=== PATIENT | female | born 1950 | race Caucasian/White ===

== ENCOUNTER 2018-07-02 10:24 | Outpatient (CLI) | payer MEDICARE, MEDICAID, SELFPAY ==
[2018-07-02 11:05] LABS: HGB 12.6 g/dL (12.0-15.5); Mean Corp. HGB Concentration 33.2 g/dL (32.0-36.0); Mean Corpuscular Hemoglobin 28.8 pg (27.0-33.0); Mean Platelet Volume 8.5 fL (8.0-11.0); Platelet Count 378 x1000/uL (130-400); RBC 4.37 m/cumm (4.00-5.20); RBC Distribution Width 14.5 % (11.7-14.6); White Blood Cell Count 6.91 k/cumm (4.4-10.8)
[2018-07-02 13:09] LABS: ALT 20 U/L (12-78); AST 17 U/L (15-37); Albumin 3.3 g/dL (3.4-5.0); Alkaline Phosphatase 98 U/L (46-116); Anion Gap 8.7 mmol/L (3-11); BUN 19 mg/dL (7-18); Bilirubin, Total 0.3 mg/dL (0.2-1.0); CO2 28.3 mmol/L (21.0-32.0); Chloride 103 mmol/L (98-107); Cholesterol 224 mg/dL (50-200); Glucose 92 mg/dL (70-100); HDL Cholesterol 72 mg/dL (40-60); LDL CHOLESTEROL 126 mg/dL (<100); Potassium 4.5 mmol/L (3.5-5.1); Sodium 140 mmol/L (136-145); TSH (W/Ref FT4) 4.58 uIU/mL (0.358-3.74); Total Protein 6.6 g/dL (6.4-8.2); Triglyceride 103 mg/dL (30-150)
[2018-07-02 13:50] LABS: FREE T4 0.95 ng/dL (0.76-1.46)
== END 2018-07-02 10:44 ==
PROVIDERS: PCP Nurse Practitioner; Visit Provider Nurse Practitioner
DX: E03.9 Hypothyroidism, unspecified (principal); I10 Essential (primary) hypertension; J44.9 Chronic obstructive pulmonary disease, unspecified
CPT/HCPCS: 36415; 80053; 80061; 83721; 85027; 84439; 84443

== ENCOUNTER 2018-07-28 09:47 | Emergency (ER) | payer MEDICARE, MEDICAID, SELFPAY ==
[2018-07-28 10:00] VITALS: BP 161/80; PULSE 90; RESP 18; TEMP 36.6; O2SAT 99
[2018-07-28 10:16] LABS: Bilirubin Negative (Negative); Blood Negative (Negative); Clarity Clear; Glucose Negative (Negative); Ketones Negative (Negative); Leukocyte Esterase Small (Negative); Nitrite Negative (Negative); Urobilinogen 0.2 EU/dL (Up TO 0.2)
--- NOTE | 2018-07-28 10:27 | ED.GENADUL_ITS ---
Discharge Plan Disposition Patient Disposition: HOME Condition: Stable Discharge Details Chief Complaint: Abd Prob Clinical Impression: UTI (urinary tract infection), Side pain Primary Care Provider: Kristine Carter ED Provider: Nasra Capps Home Meds and New Rx's Prescriptions: New cephalexin [Keflex] 500 mg capsule 500 mg PO BID 7 Days Qty: 14 RF: 0 Continued bupropion HCl 300 mg tablet extended release 24 hr 300 mg PO QAM Qty: 90 RF: 3 Systane Ultra 0.4-0.3 % drops 1 drp OP DAILY PRNRF: 0 EasiVent Mask Large 1 EACH device 1 ea Miscellaneous DIRECTED Qty: 1 RF: 0 albuterol sulfate [ProAir HFA] 8.5 GM HFA aerosol inhaler 2 puff Inhalation Q4H PRN Qty: 1 RF: 6 omeprazole 40 MG capsule,delayed release(DR/EC) 40 mg PO DAILY Qty: 90 RF: 4 Pulmicort Flexhaler 180 MCG aerosol powdr breath activated 180 mcg Inhalation BID Qty: 3 RF: 3 Bevespi Aerosphere 9-4.8 mcg HFA aerosol inhaler 2 puff IH BID RF: 0 levothyroxine 50 mcg tablet 50 mcg PO DAILY Qty: 90 RF: 3 Discharge Instructions Instructions: Urinary Tract Infection in Women (ED), Flank Pain (ED) Additional Instructions: Drink plenty of fluids and get plenty of rest. Take Tylenol as needed and directed for pain. Continue your omeprazole. Take your antibiotics until finished. Follow-up with your primary care doctor in 1 week for reevaluation and for referral to surgery if your pain persists for consideration for repeat EGD for your peptic ulcer disease. Return immediately to the emergency department any worsening or new concerning symptoms. Discharge Data Discharge Date/Time-TO BE ENTERED AT DEPARTURE: 07/28/18 13:20 Discharge Physician: Nasra Capps Medical Decision Making 68yo F w/ a h/o OA, COPD, depression, GERD, HTN, HLD, IBS, Thiago's esophagus w/ RUQ abdominal with radiation to R flank x 2 weeks and stinky and dark urine x 2 months. Vitals within normal limits. No RUQ abdominal tenderness to palpation but with tenderness of the right upper quadrant, reproduces right flank pain. The remainder of her abdomen is soft and nontender. Differential diagnosis includes cholelithiasis, cholecystitis, appendicitis, UTI, pyelonephritis. Will place an IV, bolus IV fluids, labs, urinalysis and CT abdomen and pelvis. Patient declined any medication for pain. 1300 -- labs and imaging reviewed. Normal white blood cell count, electrolytes, negative troponin. Urinalysis notes greater than 50 WBCs, moderate bacteria, small leukocyte esterase, urine culture sent. CT no acute abdominal findings. On reexamination of abdomen, patient has pain with movement and tenderness to palpation in her right lateral abdomen. Discussed with patient that this appears likely musculoskeletal, but other differential diagnoses include shingles. She is instructed to f/u with her pcp in 1 week for re-evaluation and for referral to surgery for re-evaluation and for another EGD to r/o PUD if pain persists. Will give a dose of Keflex here and sent home with prescription. Patient was able to drink water and eat crackers and had no complaints of nausea or vomiting and feels good to go home. She was instructed to return here immediately with a ny worsening or new concerning symptoms. Medical Records Medical records reviewed: Yes I reviewed the patient's medical records. Lab Data Lab results reviewed: Yes I reviewed the patient's lab results. 07/28/18 10:01 Urine - Reflex from Ua Urine Culture - Pending Laboratory Tests Range/Units 07/28/18 07/28/18 07/28/18 10:01 10:49 10:49 WBC (4.4-10.8) k/cumm RBC (4.00-5.20) m/cumm Hgb (12.0-15.5) g/dL Hct (36.0-46.0) % MCV (80-95) fL MCH (27.0-33.0) pg MCHC (32.0-36.0) g/dL RDW (11.7-14.6) % Plt Count (130-400) x1000/uL MPV (8.0-11.0) fL Immature Gran % Neutrophils % Lymphocytes % Monocytes % Eosinophils % Basophils % Absolute Neutrophils (1.2-6.7) k/cumm Absolute Lymphocytes (1.2-3.4) k/cumm Absolute Monocytes (0.11-0.7) k/cumm Absolute Eosinophils (0.0-0.7) k/cumm Absolute Basophils (0.0-0.2) k/cumm Sodium (136-145) mmol/L 138 Potassium (3.5-5.1) mmol/L 4.0 Chloride (98-107) mmol/L 101 Carbon Dioxide (21.0-32.0) mmol/L 27.9 Anion Gap (3-11) mmol/L 9.1 BUN (7-18) mg/dL 14 Creatinine (0.55-1.02) mg/dL 0.92 Estimated GFR/1.73 m2 (mL/min/1.73m2) >= 60.00 Glucose (70-100) mg/dL 93 Calcium (8.5-10.1) mg/dL 9.1 Magnesium (1.8-2.4) mg/dL 1.8 Total Bilirubin (0.2-1.0) mg/dL 0.4 AST (15-37) U/L 18 ALT (12-78) U/L 21 Alkaline Phosphatase (46-116) U/L 108 Troponin I (0.00-0.06) ng/mL 0.02 Total Protein (6.4-8.2) g/dL 7.2 Albumin (3.4-5.0) g/dL 3.5 Lipase (73-393) U/L 155 Urine Color (Yellow) Yellow Urine Clarity Clear Urine pH (5-8) 7.0 Ur Specific [place] (1.005-1.025) 1.010 Urine Protein (Negative) mg/dL Negative Urine Ketones (Negative) mg/dL Negative Urine Blood (Negative) Negative Urine Nitrite (Negative) Negative Urine Bilirubin (Negative) Negative Urine Urobilinogen (Up TO 0.2) EU/dL 0.2 Ur Leukocyte Esterase (Negative) Small H Urine RBC (0-2) Negative Urine WBC (0-5) HPF >50 Ur Epithelial Cells (Negative) HPF Rare Urine Crystals (Negative) HPF Negative Urine Bacteria (Negative) HPF Moderate Urine Mucus (Negative) Trace Urine Other (Negative) Few renal Ur Culture Indicated? Yes Urine Glucose (Negative) mg/dL Negative Range/Units 07/28/18 10:49 WBC (4.4-10.8) k/cumm 7.31 RBC (4.00-5.20) m/cumm 4.64 Hgb (12.0-15.5) g/dL 13.2 Hct (36.0-46.0) % 39.9 MCV (80-95) fL 86.0 MCH (27.0-33.0) pg 28.4 MCHC (32.0-36.0) g/dL 33.1 RDW (11.7-14.6) % 14.1 Plt Count (130-400) x1000/uL 422 H MPV (8.0-11.0) fL 8.5 Immature Gran % 0.3 Neutrophils % 67.2 Lymphocytes % 21.5 Monocytes % 6.3 Eosinophils % 4.2 Basophils % 0.5 Absolute Neutrophils (1.2-6.7) k/cumm 4.91 Absolute Lymphocytes (1.2-3.4) k/cumm 1.57 Absolute Monocytes (0.11-0.7) k/cumm 0.46 Absolute Eosinophils (0.0-0.7) k/cumm 0.31 Absolute Basophils (0.0-0.2) k/cumm 0.04 Sodium (136-145) mmol/L Potassium (3.5-5.1) mmol/L Chloride (98-107) mmol/L Carbon Dioxide (21.0-32.0) mmol/L Anion Gap (3-11) mmol/L BUN (7-18) mg/dL Creatinine (0.55-1.02) mg/dL Estimated GFR/1.73 m2 (mL/min/1.73m2) Glucose (70-100) mg/dL Calcium (8.5-10.1) mg/dL Magnesium (1.8-2.4) mg/dL Total Bilirubin (0.2-1.0) mg/dL AST (15-37) U/L ALT (12-78) U/L Alkaline Phosphatase (46-116) U/L Troponin I (0.00-0.06) ng/mL Total Protein (6.4-8.2) g/dL Albumin (3.4-5.0) g/dL Lipase (73-393) U/L Urine Color (Yellow) Urine Clarity Urine pH (5-8) Ur Specific [place] (1.005-1.025) Urine Protein (Negative) mg/dL Urine Ketones (Negative) mg/dL Urine Blood (Negative) Urine Nitrite (Negative) Urine Bilirubin (Negative) Urine Urobilinogen (Up TO 0.2) EU/dL Ur Leukocyte Esterase (Negative) Urine RBC (0-2) Urine WBC (0-5) HPF Ur Epithelial Cells (Negative) HPF Urine Crystals (Negative) HPF Urine Bacteria (Negative) HPF Urine Mucus (Negative) Urine Other (Negative) Ur Culture Indicated? Urine Glucose (Negative) mg/dL HPI General Mode of arrival: ambulatory . Date/Time Provider Initiated Documentation: 07/28/18 10:06 . Limitations to Documentation: no limitations . Information obtained by: patient . HPI Narrative: Pt is a 68yo F with a history of COPD, depression, GERD, hypertension, IBS and Edouard's esophagus who presents with right upper quadrant and right flank pain for the past 2 weeks. Patient states the pain radiates to her right upper quadrant and down to her right flank. She states the pain is constant, sharp and worse with any movement or eating. She denies any known injury. She states the pain feels like a burning fire sensation. She does admit to a history of a peptic ulcer found on EGD 4 years ago for which she takes omeprazole. She does also admit to stinky urine for the past 2 months. She denies any dysuria, hematuria, urinary frequency or hesitancy. Related Data Home Medications Medication Instructions Recorded Confirmed EasiVent Mask Large #1 ea 09/01/13 06/29/18 albuterol sulfate [ProAir HFA] 2 puff INHALATION Q4H PRN #1 11/12/17 07/28/18 inhaler Pulmicort Flexhaler 180 mcg INHALATION BID #3 inhaler 11/16/17 07/28/18 omeprazole 40 mg PO DAILY #90 tab-cap 11/16/17 07/28/18 glycopyrrolate 9 mcg-formoterol 2 puff IH BID 02/09/18 07/28/18 4.8 mcg HFA aerosol inhaler peg 400-propylene glycol 0.4 %-0.3 1 drp OP DAILY PRN 03/31/18 07/28/18 % eye drops bupropion HCl XL 300 mg 24 hr 300 mg PO QAM #90 tab 06/29/18 07/28/18 tablet, extended release levothyroxine 50 mcg tablet 50 mcg PO DAILY #90 tab 07/05/18 07/28/18 cephalexin [Keflex] 500 mg PO BID 7 Days #14 cap 07/28/18 Previous Rx's Medication Instructions Recorded albuterol sulfate [ProAir HFA] 2 puff INHALATION Q4H PRN #1 11/12/17 inhaler Pulmicort Flexhaler 180 mcg INHALATION BID #3 inhaler 11/16/17 omeprazole 40 mg PO DAILY #90 tab-cap 11/16/17 bupropion HCl XL 300 mg 24 hr 300 mg PO QAM #90 tab 06/29/18 tablet, extended release levothyroxine 50 mcg tablet 50 mcg PO DAILY #90 tab 07/05/18 cephalexin [Keflex] 500 mg PO BID 7 Days #14 cap 07/28/18 Allergies Allergy/AdvReac Type Severity Reaction Status Date / Time tramadol Allergy Severe ITCHING, Unverified 07/28/18 10:01 GI UPSET hydrocodone bitartrate Allergy Intermediate RASH, Unverified 07/28/18 10:01 [From Vicodin] ITCHING desipramine AdvReac Intermediate PALPITATION Unverified 07/28/18 10:01 S fluticasone propionate AdvReac Intermediate COUGH Unverified 07/28/18 10:01 [From Advair Diskus] pregabalin [From Lyrica] AdvReac Intermediate CONFUSION Unverified 07/28/18 10:01 salmeterol xinafoate AdvReac Intermediate COUGH Unverified 07/28/18 10:01 [From Advair Diskus] methylprednisolone sodium AdvReac Mild Agitation Unverified 07/28/18 10:01 succinate [From Solu-Medrol] paroxetine HCl [From Paxil] AdvReac Mild JITTERY Unverified 07/28/18 10:01 sertraline HCl [From Zoloft] AdvReac Mild JITTERY Unverified 07/28/18 10:01 omeprazole AdvReac Unknown GI UPSET Unverified 07/28/18 10:01 acetaminophen AdvReac nausea, Unverified 07/28/18 10:01 vomiting General Stated Complaint: Abd Prob NATY: 3 Review of Systems Review of Systems All systems reviewed & are unremarkable except as noted in HPI and below Constitutional Reports as per HPI, Denies chills and Denies fever(s) Eyes Denies blurry vision ENT Denies dizziness, Denies sore throat and Denies throat swelling Cardiovascular Denies chest pain and Denies dyspnea Respiratory Denies cough and Denies dyspnea Gastrointestinal Reports abdominal pain, Denies diarrhea and Reports vomiting Genitourinary Denies hematuria, Denies urinary frequency, Denies dysuria, Denies urinary incontinence, Denies urinary hesitancy, Denies urinary urgency and Reports other Musculoskeletal Denies back pain and Denies numbness Integumentary/Breasts Denies lesions and Denies rash Neurologic Denies dizziness, Denies focal weakness and Denies numbness Allergic/Immunologic Denies throat swelling [facility] Medical History Edouard esophagus COPD (chronic obstructive pulmonary disease) Depression Diverticulitis HTN (hypertension) Hypothyroidism Irritable colon Osteoarthritis Sialoadenitis Surgical History Arthroscopy, Shoulder Colectomy Colonoscopy - MAC (09/24/16) EGD - IV Sedation EGD - MAC (09/24/16) Extraction of cataract Elyssa Fundoplication (~1995) Open Carpal Tunnel release (~1985) Replacement of total knee joint (~2004) Family History Mother Diabetes Essential hypertension Personal history of malignant neoplasm Hyperlipidemia Asthma Father Essential hypertension Personal history of malignant neoplasm Heart disease Hyperlipidemia Sister Drug abuse Essential hypertension COPD (chronic obstructive pulmonary disease) Depression Heart disease Hyperlipidemia Asthma Grandfather Essential hypertension Personal history of malignant neoplasm Heart disease Hyperlipidemia Stroke Grandfather Alcohol abuse Heart disease Stroke Grandmother Essential hypertension Personal history of malignant neoplasm Hyperlipidemia Grandmother Alcohol abuse Personal history of malignant neoplasm Heart disease Son Depression Heart disease Asthma Son Alcohol abuse Essential hypertension Depression Daughter Essential hypertension Asthma Daughter Essential hypertension Depression Hyperlipidemia Social History lives independently: Yes number of children: 4 highest education level completed: high school graduate service: No current occupational status: retired and disabled pets and animals: Yes pets and animals: cat(s) and dog(s) current gender identity: female what type of physical activity do you participate in: walking frequency: daily Smoking and Tabacco status: Former Tobacco Use alcohol intake: current alcohol intake frequency: a few times a month substance use type: does not use Seatbelt use: always water heater temp set < 120 deg: Yes working smoke detector in home: Yes fire extinguisher in home: Yes carbon monox detector in home: Yes firearms in home: Yes firearms unloaded and locked: Yes Exam Const General: cooperative, healthy appearing and no acute distress HENMT Head: normal to inspection Face and sinus: normal facial exam Eyes General: appearance normal, both eyes and all related structures EOM: EOM intact bilaterally Neck Neck: normal visual inspection and No submandibular swelling Lymphatic: no lymphadenopathy noted Chest Chest: normal inspection of the chest and no tenderness Resp Effort & Inspection: normal respiratory effort and able to speak in complete sentences Auscultation: clear to auscultation bilaterally Cardio Rate: regular rate Rhythm: regular rhythm GI Inspection: normal to inspection Palpation: soft, not firm, not rigid and tender (palpation of RUQ reproduces pain in R flank. No RUQ tenderness) not at McBurney's point Auscultation: normal bowel sounds Back/Spine/Pelvis Back: no CVA tenderness Thoracic/Lumbar Spine: thoracic and lumbar spine normal to inspection Skin General skin exam: no rashes or lesions noted Neuro General: alert, awake and oriented x3 Cognition: normal cognition Speech: speech normal Motor: muscle tone normal throughout Sensory Exam: no sensory deficits noted Extrem General: normal to inspection, full ROM, normal capillary refill, no calf tenderness bilaterally and no edema Psych Appearance: grossly normal Mental Status: mental status grossly normal Speech and Movement: speech and movement normal Affect: normal affect Course Vital Signs Temperature 98 F 07/28/18 10:00 Pulse 90 07/28/18 10:00 Respiratory Rate 18 07/28/18 10:00 Blood Pressure 161/80 H 07/28/18 10:00 Pulse Oximetry 99 07/28/18 10:00 Temperature 98 F 07/28/18 10:00 Temperature Source Skin 07/28/18 10:00 Pulse 90 07/28/18 10:00 Respiratory Rate 18 07/28/18 10:00 Blood Pressure 161/80 H 07/28/18 10:00 Pulse Oximetry 99 07/28/18 10:00 Oxygen Delivery Method Room Air 07/28/18 10:00 Oxygen Flow Rate 0 07/28/18 10:00 Pain Level 4 07/28/18 10:00 Lab/Test Results Lab/Test Results: Laboratory Tests Range/Units 07/28/18 10:01 Urine Color (Yellow) Yellow Urine Clarity Clear Urine pH (5-8) 7.0 Ur Specific [place] (1.005-1.025) 1.010 Urine Protein (Negative) mg/dL Negative Urine Ketones (Negative) mg/dL Negative Urine Blood (Negative) Negative Urine Nitrite (Negative) Negative Urine Bilirubin (Negative) Negative Urine Urobilinogen (Up TO 0.2) EU/dL 0.2 Ur Leukocyte Esterase (Negative) Small H Urine Glucose (Negative) mg/dL Negative
[2018-07-28 10:28] LABS: RBC Negative (0-2); WBC >50 HPF (0-5)
[2018-07-28 10:29] LABS: Bacteria Moderate HPF (Negative); C & S Indicated? Yes; Crystals Negative HPF (Negative); Epithelial Cells Rare HPF (Negative); Mucus Trace (Negative); Other Cells Few Renal (Negative)
[2018-07-28] MEDS: Normal Saline 250 ML 500 ML IV (10:30)
[2018-07-28 10:57] LABS: Abs Immature Grans 0.02 k/cumm (0.0-0.09); Absolute Basophil Count 0.04 k/cumm (0.0-0.2); Absolute Eosinophil Count 0.31 k/cumm (0.0-0.7); Absolute Lymphocyte Count 1.57 k/cumm (1.2-3.4); Absolute Monocyte Count 0.46 k/cumm (0.11-0.7); Absolute Neutrophil Count 4.91 k/cumm (1.2-6.7); Basophils % 0.5; Eosinophils % 4.2; HCT 39.9 % (36.0-46.0); HGB 13.2 g/dL (12.0-15.5); Immature Grans % 0.3; Lymphocytes % 21.5; Mean Corp. HGB Concentration 33.1 g/dL (32.0-36.0); Mean Corpuscular Hemoglobin 28.4 pg (27.0-33.0); Mean Platelet Volume 8.5 fL (8.0-11.0); Monocytes % 6.3; Neutrophils % 67.2; Platelet Count 422 x1000/uL (130-400); RBC 4.64 m/cumm (4.00-5.20); RBC Distribution Width 14.1 % (11.7-14.6); White Blood Cell Count 7.31 k/cumm (4.4-10.8)
[2018-07-28 11:06] LABS: Lipase 155 U/L (73-393); Magnesium 1.8 mg/dL (1.8-2.4)
[2018-07-28 11:14] LABS: ALT 21 U/L (12-78); AST 18 U/L (15-37); Albumin 3.5 g/dL (3.4-5.0); Alkaline Phosphatase 108 U/L (46-116); Anion Gap 9.1 mmol/L (3-11); BUN 14 mg/dL (7-18); Bilirubin, Total 0.4 mg/dL (0.2-1.0); CO2 27.9 mmol/L (21.0-32.0); CREATININE 0.92 mg/dL (0.55-1.02); Calcium 9.1 mg/dL (8.5-10.1); Chloride 101 mmol/L (98-107); Glucose 93 mg/dL (70-100); Sodium 138 mmol/L (136-145); Total Protein 7.2 g/dL (6.4-8.2); Troponin I 0.02 ng/mL (0.00-0.06)
[2018-07-28] MEDS: Omnipaque 350 MG/ML 100 ML BTL IJ (12:23)
--- NOTE | 2018-07-28 12:25 | DI.CT_ITS ---
SYMPTOMS/DIAGNOSIS: RUQ ABD PAIN, RT FLANK PAIN CT SCAN OF THE ABDOMEN AND PELVIS: CT scan of the abdomen and pelvis was performed following the uneventful administration of intravenous contrast material. Comparison 07/24/16. There do appear to be emphysematous changes in the lung bases. The liver is normal in size. No suspicious hepatic mass is seen. The portal, superior mesenteric and splenic veins are patent. The gallbladder is negative by CT criteria. There is no biliary ductal dilatation. The pancreas and peripancreatic soft tissues are unremarkable as are the spleen and adrenal glands. The kidneys show normal and symmetric enhancement. No solid renal mass or obstruction. The urinary bladder is intact. The reproductive organs are unremarkable as visualized. There is diverticulosis of the colon but no evidence of acute diverticulitis. A normal appendix is present. Post surgical changes are seen in the region of the rectosigmoid colon and near the gastroesophageal junction. There is atherosclerosis of the abdominal aorta but no aneurysmal dilatation is seen. No significant abdominal or pelvic adenopathy, ascites or pneumoperitoneum is present. Degenerative changes are seen in the spine. IMPRESSION: No evidence of an acute abdomen. Please see the above discussion for complete details. The findings were discussed with Dr. Capps of the emergency department on the date of the examination.
[2018-07-28] MEDS: Cephalexin 500 MG CAP PO (13:08)
[2018-07-28 13:13] VITALS: BP 148/84; PULSE 80; RESP 16; O2SAT 98
[2018-07-28 13:20] VITALS: BP 148/84; PULSE 80; RESP 16; TEMP 36.6; O2SAT 98
== END 2018-07-28 13:20 | disposition home or self-care (01) ==
PROVIDERS: Emergency Provider Physician Assistant; PCP Nurse Practitioner
DX: N39.0 Urinary tract infection, site not specified (principal); R10.9 Unspecified abdominal pain; I10 Essential (primary) hypertension; J44.9 Chronic obstructive pulmonary disease, unspecified; Z87.891 Personal history of nicotine dependence
CPT/HCPCS: 36415; 80053; 83690; 87077; 96360; 96361; 99285; 74177; 81003; 81015; 83735; 84484; 85025; 87086; 87186; 99284; J3490

== ENCOUNTER 2018-08-05 00:35 | Outpatient (CLI) | payer MEDICARE, MEDICAID, SELFPAY ==
--- NOTE | 2018-08-05 10:39 | DI.US_ITS ---
SYMPTOMS/DIAGNOSIS: RUQ PAIN, HX PUD, R10.11 ABDOMINAL ULTRASOUND: Routine examination was performed. Comparison is 08/21/16. Comparison CT scan is 07/28/18. The proximal aorta was not visualized. The visualized portions of the aorta have normal caliber. The proximal IVC could be visualized. The remainder was obscured by overlying bowel. The liver, gallbladder, bile duct, spleen and kidneys are unremarkable. The tail of the pancreas could not be seen. The remainder of the pancreas had a normal appearance. IMPRESSION: Normal abdominal ultrasound.
== END 2018-08-05 00:55 ==
PROVIDERS: PCP Nurse Practitioner; Visit Provider Nurse Practitioner
DX: R10.11 Right upper quadrant pain (principal)
CPT/HCPCS: 76700

== ENCOUNTER 2018-09-14 08:40 | Outpatient (CLI) | payer MEDICARE, MEDICAID, SELFPAY ==
[2018-09-14 10:37] LABS: TSH (W/Ref FT4) 3.12 uIU/mL (0.358-3.74)
== END 2018-09-14 09:00 ==
PROVIDERS: PCP Nurse Practitioner; Visit Provider Nurse Practitioner
DX: E03.9 Hypothyroidism, unspecified (principal)
CPT/HCPCS: 36415; 84443

== ENCOUNTER 2018-11-01 02:27 | Outpatient (CLI) | payer MEDICARE, MEDICAID, SELFPAY ==
[2018-11-01 10:59] LABS: ALT 33 U/L (12-78); AST 20 U/L (15-37); Albumin 3.5 g/dL (3.4-5.0); Alkaline Phosphatase 95 U/L (46-116); Anion Gap 12.8 mmol/L (3-11); BUN 16 mg/dL (7-18); Bilirubin, Total 0.3 mg/dL (0.2-1.0); CO2 25.2 mmol/L (21.0-32.0); CREATININE 0.98 mg/dL (0.55-1.02); Calcium 8.7 mg/dL (8.5-10.1); Chloride 99 mmol/L (98-107); Estimated GFR 56.27 (mL/min/1.73m2); Glucose 105 mg/dL (70-100); Potassium 4.2 mmol/L (3.5-5.1); Sodium 137 mmol/L (136-145)
--- NOTE | 2018-11-19 09:32 | ZIOP_ITS ---
DATE OF DICTATION: November 18, 2018 STUDY INDICATION: Palpitations. REQUESTING PROVIDER: Kristine Carter N.P. FINDINGS: The patient was monitored for 9 days and 23 hours. The predominant underlying rhythm was sinus rhythm. Average heart rate in sinus rhythm 85 bpm, range 61 to 139 bpm. There was rare ectopy. There were 17 atrial runs, average heart rate 154 bpm, range 103 to 140 bpm. There were no pauses greater than three seconds. There was no high-degree heart block. There were 15 patient events. Four events correlated with PAC's. One event correlated with PVC's. All other events did not correlate with arrhythmias. FINAL INTERPRETATION: Rare atrial arrhythmias, asymptomatic.
== END 2018-11-01 02:47 ==
PROVIDERS: PCP Nurse Practitioner; Visit Provider Nurse Practitioner
DX: E03.9 Hypothyroidism, unspecified (principal); I10 Essential (primary) hypertension; R00.2 Palpitations; I49.1 Atrial premature depolarization
CPT/HCPCS: 0296T; 36415; 80053

== ENCOUNTER 2018-11-18 14:16 | Outpatient (CLI) | payer MEDICARE, MEDICAID, SELFPAY | END 2018-11-18 14:36 | PROVIDERS: PCP Nurse Practitioner; Referring Provider Nurse Practitioner; Visit Provider Student in an Organized Health Care Education/Training Program | DX: R00.2 Palpitations (principal); I49.1 Atrial premature depolarization | CPT/HCPCS: 0298T ==

== ENCOUNTER 2019-02-14 08:14 | Outpatient (CLI) | payer MEDICARE, MEDICAID, SELFPAY ==
[2019-02-14 09:29] LABS: C-Reactive Protein 0.52 mg/dL (0.0-0.3)
[2019-02-14 09:39] LABS: ESR 16 mm/hr (0-30)
[2019-02-15 11:10] LABS: Rheumatoid Factor 9 IU/mL (<12.5)
[2019-02-15 14:00] LABS: ANA Interpretation Negative (NEGAT)
== END 2019-02-14 08:34 ==
PROVIDERS: PCP Nurse Practitioner; Visit Provider Nurse Practitioner
DX: M25.50 Pain in unspecified joint (principal)
CPT/HCPCS: 36415; 85652; 86038; 86140; 86431

== ENCOUNTER 2019-04-14 01:13 | Outpatient (CLI) | payer MEDICARE, MEDICAID, SELFPAY ==
--- NOTE | 2019-04-14 11:33 | DI.MAMMO_ITS ---
EXAM: MG MAMMO SCREENING CLINICAL HISTORY: screening Z12.39 TECHNIQUE: Mammograms were interpreted according to the usual protocol including computer analysis w [employer] CAD system, tomosynthesis and C-view imaging. COMPARISON: [id number] FINDINGS: The breasts are composed of fatty density tissue, breast density category A. There are no dominant m asses or microcalcifications. There has been no significant interval change in comparison with the p revious exams. IMPRESSION: Category 1, negative mammogram. Routine yearly screening mammograms are recommended. BI-RADS Cat 1 - Negative Breast Density - Category A - Almost entirely fatty
== END 2019-04-14 01:33 ==
PROVIDERS: PCP Nurse Practitioner; Visit Provider Nurse Practitioner
DX: Z12.31 Encounter for screening mammogram for malignant neoplasm of breast (principal)
CPT/HCPCS: 77063; 77067

== ENCOUNTER 2019-08-11 12:04 | Outpatient (CLI) | payer MEDICARE, MEDICAID, SELFPAY ==
--- NOTE | 2019-08-11 11:30 | DI.RAD_ITS ---
EXAM: XR LUMBAR SPINE COMPLETE CLINICAL HISTORY: pain lt hip, low back pain, M25.552, M54.5. TECHNIQUE: 2D digital imaging was performed. COMPARISON: No exams were available for comparison FINDINGS: BONES: No fracture or destructive lesion. Vertebral bodies are unremarkable. DISKS: There is marked narrowing of the L4-5 and L5-S1 disc spaces. There are small endplate osteoph ytes throughout. Facet degenerative changes are also noted which are most prominent at L4-5, causing mild spondylolisthesis. The remaining disc spaces are suboptimally profiled but a appear relatively well maintained. ALIGNMENT: An upper lumbar dextroscoliosis is seen. SOFT TISSUE: Unremarkable bowel gas pattern. Calcified abdominal aorta which is normal in diameter. IMPRESSION: Degenerative disc changes and facet degenerative changes greatest at L4-5 and L5-S1. Scoliosis.. DATA REPOSITORY: RADIATION DOSE DELIVERED:
--- NOTE | 2019-08-11 12:00 | DI.RAD_ITS ---
EXAM: XR HIP LT COMPLETE AP PELVIS INDICATION: pain lt hip, low back pain, M25.552, M54.5. TECHNIQUE: 2D digital imaging was performed. FINDINGS: There are severe degenerative changes of the left hip joint. There is periarticular sclerosis and s ubchondral cyst formation on both sides of the joint. The findings have worsened when compared with the previous exam. Moderate to severe degenerative changes are also seen in the right hip. There is suture material low in the pelvis. The bowel gas pattern is unremarkable remarkable. IMPRESSION: Severe degenerative changes of the left hip. Moderate degenerative changes of the right hip. DATA REPOSITORY: RADIATION DOSE DELIVERED:
[2019-08-11 12:34] LABS: HCT 40.4 % (36.0-46.0); HGB 13.4 g/dL (12.0-15.5); Mean Corp. HGB Concentration 33.2 g/dL (32.0-36.0); Mean Corpuscular Hemoglobin 28.9 pg (27.0-33.0); Mean Corpuscular Volume 87.1 fL (80-95); Mean Platelet Volume 8.2 fL (8.0-11.0); Platelet Count 467 x1000/uL (130-400); RBC 4.64 m/cumm (4.00-5.20); RBC Distribution Width 14.4 % (11.7-14.6)
[2019-08-11 13:30] LABS: ALT 25 U/L (14-59); AST 20 U/L (15-37); Alkaline Phosphatase 107 U/L (46-116); BUN 15 mg/dL (7-18); Bilirubin, Total 0.4 mg/dL (0.2-1.0); CREATININE 0.88 mg/dL (0.55-1.02); Calcium 9.1 mg/dL (8.5-10.1); Chloride 101 mmol/L (98-107); Glucose 92 mg/dL (74-106); Potassium 4.5 mmol/L (3.5-5.1); Sodium 139 mmol/L (136-145); Total Protein 7.3 g/dL (6.4-8.2)
== END 2019-08-11 12:24 ==
PROVIDERS: PCP Nurse Practitioner; Visit Provider Nurse Practitioner
DX: M25.552 Pain in left hip (principal); M54.5 Low back pain; M51.37 Other intervertebral disc degeneration, lumbosacral region; M47.817 Spondylosis without myelopathy or radiculopathy, lumbosacral region; F32.9 Major depressive disorder, single episode, unspecified; F41.9 Anxiety disorder, unspecified; R42 Dizziness and giddiness; M16.0 Bilateral primary osteoarthritis of hip
CPT/HCPCS: 36415; 80053; 85027; 72110; 73502

== ENCOUNTER → 2019-11-03 09:23 | Outpatient (BNVA) | payer MEDICARE, MEDICAID, SELFPAY | PROVIDERS: PCP Nurse Practitioner; Referring Provider Nurse Practitioner; Visit Provider Student in an Organized Health Care Education/Training Program | DX: M16.12 Unilateral primary osteoarthritis, left hip (principal); J44.9 Chronic obstructive pulmonary disease, unspecified; Z87.891 Personal history of nicotine dependence; I10 Essential (primary) hypertension | CPT/HCPCS: 99203; 99214 ==

== ENCOUNTER 2019-12-02 00:35 | Outpatient (CLI) | payer MEDICARE, MEDICAID, SELFPAY ==
--- NOTE | 2019-12-02 12:33 | DI.CT_ITS ---
EXAM: CT CHEST WO CLINICAL HISTORY: CHRONIC OBSTRUCTIVE LUNG DISEASE, J44.9, ? GIORGI HYPERSENSITIVITY PNEUMONIT. TECHNIQUE: Imaging protocol: Axial computed tomography images were obtained and coronal and sagittal reformatted images were created and reviewed. CONTRAST MATERIAL: Noncontrast COMPARISON: CT NECK AND CHEST WITH CONTRAST from 03/15/2012 CR CHEST 2 VIEWS PA,LAT from 11/12/2017 FINDINGS: Pulmonary parenchyma: No consolidation. There is an 8 millimeter area of scarring in the medial rig ht upper lobe., unchanged. An adjacent smaller area scarring or nodularity is seen. Emphysema: Forced severe underlying emphysematous changes, greater in the upper lobes. Multiple cyst ic areas are noted at the posterior right lung base.. Tracheobronchial tree: Patent. Interstitial changes: There are mild peripheral increased interstitial changes.. Pleura: No effusion or pneumothorax. Heart: The heart is not dilated. The coronary arteries show mildcalcifications. Aorta: Thoracic aorta non-dilated. [id number] significantatherosclerotic changes. Lymph nodes: Within normal limits. Bones: Severe degenerative changes are seen. No evidence of compression fracture. Upper abdomen: Surgical clips near the GE junction, otherwise unremarkable. IMPRESSION: Severe emphysematous changes. Posterior cystic changes and mild fibrotic changes. No evidence acute infiltrate or pneumonitis. RADIATION DOSE DELIVERED: Total DLP Total DLP DATA REPOSITORY: All CT scans at this facility are submitted to the National Radiology Data Registry (NRDR) Dose Index Registry (DIR) with the [employer] (A[employer]). RADIATION OPTIMIZATION: All CT scans at this facility use at least one of these dose optimization te chniques: automated exposure control; mA and/or kV adjustment per patient size (includes targeted exa ms where dose is matched to clinical indication); or iterative reconstruction.
== END 2019-12-02 00:55 ==
PROVIDERS: PCP Nurse Practitioner; Visit Provider Internal Medicine
DX: J44.9 Chronic obstructive pulmonary disease, unspecified (principal); J43.8 Other emphysema; J84.10 Pulmonary fibrosis, unspecified
CPT/HCPCS: 71250

== ENCOUNTER 2019-12-02 01:14 | Outpatient (CLI) | payer MEDICARE, MEDICAID, SELFPAY ==
[2019-12-21 12:41] LABS: Cockatiel Negative (Negative); Parakeet Negative (Negative); Parrot Negative (Negative); Pigeon DE Negative (Negative)
[2019-12-21 12:43] LABS: Pigeon Sera Negative (Negative)
== END 2019-12-02 01:34 ==
PROVIDERS: PCP Nurse Practitioner; Visit Provider Internal Medicine
DX: J44.9 Chronic obstructive pulmonary disease, unspecified (principal); J84.10 Pulmonary fibrosis, unspecified
CPT/HCPCS: 36415; 71250; 86331; 86606

== ENCOUNTER → 2019-12-22 11:46 | Outpatient (BNVA) | payer MEDICARE, MEDICAID, SELFPAY | PROVIDERS: PCP Nurse Practitioner; Referring Provider Nurse Practitioner; Visit Provider Student in an Organized Health Care Education/Training Program | DX: M16.12 Unilateral primary osteoarthritis, left hip (principal) | CPT/HCPCS: 99213 ==

== ENCOUNTER 2020-01-10 13:28 | Outpatient (CLI) | payer MEDICARE, MEDICAID, SELFPAY ==
--- NOTE | 2020-01-10 13:00 | DI.RAD_ITS ---
EXAM: XR PELVIS AP CLINICAL HISTORY: OA L hip. TECHNIQUE: 2D digital imaging was performed. COMPARISON: CR XR HIP LT COMPLETE AP PELVIS from 08/11/2019 FINDINGS: There are again seen severe degenerative changes of the left hip characterized by joint space narrowi ng, subchondral sclerosis and cysts. Moderate degenerative changes are seen in the right hip. No ac malina fracture or dislocation. The bones are normally mineralized. The soft tissues are unremarkable. IMPRESSION: Severe degenerative changes of the left hip. DATA REPOSITORY: RADIATION DOSE DELIVERED:
== END 2020-01-10 13:48 ==
PROVIDERS: PCP Nurse Practitioner; Referring Provider Nurse Practitioner; Visit Provider Physician Assistant
DX: M16.12 Unilateral primary osteoarthritis, left hip (principal); Z01.818 Encounter for other preprocedural examination; J44.9 Chronic obstructive pulmonary disease, unspecified
CPT/HCPCS: 72170

== ENCOUNTER 2020-01-13 07:51 | Outpatient (CLI) | payer MEDICARE, MEDICAID, SELFPAY ==
[2020-01-14 17:29] LABS: COVID-19 RT-PCR Result NEGATIVE (Negative)
== END 2020-01-13 08:11 ==
PROVIDERS: PCP Nurse Practitioner; Visit Provider Family Medicine
DX: Z11.59 Encounter for screening for other viral diseases (principal); Z01.818 Encounter for other preprocedural examination
CPT/HCPCS: U0003

== ENCOUNTER 2020-01-16 02:41 | Outpatient (CLI) | payer MEDICARE, MEDICAID, SELFPAY ==
[2020-01-16] MEDS: Inhaler, Assist Device 1 EACH MC (09:08)
[2020-01-16] MEDS: Albuterol HFA 18 GM 200 PUFF INH IH (09:08)
--- NOTE | 2020-01-16 14:30 | W.PFT ---
Date of service: 01/16/20 Time of Service: 08:00 Pulmonary Function Test Result Interpretation Spirometry: Shows mild obstructive airways disease with no significant bronchodilator response Lung Volumes: No evidence of restriction Diffusion Capacity: Moderately reduced even when corrected to alveolar volume Airway Pressure: Elevated Impression Mild obstructive airways disease with no significant bronchodilator response, this is associated with moderate diffusion defect. When the study was compared to previous one from 11/19/2007, the patient has a 470 cc decline in FVC, and a 380 cc decline in FEV1. Diffusion capacity also has declined Clinical Correlation therefore is recommended.
== END 2020-01-16 03:01 ==
PROVIDERS: PCP Nurse Practitioner; Visit Provider Internal Medicine
DX: J44.9 Chronic obstructive pulmonary disease, unspecified (principal); Z01.811 Encounter for preprocedural respiratory examination
CPT/HCPCS: 94060; 94726; 94729

== ENCOUNTER 2020-01-20 01:38 | Outpatient (CLI) | payer MEDICARE, MEDICAID, SELFPAY ==
[2020-01-20 10:13] LABS: HCT 37.9 % (36.0-46.0); HGB 12.5 g/dL (11.2-15.7); MCH 28.5 pg (27.0-33.0); MCV 86.5 fL (80-95); MPV 8.2 fL (8.0-11.0); Platelet Count 398 10^3/uL (130-400); RBC 4.38 10^6/uL (3.93-5.22); RDW 14.6 % (11.7-14.6); RDW-SD 46.3 fL; WBC 6.99 10^3/uL (4.4-10.8)
[2020-01-20 11:11] LABS: Anion Gap 9.4 mmol/L (3-11); BUN 12 mg/dL (7-18); CO2 25.6 mmol/L (21.0-32.0); CREATININE 0.83 mg/dL (0.55-1.02); Chloride 103 mmol/L (98-107); Glucose 100 mg/dL (74-106); Potassium 4.3 mmol/L (3.5-5.1); Sodium 138 mmol/L (136-145)
[2020-01-21 14:40] LABS: COVID-19 RT-PCR Result NEGATIVE (Negative)
== END 2020-01-20 01:58 ==
PROVIDERS: PCP Nurse Practitioner; Visit Provider Student in an Organized Health Care Education/Training Program
DX: M25.552 Pain in left hip (principal); M16.12 Unilateral primary osteoarthritis, left hip; Z11.59 Encounter for screening for other viral diseases; Z01.818 Encounter for other preprocedural examination; Z01.812 Encounter for preprocedural laboratory examination
CPT/HCPCS: 36415; 80048; 85027; 86850; 86900; 86901; U0003

== ENCOUNTER 2020-01-24 06:02 | Observation (INO) | payer MEDICARE, MEDICAID, SELFPAY ==
[2020-01-24] VITALS (9 sets, daily range): BP systolic 110–127; BP diastolic 46–104; PULSE 72–93; RESP 14–24; TEMP 36.1–36.6; O2SAT 94–97
[2020-01-24] MEDS: Celecoxib 200 MG CAP 400 MG PO (06:37)
[2020-01-24] MEDS: Lactated Ringers 1,000 ML 80 ML IV ×2 (06:37→10:36)
[2020-01-24] MEDS: ceFAZolin 2 GM/50 ML BAG IVPB (07:30)
--- NOTE | 2020-01-24 07:40 | DSE_ITS ---
Date of service: 01/24/20 Time of Service: 14:53 DS: Diagnosis Discharge Diagnosis (1) Osteoarthritis of left hip: Status: Acute Discharge Plan Disposition Patient Disposition: HOME Condition: Good Discharge Details Reason For Visit: LEFT HIP DJD Admit Date/Time: 01/24/20 06:02 Admit Provider: Carlos Dejesus Attending Provider: Carlos Dejesus Primary Care Provider: Kristine Carter Hospital Course Hospital Course: Patient was admitted to the medical/surgical floor following the procedure. The surgery was tolerated well without any notable medical, surgical, or anesthetic complications. Mobilization began postoperatively. She was voiding spontaneously. Vitals were stable. Physical therapy worked with the patient and was cleared for discharge home. No acute medical issues. Pain was controlled on oral regimen. Home Meds and New Rx's Prescriptions: New aspirin 81 mg tablet,delayed release (DR/EC) 81 mg PO BID Qty: 60 RF: 0 acetaminophen 500 mg tablet 1,000 mg PO Q8H PRN (Reason: pain) Qty: 90 RF: 3 docusate sodium [Colace] 100 mg capsule 100 mg PO BID PRNQty: 10 RF: 0 oxycodone 5 mg tablet 2.5 - 5 mg PO Q4H Qty: 12 RF: 0 naproxen 500 mg tablet 500 mg PO BID PRNQty: 60 RF: 0 Continued meclizine 25 mg tablet 25 mg PO TID PRN (Reason: dizziness) Qty: 21 RF: 0 fluticasone propionate 50 mcg/actuation spray,suspension 2 spray AISLINN DAILY Qty: 18.2 RF: 5 omeprazole 40 mg capsule,delayed release(DR/EC) 40 mg PO DAILY Qty: 90 RF: 3 Systane Ultra 0.4-0.3 % drops 1 drp OP DAILY PRNRF: 0 loratadine 10 mg tablet 10 mg PO DAILY PRN (Reason: allergy symptoms) RF: 0 Metamucil 3.4 gram/5.4 gram powder 1 tbs PO DAILY RF: 0 Century Ultimate Women's 18-400 mg-mcg tablet 1 tab PO DAILY RF: 0 (DME) EasiVent Mask Large 1 EACH device 1 ea Miscellaneous DIRECTED Qty: 1 RF: 0 bupropion HCl 300 mg tablet extended release 24 hr 300 mg PO QAM Qty: 90 RF: 3 levothyroxine 50 mcg tablet 50 mcg PO DAILY Qty: 90 RF: 3 Stiolto Respimat 2.5-2.5 mcg/actuation mist 2 puff IH DAILY RF: 0 triamcinolone acetonide 55 mcg aerosol,spray 1 spray AISLINN BID RF: 0 Discharge Instructions Additional Instructions: Dr. Dejesus's Total Hip Discharge Instructions Activity: The most important activity is to walk. You should try to take short walks a few times a day. You have no restrictions on movement or positioning, but do not try to force what you do. You will find some stiffness and weakness with hip flexion (lifting your knee). Do not try to strengthen this too early, continue to practice walking and stairs and this will come. - Outpatient physical therapy can be helpful to help return you to a normal gait and improve your flexibility and strength. This can start around 2 weeks. For most patients, it?s not necessary. Usually this is determined at the time of discharge or at the first post-operative visit. - You should wear the NESTOR hose on both legs for 2 weeks. You may remove those at night. These prevent blood pooling and swelling. Dressing: Keep the surgical dressing in place for at least one week, although it may stay in place untill follow-up. It may get wet after 3 days but avoid soaking the dressing. If it gets wet, just lightly pat dry. Most people prefer to cover the dressing with some ClingWrap, Saran Wrap, to keep it dry. After the first week it may be removed if desired and then replaced with light gauze and tape or nothing. It is important to always keep some gauze or the dressing between skin folds, especially when you are sitting, so the incision is not folded over on itself at the belly fold. Medications: - You should take Tylenol and an anti-inflammatory, Naproxen, as your primary pain control medications. - You have been prescribed a stronger pain medication Oxycodone for breakthrough pain, take as needed as prescribed. - You should continue your stomach acid reduction agent, Omeprazole, to help reduce stomach acid and reflux. - You will be taking Aspirin 81mg twice a day for DVT prevention unless instructed otherwise. - If you have constipation you should take Colace or Miralax (both [id number]). It takes most people 3-4 days to have a bowel movement. Follow-up: 2 weeks. If you have any acute concerns or questions, please do not hesitate to contact the office at [phone]. You may contact Dr. Dejesus with any questions after hours through the hospital at [phone] or on his cell phone at [phone]. Stand Alone Forms: Nursing Discharge Form Referrals: Carlos Dejesus MD [ [facility] STAFF PHYSICIAN] - 02/09/20 3:00 pm Activity:: Activity as Tolerated Equipment/Supplies:: Walker Diet:: As Tolerated Discharge Orders Discharge Orders: Discharge Order (Routine); Ordered 01/24/20 Ordered By: Carlos Dejesus DS: Summary Status at Discharge Functional status at discharge: uses cane/walker Overall status at discharge: patient is progressing back to baseline Mental Status: mental status grossly normal Speech and Movement: speech and movement normal Mood: congruent mood Affect: normal affect Exam Psych Mental Status: mental status grossly normal Speech and Movement: speech and movement normal Mood: congruent mood Affect: normal affect DS: Data Vitals/I&O Vitals and I&O: Vital Signs Temperature 36.5 C 01/24/20 06:23 Pulse 84 01/24/20 06:23 Pulse Rhythm Regular 01/24/20 06:23 Respiratory Rate 18 01/24/20 06:23 Respiratory Effort 01/24/20 06:23 Respiratory Depth Normal 01/24/20 06:23 Blood Pressure 125/71 01/24/20 06:23 Pulse Oximetry 97 01/24/20 06:23 Oxygen Delivery Method Room Air 01/24/20 06:23 Oxygen Flow Rate 0 01/24/20 06:23 Intake & Output 01/23/20 01/23/20 01/24/20 11:59 23:59 11:59 Weight 61.3 kg [facility] Medical History 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 COPD (chronic obstructive pulmonary disease) Emphysema Depression Depressive disorder (Chronic) fatigue Diverticulitis HTN (hypertension) Hx of chest pain (Acute) Pt. states her chest pain was related to her stomach issues, and has not had any cardiac issues currently, and does not see a telecommunications cable jointer. Hypothyroidism Irritable colon Osteoarthritis Sialoadenitis Surgical History Arthroscopy, Shoulder right; acromioplasty Colectomy 04/25/14 Colonoscopy - MAC (09/24/16) EGD - IV Sedation 2014 EGD - MAC (09/24/16) Extraction of cataract H/O surgical procedure (Inactive) a. total abdominal hysterectomy-bso b. exploratory laparotomy for reoval of ovaries c. knee replacements d. sigmoid resection 04/25/2014 e. right shoulder acromioplasty f. Elyssa fundoplication 1995 g. bilateral open carpal tunnel release 1985 History of bilateral knee replacement (Acute) History of bilateral salpingo-oophorectomy (Inactive 05/18/14) History of hysterectomy (Inactive 05/18/14) Elyssa Fundoplication (~1995) Open Carpal Tunnel release (~1985) B/L Replacement of total knee joint (~2004) B/L Family History Mother Diabetes Essential hypertension Personal history of malignant neoplasm LUNG Hyperlipidemia Asthma Father Essential hypertension Personal history of malignant neoplasm THROAT Heart disease Hyperlipidemia Sister Drug abuse Essential hypertension COPD (chronic obstructive pulmonary disease) Depression Heart disease Hyperlipidemia Asthma Grandfather Essential hypertension Personal history of malignant neoplasm Heart disease Hyperlipidemia Stroke Grandfather , UNKNOWN Alcohol abuse Heart disease Stroke Grandmother Essential hypertension Personal history of malignant neoplasm Hyperlipidemia Grandmother Alcohol abuse Personal history of malignant neoplasm Heart disease Son Depression Heart disease Asthma Son Alcohol abuse Essential hypertension Depression Daughter Essential hypertension Asthma Daughter Essential hypertension Depression Hyperlipidemia Social History Smoking/Tobacco Use Status: Former Tobacco Use Alcohol Intake: current Alcohol Intake frequency: a few times a month Drug use: Never Substance use type: does not use Number of Children: 4 Pets and animals: Yes Pets and animals: cat(s) and dog(s) Current gender identity: female What type of physical activity do you participate in: walking Frequency: daily Seatbelt use: always Water heater temp set <120 deg: Yes Working smoke detector in home: Yes Fire extinguisher in home: Yes Carbon monox detector in home: Yes Firearms in home: Yes Firearms unloaded and locked: Yes
[2020-01-24] MEDS: Ketorolac 30 MG/ML VIAL (08:10)
[2020-01-24] MEDS: Bupivacaine 0.25% Pres-Free 30 ML VIAL (08:10)
--- NOTE | 2020-01-24 09:06 | DI.RAD_ITS ---
EXAM: XR HIP LT IN OR CLINICAL HISTORY: OSTEOARTHRITIS LEFT HIP TECHNIQUE: 2D and realtime digital imaging was performed. Fluoroscopy was provided in the OR COMPARISON: No exams were available for comparison FINDINGS: C-arm fluoroscopy was utilized by Dr. Dejesus during placement of left hip prosthesis. Hard copies show acetabular and femoral components in good position. Fluoro time 33 seconds IMPRESSION: RADIATION DOSE DELIVERED: Total DLP
--- NOTE | 2020-01-24 10:13 | ROE_ITS ---
Date of service: 01/24/20 Time of Service: 09:42 Operative Note Operative Note DATE OF PROCEDURE: 01/24/20 PRE-OP DIAGNOSIS: Left Hip Osteoarthritis POST-OP DIAGNOSIS: same PROCEDURE: Left Anterior Total Hip Arthroplasty SURGEON: Carlos Dejesus MEETING/EVENT PLANNER: Opal Feng ANESTHESIA: spinal ESTIMATED BLOOD LOSS: 400 PATHOLOGY: none sent TOURNIQUET TIME: 0 COMPLICATIONS: Other (Small, contained medial crack - not displacable.) Patient was transported to: PACU Patient's condition: stable Implants: 1. Depuy [place] Acetabular Component, 48mm 2. Depuy Acetabular Liner, [id number] 3. Depuy Corail Coxa Vara Femoral Stem, Size 9 4. Depuy Altrx Ceramic Femoral Head, Size 32+1mm Indications: I have seen Lydia in clinic for symptoms of hip arthritis, confirmed with radiographic findings. She has exhausted nonoperative methods and was having significant limitations in daily function and desired better function and less pain. I discussed the technical details of a hip replacement. I explained the risks of the procedure to include, but not limited to, bleeding, infection, pain, stiffness, fracture, damage to nerves and vessels, damage to muscles and tendons, loosening, instability, leg length inequality, need for repeat procedure, blood clot and cardiopulmonary demise. Despite these risks, she elected to proceed. Findings: There was significant signs of arthritis throughout the hip. Procedure Description: Lydia was greeted in the preoperative holding area where the correct side was identified and marked. The consent was reviewed with the patient and signed. The history and physical was updated. All questions were answered. She was taken back to the operating room. A spinal anesthestic was then administered. The patient was placed into the supine position on the operating room table. The patient was then positioned onto the ARCH table. Both feet were wrapped with Webrill cotton wrap along with Coban. The feet were placed in specialized boots for the ARCH table, well seated within the boot and secured. SCDs were applied. The patient was then slid down onto a peroneal post and the nonoperative leg was secured in a leg doan attached to the table. The operative side was placed into the ARCH table attachment and bed height and positioning was secured. A preoperative AP pelvis was obtained to serve as a reference for determining leg lengths. Prophylactic antibiotics in the form of Cefazolin were administered. 1g of Tranxemic Acid was given intravenously within 30 minutes of incision. The left leg was then prepped with Chloraprep and draped in a standard fashion. A second prep with Chloraprep was performed prior to placement of a shower-curtain type drape with Iodine impregnated skin protection. A timeout to confirm correct identity, side and site, procedure, allergies, anesthesia, and medical concerns was performed. An obliquely oriented incision was made starting lateral to the ASIS and running distal over the Tensor Fascia Britta (TFL) muscle belly toward the fibular head, approximately 10cm. The skin and soft tissue was dissected sharply, through Arlyn?s fascia, and to the fascia of the TFL. With the fascia and superior border of the IT band identified, the fascia was incised with a new knife just above any perforators from the IT band. The TFL muscle belly was bluntly dissected away from the fascia and moved laterally. The fat between TFL and rectus was identified to ensure the dissection was not within the TFL. Blunt dissection created space between abductors and the capsule and retractor was placed over the lateral femoral neck. The fibers of the rectus femoris tendon were identified and these were freed from the anterior capsule. A second cobra retractor was placed around the medial femoral neck. The TFL was further retracted laterally to show the deep fascia. Careful dissection through this layer identified three main crossing vessels of the lateral femoral circumflex. These were cauterized in multiple locations and then cut without any noticeable bleeding. The TFL was further released bluntly from the deep fascia to expose anterior hip capsule and fat The Hai orthopaedic retractor was then placed beneath the TFL and against sartorius and medial soft tissues to protect and retract the soft tissues. A T-capsulotomy was then performed starting at the superior lateral acetabulum and moving distally to the intertrochanteric ridge. These capsular flaps were tagged with a No. 1 Ethibond and elevated from within. The capsular flaps were released to the shoulder of the lateral neck and to the lesser trochanter to give excellent visualization of the proximal femur. A neck osteotomy was performed using an oscillating saw based on preoperative templates. This cut started in the shoulder and of the lateral neck and exited medially. The saw was at all times directed medially to avoid injury to the greater trochanter. 6cm of traction was applied to the leg and the osteotomy opened. The femoral head was removed with a corkscrew, making sure to protect the TFL on its exit. This was measured on the back table to determing the starting reamer size. Portions of the rectus obscuring visualization were minimally elevated off the superior acetabulum. An anterior retractor was placed over the anterior wall between capsule and labrum and attached to the Gripper retraction system. A posterior retractor was placed similarly. This provided excellent visualization. The contents of the cotyloid fossa were removed with electrocautery and the labrum was removed with a knife. There was a notable floor osteophyte. Acetabular reaming began with a 44mm reamer. This first reaming was directed anterior to posterior and medial to get down to the true floor. This was inspected and reamed until the true floor was reached. The anterior retractor was then released and entry and exit was provided by traction on the capsular flaps. I then reamed sequentially up to a 48mm reamer where good fit was obtained. The larger reamers were oriented based on anatomical reference of the anterior and lateral martini to ensure proper abduction and anteversion. Positioning and size was confirmed with the fluoroscopy. A 48mm Depuy [place] acetabular component was selected. The acetabulum was reamed around the periphery with the selected acetabular size to prevent a rim fit. The deep tissues were irrigated. The acetabular component was then impacted in a position of about 40-45 degrees of abduction and 15-20 degrees of anteversion, using the patient?s anatomy as the ultimate landmark. Fluoroscopy was used to confirm this. There was excellent director corporate of the acetabular component and the inserting handle was removed. A primary acetabular screw was placed into the ilium by drilling through one of the holes in the acetabular component. This was measured and an approrpriately sized screw was placed with excellent purchase. It was checked not to be proud. The acetabular liner, Depuy [id number] polyethylene liner, was inserted and lined up with the tines of the acetabular component. There was no soft tissue interposition. The liner was then impacted into position and confirmed to be well-seated. A portion of the gisela-articular cocktail was then injected around the acetabulum into the capsule and periosteum. This cocktail consisted of 50cc of 0.25% Bupivicaine and 20cc of Exparel, expanded to a total of 120cc. Traction was released from the femur. The leg was rotated to 120 degrees. Any remaining medial capsule was released until the lesser trochanter was easily palpable. A Christine retractor was placed medially. The lateral capsule was further released into the shoulder to allow access to the greater trochanter. A Christine retractor was placed over the greater trochanter which allowed the trochanter to flip in front of the capsule for excellent exposure. The leg was brought down into maximal extension and 20 degrees of adduction while ensuring there was no impingement on the acetabulum. Any remnant capsule within the trochanter was released. Piriformis and obturator externis were identified and protected. There was excellent access to the proximal femur. The lateral neck remnant was removed with a rongeur. A blunt canal probe was used to identify the canal and trajectory for later broaching. A box osteotome initiated the broach course. A small curved rasp and a curved curette were used to work laterally. Broaching then began with a size 8 Corail broach. This was inserted manually around the trochanter and into the canal before mallet blows. The broach was seated to a few millimeters below the cut level based on the neck cut and the preoperative template. Sequential broaching was continued with the Kincise pneumatic broaching device until a tight fit was obtained with good rotational control of the femur. When the Kincise was removed, there was noticed to be a small crack in the medial calcar. There was maybe 1mm of displacement and with the regular broach handle attached, I was unable to displace the fracture with any motion of the stem and the stem was stable. A trial coxa vara neck was inserted along with a +1 trial head. The leg was brought out of extension and adduction and then reduced with traction and internal rotation. The leg was stable anteriorly in a position of 30 degrees of extension and 90 degrees of external rotation. Fluoroscopy was used to ensure there was no fracture and the stem was seated well. Leg lengths were checked with an AP pelvis and pelvic reference points. InStitchu navigation system was used to confirm appropriate positioning and leg length and offset. Once content with the desired offset and leg lengths, the leg was brought back into extension, external rotation and adduction. The periosteum and surrounding tissue was injected with remaining portion of the gisela-articular cocktail. The proximal femur was irrigated as well as the deep tissues. The Depuy Corail Coxa Vara stem, size 9, was then manually inserted into the proximal femur making sure to control rotation. It was then malleted into position with light blows, giving breaks to allow bone expansion and decrease risk of fracture. The selected Depuy Altrx Ceramic Head, size 32+1mm, was then placed onto the clean and dry trunnion and secured with impaction onto the tapered fit. The leg was brought back out of extension and adduction and reduced with traction and internal rotation. Stability was confirmed with no shuck at 90 degrees of external rotation and 30 degrees of extension. No impingement through range of motion arc. Final x-ray images were obtained with fluoroscopy to confirm adequate positioning. The deep tissues were thoroughly irrigated with Irrisept chlorhexadine solution. The second dose of TXA 1g was administered intravenously.The capsule was then reapproximated with the previously placed Ethibond sutures. The TFL fascia was finally closed with a No. 2 Stratafix, barbed suture. Deep tissues were then reapproximated with 0 Vicryl and a running 2-0 Vicryl. The skin was closed with a running 4-0 Monocryl in a subcuticular fashion. This was reinforced with skin glue. A Mepilex silver dressing was applied. At the end of the case, all counts were correct. Lydia was transferred to the hospital bed without difficulty and suffering no apparent complication. Lydia has a good prognosis. Physical therapy will start today and without restrictions, weight-bearing as tolerated. Aspirin 81mg BID will be used for DVT prophylaxis.
[2020-01-24] MEDS: ceFAZolin 1 GM/50 ML BAG IVPB (12:59)
[2020-01-24] MEDS: Acetaminophen 500 MG TAB 1000 MG PO (12:59)
--- NOTE | 2020-01-24 13:19 | IN_ITS ---
Date of service: 01/24/20 Time of Service: 13:19 PT Notes Visit Reasons: LEFT HIP DJD Physical Therapy Inpatient Initial Evaluation Date: 01/24/2020 Referring Doctor: Carlos Dejesus MD PT Orders: PT CONSULT: Status post Ortho surgery Precautions: Fall. Standard. WBAT on left LE. Patient Profile/Admitting Diagnosis: Brit is a 69-year-old female with degenerative joint disease of the left hip and is status post left total hip arthroplasty on postoperative day 0. PMHX: Medical History Edouard esophagus COPD (chronic obstructive pulmonary disease) Emphysema Depression Depressive disorder (Chronic) fatigue Diverticulitis HTN (hypertension) Hypothyroidism Irritable colon Osteoarthritis Sialoadenitis Surgical History Arthroscopy, Shoulder right; acromioplasty Colectomy 04/25/14 Colonoscopy - MAC (09/24/16) EGD - IV Sedation 2014 EGD - MAC (09/24/16) Extraction of cataract H/O surgical procedure (Inactive) a. total abdominal hysterectomy-bso b. exploratory laparotomy for reoval of ovaries c. knee replacements d. sigmoid resection 04/25/2014 e. right shoulder acromioplasty f. Elyssa fundoplication 1995 g. bilateral open carpal tunnel release 1985 History of bilateral knee replacement (Acute) History of bilateral salpingo-oophorectomy (Inactive 05/18/14) History of hysterectomy (Inactive 05/18/14) Elyssa Fundoplication (~1995) Open Carpal Tunnel release (~1985) B/L Replacement of total knee joint (~2004) B/L Social History/Home Situation: Brit lives alone in a private home with 1 small step to enter without rails. She is independent with all aspects of ADLs. She uses a single-point cane to walk to her mailbox about 50 feet and back but is able to walk unassisted indoors. States her daughter will be in and out to help her with everything she needs. There is another family friend which Brit considers 1 of his sons who will also be able to help as needed. She indicates that she has cared well for this surgery having stored food in the fridge that are ready to be warmed up in the microwave as needed. Equipment Owned/DME: Front wheeled walker, single-point cane Subjective: Brit looks forward to going home today knowing that she has people who can support her at home. She did complain of being weak in her left leg. She also felt sick after walking about 50 feet during PT consult and requested to sit down. She complains that she has not slept well last night and is very tired at time of PT consult. Objective: General Observation: Mepilex Ag over surgical incision. IV in the right UE. Bilateral TEDS on. Anti-thromboembolic pumps to both legs. Cold pack over surgical incision. Mental Status: Alert and x 4 Pain: 1-2/10 left ROM: Right Upper Extremity: Shoulder Flexion WFL. Shoulder abduction WFL. Elbow flexion WFL. Wrist flexion WFL. Opening and closing of hand WFL. Left Upper Extremity: Shoulder Flexion WFL. Shoulder abduction WFL. Elbow flexion WFL. Wrist flexion WFL. Opening and closing of hand WFL. Right Lower Extremity: Hip flexion WFL. Hip abduction WFL. Knee flexion WFL. Ankle dorsiflexion WFL. Ankle plantarflexion WFL. Left Lower Extremity: Hip flexion WFL. Hip abduction WFL. Knee flexion WFL. Ankle dorsiflexion WFL. Ankle plantarflexion WFL. Strength: Right Upper Extremity: Shoulder flexors 4/5. Shoulder abductors 4/5. Elbow flexors 5/5. Elbow extensors 5/5. Compacting Machine Operator/Tender strong. Left Upper Extremity: Shoulder flexors 4/5. Shoulder abductors 4/5. Elbow flexors 5/5. Elbow extensors 5/5. Compacting Machine Operator/Tender strong. Right Lower Extremity: Hip flexors 4/5. Hip abductors 4/5. Knee flexors 4/5. Knee extensors 4/5. Ankle dorsiflexors 4/5. Ankle plantarflexors 4/5. Left Lower Extremity: Hip flexors 4-/5. Hip abductors 4-/5. Knee flexors 4/5. Knee extensors 3/5. Ankle dorsiflexors 4/5. Ankle plantarflexors 4/5. Sensation: Intact as to pain and pressure on bilateral lower extremities. Bed Mobility/Transfers: Supine to sit supervision Sit to supine supervision Sit to stand standby assist Stand to sit standby assist Bed to chair standby assist Chair to bed standby assist Gait: Tolerated level surface ambulation of 50 feet using front wheeled walker with step through gait pattern. Verbal cueing needed to increase knee flexion in both legs as she states that she feels like her left knee is going to buckle if she bends it. No report of increased pain in the left hip. Decreased activation in the left quads. Reported being nauseated but no vomiting after ambulation activity which she requested to sit on the wheelchair for. With rest she was able to transfer from wheelchair to the commode about 5 feet to void urine and was able to walk [facility] the reclining [facility] Balance: Static Sitting: Normal Dynamic Sitting: Normal Static Standing: Fair Dynamic Standing: Fair Special Tests: Mobility Limitations Standardized Measure [facility] 6 clicks Basic Mobility Inpatient Short Form: Raw Score: 22 CMS Score: 21% deficit Informed Consent/Education: Patient instructed in purpose of PT consult and plan of care. Assessment: Brit demonstrates the need for a front wheeled walker and supervision of another for safety for all mobility ADL performance, with walking, unsteadiness of gait, and weakness in the left quads due to postoperative status. Brit is a 69-year-old female with degenerative joint disease of the left hip and is status post left total hip arthroplasty on postoperative day 0. Patient presents with clinical signs and symptoms consistent with current/admitting diagnoses that have resulted to mobility limitations, gait instability, generalized weakness, and impairment of motor control as demonstrated by the following impairment level findings: 1. Decreased strength to L quadricep due to postoperative status 2. Impaired standing balance 3. Impaired activity tolerance Impairments are contributing to the following functional limitations: 1. Increased dependence with transfers 2. Inability to safely ambulate without assistive device and physical assistance 3. Increase completion time for mobility ADL performance 4. Increased fall risk 5. Inability to negotiate steps alone safely Patient is assessed as a 13332 moderate complexity based on the following: History: 69-year-old female with impairment level findings, functional limitations, and past medical history as indicated above Examination: Demonstrable impairment in strength, balance, and mobility level with underlying impairments and functional limitations as documented above Presentation:Evolving Decision Makin moderate complexity Goals: After 1 more session 1. Supine-Sit independent 2. Sit-Supine independent 3. Sit-Stand independent 4. Stand-Sit independent 5. Bed-Chair independent 6. Chair-Bed independent 7. Supervision gait on level surface with use of least restrictive device for at least 300 feet without report of pain nor dyspnea 8. Supervision stair negotiation while holding onto bilateral rails for at least 10 steps without report of pain nor dyspnea 9. Supervision with home exercise program 10. Good static and dynamic standing balance/tolerance Plan of Care/Treatment Plan: PT consult and 1 treatment session only. DISCHARGE RECOMMENDATIONS: Home when medically cleared by orthopedic surgeon. Outpatient PT services in order to promote return to premorbid independent level. TREATMENT CODE/TIME: 85544 x 25 minutes, 77105 x 19 minutes beginning at 13:19 p.m.. Thank you for the opportunity to participate in the care of this patient. Elzbieta Charles PT, DPT, CLT [facility] [place], [place]
--- NOTE | 2020-01-24 16:43 | INDS_ITS ---
Date of service: 01/25/20 Time of Service: 16:43 PT Notes Visit Reasons: LEFT HIP DJD Inpatient Physical Therapy Discharge Summary Dates: 01/24/2020 Dates of Service: 01/24/2020 only Referring Doctor: Carlos Dejesus MD PT Orders: PT CONSULT: Status post Ortho surgery Precautions: Fall. Standard. WBAT on left LE. Patient Profile/Admitting Diagnosis: Brit is a 69-year-old female with degenerative joint disease of the left hip and is status post left total hip arthroplasty on postoperative day 0. PMHX: Medical History Edouard esophagus COPD (chronic obstructive pulmonary disease) Emphysema Depression Depressive disorder (Chronic) fatigue Diverticulitis HTN (hypertension) Hypothyroidism Irritable colon Osteoarthritis Sialoadenitis Surgical History Arthroscopy, Shoulder right; acromioplasty Colectomy 04/25/14 Colonoscopy - MAC (09/24/16) EGD - IV Sedation 2014 EGD - MAC (09/24/16) Extraction of cataract H/O surgical procedure (Inactive) a. total abdominal hysterectomy-bso b. exploratory laparotomy for reoval of ovaries c. knee replacements d. sigmoid resection 04/25/2014 e. right shoulder acromioplasty f. Elyssa fundoplication 1995 g. bilateral open carpal tunnel release 1985 History of bilateral knee replacement (Acute) History of bilateral salpingo-oophorectomy (Inactive 05/18/14) History of hysterectomy (Inactive 05/18/14) Elyssa Fundoplication (~1995) Open Carpal Tunnel release (~1985) B/L Replacement of total knee joint (~2004) B/L Social History/Home Situation: Brit lives alone in a private home with 1 small step to enter without rails. She is independent with all aspects of ADLs. She uses a single-point cane to walk to her mailbox about 50 feet and back but is able to walk unassisted indoors. States her daughter will be in and out to help her with everything she needs. There is another family friend which Brit considers 1 of his sons who will also be able to help as needed. She indicates that she has cared well for this surgery having stored food in the fridge that are ready to be warmed up in the microwave as needed. Equipment Owned/DME: Front wheeled walker, single-point cane Subjective: Brit looks forward to going home today knowing that she has people who can support her at home. Objective: General Observation: Mepilex Ag over surgical incision. IV in the right UE. Bi lateral TEDS on. Anti-thromboembolic pumps to both legs. Cold pack over surgical incision. Mental Status: Alert and x 4 Pain: 1-2/10 left ROM: Right Upper Extremity: Shoulder Flexion WFL. Shoulder abduction WFL. Elbow flexion WFL. Wrist flexion WFL. Opening and closing of hand WFL. Left Upper Extremity: Shoulder Flexion WFL. Shoulder abduction WFL. Elbow flexion WFL. Wrist flexion WFL. Opening and closing of hand WFL. Right Lower Extremity: Hip flexion WFL. Hip abduction WFL. Knee flexion WFL. Ankle dorsiflexion WFL. Ankle plantarflexion WFL. Left Lower Extremity: Hip flexion WFL. Hip abduction WFL. Knee flexion WFL. Ankle dorsiflexion WFL. Ankle plantarflexion WFL. Strength: Right Upper Extremity: Shoulder flexors 4/5. Shoulder abductors 4/5. Elbow flexors 5/5. Elbow extensors 5/5. Electronic Device Repairer strong. Left Upper Extremity: Shoulder flexors 4/5. Shoulder abductors 4/5. Elbow flexors 5/5. Elbow extensors 5/5. Electronic Device Repairer strong. Right Lower Extremity: Hip flexors 4/5. Hip abductors 4/5. Knee flexors 4/5. Knee extensors 4/5. Ankle dorsiflexors 4/5. Ankle plantarflexors 4/5. Left Lower Extremity: Hip flexors 4-/5. Hip abductors 4-/5. Knee flexors 4/5. Knee extensors 3/5. Ankle dorsiflexors 4/5. Ankle plantarflexors 4/5. Sensation: Intact as to pain and pressure on bilateral lower extremities. Bed Mobility/Transfers: Supine to sit supervision Sit to supine supervision Sit to stand supervision Stand to sit supervision Bed to chair supervision Chair to bed supervision Gait: Tolerated level surface ambulation of 200 feet using front wheeled walker with step through gait pattern with standby assist. Balance: Static Sitting: Normal Dynamic Sitting: Normal Static Standing: Fair Dynamic Standing: Fair Assessment: Brit demonstrates the need for a front wheeled walker and supervision of another for safety for all mobility ADL performance, with walking, unsteadiness of gait, and weakness in the left quads due to postoperative status. Brit is a 69-year-old female with degenerative joint disease of the left hip and is status post left total hip arthroplasty on postoperative day 0. Goals: After 1 more session 1. Supine-Sit independent MET 2. Sit-Supine independent MET 3. Sit-Stand independent NOT MET 4. Stand-Sit independent NOT MET 5. Bed-Chair independent NOT MET 6. Chair-Bed independent NOT MET 7. Supervision gait on level surface with use of least restrictive device for at least 300 feet without report of pain nor dyspnea NOT MET 8. Supervision stair negotiation while holding onto bilateral rails for at least 10 steps without report of pain nor dyspnea NOT MET 9. Supervision with home exercise program NOT MET 10. Good static and dynamic standing balance/tolerance NOT MET Plan of Care/Treatment Plan: PT consult and 1 treatment session only. DISCHARGE RECOMMENDATIONS: Home when medically cleared by orthopedic surgeon. Outpatient PT services in order to promote return to premorbid independent level. TREATMENT CODE/TIME: 07349 x 17 minutes beginning at 16:43 p.m.. Thank you for the opportunity to participate in the care of this patient. Elzbieta Charles PT, DPT, CLT [facility] [place], [place]
== END 2020-01-24 17:45 | disposition home or self-care (01) ==
LOC: PDS 10:16 → MS 10:17
PROVIDERS: Admitting Provider Student in an Organized Health Care Education/Training Program; PCP Nurse Practitioner; Visit Provider Student in an Organized Health Care Education/Training Program
PROC: 0SRB04A Replacement of Left Hip Joint with Ceramic on Polyethylene Synthetic Substitute, Uncemented, Open Approach (ICD-10-PCS; CPT 27130; principal; 2020-01-24 07:30)
DX: M16.12 Unilateral primary osteoarthritis, left hip (principal); M25.542 Pain in joints of left hand; Z96.642 Presence of left artificial hip joint; T84.011A Broken internal left hip prosthesis, initial encounter; Y65.8 Other specified misadventures during surgical and medical care; J43.9 Emphysema, unspecified; I10 Essential (primary) hypertension
CPT/HCPCS: 27130; 20985; C1776; 97163; 97530; NC; 73501; G0378; J0690; J1885; J2001; J2250; J2405

== ENCOUNTER 2020-01-31 14:28 | Outpatient (CLI) | payer MEDICARE, MEDICAID, SELFPAY ==
--- NOTE | 2020-01-31 14:00 | DI.RAD_ITS ---
EXAM: XR HIP LT COMPLETE AP PELVIS CLINICAL HISTORY: new injury. TECHNIQUE: 2D digital imaging was performed. COMPARISON: CR XR HIP LT COMPLETE AP PELVIS from 08/11/2019 CR XR PELVIS AP from 01/10/2020 CR XR PELVIS AP from 01/10/2020 XR HIP LT IN OR from 01/24/2020 FINDINGS: BONES: Stable left DELANO. No bony destructive lesion is seen. JOINTS: No dislocation present. SOFT TISSUE: Vascular calcifications in the soft tissues. IMPRESSION: Stable left DELANO. DATA REPOSITORY: RADIATION DOSE DELIVERED:
== END 2020-01-31 14:48 ==
PROVIDERS: PCP Nurse Practitioner; Referring Provider Nurse Practitioner; Visit Provider Student in an Organized Health Care Education/Training Program
DX: Z96.641 Presence of right artificial hip joint (principal); S79.912A Unspecified injury of left hip, initial encounter
CPT/HCPCS: 73502

== ENCOUNTER 2020-02-09 11:08 | Outpatient (CLI) | payer MEDICARE, MEDICAID, SELFPAY | END 2020-02-09 11:28 | PROVIDERS: PCP Nurse Practitioner; Referring Provider Nurse Practitioner; Visit Provider Student in an Organized Health Care Education/Training Program | DX: Z47.1 Aftercare following joint replacement surgery (principal); Z96.642 Presence of left artificial hip joint ==

== ENCOUNTER → 2020-03-15 09:52 | Outpatient (BNVA) | payer MEDICARE, MEDICAID, SELFPAY | PROVIDERS: PCP Nurse Practitioner; Referring Provider Nurse Practitioner; Visit Provider Student in an Organized Health Care Education/Training Program | DX: Z47.1 Aftercare following joint replacement surgery (principal); Z96.642 Presence of left artificial hip joint ==

== ENCOUNTER 2020-07-23 03:05 | Outpatient (CLI) | payer OTHER, MEDICAID, SELFPAY ==
[2020-07-23 10:15] LABS: HCT 36.8 % (36.0-46.0); HGB 11.9 g/dL (11.2-15.7); MCH 27.7 pg (27.0-33.0); MCHC 32.3 % (32.0-36.0); MCV 85.6 fL (80-95); MPV 8.3 fL (8.0-11.0); Platelet Count 457 10^3/uL (130-400); RDW 17.3 % (11.7-14.6); RDW-SD 54.3 fL; WBC 7.18 10^3/uL (4.4-10.8)
[2020-07-23 11:43] LABS: ALT 34 U/L (14-59); AST 22 U/L (15-37); Albumin 3.5 g/dL (3.4-5.0); Alkaline Phosphatase 86 U/L (46-116); Anion Gap 11.2 mmol/L (3-11); BUN 17 mg/dL (7-18); Bilirubin, Total 0.3 mg/dL (0.2-1.0); CO2 25.8 mmol/L (21.0-32.0); CREATININE 0.9 mg/dL (0.55-1.02); Calcium 8.8 mg/dL (8.5-10.1); Calculated LDL 115 mg/dL (<100); Chloride 104 mmol/L (98-107); Cholesterol 216 mg/dL (<200); Glucose 97 mg/dL (74-106); HDL Cholesterol 86 mg/dL (40-60); Potassium 4.1 mmol/L (3.5-5.1); Sodium 141 mmol/L (136-145); TSH (W/Ref FT4) 2.58 uIU/mL (0.36-3.74); Total Protein 6.9 g/dL (6.4-8.2); Triglyceride 75 mg/dL (<150); Vitamin B12 474 pg/mL (193-986)
[2020-07-24 11:11] LABS: Lyme Ab w Rflx to Lyme Confirm Negative (Negative)
[2020-07-26 01:59] LABS: Anaplasma phagocytophilum Negative (Negative); B. miyamotoi PCR Negative (Negative); Babesia divergens/MO-1 Negative (Negative); Babesia duncani Negative (Negative); Babesia microti Negative (Negative); Ehrlichia chaffeensis Negative (Negative); Ehrlichia ewingii/canis Negative (Negative); Ehrlichia muris eauclairensis Negative (Negative)
== END 2020-07-23 03:06 | disposition home or self-care (01) ==
LOC: LBO 03:05
PROVIDERS: PCP Nurse Practitioner; Visit Provider Nurse Practitioner
DX: R07.9 Chest pain, unspecified (principal); I10 Essential (primary) hypertension; E03.9 Hypothyroidism, unspecified; R53.83 Other fatigue; R41.3 Other amnesia; J44.9 Chronic obstructive pulmonary disease, unspecified; K57.92 Diverticulitis of intestine, part unspecified, without perforation or abscess without bleeding; K22.70 Barrett's esophagus without dysplasia; Z96.642 Presence of left artificial hip joint
CPT/HCPCS: 36415; 80053; 80061; 85027; 87798; 82607; 84443; 86618

== ENCOUNTER 2020-10-01 15:22 | Inpatient (IN) | payer OTHER, MEDICAID, SELFPAY ==
[2020-10-01] VITALS (7 sets, daily range): BP systolic 142–156; BP diastolic 78–91; PULSE 74–92; RESP 16–18; TEMP 36.6–36.9; O2SAT 94–98
--- NOTE | 2020-10-01 15:40 | ED.GENADUL_ITS ---
Discharge Plan Disposition Condition: Improving Discharge Details Chief Complaint: Abd Prob Admit Date/Time: 10/01/20 19:46 Admit Provider: Rachel Urias Attending Provider: Rachel Urias Primary Care Provider: Kristine Carter ED Provider: Elizabeth Thakkar Discharge Instructions Activity:: Activity as Tolerated Equipment/Supplies:: No Equipment Needed Diet:: Normal Diet Discharge Data Discharge Date/Time-TO BE ENTERED AT DEPARTURE: 10/01/20 21:05 Medical Decision Making Patient is a pleasant 70 year old female presenting today with c/c of RUQ pain that radiates toward the bladder. States taht she has had this on and off for years. Worse over the past 3 days. Pain comes in waves. No exacerbating factor has been identified. Denies N/V, no change in bowel habits. Denies dysuria, frequency or urgency. Denies fevers/chills. Surgical hx pertient for colectomy, hysterectomy. Also states that she has been having episodes as dizziness which is brief and, on the top of my head, like a hat. PMH significant for diverticulitis, COPD, anxiety, Edouard's esophagus, BPPV, HTN, irritable colon, hypothyroidism, polyarthralgia, RUQ pain. Past medical history pertinent for colostomy, hysterectomy with bilateral oophorectomy, Elyssa. On exam, patient appears nontoxic. Lungs are clear, normal cardiac exam. She is quite tender in the right upper quadrant but no peritoneal findings elicited, negative Ferguson sign. She does have hypoactive bowel sounds. No nystagmus elicited on exam. Patient is asymptomatic when at rest. She does report that this feels similar to when she has had vertigo historically. However, she reports that the location feels slightly different. As this does seem different from her normal, plan for CT head. Offerred Antivert, patient is uses historically with good results. Will also obtain CT abdomen. Concern at this time for vertigo, mass, bleed, cholecystitis, obstruction,, UA with pyelonephritis, ACS versus other. Labs reviewed. Leukocytosis. Normal H&H. No abnormalities on CMP. Troponin within normal limits. Likely from pneumonia. No active symptoms of medical noncompliance with a repeat troponin needed. Urinalysis without abnormality. Spoke with patient's daughter, Shelly Felix?[id number] head reviewed by radiologist: FINDINGS: Brain: Age-related involutional changes and chronic microvascular ischemic disease. No evidence for acute transcortical infarct. No mass effect or midline shift. No extra-axial collection. No acute intracranial hemorrhage. Basal cisterns are patent. Cerebral ventricles: No ventriculomegaly. Bones/joints: Unremarkable. No acute fracture. Paranasal sinuses: Visualized sinuses are unremarkable. No fluid levels. Mastoid air cells: Visualized mastoid air cells are well aerated. Orbital cavity: Bilateral cataract surgery. Soft tissues: Unremarkable. IMPRESSION: No evidence for acute transcortical infarct, acute intracranial hemorrhage, or mass effect. Labs reviewed. No leukocytosis. Stable H&H. No abnormalities on CMP. Troponin within normal range. UA without significant abnormality FINDINGS: Lungs: There are changes of centrilobular and paraseptal emphysema within the lung bases with scattered pulmonary cysts. There is a new cluster of nodular opacities within the left lower lobe, the largest measuring 9 x 7 mm, as seen on image 73, series 5. Mediastinal space: There is a tiny sliding hiatal hernia, as on prior study. Again noted are few surgical clips in the region the GE junction. Liver: Normal. No mass. Gallbladder and bile ducts: The gallbladder is contracted and is not well evaluated, but there is no evidence for acute gallbladder inflammation. No gallstones are identified. There is no biliary ductal dilatation. Pancreas: The pancreas is moderately atrophic but appears otherwise unremarkable without focal lesion or evidence of acute inflammation. Spleen: Normal. No splenomegaly. Adrenal glands: Normal. No mass. Kidneys and ureters: No renal or ureteral stones are identified. There is no hydronephrosis or hydroureter. Stomach and bowel: Again noted is an anastomotic staple line in the region of the rectosigmoid junction, without defined focal mass lesion. There are multiple new mildly dilated loops of mid-distal small bowel in the right lower quadrant and upper midline pelvis, measuring up to 3.3 cm diameter. There is a transition point to distal collapsed small bowel in the posterior midline pelvis around image 619, series 5. No focal mass lesion in this region is identified and findings suggest partial small bowel obstruction associated with postoperative adhesions. Findings suggest mild wall thickening of some of the dilated small bowel loops, with a few regions mild pneumatosis, as seen around sagittal images 47-50, series 7. There is also a new small amount of fluid between the leaves of the central small bowel mesentery, as seen around image 473, series 5. These findings could reflect early ischemic enteritis. There is no portal venous gas. Appendix: The appendix is well visualized and appears normal. Intraperitoneal space: No free intraperitoneal air identified. Vasculature: The aorta and iliac arteries demonstrate severe atherosclerotic calcification without aneurysm formation. Lymph nodes: Unremarkable. No enlarged lymph nodes. Urinary bladder: No bladder stones are identified. Reproductive: There has been a hysterectomy. Bones/joints: Again noted is hardware left total hip arthroplasty which appears grossly intact. Again noted is moderate degenerative disc disease at L4-S1. There is mild grade 1 anterolisthesis of L4 on L5, as on prior study, degenerative. There is no evidence for spondylolysis. Soft tissues: Unremarkable. IMPRESSION: 1. New mild dilatation of multiple mid-distal small bowel loops with transition point in the posterior pelvis, suggesting low-grade partial small bowel obstruction associated with postoperative adhesions. 2. Findings suggest new mild inflammatory change of some of the dilated small bowel loops with regions of mild pneumatosis, which could reflect early ischemic enteritis. Recommend clinical correlation. 3. New cluster of nodular opacities within the left lower lobe, the largest measuring 9 x 7 mm. While these may be infectious in etiology, cannot exclude early neoplastic pulmonary nodule. For patients at low risk (minimal or absent history of smoking and of other known risk factors), recommend CT Chest at 3-6 months, then consider CT Chest at 18-24 months. For patients at high risk (history of smoking or of other known risk factors), recommend CT Chest at 3-6 months, then CT Chest at 18-24 months. (Reference: [place]) Discussed the findings with the patient as well as her daughter. Consulted with surgeon who agrees to admission for obstruction. Patient has remained n.p.o. We will place an NG tube at advisement of surgeon. Discussed with patient who agrees. Will give 0.5mg ativan for procedure anxiety. All of her quesitons and concerns were addressed, she isin agreement with this plan. HPI General Mode of arrival: wheelchair . Date/Time Provider Initiated Documentation: 10/01/20 15:40 . Limitations to Documentation: no limitations . Information obtained by: patient, family (spoke with daughter over phone) and RN notes reviewed . History of Present Illness 70 year old F presents to the emergency department with the chief complaint of right sided abdominal pain, described as moderate, with intensity rated at 6. Quality is described as stabbing, and is localized to the abdomen. Patient reports no radiation. Patient started experiencing this week(s) (2) and it has been intermittent (has become persistant over past few days). No relieving factors improve symptom(s), No exacerbating factors reported . Patient notes loss of appetite; denies chest pain, fever/chills, nausea/vomiting, rash, shortness of breath and weakness. Patient did receive the following treatments prior to arrival, none Related Data Home Medications Medication Instructions Recorded Confirmed EasiVent Mask Large #1 ea 09/01/13 10/01/20 loratadine 10 mg tablet 10 mg PO DAILY PRN 11/15/18 10/01/20 meclizine 25 mg tablet 25 mg PO TID PRN #21 tab 03/28/19 10/01/20 psyllium husk 3.4 gram/5.4 gram 1 tbs PO DAILY 08/11/19 10/01/20 oral powder tiotropium 2.5 mcg-olodaterol 2.5 2 puff IH DAILY 11/29/19 10/01/20 mcg/actuation mist for inhalation multivitamin-ferrous 1 tab PO DAILY 01/10/20 10/01/20 fumarate-folic acid 18 mg-400 mcg tablet omeprazole 40 mg capsule,delayed 40 mg PO DAILY #90 tab-cap 01/17/20 10/01/20 release acetaminophen 1,000 mg PO Q8H PRN #90 tab 01/24/20 10/01/20 naproxen 500 mg PO BID PRN #60 tab 01/24/20 10/01/20 bupropion HCl 300 mg 24 hr tablet, 300 mg PO QAM #90 tab 07/18/20 10/01/20 extended release levothyroxine 50 mcg tablet 50 mcg PO DAILY #90 tab 07/18/20 10/01/20 albuterol sulfate 90 mcg/actuation 2 puff INHALATION Q4H PRN g 09/14/20 10/01/20 aerosol inhaler Previous Rx's Medication Instructions Recorded meclizine 25 mg tablet 25 mg PO TID PRN #21 tab 03/28/19 omeprazole 40 mg capsule,delayed 40 mg PO DAILY #90 tab-cap 01/17/20 release acetaminophen 1,000 mg PO Q8H PRN #90 tab 01/24/20 naproxen 500 mg PO BID PRN #60 tab 01/24/20 bupropion HCl 300 mg 24 hr tablet, 300 mg PO QAM #90 tab 07/18/20 extended release levothyroxine 50 mcg tablet 50 mcg PO DAILY #90 tab 07/18/20 Allergies Allergy/AdvReac Type Severity Reaction Status Date / Time tramadol Allergy Severe ITCHING, Verified 07/18/20 10:12 GI UPSET hydrocodone bitartrate Allergy Intermediate RASH, Verified 07/18/20 10:12 [From Vicodin] ITCHING desipramine AdvReac Intermediate PALPITATION Verified 07/18/20 10:12 S pregabalin [From Lyrica] AdvReac Intermediate CONFUSION Verified 07/18/20 10:12 salmeterol xinafoate AdvReac Intermediate COUGH Verified 07/18/20 10:12 [From Advair Diskus] methylprednisolone sodium AdvReac Mild Agitation Verified 07/18/20 10:12 succinate [From Solu-Medrol] paroxetine HCl [From Paxil] AdvReac Mild JITTERY Verified 07/18/20 10:12 sertraline HCl [From Zoloft] AdvReac Mild JITTERY Verified 07/18/20 10:12 acetaminophen AdvReac nausea, Verified 07/18/20 10:12 vomiting General NATY: 3 Review of Systems Constitutional Constitutional: Reports as per HPI, Denies chills, Denies fatigue, Denies fever(s) and Denies headache(s) ENT Ears, Nose, Mouth, and Throat: Denies headache(s) Cardiovascular Cardiovascular: Reports as per HPI, Denies chest pain and Denies dyspnea Respiratory Respiratory: Reports as per HPI, Denies cough and Denies dyspnea Gastrointestinal Gastrointestinal: Reports as per HPI Musculoskeletal Musculoskeletal: Reports as per HPI and Denies back pain Integumentary/Breasts Skin/Breast: Reports as per HPI and Denies rash Neurologic Neurologic: Reports as per HPI and Denies headache(s) Endocrine Endocrine: Denies fatigue PFS Medical History 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 COPD (chronic obstructive pulmonary disease) Emphysema Depression Depressive disorder fatigue Diverticulitis Forgetfulness HTN (hypertension) Hx of chest pain Pt. states her chest pain was related to her stomach issues, and has not had any cardiac issues currently, and does not see a brand marketing manager. Hypothyroidism Irritable colon Osteoarthritis Sialoadenitis Surgical History Arthroscopy, Shoulder right; acromioplasty Colectomy 04/25/14 Colonoscopy - MAC (09/24/16) EGD - IV Sedation 2014 EGD - MAC (09/24/16) Extraction of cataract H/O surgical procedure a. total abdominal hysterectomy-bso b. exploratory laparotomy for reoval of ovaries c. knee replacements d. sigmoid resection 04/25/2014 e. right shoulder acromioplasty f. Elyssa fundoplication 1995 g. 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) Status post total hip replacement, right Family History Mother Diabetes Essential hypertension Personal history of malignant neoplasm LUNG Hyperlipidemia Asthma Father Essential hypertension Personal history of malignant neoplasm THROAT Heart disease Hyperlipidemia Sister Drug abuse Essential hypertension COPD (chronic obstructive pulmonary disease) Depression Heart disease Hyperlipidemia Asthma Grandfather Essential hypertension Personal history of malignant neoplasm Heart disease Hyperlipidemia Stroke Grandfather , UNKNOWN Alcohol abuse Heart disease Stroke Grandmother Essential hypertension Personal history of malignant neoplasm Hyperlipidemia Grandmother Alcohol abuse Personal history of malignant neoplasm Heart disease Son Depression Heart disease Asthma Son Alcohol abuse Essential hypertension Depression Daughter Essential hypertension Asthma Daughter Essential hypertension Depression Hyperlipidemia Social History Smoking/Tobacco Use Status: Former Tobacco Use Smoking risk assessment performed?: Yes Alcohol Intake: current Alcohol Intake frequency: a few times a month Drug use: Never Substance use type: does not use Number of Children: 4 Pets and animals: Yes Pets and animals: cat(s) and dog(s) Current gender identity: female What type of physical activity do you participate in: walking Frequency: daily Seatbelt use: always Water heater temp set <120 deg: Yes Working smoke detector in home: Yes Fire extinguisher in home: Yes Carbon monox detector in home: Yes Firearms in home: Yes Firearms unloaded and locked: Yes Do you feel safe at home: Yes Do you feel safe in your relationship?: Yes Exam Const General: cooperative, healthy appearing, comfortable, no acute distress and well developed Nutritional Appearance: average body habitus and well nourished Orientation: alert and awake [facility] Head: normal to inspection Mouth: moist mucous membranes Eyes Visual Cortes: normal visual cortes by confrontation Alignment and Position: alignment normal and position normal Periorbital: periorbital findings normal Eyelids: eyelids normal Pupils: PERRL EOM: EOM intact bilaterally and No nystagmus Resp Effort & Inspection: normal respiratory effort, able to speak in complete sentences and no respiratory distress Auscultation: clear to auscultation bilaterally, no rales, no rhonchi and no wheezes Cardio Rate: regular rate Rhythm: regular rhythm Heart Sounds: S1 normal and S2 normal GI Inspection: normal to inspection Palpation: soft, no hepatosplenomegaly, not firm, no guarding, not rigid and tender in the RUQ; Ferguson's sign negative and with no rebound tenderness Percussion: normal to percussion Auscultation: hypoactive bowel sounds Back/Spine/Pelvis Back: no CVA tenderness Skin General skin exam: no rashes or lesions noted Trauma: no lacerations or abrasions Neuro General: patient alert and patient awake Cranial Nerves: no nystagmus Cognition: normal cognition Speech: speech normal Gait: normal gait Motor: muscle tone normal throughout, no pronator drift, no movement abnormalities noted and no fasciculations Coordination: [id number] test normal Psych Appearance: grossly normal and well kempt Mental Status: mental status grossly normal Speech and Movement: speech and movement normal
--- NOTE | 2020-10-01 15:45 | RT.EKG_ITS ---
APPROVED REPORT Exam: Resting ECG Reason for Exam: dizzy Patient Location: E HR:87 bpm ECG Measurements Heart Rate 87 AXIS NV 155 P 50 QRSd 93 QRS -52 QT 352 T 20 QTc 424 Conclusion Sinus rhythm...normal P axis, V-rate 60- 99 Left anterior fascicular block...axis(240,-40), init forces inf
--- NOTE | 2020-10-01 15:45 | DI.CT_ITS ---
Exam(s) CT ABDOMEN PELVIS W EXAM: CT ABDOMEN PELVIS W CLINICAL HISTORY: RUQ pain that radiates toward the bladder TECHNIQUE: Imaging Protocol: Axial computed tomography images with coronal and sagittal reformatted images were created and reviewed CONTRAST MATERIAL: Intravenous: Omnipaque 350 Contrast volume:84 mL Oral: No COMPARISON: CT CT ABDOMEN PELVIS W from 07/28/2018 FINDINGS: ABDOMEN: Lung Bases: Centrilobular and paraseptal emphysematous changes are seen in the lungs. Small nodules are seen in the left lower lobe. The largest measures 8-9 mm. Liver: Normal density. No measurable mass. Portal, Superior Mesenteric, and Splenic Veins: Unremarkable. Gallbladder and Biliary Tract: The gallbladder is contracted. There is no biliary ductal dilatation. Pancreas: Normal density, no abnormal calcifications or inflammatory process. Spleen: Normal. Adrenals: No masses seen. Kidneys: Normal size, contour and axis. No radiodense stones or obstructive uropathy. No masses seen. Abdominal Aorta: Abdominal portion non-dilated. Marked atherosclerosis. Bowel: There are dilated loops of small bowel in the right lower quadrant and pelvis with a transitio n seen in the posterior pelvis in the midline. The findings are suspicious for partial small bowel o bstruction. No focal mass is identified. There is no venous gas. There does appear to be mild thic kening of the wall of some loops of small bowel. Appendix is unremarkable. There is a rectosigmoid a nastomosis. There are surgical clips at the gastroesophageal junction. There is a small hiatal nolberto ia. Peritoneal Cavity: No ascites, collection or mesenteric inflammatory response. No free air. Lymph Nodes: Within normal limits. Bones: The patient has a left total hip replacement. Degenerative changes are seen in the spine. Soft Tissues: Unremarkable. PELVIS: Bladder: Symmetric distention, no gross wall thickening. Portions of the urinary bladder obscured due to the artifact from the patient's hip prosthesis. Reproductive Organs: Unremarkable as visualized. Lymph Nodes: Within normal limits. Bones: Within normal limits for the patient's age. IMPRESSION: 1. Findings suspicious for partial small bowel obstruction with a transition in the posterior pelvis in the midline. 2. Mild wall thickening in loops of dilated loops of small bowel in the pelvis. This may represent e nteritis. Questionable findings of mild pneumatosis. No portal venous gas. Ischemic enteritis manny ot be excluded. Please correlate clinically. 3. Cluster of nodules in the left lower lobe. This may be infectious or inflammatory. Neoplasm manny ot be entirely excluded. For patients at low risk, CT scan of the chest in 3-6 months is recommended and consider follow-up in 18-24 months. Patient is at high risk (history of smoking or other known risk factors), CT scan of the chest in 3-6 months is recommended then CT scan of the chest at 18-24 m [facility]. RADIATION DOSE DELIVERED: 702.57mGy.cm Total DLP DATA REPOSITORY: All CT scans at this facility are submitted to the National Radiology Data Registry (NRDR) Dose Index Registry (DIR) with the [employer] ([employer]). RADIATION OPTIMIZATION: All CT scans at this facility use at least one of these dose optimization te chniques: automated exposure control; mA and/or kV adjustment per patient size (includes targeted exa ms where dose is matched to clinical indication); or iterative reconstruction.
[2020-10-01 16:10] LABS: Abs Immature Grans 0.02 10^3/uL (0.0-0.06); Absolute Basophil Count 0.04 10^3/uL (0.0-0.2); Absolute Eosinophil Count 0.22 10^3/uL (0.0-0.7); Absolute Monocyte Count 0.59 10^3/uL (0.1-0.8); Absolute Neutrophil Count 5.03 10^3/uL (1.2-6.7); Basophils % 0.5; Eosinophils % 2.8; HCT 39.9 % (36.0-46.0); HGB 13.1 g/dL (11.2-15.7); Immature Grans % 0.3; Lymphocytes % 26.3; MCH 28.5 pg (27.0-33.0); MCHC 32.8 % (32.0-36.0); MCV 86.9 fL (80-95); MPV 8.3 fL (8.0-11.0); Monocytes % 7.4; Neutrophils % 62.7; Nucleated RBC 0 %; Platelet Count 388 10^3/uL (130-400); RBC 4.59 10^6/uL (3.93-5.22); RDW 13.9 % (11.7-14.6); RDW-SD 44.3 fL
[2020-10-01] MEDS: Lactated Ringers 1,000 ML 500 ML IV (16:14)
[2020-10-01 16:25] LABS: ALT 24 U/L (14-59); AST 18 U/L (15-37); Albumin 3.7 g/dL (3.4-5.0); Alkaline Phosphatase 85 U/L (46-116); Anion Gap 10.6 mmol/L (3-11); BUN 12 mg/dL (7-18); Bilirubin, Total 0.3 mg/dL (0.2-1.0); CO2 26.4 mmol/L (21.0-32.0); CREATININE 0.9 mg/dL (0.55-1.02); Calcium 8.8 mg/dL (8.5-10.1); Chloride 102 mmol/L (98-107); Glucose 97 mg/dL (74-106); Lipase 111 U/L (73-393); Magnesium 1.9 mg/dL (1.8-2.4); Potassium 3.9 mmol/L (3.5-5.1); Sodium 139 mmol/L (136-145); Total Protein 7.4 g/dL (6.4-8.2)
[2020-10-01 16:26] LABS: Troponin I < 0.05 ng/mL (<0.06)
--- NOTE | 2020-10-01 16:30 | DI.CT_ITS ---
Exam(s) CT HEAD WO EXAM: CT HEAD WO CLINICAL HISTORY: dizziness. TECHNIQUE: Imaging Protocol: Axial computed tomography images with coronal and sagittal reformatted images were created and reviewed COMPARISON: No previous for comparison. FINDINGS: Ventricles and Extra axial spaces: Normal in size and morphology for the patient's age. Hemorrhage: None. Cerebral parenchyma: No acute territorial infarct. Subtle areas of decreased attenuation are seen in the white matter most consistent with chronic microvascular ischemic change. Midline shift: None. Brainstem/Cerebellum: Normal. Calvarium: Normal. Visualized Paranasal sinuses/Mastoids: Clear. Soft Tissues: Unremarkable. IMPRESSION: No acute intracranial process. RADIATION DOSE DELIVERED: 676.57mGy.cm Total DLP DATA REPOSITORY: All CT scans at this facility are submitted to the National Radiology Data Registry (NRDR) Dose Index Registry (DIR) with the [employer] (ACR). RADIATION OPTIMIZATION: All CT scans at this facility use at least one of these dose optimization te chniques: automated exposure control; mA and/or kV adjustment per patient size (includes targeted exa ms where dose is matched to clinical indication); or iterative reconstruction.
[2020-10-01] MEDS: Meclizine 25 MG TAB PO (16:43)
[2020-10-01] MEDS: Omnipaque 350 MG/ML 100 ML BTL IJ (17:08)
[2020-10-01] MEDS: Normal Saline - Diluent 50 ML VIAL IV (17:09)
--- NOTE | 2020-10-01 17:18 | DI.VRAD_ITS ---
PROCEDURE INFORMATION: Exam: CT Head Without Contrast Exam date and time: 10/01/2020 4:56 PM Age: 70 years old Clinical indication: Dizziness TECHNIQUE: Imaging protocol: Computed tomography of the head without contrast. COMPARISON: No relevant prior studies available. FINDINGS: Brain: Age-related involutional changes and chronic microvascular ischemic disease. No evidence for acute transcortical infarct. No mass effect or midline shift. No extra-axial collection. No acute intracranial hemorrhage. Basal cisterns are patent. Cerebral ventricles: No ventriculomegaly. Bones/joints: Unremarkable. No acute fracture. Paranasal sinuses: Visualized sinuses are unremarkable. No fluid levels. Mastoid air cells: Visualized mastoid air cells are well aerated. Orbital cavity: Bilateral cataract surgery. Soft tissues: Unremarkable. IMPRESSION: No evidence for acute transcortical infarct, acute intracranial hemorrhage, or mass effect. Dictated and Authenticated by: Tawanda Greene MD. Ordering:MAYA Johnson MD
[2020-10-01 17:26] LABS: Bilirubin Negative (Negative); Blood Negative (Negative); Clarity Clear (Clear); Glucose Negative (Negative); Ketones Negative (Negative); Leukocyte Esterase Negative (Negative); Nitrite Negative (Negative); Urobilinogen 0.2 EU/dL (Up TO 0.2); pH 6.5 (5-8)
--- NOTE | 2020-10-01 17:51 | DI.VRAD_ITS ---
PROCEDURE INFORMATION: Exam: CT Abdomen And Pelvis With Contrast Exam date and time: 10/01/2020 5:01 PM Age: 70 years old Clinical indication: Abdominal pain; Localized; Right upper quadrant (ruq); Patient HX: Ruq pain radiates toward the bladder TECHNIQUE: Imaging protocol: Computed tomography of the abdomen and pelvis with contrast. COMPARISON: CT ABDOMEN PELVIS W 07/28/2018 12:22 PM FINDINGS: Lungs: There are changes of centrilobular and paraseptal emphysema within the lung bases with scattered pulmonary cysts. There is a new cluster of nodular opacities within the left lower lobe, the largest measuring 9 x 7 mm, as seen on image 73, series 5. Mediastinal space: There is a tiny sliding hiatal hernia, as on prior study. Again noted are few surgical clips in the region the GE junction. Liver: Normal. No mass. Gallbladder and bile ducts: The gallbladder is contracted and is not well evaluated, but there is no evidence for acute gallbladder inflammation. No gallstones are identified. There is no biliary ductal dilatation. Pancreas: The pancreas is moderately atrophic but appears otherwise unremarkable without focal lesion or evidence of acute inflammation. Spleen: Normal. No splenomegaly. Adrenal glands: Normal. No mass. Kidneys and ureters: No renal or ureteral stones are identified. There is no hydronephrosis or hydroureter. Stomach and bowel: Again noted is an anastomotic staple line in the region of the rectosigmoid junction, without defined focal mass lesion. There are multiple new mildly dilated loops of mid-distal small bowel in the right lower quadrant and upper midline pelvis, measuring up to 3.3 cm diameter. There is a transition point to distal collapsed small bowel in the posterior midline pelvis around image 619, series 5. No focal mass lesion in this region is identified and findings suggest partial small bowel obstruction associated with postoperative adhesions. Findings suggest mild wall thickening of some of the dilated small bowel loops, with a few regions mild pneumatosis, as seen around sagittal images 47-50, series 7. There is also a new small amount of fluid between the leaves of the central small bowel mesentery, as seen around image 473, series 5. These findings could reflect early ischemic enteritis. There is no portal venous gas. Appendix: The appendix is well visualized and appears normal. Intraperitoneal space: No free intraperitoneal air identified. Vasculature: The aorta and iliac arteries demonstrate severe atherosclerotic calcification without aneurysm formation. Lymph nodes: Unremarkable. No enlarged lymph nodes. Urinary bladder: No bladder stones are identified. Reproductive: There has been a hysterectomy. Bones/joints: Again noted is hardware left total hip arthroplasty which appears grossly intact. Again noted is moderate degenerative disc disease at L4-S1. There is mild grade 1 anterolisthesis of L4 on L5, as on prior study, degenerative. There is no evidence for spondylolysis. Soft tissues: Unremarkable. IMPRESSION: 1. New mild dilatation of multiple mid-distal small bowel loops with transition point in the posterior pelvis, suggesting low-grade partial small bowel obstruction associated with postoperative adhesions. 2. Findings suggest new mild inflammatory change of some of the dilated small bowel loops with regions of mild pneumatosis, which could reflect early ischemic enteritis. Recommend clinical correlation. 3. New cluster of nodular opacities within the left lower lobe, the largest measuring 9 x 7 mm. While these may be infectious in etiology, cannot exclude early neoplastic pulmonary nodule. For patients at low risk (minimal or absent history of smoking and of other known risk factors), recommend CT Chest at 3-6 months, then consider CT Chest at 18-24 months. For patients at high risk (history of smoking or of other known risk factors), recommend CT Chest at 3-6 months, then CT Chest at 18-24 months. (Reference: Kane) Findings were discussed with RICKY ADLER at 10/01/2020 5:50 PM EDT. REFERENCES: Kane Ly, et al. Guidelines for Management of Incidental Pulmonary Nodules Detected on CT Images: From the Fleischner Society 2017. Radiology. 2017;284(1):228-243. Dictated and Authenticated by: Gee Jack MD. Ordering:MAYA Johnson MD
[2020-10-01 18:47] LABS: Source Nasal/Nares
[2020-10-01] MEDS: LORazepam 2 MG/ML VIAL 0.5 MG IVP (20:17)
[2020-10-01] MEDS: Lactated Ringers 1,000 ML 125 ML IV (21:40)
[2020-10-01 21:59] LABS: COVID-19 PCR Negative (Negative)
--- NOTE | 2020-10-01 22:44 | HPE_ITS ---
Date of service: 10/01/20 Time of Service: 22:44 Assessment and Plan Assessment and plan (1) SBO (small bowel obstruction): Status: Acute Assessment and plan: * -s/p SALLY and BSO/colon resection secondaary to scar ttissue. * pt has a hiatal hernia on CT today and noted on EGD in 2017. I think the NGT is in this and that is why we are not getting any return. * PPI * fluids/pain manamgnet. Hopfeully this will resolve on it's own. * adjust thyroid meds- in am * supportive care * At the time of discharge, she does have an enlarged nodule in on her CT and should undergo low-dose CT scan scanning of her lungs. 60 minutes is spent doing her consultation. Reviewing her CT scans, her lab work including CBC, comp, INR, doing physical exam and history, and reviewing her chart and notes. And in documentation developing treatment plan and discussing with patient. (2) Diverticulitis: Status: Chronic (3) Fatigue: Status: Acute (4) Abnormal weight loss: Status: Acute (5) COPD (chronic obstructive pulmonary disease): Status: Chronic (6) Chronic back pain: Status: Chronic (7) Edouard's esophagus: Status: Acute (8) Benign paroxysmal positional vertigo of left ear: Status: Acute (9) Chest pain: Status: Acute (10) Chronic obstructive lung disease: Status: Acute (11) Essential hypertension: Status: Acute (12) Hypothyroidism: Status: Acute (13) RUQ pain: Status: Acute (14) Diverticulitis of sigmoid colon: Status: Acute (15) IFG (impaired fasting glucose): Status: Acute (16) SOB (shortness of breath): Status: Acute (17) Anxiety and depression: Status: Acute (18) Headache: Status: Acute (19) History of Edouard's esophagus: Status: Acute (20) Pharyngeal dysphagia: Status: Acute History of Present Illness Consults Consult date: 10/02/20 Narrative: CT 10/01/20: Lung Bases: Centrilobular and paraseptal emphysematous changes are seen in the lungs. Small nodules are seen in the left lower lobe. The largest measures 8-9 mm. Liver: Normal density. No measurable mass. Portal, Superior Mesenteric, and Splenic Veins: Unremarkable. Gallbladder and Biliary Tract: The gallbladder is contracted. There is no biliary ductal dilatation. Pancreas: Normal density, no abnormal calcifications or inflammatory process. Spleen: Normal. Adrenals: No masses seen. Kidneys: Normal size, contour and axis. No radiodense stones or obstructive uropathy. No masses seen. Abdominal Aorta: Abdominal portion non-dilated. Marked atherosclerosis. Bowel: There are dilated loops of small bowel in the right lower quadrant and pelvis with a transition seen in the posterior pelvis in the midline. The findings are suspicious for partial small bowel obstruction. No focal mass is identified. There is no venous gas. There does appear to be mild thickening of the wall of some loops of small bowel. Appendix is unremarkable. There is a rectosigmoid anastomosis. There are surgical clips at the gastroesophageal junction. There is a small hiatal hernia. Peritoneal Cavity: No ascites, collection or mesenteric inflammatory response. No free air. Lymph Nodes: Within normal limits. Bones: The patient has a left total hip replacement. Degenerative changes are seen in the spine. Soft Tissues: Unremarkable. Bladder: Symmetric distention, no gross wall thickening. Portions of the urinary bladder obscured due to the artifact from the patient's hip prosthesis. Reproductive Organs: Unremarkable as visualized. Lymph Nodes: Within normal limits. Bones: Within normal limits for the patient's age. 1. Findings suspicious for partial small bowel obstruction with a transition in the posterior pelvis in the midline. 2. Mild wall thickening in loops of dilated loops of small bowel in the pelvis. This may represent enteritis. Questionable findings of mild pneumatosis. No portal venous gas. Ischemic enteritis cannot be excluded. Please correlate clinically. 3. Cluster of nodules in the left lower lobe. This may be infectious or inflammatory. Neoplasm cannot be entirely excluded. For patients at low risk, CT scan of the chest in 3-6 months is recommended and consider follow-up in 18- 24 months. Patient is at high risk (history of smoking or other known risk fa ctors), CT scan of the chest in 3-6 months is recommended then CT scan of the chest at 18-24 months. -Pt came to the ED today c/o right sided abdominal pain. No N/v. She has been having anal leakage- for which she has been taking metamucil. Her last CE was as below. Currently patient is complaining of abdominal pain all over. She denies any nausea vomiting. She denies any changes in her bowel habits. She cannot really say if she has been constipated or diarrhea. She has anal leakage which she has been mass monitoring with increasing dietary fiber. She has had no weight loss or rectal bleeding. She has had a hysterectomy and a what I think is a colon or could be a small bowel resection because her ovary was caught up in causing an obstruction. She is pleased says that she had part of her colon removed. Her last colonoscopy was normal and does not mention a colon resection. On physical exam, she has some mild distention. She does not exhibit peritonitis although she is uncomfortable. She has hyperactive bowel sounds. An NG tube was placed in the ED and they got out about 150 cc of fluid. She is not had any fluid out of the NG tube since she has been on the floor. She has no fever or chills. Her blood pressure and heart rate are stable. She is not exhibiting any signs of sepsis. From 08/2016 Dr. Ott After informed consent was obtained, the patient was taken to the Endoscopy Suite, placed in the left decubitus position. Monitors were applied and a time- out was done. A bite block was placed and she was placed under MAC sedation. Once sedated and comfortable, the gastroscope was introduced and advanced throughout the oropharynx which was normal, down into the esophagus. The proximal and mid esophagus were normal. In the distal esophagus, there was a 3 to 4 cm hiatal hernia. The Z-line was slightly irregular, but there was no a lot of inflammation. The scope was advanced into the stomach, where some moderate gastritis was noted as well as an ulcer just above the pylorus. The scope was advanced through the pylorus into the third portion of the duodenum. The duodenum was normal. The scope was retracted back into the stomach, where a biopsy of the antrum was done for a CLOtest. A biopsy of the ulcer was also done. The scope was retroflexed and a small hiatal hernia was again identified. The scope was straightened and pull back into the distal esophagus where biopsies of the GE junction were done to rule out Edouard's. The scope was removed and the bite block was taken out. While still asleep, the colonoscope was introduced and retroflexed. Small grade 1 internal hemorrhoids were noted. The scope was straightened and advanced to the cecum without difficulty. The terminal ileum and appendiceal orifice were identified. The scope was then slowly retracted over 7 minutes back into the rectum. No polyps were identified. There was moderate diverticulosis of the sigmoid colon. The scope was removed and the patient was woken up and taken back to [facility] in stable condition. from ED: 70 year old female presenting today with c/c of RUQ pain that radiates toward the bladder. States taht she has had this on and off for years. Worse over the past 3 days. Pain comes in waves. No exacerbating factor has been identified. Denies N/V, no change in bowel habits. Denies dysuria, frequency or urgency. Denies fevers/chills. Surgical hx pertient for colectomy, hysterectomy. Also states that she has been having episodes as dizziness which is brief and, on the top of my head, like a hat 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 COPD (chronic obstructive pulmonary disease) Emphysema Depression Depressive disorder fatigue Diverticulitis Forgetfulness HTN (hypertension) Hx of chest pain Pt. states her chest pain was related to her stomach issues, and has not had any cardiac issues currently, and does not see a dietary clerk. Hypothyroidism Irritable colon Osteoarthritis Sialoadenitis Surgical History Arthroscopy, Shoulder right; acromioplasty Colectomy 04/25/14 Colonoscopy - MAC (09/24/16) EGD - IV Sedation 2014 EGD - MAC (09/24/16) Extraction of cataract H/O surgical procedure a. total abdominal hysterectomy-bso b. exploratory laparotomy for reoval of ovaries c. knee replacements d. sigmoid resection 04/25/2014 e. right shoulder acromioplasty f. Elyssa fundoplication 1995 g. 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) Status post total hip replacement, right Family History Mother Diabetes Essential hypertension Personal history of malignant neoplasm LUNG Hyperlipidemia Asthma Father Essential hypertension Personal history of malignant neoplasm THROAT Heart disease Hyperlipidemia Sister Drug abuse Essential hypertension COPD (chronic obstructive pulmonary disease) Depression Heart disease Hyperlipidemia Asthma Grandfather Essential hypertension Personal history of malignant neoplasm Heart disease Hyperlipidemia Stroke Grandfather , UNKNOWN Alcohol abuse Heart disease Stroke Grandmother Essential hypertension Personal history of malignant neoplasm Hyperlipidemia Grandmother Alcohol abuse Personal history of malignant neoplasm Heart disease Son Depression Heart disease Asthma Son Alcohol abuse Essential hypertension Depression Daughter Essential hypertension Asthma Daughter Essential hypertension Depression Hyperlipidemia Social History Smoking/Tobacco Use Status: Former Tobacco Use Smoking risk assessment performed?: Yes Alcohol Intake: current Alcohol Intake frequency: a few times a month Drug use: Never Substance use type: does not use Number of Children: 4 Pets and animals: Yes Pets and animals: cat(s) and dog(s) Current gender identity: female What type of physical activity do you participate in: walking Frequency: daily Seatbelt use: always Water heater temp set <120 deg: Yes Working smoke detector in home: Yes Fire extinguisher in home: Yes Carbon monox detector in home: Yes Firearms in home: Yes Firearms unloaded and locked: Yes Do you feel safe at home: Yes Do you feel safe in your relationship?: Yes Meds Allergies and Home Medications Allergies Allergy/AdvReac Type Severity Reaction Status Date / Time tramadol Allergy Severe ITCHING, Verified 07/18/20 10:12 GI UPSET hydrocodone bitartrate Allergy Intermediate RASH, Verified 07/18/20 10:12 [From Vicodin] ITCHING desipramine AdvReac Intermediate PALPITATION Verified 07/18/20 10:12 S pregabalin [From Lyrica] AdvReac Intermediate CONFUSION Verified 07/18/20 10:12 salmeterol xinafoate AdvReac Intermediate COUGH Verified 07/18/20 10:12 [From Advair Diskus] methylprednisolone sodium AdvReac Mild Agitation Verified 07/18/20 10:12 succinate [From Solu-Medrol] paroxetine HCl [From Paxil] AdvReac Mild JITTERY Verified 07/18/20 10:12 sertraline HCl [From Zoloft] AdvReac Mild JITTERY Verified 07/18/20 10:12 acetaminophen AdvReac nausea, Verified 07/18/20 10:12 vomiting Home Medications Medication Instructions Recorded Confirmed Type EasiVent Mask Large #1 ea 09/01/13 10/01/20 History loratadine 10 mg tablet 10 mg PO DAILY PRN 11/15/18 10/01/20 History meclizine 25 mg tablet 25 mg PO TID PRN #21 tab 03/28/19 10/01/20 Rx psyllium husk 3.4 gram/5.4 gram 1 tbs PO DAILY 08/11/19 10/01/20 History oral powder tiotropium 2.5 mcg-olodaterol 2.5 2 puff IH DAILY 11/29/19 10/01/20 History mcg/actuation mist for inhalation multivitamin-ferrous 1 tab PO DAILY 01/10/20 10/01/20 History fumarate-folic acid 18 mg-400 mcg tablet omeprazole 40 mg capsule,delayed 40 mg PO DAILY #90 tab-cap 01/17/20 10/01/20 Rx release acetaminophen 1,000 mg PO Q8H PRN #90 tab 01/24/20 10/01/20 Rx naproxen 500 mg PO BID PRN #60 tab 01/24/20 10/01/20 Rx bupropion HCl 300 mg 24 hr tablet, 300 mg PO QAM #90 tab 07/18/20 10/01/20 Rx extended release levothyroxine 50 mcg tablet 50 mcg PO DAILY #90 tab 07/18/20 10/01/20 Rx albuterol sulfate 90 mcg/actuation 2 puff INHALATION Q4H PRN g 09/14/20 10/01/20 History aerosol inhaler Exam Resp Effort & Inspection: normal respiratory effort and able to speak in complete sentences Auscultation: clear to auscultation bilaterally Cardio Rate: regular rate Rhythm: regular rhythm GI Other: post sx changes noted. no hernias. + BS. she is not passing gas. No peritonitis. Skin General skin exam: no rashes or lesions noted Extrem General: no clubbing, cyanosis or edema Other: -Few varicosities noted. -Mild changes in the hands consistent with vascular-itis. Results Labs Result diagrams: 10/01/20 16:00 10/03/20 06:30 Labs: Laboratory Results - last 24 hr 10/01/20 10/01/20 10/01/20 16:00 16:00 17:13 WBC 8.00 RBC 4.59 Hgb 13.1 Hct 39.9 MCV 86.9 MCH 28.5 MCHC 32.8 RDW 13.9 Plt Count 388 MPV 8.3 Immature Gran % 0.3 Neutrophils % 62.7 Lymphocytes % 26.3 Monocytes % 7.4 Eosinophils % 2.8 Basophils % 0.5 Nucleated RBC % 0 Absolute Neutrophils 5.03 Absolute Lymphocytes 2.10 Absolute Monocytes 0.59 Absolute Eosinophils 0.22 Absolute Basophils 0.04 Sodium 139 Potassium 3.9 Chloride 102 Carbon Dioxide 26.4 Anion Gap 10.6 BUN 12 Creatinine 0.9 Estimated GFR/1.73 m2 >= 60.00 Glucose 97 Calcium 8.8 Magnesium 1.9 Total Bilirubin 0.3 AST 18 ALT 24 Alkaline Phosphatase 85 Troponin I < 0.05 Total Protein 7.4 Albumin 3.7 Lipase 111 Urine Color Yellow Urine Clarity Clear Urine pH 6.5 Ur Specific [place] 1.010 Urine Protein Negative Urine Ketones Negative Urine Blood Negative Urine Nitrite Negative Urine Bilirubin Negative Urine Urobilinogen 0.2 Ur Leukocyte Esterase Negative Urine Glucose Negative COVID-19 Source SARS-CoV-2 (PCR) 10/01/20 18:29 WBC RBC Hgb Hct MCV MCH MCHC RDW Plt Count MPV Immature Gran % Neutrophils % Lymphocytes % Monocytes % Eosinophils % Basophils % Nucleated RBC % Absolute Neutrophils Absolute Lymphocytes Absolute Monocytes Absolute Eosinophils Absolute Basophils Sodium Potassium Chloride Carbon Dioxide Anion Gap BUN Creatinine Estimated GFR/1.73 m2 Glucose Calcium Magnesium Total Bilirubin AST ALT Alkaline Phosphatase Troponin I Total Protein Albumin Lipase Urine Color Urine Clarity Urine pH Ur Specific [place] Urine Protein Urine Ketones Urine Blood Urine Nitrite Urine Bilirubin Urine Urobilinogen Ur Leukocyte Esterase Urine Glucose COVID-19 Source Nasal/nares SARS-CoV-2 (PCR) Negative Last Vital Signs Temp 36.6 C 10/01/20 21:07 Pulse 91 H 10/01/20 21:07 Resp 18 10/01/20 21:07 BP 146/80 H 10/01/20 21:07 Pulse Ox 94 10/01/20 21:07 COVID-19 Screening Have you, or household traveled for leisure in last 14 days?: No Had IN PERSON contact w/suspected or confirmed C-19 person: No
--- NOTE | 2020-10-02 | DI.US_ITS ---
APPROVED REPORT EXAM: Comprehensive 2D, Doppler, and color-flow Echocardiogram Patient Location: In-Patient Room/Bed: [facility] Sterilization Specialist: Cinda Villatoro RDCS (AE) Indications: HTN, Hypothyroid, COPD, SOB Other Information Study Quality: Adequate. Technically limited study due to inability to position patient. Conclusion Normal left ventricular wall thickness and chamber size. Estimated ejection fraction is 55%. Wall m otion is normal Normal right ventricular size and systolic function Both atria are normal in size There is no significant valvular disease Estimated right ventricular systolic pressure is 32 mmHg Wall motion Left Ventricle The left ventricle is normal size. The left ventricular systolic function is normal. The left ventric ular ejection fraction is within the normal range. There is normal left ventricular wall thickness. T here is normal LV segmental wall motion. There is no ventricular septal defect visualized. LVEF is 55 %. Right Ventricle Right ventricle is grossly normal in size. Right ventricular systolic function is grossly normal. The RVSP is 32.8 mmHg. Atria The left atrium size is normal. The right atrium size is normal. The interatrial septum is intact wit h no evidence for an atrial septal defect. Aortic Valve The aortic valve is normal in structure. Aortic valve is trileaflet. There is no aortic valvular sten osis. No aortic regurgitation is present. Mitral Valve The mitral valve is normal in structure. No evidence of mitral valve stenosis. Trace to mild mitral r egurgitation. Tricuspid Valve The tricuspid valve is normal in structure. There is no tricuspid valve stenosis. Trace tricuspid reg urgitation. Pulmonic Valve Pulmonic valve is not well visualized. There is no pulmonic valvular stenosis. There is no pulmonic v alvular regurgitation. Great Vessels The aortic root is normal in size. Ascending aorta is not well visualized. Aortic arch is normal in c aliber. IVC is normal in size and collapses >50% with inspiration. Pericardium There is no pericardial effusion. 2D Dimensions IVSD d PLAX 0.87 cm F: 0.6-1.0 LV Vol A2C d MOD 73.3 mL LVPW d PLAX 0.87 cm F: 0.6 - 1.0 LV Vol A4C d MOD 75.0 mL LVID d PLAX 4.06 cm F: 3.8 - 5.2 LA vol/ BSA A2C s A-L 25.2 mL/m2 LVDs 2.85 cm F: 2.2 - 3.5 LA vol/ BSA A4C s A-L 19.9 mL/m2 Ao Root d 2.53 cm F: 2.7 - 3.3 LA Vol/ BSA Biplane s A-L 23.1 mL/m2 RA Area A4C 10.88 cm2 LA Area A4C s MOD 12.03 cm2 RA Vol/ BSA A4C s A-L 15.4 mL/m2 LA Area A2C s MOD 13.92 cm2 LV EF Teichholz 55.8 % LV EF A4C MOD 56.0 % LVEF (Barlow's) 55.78 % F: 54 - 74 LV EF A2C MOD 55.7 % LV Volume 65.51 mL F: 46 - 106 LV EF Biplane MOD 55.8 % LV Volume Index 43.38 mL/m2 F: 29 - 61 SV 43.98 mL LV Vol Biplane MOD 78.9 mL SV Index 29.10 mL/m2 FS 28.70 % M-Mode TAPSE 1.69 cm (M/F) >1.7 LV Diastology MV E' medial 0.051 (>0.07 m/s) E/A Ratio 0.6 LV E/e MED 10.05 (<14) MV E Vmax 0.52 (0.4-1.3 m/s) MV E' lateral 0.049 (>0.1 m/s) MV A Vmax 0.85 (0.4-1.3 m/s) LV E/e LAT 10.55 (<14) MV E/A Ratio 0.58 MV E/E' medial 10.08 MV E/E' lateral 10.58 Aortic Valve LVOT Area 2.90 cm2 AoV Area Vmax 2.15 cm2 LVOT Vmax 0.74 m/s AoV Area/ BSA (Vmax) 1.43 cm2/m2 LVOT Mean Wei. 0.49 m/s JEREMY Mean Wei. 1.85 cm2 LVOT Peak Grad 2.2 mmHg JEREMY Mean Wei. Index 1.23 cm2/m2 LVOT Mean Grad 1.1 mmHg LVOT VTI 0.172 m LVOT Diam s 1.90 cm AoV Vmax 0.99 m/s Velocity Ratio 0.74 AoV Mean Wei. 0.77 m/s AoV Peak Grad 4.0 mmHg LVOT SV 49.71 mL AoV Mean Grad 2.6 mmHg AoV VTI 0.206 m AoV Area VTI 2.42 cm2 AoV Area/ BSA (VTI) 1.60 cm/m2 Mitral Valve MV DT 182 (160-240 msec) MV PHT 53 msec MV Area PHT 4.16 cm2 Pulmonary Valve PV Vmax 0.80 (0.5-1.5 m/s) RVOT Peak Gr. 1.44 mmHg PV Peak Grad 2.5 mmHg RVOT Mean Gr. 0.55 mmHg PV Mean Grad 1.3 mmHg RVOT VTI 0.118 m PV VTI 0.126 m RVOT Vmax 0.60 m/s Tricuspid Valve TR Peak Grad 29.7 mmHg TR Vmax 2.73 m/s RA Pressure 3.00 mmHg RVSP (TR) 32.8 mmHg
[2020-10-02] MEDS: Meclizine 12.5 MG TAB PO ×2 (00:44→09:38)
[2020-10-02] MEDS: Enoxaparin 30 MG/0.3 ML SYR IVP (00:44)
--- NOTE | 2020-10-02 04:40 | DI.VRAD_ITS ---
PROCEDURE INFORMATION: Exam: XR Chest Exam date and time: 10/02/2020 12:05 AM Age: 70 years old Clinical indication: Device placement; Ng tube; Prior surgery; Surgery date: 6+ months; Patient HX: Ngt placement/s/p nissans TECHNIQUE: Imaging protocol: XR of the chest. Views: 1 view. COMPARISON: CT CHEST WO 12/02/2019 12:28 PM FINDINGS: Tubes, catheters and devices: NG tube extends into stomach. Lungs: Unremarkable. No consolidation. Pleural spaces: Unremarkable. No pleural effusion. No pneumothorax. Heart/Mediastinum: Unremarkable. No cardiomegaly. Bones/joints: Unremarkable. IMPRESSION: NG tube extends into stomach. Dictated and Authenticated by: Hermes Lopez MD. Ordering:ROMEL Ramos MD
[2020-10-02] MEDS: Lactated Ringers 1,000 ML 125 ML IV ×3 (05:20→23:34)
[2020-10-02 06:58] LABS: BUN 8 mg/dL (7-18); CREATININE 0.8 mg/dL (0.55-1.02); Calcium 8.2 mg/dL (8.5-10.1); Chloride 107 mmol/L (98-107); Glucose 94 mg/dL (74-106); Magnesium 1.8 mg/dL (1.8-2.4); Potassium 3.9 mmol/L (3.5-5.1); Sodium 143 mmol/L (136-145)
[2020-10-02 07:35] VITALS: BP 157/83; PULSE 79; RESP 16; TEMP 37.3; O2SAT 96
--- NOTE | 2020-10-02 08:30 | DI.RAD_ITS ---
Exam(s) XR PORTABLE CHEST AP POST LINE EXAM: XR PORTABLE CHEST AP POST LINE CLINICAL HISTORY: ngt placement/s/p Nissans TECHNIQUE: 2D digital imaging was performed. COMPARISON: CR CHEST 2 VIEWS PA,LAT from 11/12/2017 FINDINGS: MEDIASTINUM: Normal. HEART: Normal. PULMONARY VASCULATURE: Normal. LUNGS: Clear. PLEURAL SPACE: No pleural effusion or pneumothorax. BONE:Within normal limits for the patient's age. OTHER FINDINGS:The tip of the nasogastric tube is in good position within the stomach. IMPRESSION: 1. No acute pulmonary findings. 2. The tip of the nasogastric tube is in good position within the stomach. DATA REPOSITORY: RADIATION DOSE DELIVERED:
--- NOTE | 2020-10-02 09:27 | INITIAL_ITS ---
- If Service Date Differs Date of service: 10/02/20 Time of Service: 09:27 Care Management Initial Assess REASON FOR HOSPITALIZATION:: SBO PAST MEDICAL HISTORY/PAST SURGICAL HISTORY:: Medical History . Edouard esophagus. Pt. states this is under control, as well as the dysphagia, states it only happens when very large pills and when she is stressed. COPD (chronic obstructive pulmonary disease). Emphys isai. Depression. Depressive disorder. fatigue. Diverticulitis. Forgetfulness. HTN (hypertension). Hx of chest pain. Pt. states her chest pain was related to her stomach issues, and has not had any cardiac issues currently, and does not see a program/music director. Hypothyroidism. Irritable colon. Osteoarthritis. Sialoadenitis. Surgical History . Arthroscopy, Shoulder. right; acromioplasty. Colectomy. 04/25/14. Colonoscopy - MAC (09/24/16). EGD - IV Sedation. 2014. EGD - MAC (09/24/16). Extraction of cataract. H/O surgical procedure. a. total abdominal hysterectomy-bso. b. exploratory laparotomy for reoval of ovaries. c. knee replacements. d. sigmoid resection 04/25/2014. e. right shoulder acromioplasty. f. Elyssa fundoplication 1995. g. bilateral open carpal tunnel release 1985. History of bilateral knee replacement. History of bilateral salpingo-oophorectomy (05/18/14). History of hysterectomy (05/18/14). Elyssa Fundoplication (~1995). Open Carpal Tunnel release (~1985). B/L. Replacement of total knee joint (~2004). B/L. 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 Status post total hip replacement, right PREVIOUS FUNCTIONAL STATUS/SOCIAL/FAMILY SUPPORTS:: Lydia resides in a single family home in [place], [place]. Her adult son Rey lives with her and is u ndergoing treatmnt for cancer. Brit has 3 other children; 2 daughters, Shelly and Saniya and another son Pratik. All of her children live in [place] and are supportive, especially her daughters. 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 She is independent at baseline and continues to drive. CURRENT FUNCTIONAL STATUS:: Brit was lying in bed when CM met with her. She was polite and agreeable to conversation. Brit began the conversation by talking about her son Rey who lives with her. He has rectal cancer and has gone through 7 months of radiation and chemotherapy. She informed CM that he is scheduled to have surgery with the creation of a permanent colostomy at [facility] on Thursday. Brit went on to talk about Rey's and her refudsal to care for him. Brit reported that she has issues with substance abuse and has been reported to [facility]. Brit also talked about her other children and the fact that the family has not been as close as it was before her 11 years ago. She shared that she tries to get them together for Thursday suppers as often as she can. ADVANCE DIRECTIVES:: On file. [facility]. Brit did tell CM that her HCA would be her 2 daughters. CM gave Brit a copy of the AD on file so that she could ensure that the informaation is accurate. Has patient been provided with info about the portal/API?: Yes Did the patient sign up for the portal?: No CODE STATUS:: Full Code INSURANCE COVERAGE / FINANCIAL ISSUES:: [facility] PPO - MCR Replacement CURRENT HOME/COMMUNITY SERVICES/EQUIPMENT:: owns a cane and a walker but does not need or use at this time PRIMARY CARE PHYSICIAN:: Kristine Carter POTENTIAL DISCHARGE NEEDS:: Follow up with surgeon and plan of care PATIENT/FAMILY EDUCATION NEEDS:: Review of discharge instructions, medications, limitations, follow up plan, Ask Me Three TRANSPORTATION:: via private vehicle with friend/family PLAN:: Brit will likely be discharged home with no new services. She will follow up with her PCP and surgeon and plan of care. Brit will transport via private vehicle with family. CM will continue to support Brit and her discharge planning needs.
--- NOTE | 2020-10-02 09:30 | DI.RAD_ITS ---
Exam(s) XR ABDOMEN FLAT PLATE EXAM: 2D digital imaging was performed. CLINICAL HISTORY: sbo. COMPARISON: No exams were available for comparison TECHNIQUE: Supine views of the abdomen performed. FINDINGS: BOWEL GAS PATTERN: Nondistended. There is a moderate amount of stool throughout the colon. CALCIFICATIONS: No radiopaque calcifications. OSSEOUS STRUCTURES: There are degenerative changes seen in the spine. The patient has a left total h ip arthroplasty. OTHER FINDINGS: The tip of the nasogastric tube is seen in the stomach. IMPRESSION: Nonobstructive bowel gas pattern. DATA REPOSITORY: RADIATION DOSE DELIVERED:
[2020-10-02] MEDS: Pantoprazole 40 MG VIAL IVP (09:39)
[2020-10-02] MEDS: Normal Saline Flush 10 ML SYR IVP (09:39)
--- NOTE | 2020-10-02 11:00 | DI.RAD_ITS ---
Exam(s) XR PORTABLE CHEST AP EXAM: XR PORTABLE CHEST AP CLINICAL HISTORY: effusion and NGT placement TECHNIQUE: 2D digital imaging was performed. COMPARISON: CR,XR XR PORTABLE CHEST AP POST LINE from 10/02/2020 FINDINGS: MEDIASTINUM: Normal. HEART: Normal. PULMONARY VASCULATURE: Normal. LUNGS: Clear. PLEURAL SPACE: No pleural effusion or pneumothorax. BONE:Within normal limits for the patient's age. OTHER FINDINGS:The nasogastric tube has been removed. IMPRESSION: No acute pulmonary findings. DATA REPOSITORY: RADIATION DOSE DELIVERED:
--- NOTE | 2020-10-02 11:03 | W.PM.PROGNOT ---
Documented by User: BALAJI Mock 10/02/20 11:06 Date of Service Date of service: 10/02/20 Time of Service: 07:00 Assessment and Plan Assessment and plan (1) SBO (small bowel obstruction): Status: Acute Assessment and plan: NG tube in place- Clear, liquid noted in canister. Continue NPO Abdominal pain his improved. Awaiting abdominal x-ray. Will have an Echo today. Continue with IV hydration Subjective Subjective Interval history since last seen: Patient reports her abdominal pain has improved over night. She has a small bowel movement this morning. She denies having any nausea or vomiting. Exam Const General: cooperative, healthy appearing and comfortable Orientation: alert and oriented x3 Resp Effort & Inspection: normal respiratory effort, no audible wheezes and no cough GI Inspection: normal to inspection and scar (Lower abdominal midline scar) Palpation: soft, no guarding and tender in the LLQ Objective Last Vital Signs Temp 37.3 C 10/02/20 07:35 Pulse 79 10/02/20 07:35 Resp 16 10/02/20 07:35 BP 157/83 H 10/02/20 07:35 Pulse Ox 96 10/02/20 07:35 Laboratory Results - last 24 hr 10/01/20 10/01/20 10/01/20 16:00 16:00 17:13 WBC 8.00 RBC 4.59 Hgb 13.1 Hct 39.9 MCV 86.9 MCH 28.5 MCHC 32.8 RDW 13.9 Plt Count 388 MPV 8.3 Immature Gran % 0.3 Neutrophils % 62.7 Lymphocytes % 26.3 Monocytes % 7.4 Eosinophils % 2.8 Basophils % 0.5 Nucleated RBC % 0 Absolute Neutrophils 5.03 Absolute Lymphocytes 2.10 Absolute Monocytes 0.59 Absolute Eosinophils 0.22 Absolute Basophils 0.04 Sodium 139 Potassium 3.9 Chloride 102 Carbon Dioxide 26.4 Anion Gap 10.6 BUN 12 Creatinine 0.9 Estimated GFR/1.73 m2 >= 60.00 Glucose 97 Calcium 8.8 Magnesium 1.9 Total Bilirubin 0.3 AST 18 ALT 24 Alkaline Phosphatase 85 Troponin I < 0.05 Total Protein 7.4 Albumin 3.7 Lipase 111 Urine Color Yellow Urine Clarity Clear Urine pH 6.5 Ur Specific [place] 1.010 Urine Protein Negative Urine Ketones Negative Urine Blood Negative Urine Nitrite Negative Urine Bilirubin Negative Urine Urobilinogen 0.2 Ur Leukocyte Esterase Negative Urine Glucose Negative COVID-19 Source SARS-CoV-2 (PCR) 10/01/20 10/02/20 18:29 06:20 WBC RBC Hgb Hct MCV MCH MCHC RDW Plt Count MPV Immature Gran % Neutrophils % Lymphocytes % Monocytes % Eosinophils % Basophils % Nucleated RBC % Absolute Neutrophils Absolute Lymphocytes Absolute Monocytes Absolute Eosinophils Absolute Basophils Sodium 143 Potassium 3.9 Chloride 107 Carbon Dioxide 27.0 Anion Gap 9.0 BUN 8 Creatinine 0.8 Estimated GFR/1.73 m2 >= 60.00 Glucose 94 Calcium 8.2 L Magnesium 1.8 Total Bilirubin AST ALT Alkaline Phosphatase Troponin I Total Protein Albumin Lipase Urine Color Urine Clarity Urine pH Ur Specific [place] Urine Protein Urine Ketones Urine Blood Urine Nitrite Urine Bilirubin Urine Urobilinogen Ur Leukocyte Esterase Urine Glucose COVID-19 Source Nasal/nares SARS-CoV-2 (PCR) Negative Documented by User: Rachel Urias DO 10/02/20 23:29 Assessment and Plan Assessment and plan (1) SBO (small bowel obstruction): Status: Acute Assessment and plan: he still has lots of stool on xray. clampNGT and try some mag citrate 1700 pt had mult stools. no n/v and tolerating tube clamped will dc tube and try clears up adn walking
[2020-10-02] MEDS: Magnesium Citrate 300 ML BTL PO (14:43)
[2020-10-02 15:25] VITALS: BP 106/72; PULSE 96; RESP 15; TEMP 36.8; O2SAT 95
[2020-10-02 17:03] VITALS: BP 137/83; PULSE 78; RESP 16; TEMP 36.9; O2SAT 96
--- NOTE | 2020-10-02 19:49 | DI.VRAD_ITS ---
PROCEDURE INFORMATION: Exam: XR Chest Exam date and time: 10/02/2020 11:10 AM Age: 70 years old Clinical indication: Patient HX: Effusion and ngt placement TECHNIQUE: Imaging protocol: XR of the chest. Views: 1 view. COMPARISON: CR XR PORTABLE CHEST AP POST LINE 10/02/2020 4:04 AM FINDINGS: Tubes, catheters and devices: The prior nasogastric tube has been removed. Lungs: The lungs are clear. There is no pulmonary vascular congestion. Pleural spaces: There are no pleural effusions present. There is no evidence of pneumothorax. Heart/Mediastinum: The cardiomediastinal silhouette is within normal limits. Bones/joints: Unremarkable. IMPRESSION: 1. The prior nasogastric tube has been removed. 2. Clear lungs. 3. No pleural effusions identified. Dictated and Authenticated by: Gee Jack MD. Ordering:ROMEL Ramos MD
[2020-10-02 23:49] VITALS: BP 149/83; PULSE 95; RESP 16; TEMP 37.4; O2SAT 93
[2020-10-03 00:54] VITALS: O2SAT 96
[2020-10-03 07:25] VITALS: BP 150/75; PULSE 87; RESP 17; TEMP 37; O2SAT 95
[2020-10-03] MEDS: Normal Saline Flush 10 ML SYR IVP (07:29)
[2020-10-03] MEDS: Pantoprazole 40 MG VIAL IVP (07:29)
[2020-10-03 07:30] LABS: Anion Gap 7.6 mmol/L (3-11); BUN 7 mg/dL (7-18); CO2 27.4 mmol/L (21.0-32.0); CREATININE 0.9 mg/dL (0.55-1.02); Calcium 8.2 mg/dL (8.5-10.1); Chloride 105 mmol/L (98-107); Glucose 84 mg/dL (74-106); Magnesium 1.9 mg/dL (1.8-2.4); Sodium 140 mmol/L (136-145)
--- NOTE | 2020-10-03 07:30 | W.PM.PROGNOT ---
Date of Service Date of service: 10/03/20 Time of Service: 07:30 Assessment and Plan Assessment and plan (1) SBO (small bowel obstruction): Status: Acute Assessment and plan: SBO has resolved. Tolerating clear liquid diet, will progress to soft, regular diet. Pain is well controlled. (+) flatus and (+) BM Urinating without difficulty. If tolerating regular diet, will d/c home later today. Subjective Subjective Interval history since last seen: Lydia reports that she is feeling much better today. She describes some abdominal soreness. (+) Flatus. Denies any nausea or vomiting. She states that she tolerated broth last night without any discomfort, nausea or vomiting. Exam Const General: cooperative, healthy appearing and comfortable Resp Effort & Inspection: normal respiratory effort, no audible wheezes and no cough GI Inspection: normal to inspection Palpation: soft, not firm and nontender Objective Last Vital Signs Temp 37 C 10/03/20 07:25 Pulse 87 10/03/20 07:25 Resp 17 10/03/20 07:25 BP 150/75 H 10/03/20 07:25 Pulse Ox 95 10/03/20 07:25
[2020-10-03] MEDS: Lactated Ringers 1,000 ML 125 ML IV ×3 (07:33→23:20)
[2020-10-03] MEDS: Tiotropium/Olodaterol 10 PUFF INHALER IH (08:03)
--- NOTE | 2020-10-03 10:01 | PDOC.CMPRO ---
- If Service Date Differs Date of service: 10/03/20 Time of Service: 10:01 Care Management Progress Note S/O: Brit was sitting up in a chair when CM met with her. She had her lunch tray in front of her but very little had been eaten. Brit stated that when she started to eat solid food, the pain in her side returned. She did say that she was happy that the NG tube had been removed. She noted that it was uncomfortable and that this morning her throat was sore even after it was removed. Brit shared that her son will begin his prep tomorrow for surgery on Thursday. Brit had been concerned that there would be no one there to help him with reminders but she has since learned that her other son and one of her daughters plan to be with him. Brit informed CM that she hopes to be able to go home tomorrow. CM printed a copy of Brit's advanced directives and gave them to her since she could not remember the details. After a brief discussion, Brit stated that she would like to redo the directives. CM will assist her with their completion tomorrow if she still wishes to do so. A: Brit is a 70 year old woman admitted on 10/01/20 with a SBO P:Brit will likely be discharged home with no new services. She will follow up with her PCP and surgeon and plan of care. Brit will transport via private vehicle with family. CM will continue to support Brit and her discharge planning needs.
--- NOTE | 2020-10-03 10:03 | DSE_ITS ---
Date of service: 10/03/20 Time of Service: 10:03 DS: Diagnosis Discharge Diagnosis (1) SBO (small bowel obstruction): Status: Acute Discharge Plan Disposition Patient Disposition: HOME Condition: Improving Discharge Details Reason For Visit: SBO Admit Date/Time: 10/01/20 19:46 Admit Provider: Rachel Urias Attending Provider: Rachel Urias Primary Care Provider: Kristine Carter Hospital Course Hospital Course: 70 y/o female whom was admitted to the surgical service on 10/01 for small bowel obstruction noted on CT scan. She was admitted for pain controll and for NG tube decompression. Her symptoms improved and she was able to have a BM on 10/02. NG tube was removed later in the day on 10/02, she was tolerating clear liquid diet which was then progressed to a soft diet. Abdominal pain has resolved. D/C home. She will need to follow up with her PCP in 1-2 weeks. Home Meds and New Rx's Prescriptions: No Action meclizine 25 mg tablet 25 mg PO TID PRN (Reason: dizziness) Qty: 21 RF: 0 omeprazole 40 mg capsule,delayed release(DR/EC) 40 mg PO DAILY Qty: 90 RF: 3 Hold Instructions: Home Medication placed on hold at Doctor's office bupropion HCl 300 mg tablet extended release 24 hr 300 mg PO QAM Qty: 90 RF: 3 levothyroxine 50 mcg tablet 50 mcg PO DAILY Qty: 90 RF: 3 loratadine 10 mg tablet 10 mg PO DAILY PRN (Reason: allergy symptoms) RF: 0 Metamucil 3.4 gram/5.4 gram powder 1 tbs PO DAILY RF: 0 [employer] Ultimate Women's 18-400 mg-mcg tablet 1 tab PO DAILY RF: 0 (DME) EasiVent Mask Large 1 EACH device 1 ea Miscellaneous DIRECTED Qty: 1 RF: 0 Stiolto Respimat 2.5-2.5 mcg/actuation mist 2 puff IH DAILY RF: 0 albuterol sulfate [Ventolin HFA] 90 mcg/actuation HFA aerosol inhaler 2 puff inhalation Q4H PRNRF: 0 acetaminophen 500 mg tablet 1,000 mg PO Q8H PRN (Reason: pain) Qty: 90 RF: 3 naproxen 500 mg tablet 500 mg PO BID PRNQty: 60 RF: 0 Discharge Instructions Instructions: Bowel Obstruction (DC) Activity:: Activity as Tolerated Equipment/Supplies:: No Equipment Needed Diet:: Normal Diet DS: Data Vitals/I&O Vitals and I&O: Vital Signs Temperature 37 C 10/03/20 07:25 Temperature Source Tympanic 10/03/20 07:25 Pulse 87 10/03/20 07:25 Pulse Rhythm Regular 10/03/20 05:41 Respiratory Rate 17 10/03/20 07:25 Respiratory Effort Non-Labored 10/03/20 05:41 Respiratory Depth Normal 10/03/20 05:41 Respiratory Pattern Normal 10/03/20 05:41 Blood Pressure 150/75 H 10/03/20 07:25 Blood Pressure Position Sitting 10/01/20 15:40 Pulse Oximetry 95 10/03/20 07:25 Oxygen Delivery Method Room Air 10/03/20 07:25 Oxygen Flow Rate 0 10/03/20 07:25 Pain Level 0 10/03/20 07:25 Intake & Output 10/02/20 10/03/20 10/03/20 18:59 06:59 18:59 Intake Total 1000.000 / 2000.000 1000 / 2000.000 997.917 / 997.917 Output Total 1600 / 1600 600 / 600 Balance -600 / 364.451 9635 / 400.000 397.917 / 397.917 Intake: IV 1000.000 / 2000.000 1000 / 2000.000 997.917 / 997.917 Output: Gastric Drainage 225 / 225 Right Nare 225 / 225 Urine 1100 / 1100 600 / 600 Stool 275 / 275 Other: Urine Color Pale Yellow Yellow Yellow Urine Appearance Clear Clear Clear Urine Odor Normal Comment urine mixed with stool Urine mixed with output, unable to measure Stool Size Small Moderate Moderate Stool Characteristics Liquid Liquid Liquid Brown Voiding Methods Bedside Commode Bedside Commode Bedside Commode Data Completed and Pending Labs on day of discharge: Labs from last 24 hours 10/03/20 06:30 Sodium 140 Potassium 4.0 Chloride 105 Carbon Dioxide 27.4 Anion Gap 7.6 BUN 7 Creatinine 0.9 Estimated GFR/1.73 m2 >= 60.00 Glucose 84 Calcium 8.2 L Magnesium 1.9 [facility] Medical History 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 COPD (chronic obstructive pulmonary disease) Emphysema Depression Depressive disorder fatigue Diverticulitis Forgetfulness HTN (hypertension) Hx of chest pain Pt. states her chest pain was related to her stomach issues, and has not had any cardiac issues currently, and does not see a caustic cresylate shift superintendent. Hypothyroidism Irritable colon Osteoarthritis Sialoadenitis Surgical History Arthroscopy, Shoulder right; acromioplasty Colectomy 04/25/14 Colonoscopy - MAC (09/24/16) EGD - IV Sedation 2014 EGD - MAC (09/24/16) Extraction of cataract H/O surgical procedure a. total abdominal hysterectomy-bso b. exploratory laparotomy for reoval of ovaries c. knee replacements d. sigmoid resection 04/25/2014 e. right shoulder acromioplasty f. Elyssa fundoplication 1995 g. 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) Status post total hip replacement, right Family History Mother Diabetes Essential hypertension Personal history of malignant neoplasm LUNG Hyperlipidemia Asthma Father Essential hypertension Personal history of malignant neoplasm THROAT Heart disease Hyperlipidemia Sister Drug abuse Essential hypertension COPD (chronic obstructive pulmonary disease) Depression Heart disease Hyperlipidemia Asthma Grandfather Essential hypertension Personal history of malignant neoplasm Heart disease Hyperlipidemia Stroke Grandfather , UNKNOWN Alcohol abuse Heart disease Stroke Grandmother Essential hypertension Personal history of malignant neoplasm Hyperlipidemia Grandmother Alcohol abuse Personal history of malignant neoplasm Heart disease Son Depression Heart disease Asthma Son Alcohol abuse Essential hypertension Depression Daughter Essential hypertension Asthma Daughter Essential hypertension Depression Hyperlipidemia Social History Smoking/Tobacco Use Status: Former Tobacco Use Smoking risk assessment performed?: Yes Alcohol Intake: current Alcohol Intake frequency: a few times a month Drug use: Never Substance use type: does not use Number of Children: 4 Pets and animals: Yes Pets and animals: cat(s) and dog(s) Current gender identity: female What type of physical activity do you participate in: walking Frequency: daily Seatbelt use: always Water heater temp set <120 deg: Yes Working smoke detector in home: Yes Fire extinguisher in home: Yes Carbon monox detector in home: Yes Firearms in home: Yes Firearms unloaded and locked: Yes Do you feel safe at home: Yes Do you feel safe in your relationship?: Yes
[2020-10-03] MEDS: Acetaminophen 500 MG TAB 1000 MG PO (13:09)
[2020-10-03 15:19] VITALS: BP 136/63; PULSE 67; RESP 18; TEMP 37; O2SAT 95
[2020-10-03 23:08] VITALS: BP 144/72; PULSE 81; RESP 17; TEMP 36.9; O2SAT 93
[2020-10-04 06:42] LABS: Anion Gap 8.3 mmol/L (3-11); BUN 6 mg/dL (7-18); CO2 26.7 mmol/L (21.0-32.0); CREATININE 0.9 mg/dL (0.55-1.02); Calcium 8.1 mg/dL (8.5-10.1); Chloride 106 mmol/L (98-107); Glucose 87 mg/dL (74-106); Magnesium 1.8 mg/dL (1.8-2.4); Potassium 3.9 mmol/L (3.5-5.1); Sodium 141 mmol/L (136-145)
[2020-10-04] MEDS: Lactated Ringers 1,000 ML 125 ML IV (07:00)
[2020-10-04 07:22] VITALS: BP 155/70; PULSE 84; RESP 17; TEMP 36.9; O2SAT 95
--- NOTE | 2020-10-04 07:31 | PGE_ITS ---
Documented by User: BALAJI Mock 10/04/20 07:35 Date of Service Date of service: 10/04/20 Time of Service: 07:01 Assessment and Plan Assessment and plan (1) SBO (small bowel obstruction): Status: Acute Assessment and plan: SBO has resolved. RUQ abdominal pain after eating which was associated with nausea yesterday. She denies having any of these symptoms right now. (+) flatus and (+) BM; Liquid Stool Urinating without difficulty. Will hold IV fluids. She is drinking PO. Possible d/c later today. Subjective Subjective Interval history since last seen: Lydia expresses that she is very eager to return home today. She states that she was having RUQ pain that radiates into her epigastric region and nausea after eating yesterday, which she states has been a chronic issue. She denies any pain at this time. Denies any fevers, ch ills or night sweats. Exam Const General: cooperative, healthy appearing and comfortable Orientation: alert and oriented x3 Resp Effort & Inspection: normal respiratory effort, able to speak in complete sentences, no audible wheezes and no cough GI Palpation: soft, no guarding and nontender Objective Last Vital Signs Temp 36.9 C 10/04/20 07:22 Pulse 84 10/04/20 07:22 Resp 17 10/04/20 07:22 BP 155/70 H 10/04/20 07:22 Pulse Ox 95 10/04/20 07:22 Laboratory Results - last 24 hr 10/03/20 10/04/20 06:30 06:00 Sodium 140 141 Potassium 4.0 3.9 Chloride 105 106 Carbon Dioxide 27.4 26.7 Anion Gap 7.6 8.3 BUN 7 6 L Creatinine 0.9 0.9 Estimated GFR/1.73 m2 >= 60.00 >= 60.00 Glucose 84 87 Calcium 8.2 L 8.1 L Magnesium 1.9 1.8 Documented by User: Anuel Tafoya MD 10/04/20 13:32
[2020-10-04] MEDS: Normal Saline Flush 10 ML SYR IVP (07:38)
[2020-10-04] MEDS: Pantoprazole 40 MG VIAL IVP (07:38)
[2020-10-04] MEDS: Tiotropium/Olodaterol 10 PUFF INHALER IH (08:12)
--- NOTE | 2020-10-04 09:31 | CMPROGNOTE_ITS ---
- If Service Date Differs Date of service: 10/04/20 Time of Service: 09:31 Care Management Progress Note S/O: Brit was sitting up in a chair when CM met with her. She was pleasant and engaged readily with CM. At her request, CM assisted with the completion of Advanced Directives. Brit had done them a few years ago but there were many changes that she wished to make. The Advanced Directives were completed and faxed to the [place] [facility] and to [facility] and Brit was given the original as well as 2 copies. Brit anticipates being discharged later today. She verbalized that she really wanted to go home today as her son is undergoing a prep for surgery and could use her help. A: Brit is a 70 year old woman admitted on 10/01/20 with a SBO P:Brit will likely be discharged home with no new services. She will follow up with her PCP and surgeon and plan of care. Brit will transport via private vehicle with family. CM will continue to support Brit and her discharge planning needs.
--- NOTE | 2020-10-04 13:29 | W.PM.DS.N ---
Date of service: 10/04/20 Time of Service: 13:59 DS: Diagnosis Discharge Diagnosis (1) SBO (small bowel obstruction): Status: Acute Discharge Plan Disposition Patient Disposition: HOME Condition: Improving Discharge Details Reason For Visit: SBO Admit Date/Time: 10/01/20 19:46 Admit Provider: Rachel Urias Attending Provider: Rachel Urias Primary Care Provider: Kristine Carter Hospital Course Hospital Course: 70 y/o female whom was admitted to the surgical service on 10/01 for small bowel obstruction noted on CT scan. She was admitted for pain controll and for NG tube decompression. Her symptoms improved and she was able to have a BM on 10/02. NG tube was removed later in the day on 10/02, she was tolerating clear liquid diet which was then progressed to a soft diet. Abdominal pain has resolved. On 10/04, she continued to do well overnight with no new pain. D/C home. She will need to follow up with her PCP in 1-2 weeks. Home Meds and New Rx's Prescriptions: Continued meclizine 25 mg tablet 25 mg PO TID PRN (Reason: dizziness) Qty: 21 RF: 0 omeprazole 40 mg capsule,delayed release(DR/EC) 40 mg PO DAILY Qty: 90 RF: 3 Hold Instructions: Home Medication placed on hold at Doctor's office bupropion HCl 300 mg tablet extended release 24 hr 300 mg PO QAM Qty: 90 RF: 3 levothyroxine 50 mcg tablet 50 mcg PO DAILY Qty: 90 RF: 3 loratadine 10 mg tablet 10 mg PO DAILY PRN (Reason: allergy symptoms) RF: 0 Metamucil 3.4 gram/5.4 gram powder 1 tbs PO DAILY RF: 0 [employer] Ultimate Women's 18-400 mg-mcg tablet 1 tab PO DAILY RF: 0 (DME) EasiVent Mask Large 1 EACH device 1 ea Miscellaneous DIRECTED Qty: 1 RF: 0 Stiolto Respimat 2.5-2.5 mcg/actuation mist 2 puff IH DAILY RF: 0 albuterol sulfate [Ventolin HFA] 90 mcg/actuation HFA aerosol inhaler 2 puff inhalation Q4H PRNRF: 0 acetaminophen 500 mg tablet 1,000 mg PO Q8H PRN (Reason: pain) Qty: 90 RF: 3 naproxen 500 mg tablet 500 mg PO BID PRNQty: 60 RF: 0 Discharge Instructions Instructions: Bowel Obstruction (DC) Stand Alone Forms: Nursing Discharge Form Referrals: Kristine Carter NP [Primary Care Provider] - 10/11/20 10:30 am Activity:: Activity as Tolerated Equipment/Supplies:: No Equipment Needed Diet:: Normal Diet Discharge Orders Discharge Orders: Discharge Order (Routine); Ordered 10/04/20 Ordered By: Anuel Tafoya DS: Summary Summary Time spent discussing smoking cessation with patient: 3 to 10 minutes Time Spent with Patient providing and/or coordinating discharge services: Greater than 30 minutes Status at Discharge Functional status at discharge: independent ambulation Overall status at discharge: patient is back to baseline Mental Status: mental status grossly normal Speech and Movement: speech clear Mood: congruent mood Affect: normal affect Exam Psych Mental Status: mental status grossly normal Speech and Movement: speech clear Mood: congruent mood Affect: normal affect DS: Data Vitals/I&O Vitals and I&O: Vital Signs Temperature 98.4 F 10/04/20 07:22 Temperature Source Tympanic 10/04/20 07:22 Pulse 84 10/04/20 07:22 Pulse Rhythm Regular 10/04/20 07:45 Respiratory Rate 17 10/04/20 07:22 Respiratory Effort Non-Labored 10/04/20 07:45 Respiratory Depth Normal 10/04/20 07:45 Respiratory Pattern Normal 10/04/20 07:45 Blood Pressure 155/70 H 10/04/20 07:22 Blood Pressure Position Sitting 10/01/20 15:40 Pulse Oximetry 95 10/04/20 07:22 Oxygen Delivery Method Room Air 10/04/20 07:22 Oxygen Flow Rate 0 10/04/20 07:22 Pain Level 0 10/04/20 07:22 Comment 10/03/20 23:08 Intake & Output 10/03/20 10/04/20 10/04/20 23:59 11:59 23:59 Intake Total 2440 / 3917.917 1937.500 / 1937.500 Output Total 2049 1600 / 1600 Balance 390 / 167.917 337.500 / 337.500 Intake: IV 1950 / 2947.917 1037.500 / 1037.500 Oral 490 / 970 900 / 900 Output: Urine 2049 1600 / 1600 Other: Urine Color Yellow Yellow Urine Appearance Clear Clear Urine Odor Normal Comment urine mixed with liquid stool. 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 COPD (chronic obstructive pulmonary disease) Emphysema Depression Depressive disorder fatigue Diverticulitis Forgetfulness HTN (hypertension) Hx of chest pain Pt. states her chest pain was related to her stomach issues, and has not had any cardiac issues currently, and does not see a mental retardation aide. Hypothyroidism Irritable colon Osteoarthritis Sialoadenitis Surgical History Arthroscopy, Shoulder right; acromioplasty Colectomy 04/25/14 Colonoscopy - MAC (09/24/16) EGD - IV Sedation 2014 EGD - MAC (09/24/16) Extraction of cataract H/O surgical procedure a. total abdominal hysterectomy-bso b. exploratory laparotomy for reoval of ovaries c. knee replacements d. sigmoid resection 04/25/2014 e. right shoulder acromioplasty f. Elyssa fundoplication 1995 g. 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) Status post total hip replacement, right Family History Mother Diabetes Essential hypertension Personal history of malignant neoplasm LUNG Hyperlipidemia Asthma Father Essential hypertension Personal history of malignant neoplasm THROAT Heart disease Hyperlipidemia Sister Drug abuse Essential hypertension COPD (chronic obstructive pulmonary disease) Depression Heart disease Hyperlipidemia Asthma Grandfather Essential hypertension Personal history of malignant neoplasm Heart disease Hyperlipidemia Stroke Grandfather , UNKNOWN Alcohol abuse Heart disease Stroke Grandmother Essential hypertension Personal history of malignant neoplasm Hyperlipidemia Grandmother Alcohol abuse Personal history of malignant neoplasm Heart disease Son Depression Heart disease Asthma Son Alcohol abuse Essential hypertension Depression Daughter Essential hypertension Asthma Daughter Essential hypertension Depression Hyperlipidemia Social History Smoking/Tobacco Use Status: Former Tobacco Use Smoking risk assessment performed?: Yes Alcohol Intake: current Alcohol Intake frequency: a few times a month Drug use: Never Substance use type: does not use Number of Children: 4 Pets and animals: Yes Pets and animals: cat(s) and dog(s) Current gender identity: female What type of physical activity do you participate in: walking Frequency: daily Seatbelt use: always Water heater temp set <120 deg: Yes Working smoke detector in home: Yes Fire extinguisher in home: Yes Carbon monox detector in home: Yes Firearms in home: Yes Firearms unloaded and locked: Yes Do you feel safe at home: Yes Do you feel safe in your relationship?: Yes
--- NOTE | 2020-10-04 14:27 | CHAPLAIN ---
Brit was up in her chair when I visited this morning. She said she remembers that we met a few years ago when her sister, was in the ICU. Brit expects to be discharged today. We talked about her experience with a blanking press operator when she was getting to her who was Zoroastrian. Brit's son, Rey, is having surgery tomorrow for a colostomy at [facility]. She said his exwife with take him to the hospital. Brit is worried about her son, the surgery and how he will deal with the colostomy. It's possible it might be reversed later, according to Brit. She's had experience with family members going into [facility] for procedures, appearing to be ok afterward and then not surviving, so this adds to her apprehension.
== END 2020-10-04 15:11 | disposition home or self-care (01) | DRG 390 ==
LOC: ER 15:40 → MS 20:56
PROVIDERS: Admitting Provider Surgery; Emergency Provider Physician Assistant; PCP Nurse Practitioner; Visit Provider Surgery
DX: K56.609 Unspecified intestinal obstruction, unspecified as to partial versus complete obstruction (principal); J43.9 Emphysema, unspecified; F41.9 Anxiety disorder, unspecified; K22.70 Barrett's esophagus without dysplasia; Z98.0 Intestinal bypass and anastomosis status; E03.9 Hypothyroidism, unspecified; F32.9 Major depressive disorder, single episode, unspecified; I10 Essential (primary) hypertension; K58.9 Irritable bowel syndrome, unspecified; R41.3 Other amnesia; R53.83 Other fatigue; R63.4 Abnormal weight loss; G89.29 Other chronic pain; M54.9 Dorsalgia, unspecified; H81.12 Benign paroxysmal vertigo, left ear; R73.01 Impaired fasting glucose; F41.8 Other specified anxiety disorders; R51.9 Headache, unspecified; R91.8 Other nonspecific abnormal finding of lung field; Z20.822 Contact with and (suspected) exposure to COVID-19
CPT/HCPCS: 36415; 36416; 71045; 80048; 80053; 82962; 83690; 87635; 93005; 93306; 94640; 96361; 96374; 99222; 99232; 99239; 99285; 70450; 74018; 74177; 81003; 83735; 84484; 85025; 93010; J1650; J2060; J3490

== ENCOUNTER 2020-10-06 19:35 | Emergency (ER) | payer OTHER, MEDICAID, SELFPAY ==
[2020-10-06 19:45] VITALS: BP 182/69; PULSE 85; RESP 18; TEMP 36.5; O2SAT 95
[2020-10-06 19:53] VITALS: RESP 16
[2020-10-06 19:58] VITALS: BP 139/55; PULSE 92
[2020-10-06 19:59] VITALS: BP 142/81; BP 154/83; PULSE 105; PULSE 95
--- NOTE | 2020-10-06 20:00 | DI.CT_ITS ---
Exam(s) CT HEAD WO EXAM: CT HEAD WO CLINICAL HISTORY: dizzy. TECHNIQUE: Imaging Protocol: Axial computed tomography images with coronal and sagittal reformatted images were created and reviewed COMPARISON: CT CT HEAD WO from 10/01/2020 FINDINGS: There are no skull fractures nor fluid in the visualized paranasal sinuses. There is no evidence of intracranial hemorrhage, mass effect, or shift of midline structures. There are no extra-axial fluid collections. The ventricles are not enlarged or shifted and there is no blo od within the ventricular system nor within the basal cisterns. There is some mild bilateral periventricular hypodensity consistent with chronic small vessel disease , unchanged. Also symmetrical involutional change. Symmetrical calcification both basal ganglia again noted. IMPRESSION: No acute intracranial findings on this noninfused CT scan of the brain. No significant change from 0 10/01/2020. RADIATION DOSE DELIVERED: 695.72mGy.cm Total DLP DATA REPOSITORY: All CT scans at this facility are submitted to the National Radiology Data Registry (NRDR) Dose Index Registry (DIR) with the [employer] (A[employer]). RADIATION OPTIMIZATION: All CT scans at this facility use at least one of these dose optimization te chniques: automated exposure control; mA and/or kV adjustment per patient size (includes targeted exa ms where dose is matched to clinical indication); or iterative reconstruction.
--- NOTE | 2020-10-06 20:00 | RT.EKG_ITS ---
APPROVED REPORT Exam: Resting ECG Reason for Exam: dizzy Patient Location: E HR:86 bpm ECG Measurements Heart Rate 86 AXIS CO 155 P 33 QRSd 94 QRS -40 QT 355 T 19 QTc 426 Conclusion Sinus rhythm...normal P axis, V-rate 60- 99 Left axis deviation...QRS axis (-30,-90) Low voltage, precordial leads...precordial leads <1.0mV Consider anterior infarct...Q >30mS in V2-V5 There are no significant changes compared to prior EKG performed on 10/01/2020 at 15:59.
[2020-10-06] MEDS: Normal Saline 1,000 ML 1000 ML IV (20:21)
[2020-10-06] MEDS: Meclizine 25 MG TAB PO (20:22)
[2020-10-06] MEDS: diazePAM 10 MG/2 ML SYR 2 MG IVP ×2 (20:23→21:46)
[2020-10-06 20:33] LABS: Abs Immature Grans 0.03 10^3/uL (0.0-0.06); Absolute Basophil Count 0.05 10^3/uL (0.0-0.2); Absolute Eosinophil Count 0.27 10^3/uL (0.0-0.7); Absolute Lymphocyte Count 2.55 10^3/uL (1.2-3.4); Absolute Monocyte Count 0.57 10^3/uL (0.1-0.8); Absolute Neutrophil Count 4.58 10^3/uL (1.2-6.7); Basophils % 0.6; Eosinophils % 3.4; HGB 11.8 g/dL (11.2-15.7); Immature Grans % 0.4; Lymphocytes % 31.7; MCHC 32.8 % (32.0-36.0); MCV 88.5 fL (80-95); MPV 8.7 fL (8.0-11.0); Monocytes % 7.1; Neutrophils % 56.8; Nucleated RBC 0 %; Platelet Count 418 10^3/uL (130-400); RBC 4.07 10^6/uL (3.93-5.22); RDW 13.6 % (11.7-14.6); RDW-SD 44.4 fL; WBC 8.05 10^3/uL (4.4-10.8)
[2020-10-06 20:47] LABS: Prothrombin Time 10.1 sec (9.3-11.0)
[2020-10-06 21:00] LABS: Bilirubin Negative (Negative); Blood Negative (Negative); Clarity Clear (Clear); Glucose Negative (Negative); Ketones Negative (Negative); Leukocyte Esterase Small (Negative); Nitrite Negative (Negative); Urobilinogen 0.2 EU/dL (Up TO 0.2); pH 6.5 (5-8)
[2020-10-06 21:00] LABS: ALT 21 U/L (14-59); AST 18 U/L (15-37); Albumin 3.2 g/dL (3.4-5.0); Alkaline Phosphatase 83 U/L (46-116); Anion Gap 10.1 mmol/L (3-11); BUN 11 mg/dL (7-18); Bilirubin, Total 0.2 mg/dL (0.2-1.0); CO2 25.9 mmol/L (21.0-32.0); CREATININE 1.1 mg/dL (0.55-1.02); Calcium 8.3 mg/dL (8.5-10.1); Chloride 103 mmol/L (98-107); Estimated GFR 48.96 (mL/min/1.73m2); Glucose 130 mg/dL (74-106); Magnesium 1.7 mg/dL (1.8-2.4); Potassium 3.6 mmol/L (3.5-5.1); Sodium 139 mmol/L (136-145); TSH 4.74 uIU/mL (0.36-3.74); Troponin I < 0.05 ng/mL (<0.06)
[2020-10-06 21:05] LABS: Bacteria Moderate HPF (Negative); C & S Indicated? Yes; Casts Negative LPF (Negative); Crystals Negative HPF (Negative); Epithelial Cells Rare HPF (Negative); Mucus Negative (Negative); RBC Negative HPF (0-2)
--- NOTE | 2020-10-06 21:07 | DI.VRAD_ITS ---
PROCEDURE INFORMATION: Exam: CT Head Without Contrast Exam date and time: 10/06/2020 8:10 PM Age: 70 years old Clinical indication: Dizziness TECHNIQUE: Imaging protocol: Computed tomography of the head without contrast. COMPARISON: CT HEAD WO 10/01/2020 4:59 PM FINDINGS: Brain: There is mild diffuse cerebral atrophy present, consistent with this patient's age. There is moderate diffuse heterogeneity of the white matter attenuation, consistent with chronic white matter ischemic changes. Benign bilateral basal ganglia calcification. No intracranial hemorrhage, midline shift, or mass effect. Cerebral ventricles: No ventriculomegaly. Bones/joints: Unremarkable. No acute fracture. Paranasal sinuses: Visualized sinuses are unremarkable. No fluid levels. Mastoid air cells: Visualized mastoid air cells are well aerated. Soft tissues: Unremarkable. IMPRESSION: No acute abnormality. Dictated and Authenticated by: Pratik Diane MD. Ordering:AMINATA Mcgovern MD
--- NOTE | 2020-10-06 21:10 | ED.GENADUL_ITS ---
Discharge Plan Disposition Patient Disposition: HOME Condition: Improving Discharge Details Clinical Impression: Dizziness Primary Care Provider: Kristine Carter ED Provider: Froilan Churchill Home Meds and New Rx's Prescriptions: New meclizine 25 mg tablet 25 mg PO TID PRN (Reason: dizziness) Qty: 20 RF: 0 Continued meclizine 25 mg tablet 25 mg PO TID PRN (Reason: dizziness) Qty: 21 RF: 0 omeprazole 40 mg capsule,delayed release(DR/EC) 40 mg PO DAILY Qty: 90 RF: 3 Hold Instructions: Home Medication placed on hold at Doctor's office bupropion HCl 300 mg tablet extended release 24 hr 300 mg PO QAM Qty: 90 RF: 3 levothyroxine 50 mcg tablet 50 mcg PO DAILY Qty: 90 RF: 3 loratadine 10 mg tablet 10 mg PO DAILY PRN (Reason: allergy symptoms) RF: 0 Metamucil 3.4 gram/5.4 gram powder 1 tbs PO DAILY RF: 0 [employer] Women's 18-400 mg-mcg tablet 1 tab PO DAILY RF: 0 (DME) EasiVent Mask Large 1 EACH device 1 ea Miscellaneous DIRECTED Qty: 1 RF: 0 Stiolto Respimat 2.5-2.5 mcg/actuation mist 2 puff IH DAILY RF: 0 albuterol sulfate [Ventolin HFA] 90 mcg/actuation HFA aerosol inhaler 2 puff inhalation Q4H PRNRF: 0 acetaminophen 500 mg tablet 1,000 mg PO Q8H PRN (Reason: pain) Qty: 90 RF: 3 naproxen 500 mg tablet 500 mg PO BID PRNQty: 60 RF: 0 Discharge Instructions Instructions: Dizziness (ED) Additional Instructions: At this time your laboratory values do not reveal any obvious emergent process. Your head CT is unremarkable. We discussed her disposition, offered admission, but this was declined. You report feeling improved and would rather be home. I do believe that this is reasonable but please watch for new or worsening symptoms and return to the ER for any concerns. Meclizine as directed. Please contact your primary care provider on Thursday to discuss your ER visit, ongoing symptoms, and need for outpatient reevaluation. If symptoms persist outpatient referral to neurology and/or MRI may be indicated. Medical Decision Making This is a 70-year-old female with a past medical history that includes COPD, depression, anxiety, Edouard esophagus, diverticulitis, hypertension, hypothyroidism, small bowel obstruction, vertigo, presenting for increasing severity and frequency of her dizzy spells. She no longer has any meclizine. Movement of her head and eyes makes her symptoms worse. Clinically she appears anxious but otherwise neurologically intact, well, nontoxic. Given her age and multiple comorbidities I do believe obtaining routine laboratory values, thyroid, single EKG and troponin, head CT is all reasonable. Unfortunately we cannot obtain MRI in the unlikely event that this is a posterior stroke. Even so, she is outside any therapeutic window. She does appear slightly dry. We will give IV fluid, p.o. meclizine and 2 mg IV Valium. Laboratory values do not reveal any obvious emergent process. Creatinine of 1.1, GFR 48.96. She has received 1 L IV fluid. Troponin less than 0.05. TSH 4.7 Upon reevaluation patient states that her symptoms are about 50% better. Will give a second dose of Valium p.o. CT imaging negative. She remains neurologically intact. Upon reevaluation she reports that her symptoms are once again improving, now 50% better than what they were the last time I asked. Patient states that she feels well not and would like to be discharged home. I did speak with both the patient and daughter in length about her safety at home and that we could certainly admit her to our facility for observation. Patient does not want this, would prefer to go home. I will provide her a prescription of meclizine. She will be helped over the weekend by her daughter. She was encouraged to return to the ER for new or worsening symptoms. Otherwise I would like you to contact her primary care provider on Thursday, we discussed the importance of outpatient reevaluation. If symptoms persist outpatient MRI and/or neurology consultation may be warranted. Both patient and daughter are comfortable with this plan, no additional questions or concerns upon discharge. Medical Records Medical records reviewed: Yes I reviewed the patient's medical records. Imaging Data Radiologic Study: Attestation: I personally reviewed and interpreted this imaging study as follows: Imaging: CT Scan Radiologist's impression: CT of head negative per radiology Lab Data Lab results reviewed: Yes I reviewed the patient's lab results. Labs: 10/06/20 20:53 Urine - Reflex from Ua Urine Culture - Pending Laboratory Tests Range/Units 10/06/20 10/06/20 10/06/20 20:00 20:00 20:00 WBC (4.4-10.8) 10^3/uL 8.05 RBC (3.93-5.22) 10^6/uL 4.07 Hgb (11.2-15.7) g/dL 11.8 Hct (36.0-46.0) % 36.0 MCV (80-95) fL 88.5 MCH (27.0-33.0) pg 29.0 MCHC (32.0-36.0) % 32.8 RDW (11.7-14.6) % 13.6 Plt Count (130-400) 10^3/uL 418 H MPV (8.0-11.0) fL 8.7 Immature Gran % 0.4 Neutrophils % 56.8 Lymphocytes % 31.7 Monocytes % 7.1 Eosinophils % 3.4 Basophils % 0.6 Nucleated RBC % % 0 Absolute Neutrophils (1.2-6.7) 10^3/uL 4.58 Absolute Lymphocytes (1.2-3.4) 10^3/uL 2.55 Absolute Monocytes (0.1-0.8) 10^3/uL 0.57 Absolute Eosinophils (0.0-0.7) 10^3/uL 0.27 Absolute Basophils (0.0-0.2) 10^3/uL 0.05 PT (9.3-11.0) sec 10.1 INR (0.9-1.1) 1.0 APTT (21.0-27.5) sec 25.0 Sodium (136-145) mmol/L 139 Potassium (3.5-5.1) mmol/L 3.6 Chloride (98-107) mmol/L 103 Carbon Dioxide (21.0-32.0) mmol/L 25.9 Anion Gap (3-11) mmol/L 10.1 BUN (7-18) mg/dL 11 Creatinine (0.55-1.02) mg/dL 1.1 H Estimated GFR/1.73 m2 (mL/min/1.73m2) 48.96 Glucose (74-106) mg/dL 130 H Calcium (8.5-10.1) mg/dL 8.3 L Magnesium (1.8-2.4) mg/dL 1.7 L Total Bilirubin (0.2-1.0) mg/dL 0.2 AST (15-37) U/L 18 ALT (14-59) U/L 21 Alkaline Phosphatase (46-116) U/L 83 Troponin I (<0.06) ng/mL < 0.05 Total Protein (6.4-8.2) g/dL 7.0 Albumin (3.4-5.0) g/dL 3.2 L TSH (0.36-3.74) uIU/mL 4.74 H Urine Color (Yellow) Urine Clarity (Clear) Urine pH (5-8) Ur Specific [place] (1.005-1.025) Urine Protein (Negative) mg/dL Urine Ketones (Negative) mg/dL Urine Blood (Negative) Urine Nitrite (Negative) Urine Bilirubin (Negative) Urine Urobilinogen (Up TO 0.2) EU/dL Ur Leukocyte Esterase (Negative) Urine RBC (0-2) HPF Urine WBC (0-5) HPF Ur Epithelial Cells (Negative) HPF Urine Crystals (Negative) HPF Urine Bacteria (Negative) HPF Urine Casts (Negative) LPF Urine Mucus (Negative) Ur Culture Indicated? Urine Glucose (Negative) mg/dL Range/Units 10/06/20 20:53 WBC (4.4-10.8) 10^3/uL RBC (3.93-5.22) 10^6/uL Hgb (11.2-15.7) g/dL Hct (36.0-46.0) % MCV (80-95) fL MCH (27.0-33.0) pg MCHC (32.0-36.0) % RDW (11.7-14.6) % Plt Count (130-400) 10^3/uL MPV (8.0-11.0) fL Immature Gran % Neutrophils % Lymphocytes % Monocytes % Eosinophils % Basophils % Nucleated RBC % % Absolute Neutrophils (1.2-6.7) 10^3/uL Absolute Lymphocytes (1.2-3.4) 10^3/uL Absolute Monocytes (0.1-0.8) 10^3/uL Absolute Eosinophils (0.0-0.7) 10^3/uL Absolute Basophils (0.0-0.2) 10^3/uL PT (9.3-11.0) sec INR (0.9-1.1) APTT (21.0-27.5) sec Sodium (136-145) mmol/L Potassium (3.5-5.1) mmol/L Chloride (98-107) mmol/L Carbon Dioxide (21.0-32.0) mmol/L Anion Gap (3-11) mmol/L BUN (7-18) mg/dL Creatinine (0.55-1.02) mg/dL Estimated GFR/1.73 m2 (mL/min/1.73m2) Glucose (74-106) mg/dL Calcium (8.5-10.1) mg/dL Magnesium (1.8-2.4) mg/dL Total Bilirubin (0.2-1.0) mg/dL AST (15-37) U/L ALT (14-59) U/L Alkaline Phosphatase (46-116) U/L Troponin I (<0.06) ng/mL Total Protein (6.4-8.2) g/dL Albumin (3.4-5.0) g/dL TSH (0.36-3.74) uIU/mL Urine Color (Yellow) Yellow Urine Clarity (Clear) Clear Urine pH (5-8) 6.5 Ur Specific [place] (1.005-1.025) 1.020 Urine Protein (Negative) mg/dL Negative Urine Ketones (Negative) mg/dL Negative Urine Blood (Negative) Negative Urine Nitrite (Negative) Negative Urine Bilirubin (Negative) Negative Urine Urobilinogen (Up TO 0.2) EU/dL 0.2 Ur Leukocyte Esterase (Negative) Small H Urine RBC (0-2) HPF Negative Urine WBC (0-5) HPF 5-10 Ur Epithelial Cells (Negative) HPF Rare Urine Crystals (Negative) HPF Negative Urine Bacteria (Negative) HPF Moderate Urine Casts (Negative) LPF Negative Urine Mucus (Negative) Negative Ur Culture Indicated? Yes Urine Glucose (Negative) mg/dL Negative ECG Data Attestation: I personally reviewed and interpreted this ECG (s) as follows: Interpretation: Please see official report by Dr. Alvares. Sinus rhythm, ventricular rate of 86. No STEMI. No dynamic changes when compared to EKG on 10-01-20 HPI General Mode of arrival: ambulatory . Date/Time Provider Initiated Documentation: 10/06/20 19:35 . Limitations to Documentation: no limitations . Information obtained by: patient . HPI Narrative: This is a 70-year-old female with a past medical history that includes COPD, depression, anxiety, Edouard esophagus, diverticulitis, hypertension, hypothyroidism, small bowel obstruction, vertigo, presenting to the ER today for what she describes as dizzy spells. She was admitted to our facility on 10-03 for small bowel obstruction, discharged on 10-04, nonoperative treatment. Patient states that her dizzy spells have been increasing lately, they were actually present upon her most recent admission and she had a head CT at that time. She is out of her meclizine. She states that she is under increased stress at home. She states the dizziness feels like the room is spinning, worse with movement of her head or eyes. She states that this dizziness has been building up and now seems to be worse than her typical vertigo. Patient reports that she has been able to eat multiple small meals, denies any nausea or vomiting. She states that she is having bowel movements and passing gas. She states that she has a small amount of pressure in her abdomen but this is her baseline. The dizziness today did cause her to fall but she denies any injury from the fall. She tells me that her dizziness has been fairly constant since afternoon. Denies any headache, visual changes, neck pain, chest pain, shortness of breath, abdominal pain, nausea, vom iting, dysuria, hematuria, numbness, tingling, weakness Related Data Home Medications Medication Instructions Recorded Confirmed EasiVent Mask Large #1 ea 09/01/13 10/01/20 loratadine 10 mg tablet 10 mg PO DAILY PRN 11/15/18 10/06/20 meclizine 25 mg tablet 25 mg PO TID PRN #21 tab 03/28/19 10/06/20 psyllium husk 3.4 gram/5.4 gram 1 tbs PO DAILY 08/11/19 10/06/20 oral powder tiotropium 2.5 mcg-olodaterol 2.5 2 puff IH DAILY 11/29/19 10/06/20 mcg/actuation mist for inhalation multivitamin-ferrous 1 tab PO DAILY 01/10/20 10/06/20 fumarate-folic acid 18 mg-400 mcg tablet omeprazole 40 mg capsule,delayed 40 mg PO DAILY #90 tab-cap 01/17/20 10/06/20 release acetaminophen 1,000 mg PO Q8H PRN #90 tab 01/24/20 10/06/20 naproxen 500 mg PO BID PRN #60 tab 01/24/20 10/06/20 bupropion HCl 300 mg 24 hr tablet, 300 mg PO QAM #90 tab 07/18/20 10/06/20 extended release levothyroxine 50 mcg tablet 50 mcg PO DAILY #90 tab 07/18/20 10/06/20 albuterol sulfate 90 mcg/actuation 2 puff INHALATION Q4H PRN g 09/14/20 10/06/20 aerosol inhaler meclizine 25 mg PO TID PRN #20 tab 10/06/20 Previous Rx's Medication Instructions Recorded meclizine 25 mg tablet 25 mg PO TID PRN #21 tab 03/28/19 omeprazole 40 mg capsule,delayed 40 mg PO DAILY #90 tab-cap 01/17/20 release acetaminophen 1,000 mg PO Q8H PRN #90 tab 01/24/20 naproxen 500 mg PO BID PRN #60 tab 01/24/20 bupropion HCl 300 mg 24 hr tablet, 300 mg PO QAM #90 tab 07/18/20 extended release levothyroxine 50 mcg tablet 50 mcg PO DAILY #90 tab 07/18/20 meclizine 25 mg PO TID PRN #20 tab 10/06/20 Allergies Allergy/AdvReac Type Severity Reaction Status Date / Time tramadol Allergy Severe ITCHING, Verified 10/06/20 19:51 GI UPSET hydrocodone bitartrate Allergy Intermediate RASH, Verified 10/06/20 19:51 [From Vicodin] ITCHING desipramine AdvReac Intermediate PALPITATION Verified 10/06/20 19:51 S pregabalin [From Lyrica] AdvReac Intermediate CONFUSION Verified 10/06/20 19:51 salmeterol xinafoate AdvReac Intermediate COUGH Verified 10/06/20 19:51 [From Advair Diskus] methylprednisolone sodium AdvReac Mild Agitation Verified 10/06/20 19:51 succinate [From Solu-Medrol] paroxetine HCl [From Paxil] AdvReac Mild JITTERY Verified 10/06/20 19:51 sertraline HCl [From Zoloft] AdvReac Mild JITTERY Verified 10/06/20 19:51 acetaminophen AdvReac nausea, Verified 10/06/20 19:51 vomiting General Stated Complaint: Dizzy/Sync NATY: 3 Review of Systems Constitutional Constitutional: Denies fatigue, Denies fever(s), Denies headache(s) and Denies weakness Eyes Eyes: Denies change in vision ENT Ears, Nose, Mouth, and Throat: Reports vertigo, Reports dizziness, Denies headache(s) and Denies neck pain Cardiovascular Cardiovascular: Denies chest pain and Denies dyspnea Respiratory Respiratory: Denies cough and Denies dyspnea Gastrointestinal Gastrointestinal: Denies abdominal pain, Denies constipation, Denies diarrhea, Denies nausea and Denies vomiting Genitourinary Genitourinary: Denies dysuria Musculoskeletal Musculoskeletal: Denies back pain, Denies neck pain and Denies tingling Integumentary/Breasts Skin/Breast: Denies rash Neurologic Neurologic: Reports vertigo, Reports dizziness, Denies headache(s), Denies tingling and Denies weakness Endocrine Endocrine: Denies fatigue Hematologic/Lymphatic Hematologic/Lymphatic: Denies easy bleeding and Denies easy bruising PFSH Medical History 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 COPD (chronic obstructive pulmonary disease) Emphysema Depression Depressive disorder fatigue Diverticulitis Forgetfulness HTN (hypertension) Hx of chest pain Pt. states her chest pain was related to her stomach issues, and has not had any cardiac issues currently, and does not see a [employer] business intelligence developer. Hypothyroidism Irritable colon Osteoarthritis Sialoadenitis Surgical History Arthroscopy, Shoulder right; acromioplasty Colectomy 04/25/14 Colonoscopy - MAC (09/24/16) EGD - IV Sedation 2014 EGD - MAC (09/24/16) Extraction of cataract H/O surgical procedure a. total abdominal hysterectomy-bso b. exploratory laparotomy for reoval of ovaries c. knee replacements d. sigmoid resection 04/25/2014 e. right shoulder acromioplasty f. Elyssa fundoplication 1995 g. 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) Status post total hip replacement, right Family History Mother Diabetes Essential hypertension Personal history of malignant neoplasm LUNG Hyperlipidemia Asthma Father Essential hypertension Personal history of malignant neoplasm THROAT Heart disease Hyperlipidemia Sister Drug abuse Essential hypertension COPD (chronic obstructive pulmonary disease) Depression Heart disease Hyperlipidemia Asthma Grandfather Essential hypertension Personal history of malignant neoplasm Heart disease Hyperlipidemia Stroke Grandfather , UNKNOWN Alcohol abuse Heart disease Stroke Grandmother Essential hypertension Personal history of malignant neoplasm Hyperlipidemia Grandmother Alcohol abuse Personal history of malignant neoplasm Heart disease Son Depression Heart disease Asthma Son Alcohol abuse Essential hypertension Depression Daughter Essential hypertension Asthma Daughter Essential hypertension Depression Hyperlipidemia Social History Smoking/Tobacco Use Status: Former Tobacco Use Smoking risk assessment performed?: Yes Alcohol Intake: current Alcohol Intake frequency: a few times a month Drug use: Never Substance use type: does not use Number of Children: 4 Pets and animals: Yes Pets and animals: cat(s) and dog(s) Current gender identity: female What type of physical activity do you participate in: walking Frequency: daily Seatbelt use: always Water heater temp set <120 deg: Yes Working smoke detector in home: Yes Fire extinguisher in home: Yes Carbon monox detector in home: Yes Firearms in home: Yes Firearms unloaded and locked: Yes Do you feel safe at home: Yes Do you feel safe in your relationship?: Yes Exam Const General: cooperative, healthy appearing, comfortable and no acute distress Orientation: alert, awake and oriented x3 HENMT Head: normal to inspection, normocephalic and atraumatic Face and sinus: normal facial exam Mouth: moist mucous membranes abnormal (Slightly dry) Eyes General: appearance normal, both eyes and all related structures Alignment and Position: alignment normal Periorbital: periorbital findings normal Eyelids: eyelids normal Conjunctivae: conjunctivae normal Sclera: sclerae normal Cornea: corneas normal Pupils: PERRL EOM: EOM intact bilaterally Direct ophthalmoscopy: normal light reflex Neck Neck: normal visual inspection, full ROM, no meningeal signs, trachea midline and supple Resp Effort & Inspection: normal respiratory effort and able to speak in complete sentences Auscultation: clear to auscultation bilaterally Cardio Rate: regular rate Rhythm: regular rhythm GI Palpation: soft and nontender Back/Spine/Pelvis Back: No back tenderness Skin General skin exam: no rashes or lesions noted Neuro General: patient alert, patient awake, patient oriented x3, moves all extrem ities and no focal motor deficits Cranial Nerves: CN's II-XI intact bilaterally Cognition: normal cognition Speech: speech normal Gait: normal gait Motor: muscle tone normal throughout, strength 5/5 throughout, no pronator drift, no movement abnormalities noted and no fasciculations Sensory Exam: no sensory deficits noted Coordination: [id number] test normal, [id number] test normal and Does not sway with eyes open Extrem General: normal to inspection, full ROM, capillary refill normal, no pedal edema and no calf tenderness Psych Appearance: grossly normal Mental Status: mental status grossly normal Speech and Movement: speech and movement normal Mood: anxious mood Affect: normal affect Attitude: cooperative Thought Process: normal Thought Content: normal Course Vital Signs Vital signs: Vital Signs Temperature 36.5 C 10/06/20 19:45 Pulse 85 10/06/20 19:45 Respiratory Rate 18 10/06/20 19:45 Blood Pressure 182/69 H 10/06/20 19:45 Pulse Oximetry 95 10/06/20 19:45 Temperature 36.5 C 10/06/20 19:45 Temperature Source Skin 10/06/20 19:45 Pulse 95 H 10/06/20 19:59 Respiratory Rate 16 10/06/20 19:53 Respiratory Effort Non-Labored 10/06/20 19:53 Respiratory Depth Normal 10/06/20 19:53 Respiratory Pattern Normal 10/06/20 19:53 Blood Pressure 142/81 H 10/06/20 19:59 Pulse Oximetry 95 10/06/20 19:45 Pain Level 4 10/06/20 19:45 Lab/Test Results Lab/Test Results: 10/06/20 20:53 Urine - Reflex from Ua Urine Culture - Pending Laboratory Tests Range/Units 10/06/20 10/06/20 10/06/20 20:00 20:00 20:00 WBC (4.4-10.8) 10^3/uL 8.05 RBC (3.93-5.22) 10^6/uL 4.07 Hgb (11.2-15.7) g/dL 11.8 Hct (36.0-46.0) % 36.0 MCV (80-95) fL 88.5 MCH (27.0-33.0) pg 29.0 MCHC (32.0-36.0) % 32.8 RDW (11.7-14.6) % 13.6 Plt Count (130-400) 10^3/uL 418 H MPV (8.0-11.0) fL 8.7 Immature Gran % 0.4 Neutrophils % 56.8 Lymphocytes % 31.7 Monocytes % 7.1 Eosinophils % 3.4 Basophils % 0.6 Nucleated RBC % % 0 Absolute Neutrophils (1.2-6.7) 10^3/uL 4.58 Absolute Lymphocytes (1.2-3.4) 10^3/uL 2.55 Absolute Monocytes (0.1-0.8) 10^3/uL 0.57 Absolute Eosinophils (0.0-0.7) 10^3/uL 0.27 Absolute Basophils (0.0-0.2) 10^3/uL 0.05 PT (9.3-11.0) sec 10.1 INR (0.9-1.1) 1.0 APTT (21.0-27.5) sec 25.0 Sodium (136-145) mmol/L 139 Potassium (3.5-5.1) mmol/L 3.6 Chloride (98-107) mmol/L 103 Carbon Dioxide (21.0-32.0) mmol/L 25.9 Anion Gap (3-11) mmol/L 10.1 BUN (7-18) mg/dL 11 Creatinine (0.55-1.02) mg/dL 1.1 H Estimated GFR/1.73 m2 (mL/min/1.73m2) 48.96 Glucose (74-106) mg/dL 130 H Calcium (8.5-10.1) mg/dL 8.3 L Magnesium (1.8-2.4) mg/dL 1.7 L Total Bilirubin (0.2-1.0) mg/dL 0.2 AST (15-37) U/L 18 ALT (14-59) U/L 21 Alkaline Phosphatase (46-116) U/L 83 Troponin I (<0.06) ng/mL < 0.05 Total Protein (6.4-8.2) g/dL 7.0 Albumin (3.4-5.0) g/dL 3.2 L TSH (0.36-3.74) uIU/mL 4.74 H Urine Color (Yellow) Urine Clarity (Clear) Urine pH (5-8) Ur Specific [place] (1.005-1.025) Urine Protein (Negative) mg/dL Urine Ketones (Negative) mg/dL Urine Blood (Negative) Urine Nitrite (Negative) Urine Bilirubin (Negative) Urine Urobilinogen (Up TO 0.2) EU/dL Ur Leukocyte Esterase (Negative) Urine RBC (0-2) HPF Urine WBC (0-5) HPF Ur Epithelial Cells (Negative) HPF Urine Crystals (Negative) HPF Urine Bacteria (Negative) HPF Urine Casts (Negative) LPF Urine Mucus (Negative) Ur Culture Indicated? Urine Glucose (Negative) mg/dL Range/Units 10/06/20 20:53 WBC (4.4-10.8) 10^3/uL RBC (3.93-5.22) 10^6/uL Hgb (11.2-15.7) g/dL Hct (36.0-46.0) % MCV (80-95) fL MCH (27.0-33.0) pg MCHC (32.0-36.0) % RDW (11.7-14.6) % Plt Count (130-400) 10^3/uL MPV (8.0-11.0) fL Immature Gran % Neutrophils % Lymphocytes % Monocytes % Eosinophils % Basophils % Nucleated RBC % % Absolute Neutrophils (1.2-6.7) 10^3/uL Absolute Lymphocytes (1.2-3.4) 10^3/uL Absolute Monocytes (0.1-0.8) 10^3/uL Absolute Eosinophils (0.0-0.7) 10^3/uL Absolute Basophils (0.0-0.2) 10^3/uL PT (9.3-11.0) sec INR (0.9-1.1) APTT (21.0-27.5) sec Sodium (136-145) mmol/L Potassium (3.5-5.1) mmol/L Chloride (98-107) mmol/L Carbon Dioxide (21.0-32.0) mmol/L Anion Gap (3-11) mmol/L BUN (7-18) mg/dL Creatinine (0.55-1.02) mg/dL Estimated GFR/1.73 m2 (mL/min/1.73m2) Glucose (74-106) mg/dL Calcium (8.5-10.1) mg/dL Magnesium (1.8-2.4) mg/dL Total Bilirubin (0.2-1.0) mg/dL AST (15-37) U/L ALT (14-59) U/L Alkaline Phosphatase (46-116) U/L Troponin I (<0.06) ng/mL Total Protein (6.4-8.2) g/dL Albumin (3.4-5.0) g/dL TSH (0.36-3.74) uIU/mL Urine Color (Yellow) Yellow Urine Clarity (Clear) Clear Urine pH (5-8) 6.5 Ur Specific [place] (1.005-1.025) 1.020 Urine Protein (Negative) mg/dL Negative Urine Ketones (Negative) mg/dL Negative Urine Blood (Negative) Negative Urine Nitrite (Negative) Negative Urine Bilirubin (Negative) Negative Urine Urobilinogen (Up TO 0.2) EU/dL 0.2 Ur Leukocyte Esterase (Negative) Small H Urine RBC (0-2) HPF Negative Urine WBC (0-5) HPF 5-10 Ur Epithelial Cells (Negative) HPF Rare Urine Crystals (Negative) HPF Negative Urine Bacteria (Negative) HPF Moderate Urine Casts (Negative) LPF Negative Urine Mucus (Negative) Negative Ur Culture Indicated? Yes Urine Glucose (Negative) mg/dL Negative
[2020-10-06 21:48] VITALS: BP 134/82; PULSE 81; RESP 16; O2SAT 90
[2020-10-06 22:13] VITALS: BP 135/77; PULSE 80; RESP 16; O2SAT 93
== END 2020-10-06 22:20 | disposition home or self-care (01) ==
PROVIDERS: Emergency Provider Physician Assistant; PCP Nurse Practitioner
DX: R42 Dizziness and giddiness (principal); E03.9 Hypothyroidism, unspecified
CPT/HCPCS: 80053; 87077; 93005; 96361; 96374; 96375; 99284; 70450; 81003; 81015; 83735; 84443; 84484; 85025; 85610; 85730; 87086; 87186; 93010; J3360

== ENCOUNTER 2020-10-17 00:56 | Outpatient (CLI) | payer OTHER, MEDICAID, SELFPAY ==
--- NOTE | 2020-10-17 06:45 | DI.MRI_ITS ---
Exam(s) MR BRAIN WO EXAM: MR BRAIN WO CLINICAL HISTORY: persistent dizziness,vision changes, falls, r42,h53.9 TECHNIQUE: Multiplanar multisequence MRI of the brain was performed. COMPARISON: Prior brain CT scan 10/01/2020 was reviewed. FINDINGS: CEREBRAL PARENCHYMA: There is no evidence of intracranial hemorrhage, mass effect, or shift of midline structures. There are no extra-axial fluid collections. Ventricles are not enlarged or shifted. There is no significant focal signal abnormality in the cerebellar hemispheres nor within the letty, m idbrain, and thalami. There are multiple foci of white matter signal abnormality in the [place] in supra ventricular white mat ter, largest of these measuring approximately 12 x 10 millimeters. These also involve the corpus marquise losum both sides. These are not associated with hemorrhage or surrounding edema and there is no abno rmal focal signal on diffusion imaging to suggest acute ischemic events. There is no significant focal signal abnormality evident on diffusion imaging to suggest acute ischem ic event. PITUITARY GLAND: No mass nor parasellar abnormality. No obvious abnormality in the cavernous sinuses. FLOW VOIDS: The expected flow void are noted. No evidence of obvious aneurysm nor obvious vascular ma lformation. PARANASAL SINUSES: The visualized paranasal sinuses appear unremarkable. No obvious finding ORBITS: No obvious findings. IMPRESSION: Multiple foci of white matter signal abnormality in the [place] in supra ventricular white matter includ ing the corpus callosum. Findings most probably related to chronic ischemic white matter disease although cannot exclude demye linating disease. DATA REPOSITORY:
== END 2020-10-17 01:16 ==
PROVIDERS: PCP Nurse Practitioner; Visit Provider Nurse Practitioner
DX: R42 Dizziness and giddiness (principal); H53.8 Other visual disturbances; R90.82 White matter disease, unspecified
CPT/HCPCS: 70551

== ENCOUNTER → 2020-10-19 10:04 | Outpatient (BNVA) | payer OTHER, MEDICAID, SELFPAY | PROVIDERS: PCP Nurse Practitioner; Referring Provider Nurse Practitioner; Visit Provider Surgery | DX: R10.11 Right upper quadrant pain (principal); G89.29 Other chronic pain; K59.00 Constipation, unspecified; R68.89 Other general symptoms and signs; Z87.19 Personal history of other diseases of the digestive system | CPT/HCPCS: 99213; 99214 ==

== ENCOUNTER 2020-10-31 01:38 | Outpatient (CLI) | payer OTHER, MEDICAID, SELFPAY ==
[2020-10-31] MEDS: Barium Sulfate 60% W/V 355 ML BTL PO ×3 (09:25→09:26)
--- NOTE | 2020-10-31 10:06 | DI.RAD_ITS ---
Exam(s) RF SMALL BOWEL SERIES EXAM: RF SMALL BOWEL SERIES CLINICAL HISTORY: look for narrowing within the bowel,ABD PAIN, R10.11,Z87.19,PERSONAL H/O TECHNIQUE: 2D and realtime digital imaging was performed. CONTRAST MATERIAL: Oral barium Oral water soluble contrast was administered. COMPARISON: No exams were available for comparison FINDINGS: The small bowel demonstrates no structural abnormalities including structure, dilation, adhesion, or mass. Note is made of a left total hip replacement. The terminal ileum is identified and appears un remarkable. Normal transit time of 60 minutes. IMPRESSION: Normal small bowel series. RADIATION DOSE DELIVERED: janes Hollis=16.7 mGy
== END 2020-10-31 01:58 ==
PROVIDERS: PCP Nurse Practitioner; Visit Provider Surgery
DX: R10.11 Right upper quadrant pain (principal); Z87.19 Personal history of other diseases of the digestive system; Z96.642 Presence of left artificial hip joint
CPT/HCPCS: 74250

== ENCOUNTER 2020-12-10 02:00 | Inpatient (IN) | payer OTHER, MEDICAID, SELFPAY ==
[2020-12-10] VITALS (32 sets, daily range): BP systolic 119–152; BP diastolic 55–109; PULSE 80–109; RESP 2–24; TEMP 36.2–36.9; O2SAT 90–100
--- NOTE | 2020-12-10 02:01 | ED.GENADUL_ITS ---
Discharge Plan Disposition Patient Disposition: [facility] INPATIENT Condition: Improving Discharge Details Clinical Impression: Acute exacerbation of chronic obstructive pulmonary disease (COPD) Primary Care Provider: Kristine Carter ED Provider: Royce Alvares Home Meds and New Rx's Prescriptions: No Action omeprazole 40 mg capsule,delayed release(DR/EC) 40 mg PO DAILY Qty: 90 RF: 3 Hold Instructions: Home Medication placed on hold at Doctor's office bupropion HCl 300 mg tablet extended release 24 hr 300 mg PO QAM Qty: 90 RF: 3 levothyroxine 50 mcg tablet 50 mcg PO DAILY Qty: 90 RF: 3 polyethylene glycol 3350 [Miralax] 17 gram/dose powder 17 g PO .QOD RF: 0 loratadine 10 mg tablet 10 mg PO DAILY PRN (Reason: allergy symptoms) RF: 0 Metamucil 3.4 gram/5.4 gram powder 1 tbs PO DAILY RF: 0 [employer] Ultimate Women's 18-400 mg-mcg tablet 1 tab PO DAILY RF: 0 (DME) EasiVent Mask Large 1 EACH device 1 ea Miscellaneous DIRECTED Qty: 1 RF: 0 Stiolto Respimat 2.5-2.5 mcg/actuation mist 2 puff IH DAILY RF: 0 albuterol sulfate [Ventolin HFA] 90 mcg/actuation HFA aerosol inhaler 2 puff inhalation Q4H PRNRF: 0 acetaminophen 500 mg tablet 1,000 mg PO Q8H PRN (Reason: pain) Qty: 90 RF: 3 naproxen 500 mg tablet 500 mg PO BID PRNQty: 60 RF: 0 meclizine 25 mg tablet 25 mg PO TID PRN (Reason: dizziness) Qty: 20 RF: 0 Medical Decision Making Patient presenting with increasing shortness of breath and cough. Her room air saturations very with dips as low as 87% and highs to 96-97%. Diffuse wheezing throughout and only fair air exchange with increased work of breathing. IV will be established and Solu-Medrol given. Reportedly has agitation at times with this. We will start with a DuoNeb and continue with albuterol neb to help open things up. Will need laboratory studies, EKG, chest x-ray and likely antibiotics as well as admission. Will need to see how she responds to treatment here to decide whether she will require ICU or floor level of care. Patient responded to DuoNeb followed by 2 albuterol treatments and is feeling much better. Much better air exchange and no wheezing appreciated. Work of breathing has significantly improved. Chest x-ray with no evidence of infiltrate. Laboratory studies unremarkable. Troponin negative. Patient dosed with ceftriaxone. Discussed with hospitalist for observation admission given the significant work of breathing and wheezing prior to receiving multiple nebulized albuterol. Medical Records Medical records reviewed: Yes I reviewed the patient's medical records. Lab Data Lab results reviewed: Yes I reviewed the patient's lab results. ECG Data Attestation: I personally reviewed and interpreted this ECG (s) as follows: HPI General Mode of arrival: wheelchair . Date/Time Provider Initiated Documentation: 12/10/20 02:01 . Limitations to Documentation: no limitations . Information obtained by: patient, RN notes reviewed and old records reviewed . HPI Narrative: Patient presents to ED with complaint of shortness of breath and cough. Patient has had increasing difficulty over the last couple of weeks. She is now to the point where she can barely catch her breath. She has minimal production of sputum with her cough. Describes it as orange-colored when it does come up. Has a burning sensation when she takes a breath in. Denies chest pain. Denies fever. Albuterol had been helping a little bit but is no longer doing anything. She has had her Covid vaccinations and she always wears a mask. She does have a history of COPD from previous smoking. She denies leg pain or leg swelling. She denies any GI symptoms. She is unable to eat much because it causes her to cough and she feels more short of breath. Finally came in tonight because she could no longer catch her breath at home. Related Data Home Medications Medication Instructions Recorded Confirmed EasiVent Mask Large #1 ea 09/01/13 10/19/20 loratadine 10 mg tablet 10 mg PO DAILY PRN 11/15/18 12/10/20 psyllium husk 3.4 gram/5.4 gram 1 tbs PO DAILY 08/11/19 12/10/20 oral powder tiotropium 2.5 mcg-olodaterol 2.5 2 puff IH DAILY 11/29/19 12/10/20 mcg/actuation mist for inhalation multivitamin-ferrous 1 tab PO DAILY 01/10/20 12/10/20 fumarate-folic acid 18 mg-400 mcg tablet omeprazole 40 mg capsule,delayed 40 mg PO DAILY #90 tab-cap 01/17/20 12/10/20 release acetaminophen 1,000 mg PO Q8H PRN #90 tab 01/24/20 12/10/20 naproxen 500 mg PO BID PRN #60 tab 01/24/20 12/10/20 bupropion HCl 300 mg 24 hr tablet, 300 mg PO QAM #90 tab 07/18/20 12/10/20 extended release levothyroxine 50 mcg tablet 50 mcg PO DAILY #90 tab 07/18/20 12/10/20 albuterol sulfate 90 mcg/actuation 2 puff INHALATION Q4H PRN g 09/14/20 12/10/20 aerosol inhaler meclizine 25 mg PO TID PRN #20 tab 10/06/20 12/10/20 polyethylene glycol 3350 17 17 g PO .QOD g 10/19/20 12/10/20 gram/dose oral powder Previous Rx's Medication Instructions Recorded omeprazole 40 mg capsule,delayed 40 mg PO DAILY #90 tab-cap 01/17/20 release acetaminophen 1,000 mg PO Q8H PRN #90 tab 01/24/20 naproxen 500 mg PO BID PRN #60 tab 01/24/20 bupropion HCl 300 mg 24 hr tablet, 300 mg PO QAM #90 tab 07/18/20 extended release levothyroxine 50 mcg tablet 50 mcg PO DAILY #90 tab 07/18/20 meclizine 25 mg PO TID PRN #20 tab 10/06/20 Allergies Allergy/AdvReac Type Severity Reaction Status Date / Time tramadol Allergy Severe ITCHING, Verified 12/10/20 02:11 GI UPSET hydrocodone bitartrate Allergy Intermediate RASH, Verified 12/10/20 02:11 [From Vicodin] ITCHING desipramine AdvReac Intermediate PALPITATION Verified 12/10/20 02:11 S pregabalin [From Lyrica] AdvReac Intermediate CONFUSION Verified 12/10/20 02:11 salmeterol xinafoate AdvReac Intermediate COUGH Verified 12/10/20 02:11 [From Advair Diskus] methylprednisolone sodium AdvReac Mild Agitation Verified 12/10/20 02:11 succinate [From Solu-Medrol] paroxetine HCl [From Paxil] AdvReac Mild JITTERY Verified 12/10/20 02:11 sertraline HCl [From Zoloft] AdvReac Mild JITTERY Verified 12/10/20 02:11 acetaminophen AdvReac nausea, Verified 12/10/20 02:11 vomiting General NATY: 3 Review of Systems Narrative: 03/14 Review of Systems completed and is negative except as stated above in HPI (Systems reviewed: Const, Eyes, ENT, Resp, CV, GI, , MSK, Skin, Neuro) PFSH Medical History 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 COPD (chronic obstructive pulmonary disease) Emphysema Depression Depressive disorder fatigue Diverticulitis Forgetfulness HTN (hypertension) Hx of chest pain Pt. states her chest pain was related to her stomach issues, and has not had any cardiac issues currently, and does not see a install technician. Hypothyroidism Irritable colon Osteoarthritis Sialoadenitis Surgical History Arthroscopy, Shoulder right; acromioplasty Colectomy 04/25/14 Colonoscopy - MAC (09/24/16) EGD - IV Sedation 2014 EGD - MAC (09/24/16) Extraction of cataract H/O surgical procedure a. total abdominal hysterectomy-bso b. exploratory laparotomy for reoval of ovaries c. knee replacements d. sigmoid resection 04/25/2014 e. right shoulder acromioplasty f. Elyssa fundoplication 1995 g. 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) Status post total hip replacement, right Family History Mother Diabetes Essential hypertension Personal history of malignant neoplasm LUNG Hyperlipidemia Asthma Father Essential hypertension Personal history of malignant neoplasm THROAT Heart disease Hyperlipidemia Sister Drug abuse Essential hypertension COPD (chronic obstructive pulmonary disease) Depression Heart disease Hyperlipidemia Asthma Grandfather Essential hypertension Personal history of malignant neoplasm Heart disease Hyperlipidemia Stroke Grandfather , UNKNOWN Alcohol abuse Heart disease Stroke Grandmother Essential hypertension Personal history of malignant neoplasm Hyperlipidemia Grandmother Alcohol abuse Personal history of malignant neoplasm Heart disease Son Depression Heart disease Asthma Son Alcohol abuse Essential hypertension Depression Daughter Essential hypertension Asthma Daughter Essential hypertension Depression Hyperlipidemia Social History Smoking/Tobacco Use Status: Former Tobacco Use Smoking risk assessment performed?: Yes Alcohol Intake: current Alcohol Intake frequency: a few times a month Drug use: Never Substance use type: does not use Number of Children: 4 Pets and animals: Yes Pets and animals: cat(s) and dog(s) Current gender identity: female What type of physical activity do you participate in: walking Frequency: daily Seatbelt use: always Water heater temp set <120 deg: Yes Working smoke detector in home: Yes Fire extinguisher in home: Yes Carbon monox detector in home: Yes Firearms in home: Yes Firearms unloaded and locked: Yes Do you feel safe at home: Yes Do you feel safe in your relationship?: Yes Exam Narrative Exam Narrative: Const: WDWN elderly female with increased work of breathing. HEENT: NC/AT. Normal facial exam. Eyes: Normal conjunctiva and sclera. Neck: Supple. Trachea midline. Lungs: Lungs with diffuse wheeze throughout. Fair air exchange at best. Cor: RRR without murmur/gallop. Good radial pulses. GI: Soft. NT/ND. No guarding or rebound. Neuro: A+O x 3. Normal speech, mentation, gait. Cranial nerves II - XII grossly intact. No gross motor or sensory deficit. Ext: No C/C/E. Skin: Warm and dry without rash. Critical Care Time Critical Care Time Critical Care Time: Yes Total Critical Care Time: 40 Attestation: Upon my evaluation, this patient had a high probability of imminent or life-threatening deterioration, which required my direct attention, intervention, and personal management. I have personally provided 40 minutes of critical care time exclusive of time spent on separately billable procedures. Time includes review of laboratory data, radiology results, discussion with consultants, and monitoring for potential decompensation. Interventions were performed as documented above.
--- NOTE | 2020-12-10 02:15 | DI.RAD_ITS ---
Exam(s) XR CHEST 2V PA LATERAL EXAM: XR CHEST 2V PA LATERAL CLINICAL HISTORY: SOB, cough. TECHNIQUE: 2D digital imaging was performed. COMPARISON: CR,XR XR PORTABLE CHEST AP POST LINE from 10/02/2020 CR,XR XR PORTABLE CHEST AP POST LINE from 10/02/2020 FINDINGS: Heart size is normal. The mediastinum is not widened. There is new infiltrate in the mid right lung zone. This is in the right upper lobe. No pleural eff usions. No pulmonary edema. IMPRESSION: Right upper lobe infiltrate This study 1st read by [facility] Final report called by myself to emergency room physician 12/10/2020 7:53 a.m. DATA REPOSITORY: RADIATION DOSE DELIVERED:
--- NOTE | 2020-12-10 02:15 | RT.EKG_ITS ---
APPROVED REPORT Exam: Resting ECG Reason for Exam: SOB Patient Location: E HR:87 bpm ECG Measurements Heart Rate 87 AXIS OR 146 P 55 QRSd 89 QRS -52 QT 348 T 45 QTc 420 Conclusion Sinus rhythm...normal P axis, V-rate 60- 99 Left anterior fascicular block...axis(240,-40), init forces inf I have reviewed and interpreted ECG and agree with software generated interpretation. There are no significant changes compared to prior EKG performed on 10/01/2020 at 15:59.
[2020-12-10] MEDS: Albuterol/Ipratropium 3 ML UPD VIAL UPD ×4 (02:38→18:36)
[2020-12-10] MEDS: methylPREDNISolone SUCC 125 MG VIAL IVP (02:38)
[2020-12-10] MEDS: Albuterol 2.5 MG/3 ML INH SOLN VIAL UPD ×2 (02:39→03:08)
[2020-12-10] MEDS: Normal Saline Flush 10 ML SYR IVP ×5 (02:39→18:36)
[2020-12-10 02:51] LABS: Abs Immature Grans 0.05 10^3/uL (0.0-0.06); Absolute Basophil Count 0.03 10^3/uL (0.0-0.2); Absolute Eosinophil Count 0.34 10^3/uL (0.0-0.7); Absolute Lymphocyte Count 1.53 10^3/uL (1.2-3.4); Absolute Neutrophil Count 8.12 10^3/uL (1.2-6.7); Basophils % 0.3; Eosinophils % 3.2; HCT 37.5 % (36.0-46.0); HGB 12.5 g/dL (11.2-15.7); Immature Grans % 0.5; Lymphocytes % 14.3; MCH 28.9 pg (27.0-33.0); MCHC 33.3 % (32.0-36.0); MCV 86.8 fL (80-95); MPV 8.4 fL (8.0-11.0); Monocytes % 5.6; Neutrophils % 76.1; Nucleated RBC 0 %; Platelet Count 357 10^3/uL (130-400); RBC 4.32 10^6/uL (3.93-5.22); RDW 15.3 % (11.7-14.6); RDW-SD 48.7 fL; WBC 10.67 10^3/uL (4.4-10.8)
[2020-12-10] MEDS: cefTRIAXone 1 GM/50 ML BAG IVPB ×2 (03:09→14:16)
[2020-12-10 03:16] LABS: Source Nasal/Nares
[2020-12-10 03:33] LABS: ALT 23 U/L (14-59); AST 20 U/L (15-37); Albumin 3.5 g/dL (3.4-5.0); Alkaline Phosphatase 92 U/L (46-116); Anion Gap 11.8 mmol/L (3-11); BUN 10 mg/dL (7-18); Bilirubin, Total 0.3 mg/dL (0.2-1.0); CO2 22.2 mmol/L (21.0-32.0); Calcium 8.6 mg/dL (8.5-10.1); Chloride 104 mmol/L (98-107); Estimated GFR 54.66 (mL/min/1.73m2); Glucose 104 mg/dL (74-106); Potassium 3.8 mmol/L (3.5-5.1); Sodium 138 mmol/L (136-145); Total Protein 6.8 g/dL (6.4-8.2)
[2020-12-10 03:34] LABS: Troponin I < 0.05 ng/mL (<0.06)
--- NOTE | 2020-12-10 03:53 | DI.VRAD_ITS ---
PROCEDURE INFORMATION: Exam: XR Chest Exam date and time: 12/10/2020 2:24 AM Age: 70 years old Clinical indication: Cough and shortness of breath; Patient HX: HX of copd TECHNIQUE: Imaging protocol: XR of the chest. Views: 2 views. COMPARISON: CR XR PORTABLE CHEST AP 10/02/2020 7:13 PM FINDINGS: Lungs: Minimal right mid lung scarring again noted with no acute pulmonary infiltrate. Pleural spaces: Unremarkable. No pleural effusion. No pneumothorax. Heart/Mediastinum: Unremarkable. No cardiomegaly. Bones/joints: Unremarkable. IMPRESSION: No acute finding. Dictated and Authenticated by: Asael Jennings MD. Ordering:BRADEN Crane MD
[2020-12-10 04:06] LABS: COVID-19 PCR Negative (Negative)
--- NOTE | 2020-12-10 04:26 | HPE_ITS ---
Date of service: 12/10/20 Time of Service: 04:27 Assessment and Plan Assessment and plan (1) Acute exacerbation of chronic obstructive pulmonary disease (COPD): Status: Acute Assessment and plan: COPD exacerbation. Improving but not broken. Will continue updrafts and steroids. No pneumonia, can manage with oral Abx. Reviewed ADs, requests DNR/DNI. History of Present Illness History of Present Illness Chief Complaint: SOB Narrative: 70 female with COPD, vaccinated and takes good precautions -- here with 2 weeks of SOB, scant productive cough, and getting especially worse over past 2 days. Here in ER findings of note for absence of fever, O2 sats 90-99, diffuse wheezing, normal white count and negative CXR. Given multiple updrafts, steroids and dose of Rocephin. Feels she is improved but not back to normal. Is admitted for further management. She is former smoker, quit in . No one else at home sick with similar illness. 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 COPD (chronic obstructive pulmonary disease) Emphysema Depression Depressive disorder fatigue Diverticulitis Forgetfulness HTN (hypertension) Hx of chest pain Pt. 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 Hypothyroidism Irritable colon Osteoarthritis Sialoadenitis Surgical History Arthroscopy, Shoulder right; acromioplasty Colectomy 04/25/14 Colonoscopy - MAC (09/24/16) EGD - IV Sedation 2014 EGD - MAC (09/24/16) Extraction of cataract H/O surgical procedure a. total abdominal hysterectomy-bso b. exploratory laparotomy for reoval of ovaries c. knee replacements d. sigmoid resection 04/25/2014 e. right shoulder acromioplasty f. Elyssa fundoplication 1995 g. 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) Status post total hip replacement, right Family History Mother Diabetes Essential hypertension Personal history of malignant neoplasm LUNG Hyperlipidemia Asthma Father Essential hypertension Personal history of malignant neoplasm THROAT Heart disease Hyperlipidemia Sister Drug abuse Essential hypertension COPD (chronic obstructive pulmonary disease) Depression Heart disease Hyperlipidemia Asthma Grandfather Essential hypertension Personal history of malignant neoplasm Heart disease Hyperlipidemia Stroke Grandfather , UNKNOWN Alcohol abuse Heart disease Stroke Grandmother Essential hypertension Personal history of malignant neoplasm Hyperlipidemia Grandmother Alcohol abuse Personal history of malignant neoplasm Heart disease Son Depression Heart disease Asthma Son Alcohol abuse Essential hypertension Depression Daughter Essential hypertension Asthma Daughter Essential hypertension Depression Hyperlipidemia Social History Smoking/Tobacco Use Status: Former Tobacco Use Smoking risk assessment performed?: Yes Alcohol Intake: current Alcohol Intake frequency: a few times a month Drug use: Never Substance use type: does not use Number of Children: 4 Pets and animals: Yes Pets and animals: cat(s) and dog(s) Current gender identity: female What type of physical activity do you participate in: walking Frequency: daily Seatbelt use: always Water heater temp set <120 deg: Yes Working smoke detector in home: Yes Fire extinguisher in home: Yes Carbon monox detector in home: Yes Firearms in home: Yes Firearms unloaded and locked: Yes Do you feel safe at home: Yes Do you feel safe in your relationship?: Yes Meds Allergies and Home Medications Allergies Allergy/AdvReac Type Severity Reaction Status Date / Time tramadol Allergy Severe ITCHING, Verified 12/10/20 02:11 GI UPSET hydrocodone bitartrate Allergy Intermediate RASH, Verified 12/10/20 02:11 [From Vicodin] ITCHING desipramine AdvReac Intermediate PALPITATION Verified 12/10/20 02:11 S pregabalin [From Lyrica] AdvReac Intermediate CONFUSION Verified 12/10/20 02:11 salmeterol xinafoate AdvReac Intermediate COUGH Verified 12/10/20 02:11 [From Advair Diskus] methylprednisolone sodium AdvReac Mild Agitation Verified 12/10/20 02:11 succinate [From Solu-Medrol] paroxetine HCl [From Paxil] AdvReac Mild JITTERY Verified 12/10/20 02:11 sertraline HCl [From Zoloft] AdvReac Mild JITTERY Verified 12/10/20 02:11 acetaminophen AdvReac nausea, Verified 12/10/20 02:11 vomiting Home Medications Medication Instructions Recorded Confirmed Type EasiVent Mask Large #1 ea 09/01/13 10/19/20 History loratadine 10 mg tablet 10 mg PO DAILY PRN 11/15/18 12/10/20 History psyllium husk 3.4 gram/5.4 gram 1 tbs PO DAILY 08/11/19 12/10/20 History oral powder tiotropium 2.5 mcg-olodaterol 2.5 2 puff IH DAILY 11/29/19 12/10/20 History mcg/actuation mist for inhalation multivitamin-ferrous 1 tab PO DAILY 01/10/20 12/10/20 History fumarate-folic acid 18 mg-400 mcg tablet omeprazole 40 mg capsule,delayed 40 mg PO DAILY #90 tab-cap 01/17/20 12/10/20 Rx release acetaminophen 1,000 mg PO Q8H PRN #90 tab 01/24/20 12/10/20 Rx naproxen 500 mg PO BID PRN #60 tab 01/24/20 12/10/20 Rx bupropion HCl 300 mg 24 hr tablet, 300 mg PO QAM #90 tab 07/18/20 12/10/20 Rx extended release levothyroxine 50 mcg tablet 50 mcg PO DAILY #90 tab 07/18/20 12/10/20 Rx albuterol sulfate 90 mcg/actuation 2 puff INHALATION Q4H PRN g 09/14/20 12/10/20 History aerosol inhaler meclizine 25 mg PO TID PRN #20 tab 10/06/20 12/10/20 Rx polyethylene glycol 3350 17 17 g PO .QOD g 10/19/20 12/10/20 History gram/dose oral powder Exam Narrative Exam Narrative: 138/68, 95, 36.6, 17, 94% RA. HEENT atraumatic; neck supple; lungs diffuse wheeze heart RRR; abdomen soft and NT; extremities w/o edema; neuro Ox3, lucid, moves all 4s Results Labs Result diagrams: 12/10/20 02:25 12/10/20 02:55 Labs: Laboratory Results - last 24 hr 12/10/20 12/10/20 12/10/20 02:25 02:55 03:03 WBC 10.67 RBC 4.32 Hgb 12.5 Hct 37.5 MCV 86.8 MCH 28.9 MCHC 33.3 RDW 15.3 H Plt Count 357 MPV 8.4 Immature Gran % 0.5 Neutrophils % 76.1 Lymphocytes % 14.3 Monocytes % 5.6 Eosinophils % 3.2 Basophils % 0.3 Nucleated RBC % 0 Absolute Neutrophils 8.12 H Absolute Lymphocytes 1.53 Absolute Monocytes 0.60 Absolute Eosinophils 0.34 Absolute Basophils 0.03 Sodium 138 Potassium 3.8 Chloride 104 Carbon Dioxide 22.2 Anion Gap 11.8 H BUN 10 Creatinine 1.0 Estimated GFR/1.73 m2 54.66 Glucose 104 Calcium 8.6 Magnesium 2.0 Total Bilirubin 0.3 AST 20 ALT 23 Alkaline Phosphatase 92 Troponin I < 0.05 Total Protein 6.8 Albumin 3.5 COVID-19 Source Nasal/Nares Last Vital Signs Temp 36.6 C 12/10/20 02:07 Pulse 93 H 12/10/20 04:15 Resp 17 12/10/20 04:20 BP 138/68 12/10/20 04:15 Pulse Ox 94 12/10/20 04:20
[2020-12-10] MEDS: Doxycycline Hyclate 100 MG CAP PO ×2 (05:19→19:45)
[2020-12-10] MEDS: Levothyroxine 50 MCG TAB PO (05:19)
[2020-12-10] MEDS: buPROPion-XL 150 MG TABCR 300 MG PO (08:15)
[2020-12-10] MEDS: Omeprazole 20 MG CAPCR 40 MG PO (08:15)
[2020-12-10] MEDS: Psyllium PKT 1 EACH PO (10:06)
[2020-12-10] MEDS: methylPREDNISolone SUCC 40 MG VIAL IVP ×2 (10:06→18:36)
--- NOTE | 2020-12-10 11:08 | W.PM.PROGNOT ---
Date of Service Date of service: 12/10/20 Time of Service: 11:08 Assessment and Plan Assessment and plan (1) Acute exacerbation of chronic obstructive pulmonary disease (COPD): Status: Acute Assessment and plan: cont. solumedrol, DuoNeb aerosols, antibiotics (Rocephin and doxycycline); consider CT chest to clarify whether or not there is an infiltrate. She is afebrile and has no leukocytosis and her cough is nonproductive so pneumonia seems unlikely. (2) Chest pain: Status: Acute Assessment and plan: Patient reportedly has had chest pains in the past has had a negative stress MPI in negative cardiac catheterization according to her records. Patient only recalls having had a stress test about 20 or 25 years ago in preparation for knee surgery. I will try to get records from [facility]. Patient has known Eduoard's esophagitis and severe reflux. She also notes that when she gets anxious and in tight quarters to get claustrophobic similar chest discomfort may be anxiety related. She is already on omeprazole for her Edouard's. I have ordered some Pepcid as well as Magic mouthwash with lidocaine and antiacids. We will give her a trial of nitroglycerin and see if her chest discomfort resolves. We will check serial troponin levels however her EKGs not showing any acute ischemic injury. Qualifiers: Chest pain type: precordial pain Qualified Code(s): R07.2 - Precordial pain (3) Edouard's esophagus: Status: Acute Assessment and plan: Continue omeprazole and add Pepcid. Qualifiers: Edouard's esophagus type: with dysplasia of unspecified degree Qualified Code(s): K22.719 - Edouard's esophagus with dysplasia, unspecified Subjective Subjective Interval history since last seen: Patient was admitted w/ 2 wk hx of progressive dyspnea and non-productive cough not associated w/ any fever or rigors. On presentation to the ER last night she was mildly tachypneic w/ RR 20 and borderline hypoxemic w/ SPO2 90% but after DuoNeb treatments her oxygen levels improved. CXR initially was read as showing minimal right mid lung scarring but no acute infiltrates. Since her admission, radiologist has read her CXR as demonstrating right mid lung infiltrate. She was admitted last night as a COPD exacerbation. She was given Rocephin 1 gm along w/ Solumedrol 125 mg IVP and DuoNeb aerosol treatment. Since admission she has been maintained on DuoNeb treatments, Solumedrol 40 mg IVP Q8hr along w/ doxycycline. She remains afebrile and is not hypoxemic. However after getting up to the bathroom to get washed up she has developed epigastric and left infra breast chest tightness. She says that she has had similar episodes in the past and has been told that it is her GERD. She has had stress test in the remote past (approx. 20-25 yrs ago). She says that she gets this chest tightness from time to time and will occur w/ activity or stress. Currently she has no dyspepsia/water brash; chest tightness is not migrating and occurred while up to the bathroom and is improving but not gone (now rates 3/10). Stat EKG done and shows NSR rate 98 bpm, poor R wave progression across precordial leads but no acute ST-T elevation or depression and appears unchanged compared to one done last night. I have ordered troponin level, and will give trial of antacid and NTG tab. Exam Narrative Exam Narrative: Elderly white female lying in bed with a harsh nonproductive cough. She is alert and oriented person place time circumstance. Lungs with diffuse scattered bilateral wheezes Heart regular rate and rhythm Chest wall nontender to palpation of the sternum and ribs Abdomen nondistended soft nontender to palpation Objective Last Vital Signs Temp 36.5 C 12/10/20 07:30 Pulse 97 H 12/10/20 07:30 Resp 17 12/10/20 07:30 BP 122/71 12/10/20 07:30 Pulse Ox 93 12/10/20 07:30 Laboratory Results - last 24 hr 12/10/20 12/10/20 12/10/20 02:25 02:55 03:03 WBC 10.67 RBC 4.32 Hgb 12.5 Hct 37.5 MCV 86.8 MCH 28.9 MCHC 33.3 RDW 15.3 H Plt Count 357 MPV 8.4 Immature Gran % 0.5 Neutrophils % 76.1 Lymphocytes % 14.3 Monocytes % 5.6 Eosinophils % 3.2 Basophils % 0.3 Nucleated RBC % 0 Absolute Neutrophils 8.12 H Absolute Lymphocytes 1.53 Absolute Monocytes 0.60 Absolute Eosinophils 0.34 Absolute Basophils 0.03 Sodium 138 Potassium 3.8 Chloride 104 Carbon Dioxide 22.2 Anion Gap 11.8 H BUN 10 Creatinine 1.0 Estimated GFR/1.73 m2 54.66 Glucose 104 Calcium 8.6 Magnesium 2.0 Total Bilirubin 0.3 AST 20 ALT 23 Alkaline Phosphatase 92 Troponin I < 0.05 Total Protein 6.8 Albumin 3.5 COVID-19 Source Nasal/Nares SARS-CoV-2 (PCR) Negative
--- NOTE | 2020-12-10 11:15 | RT.EKG_ITS ---
APPROVED REPORT Exam: Resting ECG Reason for Exam: chest pressure. Patient Location: I HR:98 bpm ECG Measurements Heart Rate 98 AXIS DE 180 P 43 QRSd 91 QRS -43 QT 350 T 31 QTc 449 Conclusion Sinus rhythm...normal P axis, V-rate 60- 99 Left axis deviation...QRS axis (-30,-90)
[2020-12-10] MEDS: nitroGLYcerin 0.4 MG TAB SL (11:54)
[2020-12-10] MEDS: Magic Mouthwash 119 ML BTL 10 ML PO (11:56)
[2020-12-10 12:16] LABS: Troponin I < 0.05 ng/mL (<0.06)
--- NOTE | 2020-12-10 13:14 | PHACLINREV_ITS ---
Pharmacy Admission Review - Admission Clinical Review (Last Reviewed 12/10/20 @ 04:31 by Pratik Deshpande MD) Acute exacerbation of chronic obstructive pulmonary disease (COPD) (Acute) Edouard's esophagus (Acute 10/21/12) Chest pain (Acute) tramadol Allergy (Severe, Verified 12/10/20 02:11) ITCHING, GI UPSET hydrocodone bitartrate [From Vicodin] Allergy (Intermediate, Verified 12/10/20 02:11) RASH, ITCHING desipramine Adverse Reaction (Intermediate, Verified 12/10/20 02:11) PALPITATIONS pregabalin [From Lyrica] Adverse Reaction (Intermediate, Verified 12/10/20 02:11) CONFUSION salmeterol xinafoate [From Advair Diskus] Adverse Reaction (Intermediate, Verified 12/10/20 02:11) COUGH methylprednisolone sodium succinate [From Solu-Medrol] Adverse Reaction (Mild, Verified 12/10/20 02:11) Agitation paroxetine HCl [From Paxil] Adverse Reaction (Mild, Verified 12/10/20 02:11) JITTERY sertraline HCl [From Zoloft] Adverse Reaction (Mild, Verified 12/10/20 02:11) JITTERY acetaminophen Adverse Reaction (Verified 12/10/20 02:11) nausea, vomiting Resuscitation Status DNR/DNI Height 4 ft 10 in Weight 61 kg - Renal Dosing Renal Dosing: BUN 10 mg/dL (7-18) 12/10/20 02:55 Creatinine 1.0 mg/dL (0.55-1.02) 12/10/20 02:55 Medications needing adjustments: Reviewed (Crcl ~37 mL/min current meds okay. Recommended to use caution with bupropion in patients with decreased renal function.) - Anticoagulation Anticoagulation: Hgb 12.5 g/dL (11.2-15.7) 12/10/20 02:25 Hct 37.5 % (36.0-46.0) 12/10/20 02:25 Plt Count 357 10^3/uL (130-400) 12/10/20 02:25 Creatinine 1.0 mg/dL (0.55-1.02) 12/10/20 02:55 DVT Prophylaxis: Intervened (Will check with provider about need.) Therapeutic Anticoagulation: N/A - Opiate Usage Evaluate Pain Scale/Pains Meds: N/A - Relevant Labs Sodium 138 mmol/L (136-145) 12/10/20 02:55 Potassium 3.8 mmol/L (3.5-5.1) 12/10/20 02:55 Chloride 104 mmol/L (98-107) 12/10/20 02:55 Magnesium 2.0 mg/dL (1.8-2.4) 12/10/20 02:55 Electrolytes, C-Reactive P, ESR: Reviewed - DM Control DM Control: Glucose 104 mg/dL (74-106) 12/10/20 02:55 Insulin Dosing: Reviewed - Heart Failure/TX Heart Failure/TX: Troponin I < 0.05 ng/mL (<0.06) 12/10/20 11:40 EF%, JUVENTINO's, B-Blockers, Diuretics: Reviewed - BP Control BP Control: Blood Pressure 123/70 Blood Pressure 126/73 Blood Pressure 119/76 Blood Pressure 138/73 Blood Pressure 122/71 Blood Pressure 136/71 Blood Pressure 138/68 If elevated: Reviewed (BP was elevated on admission, then low and has been within normal limits since.) - Qtc Review If Elevated: N/A (QTc was 420 on admission, EKG report from today not available yet.) - IV to PO Switch IV Medications: Reviewed - Home Meds Home Med List reviewed: Reviewed (Multiple anticholinergic meds (recommended to avoid concurrent use if possible; if used in combination monitor for evidence of anticholinergic-related toxicities).) Relevent Home Meds Not ordered & why?: loratadine (PRN), meclizine (PRN), multivitamin, naproxen (PRN), miralax, stiloto (currently has scheduled duonebs) - Current meds Current Medication Order Review: Intervened (Adjusted timing of omeprazole per emergency medical technician time policy. Changed ceftriaxone from admix to a premix.) - Comments Comments/Follow Ups: Watch BP, SCr, labs and for med changes (possible renal dose adjustments) Antibiotic Activity - Pharmacy Antibiotic Review Pharmacy Antibiotic Activity: Reviewed, no change (Ceftriaxone and doxycycline ordered (day 1))
--- NOTE | 2020-12-10 13:44 | INITIAL_ITS ---
- If Service Date Differs Date of service: 12/10/20 Time of Service: 13:44 Care Management Initial Assess REASON FOR HOSPITALIZATION:: Acute exacerbation of COPD PAST MEDICAL HISTORY/PAST SURGICAL HISTORY:: Edouard esophagus. Pt. states this is under control, as well as the dysphagia, states it only happens when very large pills and when she is stressed. COPD (chronic obstructive pulmonary disease). Emphysema. Depression. Depressive disorder. fatigue. Diverticulitis. Forgetfulness. HTN (hypertension). Hx of chest pain. Pt. states her chest pain was related to her stomach issues, and has not had any cardiac issues currently, and does not see a staff sonographer. Hypothyroidism. Irritable colon. Osteoarthritis. Sialoadenitis. Arthroscopy, Shoulder. right; acromioplasty. Colectomy. 04/25/14. Colonoscopy - MAC (09/24/16). EGD - IV Sedation. 2014. EGD - MAC (09/24/16). Extraction of cataract. H/O surgical procedure. a. total abdominal hysterectomy-bso. b. exploratory laparotomy for reoval of ovaries. c. knee replacements. d. sigmoid resection 04/25/2014. e. right shoulder acromioplasty. f. Elyssa fundoplication 1995. g. bilateral open carpal tunnel release 1985. History of bilateral knee replacement. History of bilateral salpingo-oophorectomy (05/18/14). History of hysterectomy (05/18/14). Elyssa Fundoplication (~1995). Open Carpal Tunnel release (~1985). B/L. Replacement of total knee joint (~2004). B/L. 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 Status post total hip replacement, right PREVIOUS FUNCTIONAL STATUS/SOCIAL/FAMILY SUPPORTS:: Lydia lives independently at home with her son Rey. She helps take care of him, as he is sick with colon cancer. She has two daughters, Shelly and Saniya whom she is close with and a son Pratik, who she talks with less frequently stating their is a riff between them. CURRENT FUNCTIONAL STATUS:: Lydia was laying in bed, pleasant and easily engages in conversation with CM. Her daughter Shelly called to check on her while CM was in the room. ADVANCE DIRECTIVES:: On file Has patient been provided with info about the portal/API?: Yes Did the patient sign up for the portal?: No (Declines the portal) CODE STATUS:: DNR/DNI CODE STATUS COMMENT:: Lydia was very clear to me that she does not want to be intubated. INSURANCE COVERAGE / FINANCIAL ISSUES:: [facility]. Medicaid. Medicare CURRENT HOME/COMMUNITY SERVICES/EQUIPMENT:: Has a walker and bench/tub seat at home. Declines HH sevices, feels that HH nursing tends to be too pushy based on previous HH experiences with her son. PRIMARY CARE PHYSICIAN:: Kristine Carter POTENTIAL DISCHARGE NEEDS:: None, declines HH services PATIENT/FAMILY EDUCATION NEEDS:: Review discharge plan with patient ANTICIPATED BARRIERS TO DISCHARGE:: Son sleeps on an old, ej camping style matress at her home on top of the futon and she feels that may be triggering her respiratoy symptoms. She is going to have it removed. TRANSPORTATION:: Lydia drives and has a personal vehicle. She is going to have her daughter Shelly transport when she is discharged. PLAN:: Lydia will return home will ready per MD. Lydia will follow up with her PCP and plan of care as prescribed and transport via private vehicle with denisse Bravo.
[2020-12-10] MEDS: Normal Saline 500 ML 100 ML IV (14:15)
[2020-12-10] MEDS: Enoxaparin 40 MG/0.4 ML SYR SC (14:43)
[2020-12-10] MEDS: Sucralfate 1 GM TAB PO ×2 (15:51→22:07)
[2020-12-10 16:49] LABS: Troponin I < 0.05 ng/mL (<0.06)
[2020-12-10] MEDS: Melatonin 3 MG TAB PO (22:07)
[2020-12-11] MEDS: methylPREDNISolone SUCC 40 MG VIAL IVP ×3 (01:02→18:20)
[2020-12-11] MEDS: Normal Saline Flush 10 ML SYR IVP ×3 (01:02→18:20)
[2020-12-11] MEDS: Albuterol/Ipratropium 3 ML UPD VIAL UPD ×5 (01:03→23:23)
[2020-12-11] MEDS: Levothyroxine 50 MCG TAB PO (05:52)
[2020-12-11 07:10] VITALS: BP 136/77; PULSE 97; RESP 18; TEMP 36.4; O2SAT 90
[2020-12-11] MEDS: Psyllium PKT 1 EACH PO (07:45)
[2020-12-11] MEDS: buPROPion-XL 150 MG TABCR 300 MG PO (07:45)
[2020-12-11] MEDS: Sucralfate 1 GM TAB PO ×4 (07:46→23:23)
[2020-12-11] MEDS: Omeprazole 20 MG CAPCR 40 MG PO (07:46)
[2020-12-11] MEDS: Doxycycline Hyclate 100 MG CAP PO ×2 (07:46→20:04)
--- NOTE | 2020-12-11 09:36 | PDOC.CMPRO ---
- If Service Date Differs Date of service: 12/11/20 Time of Service: 09:36 Care Management Progress Note S/O: Lydia was sitting up in bed, talking with her friend on the telephone when CM met with patient. When she got off the phone, she expressed that she needed a new doctor (PCP) because they were not returning her call and another time it sounded like receptionist secretary was eating when she called the office. Lydia agrees to see Kristine Carter post discharge for continuity of care and/or until she can get established with a new provider. In the meantime she would like to initiate the process of becoming a new patient at [facility]. CM to support this process. She is hoping to be discharged tomorrow. Contact infp on [facility] was provided to patient in addition to a brochure on [facility] on Aging since she would like to sort out her insurance coverage options. A: 70 year old female, admitted to [facility] on 12/10/20 for an acute COPD exacerbation P: Lydia will return home according to discharge plan. Lydia will follow up with her PCP and plan of care as prescribed and transport via private vehicle with daughter Shelly. Community resources reviewed, CM to complete referrals to [place] on aging and new PCP.
[2020-12-11 11:19] VITALS: RESP 4
[2020-12-11] MEDS: cefTRIAXone 1 GM/50 ML BAG IVPB (14:22)
[2020-12-11] MEDS: Enoxaparin 40 MG/0.4 ML SYR SC (14:22)
--- NOTE | 2020-12-11 14:36 | CHAPLAIN ---
Lydia and I remembered each other from previous admissions for her COPD. She is currently taking care of her son, who has colon cancer. Lydia also cared for her mom, sister and before they . She believes this is her God-give role, to care for people and that is why she is here, to care for her son now. She talked about her 's end of life care and said her daughter had insisted on aggressive care, including intubation, and that is why she does not want to be intubated. She had this conversation with her daughter, she said. I will continue to visit.
--- NOTE | 2020-12-11 15:04 | W.PM.PROGNOT ---
Date of Service Date of service: 12/11/20 Time of Service: 15:04 Assessment and Plan Assessment and plan (1) Acute exacerbation of chronic obstructive pulmonary disease (COPD): Status: Acute Assessment and plan: cont. solumedrol, DuoNeb aerosols, antibiotics (Rocephin and doxycycline); consider CT chest to clarify whether or not there is an infiltrate. She is afebrile and has no leukocytosis and her cough is nonproductive so pneumonia seems unlikely. (2) Edouard's esophagus: Status: Acute Assessment and plan: Continue omeprazole and add Pepcid and Carafate Qualifiers: Edouard's esophagus type: with dysplasia of unspecified degree Qualified Code(s): K22.719 - Edouard's esophagus with dysplasia, unspecified (3) Constipation: Status: Acute Assessment and plan: Patient is already on Metamucil. I will add Colace twice a day and give her a dose of MiraLAX and senna today. Qualifiers: Constipation type: unspecified constipation type Qualified Code(s): K59.00 - Constipation, unspecified Subjective Subjective Interval history since last seen: Patient is doing markedly better today. Coughing is improved although she did have a paroxysmal coughing after ambulating today. She is complaining of constipation usually takes Metamucil which she is currently on. She is passing flatus and had couple of very tiny stools. I will give her some senna and MiraLAX and see if she can have a good bowel movement this afternoon or evening. I told her as long as her respiratory status continues to improve she will be discharged home tomorrow on a 5-day course of prednisone. Exam Narrative Exam Narrative: AnyElderly white female lying in bed. I had her sit up supplemental oxygen. She is not dyspneic and she is not tachypneic. No audible wheezes without the stethoscope. However when I auscultate her chest she had some end expiratory wheezing no rhonchi or rales. Heart is regular rate and rhythm. Abdomen soft nondistended normal bowel sounds nontender. She does have a bruise over the left medial calf just below the knee which she sustained when she had a fall at home against her son's bed. Objective Last Vital Signs Temp 36.4 C L 12/11/20 07:10 Pulse 97 H 12/11/20 07:10 Resp 18 12/11/20 07:10 BP 136/77 12/11/20 07:10 Pulse Ox 90 L 12/11/20 07:10 Laboratory Results - last 24 hr 12/10/20 16:15 Troponin I < 0.05
[2020-12-11] MEDS: Polyethylene Glycol 3350 17 GM PACKET PO (15:33)
[2020-12-11] MEDS: Senna TAB 1 TAB PO (15:34)
[2020-12-11 15:59] VITALS: BP 152/81; PULSE 98; RESP 17; TEMP 36.4; O2SAT 95
[2020-12-11 18:33] VITALS: RESP 4
[2020-12-11 18:34] VITALS: RESP 4
[2020-12-11] MEDS: Melatonin 3 MG TAB PO (23:24)
[2020-12-11 23:47] VITALS: BP 144/79; PULSE 91; RESP 16; TEMP 36.1; O2SAT 92
[2020-12-12] MEDS: Levothyroxine 50 MCG TAB PO (06:10)
[2020-12-12] MEDS: Albuterol/Ipratropium 3 ML UPD VIAL UPD ×3 (06:10→18:51)
[2020-12-12 07:23] VITALS: BP 139/76; PULSE 87; RESP 20; TEMP 36.3; O2SAT 91
[2020-12-12] MEDS: Senna TAB 1 TAB PO (07:56)
[2020-12-12] MEDS: Sucralfate 1 GM TAB PO ×4 (07:56→21:05)
[2020-12-12] MEDS: buPROPion-XL 150 MG TABCR 300 MG PO (07:56)
[2020-12-12] MEDS: Psyllium PKT 1 EACH PO (07:56)
[2020-12-12] MEDS: Doxycycline Hyclate 100 MG CAP PO (07:56)
[2020-12-12] MEDS: Omeprazole 20 MG CAPCR 40 MG PO (07:56)
[2020-12-12] MEDS: Polyethylene Glycol 3350 17 GM PACKET PO (07:56)
[2020-12-12] MEDS: predniSONE 20 MG TAB 40 MG PO (07:57)
[2020-12-12] MEDS: Magnesium Citrate 300 ML BTL 150 ML PO (10:12)
[2020-12-12 10:15] VITALS: PULSE 100; PULSE 101; RESP 16; O2SAT 97; O2SAT 98
--- NOTE | 2020-12-12 10:29 | CMPROGNOTE_ITS ---
- If Service Date Differs Date of service: 12/12/20 Time of Service: 10:29 Care Management Progress Note S/O Lydia was sitting up in her chair when CM met with her today. She expressed that she is more tired and weak today. She was planning on being discharged home today however she agrees with the plan to stay another night to regain her strength and hopes to have a complete bowel movement. She received a phone call last night at 1 am from her son and she wasn't able to get back to sleep. She is going to try to get some rest tonight and requests no phone calls tonight and is going to unplug her phone. CM continues to follow. A: 70 year old female, admitted to [facility] on 12/10/20 for an acute COPD exacerbation P: Lydia will return home according to discharge plan. Lydia will follow up with her PCP and plan of care as prescribed and transport via private vehicle with daughter Shelly. Lydia received a phone call from [employer] to sort out her insurance questions, in addition Lydia elects to remain a patient of Kristine Carter and would like CM to touch base with them to make sure that Kristine Stanley receives the messages she leaves on their answering machine as she questions if her provider is getting her messages. - Guardianship if Applicable Guardianship: Other
--- NOTE | 2020-12-12 11:54 | W.PM.PROGNOT ---
Date of Service Date of service: 12/12/20 Time of Service: 11:54 Assessment and Plan Assessment and plan (1) Acute exacerbation of chronic obstructive pulmonary disease (COPD): Status: Acute Assessment and plan: cont. scheduled DuoNeb treatment, prednisone, dc her doxycycline. add Robitussin DM; cont. Acapella. Hopefully will be able to dc her home in the a.m. (2) Constipation: Status: Acute Assessment and plan: resolving. cont. stool softeners, use prn laxatives Qualifiers: Constipation type: unspecified constipation type Qualified Code(s): K59.00 - Constipation, unspecified (3) Edouard esophagus: Status: None Assessment and plan: cont. bid PPI treatment along w/ carafate; dc her doxycycline Qualifiers: Edouard's esophagus type: without dysplasia Qualified Code(s): K22.70 - Edouard's esophagus without dysplasia Subjective Subjective Interval history since last seen: Patient still w/ cough, non-productive. She feels punky today. She has been constipated but finally had BM this morning after laxatives. Her ambulatory pulse oxiemtry study reportedly did not show any hypoxemia. Lydia and I discused about sending her home. She says that she would leave the decision up to me. She is still rather wheezy. I had stopped her SoluMedrol last night and put her on prednisone 40 mg today. She remains on doxycycline although she has no fever or leukocytosis and no purulent sputum. Given her GERD, I think that doxycycline is probably not the best. I am not convinced that she has an infectious component to her COPD exacerbation, although she feels as if she could bring up sputum if she had an expectorant. I will prescribe Robitussin DM. I am stopping her doxycycline. I will watch her for another day while she does her bronchodilator treatments and cont. current prednisone dose. Exam Narrative Exam Narrative: Elderly white female, sitting up in bed. Initially she was not coughing and we conversed and she spoke in complete sentences w/out dyspnea. However, after having her take some deep breaths for her exam, she went into a coughing jag Lungs still w/ diffuse wheezing; no rhonchi or rales Heart: regular, rate and rhythm Abdomen: soft, nontender Objective Last Vital Signs Temp 36.3 C L 12/12/20 07:23 Pulse 87 12/12/20 07:23 Resp 20 12/12/20 07:23 BP 139/76 12/12/20 07:23 Pulse Ox 91 L 12/12/20 07:23
[2020-12-12 12:44] VITALS: PULSE 92; RESP 19; RESP 4; RESP 8; O2SAT 95
[2020-12-12 12:45] VITALS: PULSE 96; RESP 19; RESP 4; RESP 8; O2SAT 99
[2020-12-12] MEDS: Fosfomycin Tromethamine 3 GM PACKET PO (13:35)
[2020-12-12 15:44] VITALS: BP 154/71; PULSE 87; RESP 17; TEMP 36.9; O2SAT 94
[2020-12-12] MEDS: Enoxaparin 40 MG/0.4 ML SYR SC (16:16)
[2020-12-12 18:51] VITALS: PULSE 82; PULSE 90; RESP 19; RESP 4; RESP 8; O2SAT 94; O2SAT 98
[2020-12-12] MEDS: Melatonin 3 MG TAB PO (21:05)
[2020-12-13 00:02] VITALS: BP 148/70; PULSE 88; RESP 16; TEMP 37.1; O2SAT 94
[2020-12-13] MEDS: Albuterol/Ipratropium 3 ML UPD VIAL UPD ×2 (05:51→11:24)
[2020-12-13] MEDS: Levothyroxine 50 MCG TAB PO (05:51)
[2020-12-13 07:12] LABS: HCT 39.9 % (36.0-46.0); HGB 12.8 g/dL (11.2-15.7); MCH 28.4 pg (27.0-33.0); MCHC 32.1 % (32.0-36.0); MCV 88.7 fL (80-95); MPV 8.3 fL (8.0-11.0); Platelet Count 401 10^3/uL (130-400); RDW 15.9 % (11.7-14.6); RDW-SD 52.4 fL; WBC 10.67 10^3/uL (4.4-10.8)
[2020-12-13 07:16] VITALS: BP 128/78; PULSE 90; RESP 16; TEMP 36.2; O2SAT 91
[2020-12-13] MEDS: Omeprazole 20 MG CAPCR 40 MG PO (07:43)
[2020-12-13] MEDS: guaiFENesin/D-METHORPHAN HB 5 ML CUP PO (07:43)
[2020-12-13] MEDS: Sucralfate 1 GM TAB PO ×2 (07:43→12:07)
[2020-12-13] MEDS: predniSONE 20 MG TAB 40 MG PO (07:44)
[2020-12-13] MEDS: Psyllium PKT 1 EACH PO (07:44)
[2020-12-13] MEDS: buPROPion-XL 150 MG TABCR 300 MG PO (07:44)
[2020-12-13 11:24] VITALS: PULSE 86; RESP 16; RESP 8; O2SAT 97
--- NOTE | 2020-12-13 11:37 | PDOC.CMDIS ---
- If Service Date Differs Date of service: 12/13/20 Time of Service: 11:37 LACE Index Scoring Tool - Questions: Length of Stay (in days): 3 Acuity (Admit via E.D.?): Yes Comorbidities: Chronic Pulmonary Disease E.D. Visits: 3 - Answers: Total Score: 11 Risk of Readmission: High Risk Care Management Discharge Reason for Hospitalization: Acute exacerbation of COPD Discharge Plan: Lydia will return home according to discharge plan. Lydia will follow up with her PCP and plan of care as prescribed and transport via private vehicle with daughter Shelly. Patient/Family Education Needs: Review discharge plan with patient and daughter, ask me three
--- NOTE | 2020-12-13 14:30 | W.PM.DS.N ---
Date of service: 12/13/20 Time of Service: 14:30 DS: Diagnosis Discharge Diagnosis (1) Acute exacerbation of chronic obstructive pulmonary disease (COPD): Status: Acute Asessment and Plan: improving. Patient sent home w/ 5 days of prednisone 40 mg daily and 5 days of Azithromycin (500 mg on first day then 4 more days of 250 mg/d). Patient did not require oxygen for this hospitalization and passed an ambulatory pulse oximetry study. (2) Constipation: Status: Acute Asessment and Plan: resolved w/ stool softeners and laxatives. (3) Edouard esophagus: Status: None Asessment and Plan: patient developed chest pain during her hospitalization and cardiac workup was negative for ischemia. Patient was treated by doubling up her PPI and starting carafate. Discharge Plan Disposition Patient Disposition: HOME Condition: Improving Discharge Details Reason For Visit: COPD Admit Date/Time: 12/10/20 09:55 Admit Provider: Pratik Deshpande Attending Provider: Pratik Deshpande Primary Care Provider: Kristine Carter Hospital Course Hospital Course: 70 yr old female former smoker w/ COPD not oxygen dependent who presented to the ER w/ progressive dyspnea and non-productive cough. Workup in the ER revealed her to be afebrile, and not hypoxemic. CXR initally was reported by virtual radiology as not showing any infiltrates but demonstrated mid right lung scarring. Later, the CXR was re-read by in-house radiologist as demonstrating new infiltrate in right mid lung zone, upper lobe. In the ER patient was treated w/ DuoNeb aerosols, iv solumedrol and given Rocephin. Patient was slightly improved by this but not sufficient to immediately return home. She was admitted for further iv corticosteroids, doxycycline, Rocephin and anti-tussives. Patient improved however she developed chest pain which was evaluated EKG's and troponin I level (which were negative for ischemia) and determined to be her GERD. Doxycycline was stopped. GERD was treated w/ doubline up her PPI and adding carafate. She had constipation which resolved w/ stool softeners and laxatives (Miralax). Her coughing improved w/ treatment of her GERD and w/ anti-tussives. She was switched from iv solumedrol to prednisone. Upon discharge she was given an Rx for azithromycin x 5 days and prednisone 40 mg daily x 5 days. She was instructed to get follow up CXR in 2 wks. An ambulatory pulse oximetry was done prior to discharge and she had no hypoxemia w/ ambulation. Home Meds and New Rx's Prescriptions: New sucralfate 1 gram Tablet 1 g PO AC & HS 30 Days Qty: 120 RF: 0 prednisone 20 mg Tablet 40 mg PO DAILY 5 Days Qty: 10 RF: 0 azithromycin 250 mg tablet See Rx Instructions .ROUTE .COMPLEX Qty: 6 RF: 0 Continued omeprazole 40 mg capsule,delayed release(DR/EC) 40 mg PO DAILY Qty: 90 RF: 3 Hold Instructions: Home Medication placed on hold at Doctor's office bupropion HCl 300 mg tablet extended release 24 hr 300 mg PO QAM Qty: 90 RF: 3 levothyroxine 50 mcg tablet 50 mcg PO DAILY Qty: 90 RF: 3 polyethylene glycol 3350 [Miralax] 17 gram/dose powder 17 g PO .QOD RF: 0 loratadine 10 mg tablet 10 mg PO DAILY PRN (Reason: allergy symptoms) RF: 0 Metamucil 3.4 gram/5.4 gram powder 1 tbs PO DAILY RF: 0 [employer] Women's 18-400 mg-mcg tablet 1 tab PO DAILY RF: 0 (DME) EasiVent Mask Large 1 EACH device 1 ea Miscellaneous DIRECTED Qty: 1 RF: 0 Stiolto Respimat 2.5-2.5 mcg/actuation mist 2 puff IH DAILY RF: 0 albuterol sulfate [Ventolin HFA] 90 mcg/actuation HFA aerosol inhaler 2 puff inhalation Q4H PRNRF: 0 acetaminophen 500 mg tablet 1,000 mg PO Q8H PRN (Reason: pain) Qty: 90 RF: 3 naproxen 500 mg tablet 500 mg PO BID PRNQty: 60 RF: 0 meclizine 25 mg tablet 25 mg PO TID PRN (Reason: dizziness) Qty: 20 RF: 0 Discharge Instructions Instructions: COPD (Chronic Obstructive Pulmonary Disease) (DC) Additional Instructions: finish out your prednisone; take 5 day course of azithromycin. Get follow up chest xray in 2 weeks Stand Alone Forms: Nursing Discharge Form Referrals: Kristine Carter NP [Primary Care Provider] - 12/24/20 10:45 am Activity:: Activity as Tolerated Equipment/Supplies:: No Equipment Needed Diet:: Normal Diet Discharge Orders Discharge Orders: Discharge Order (Routine); Ordered 12/13/20 Ordered By: Froilan Mahan Other Ambulatory Orders: XR chest 2V PA & lateral (Routine) Timeframe: 2 Weeks Facility: [facility] - Location: DIAGNOSTIC IMAGING DEPT Ordered By: Froilan Mahan Discharge Data Discharge Date/Time-TO BE ENTERED AT DEPARTURE: 12/13/20 15:55 DS: Summary Time Spent with Patient providing and/or coordinating discharge services: Less than 30 minutes Status at Discharge Functional status at discharge: independent ambulation Overall status at discharge: patient is back to baseline Mental Status: mental status grossly normal Speech and Movement: speech and movement normal Mood: congruent mood Affect: normal affect Exam Narrative Exam Narrative: Elderly white female, sitting up in bed. Initially she was not coughing and we conversed and she spoke in complete sentences w/out dyspnea. Lungs still w/ fine end expiratory diffuse wheezing; no rhonchi or rales Heart: regular, rate and rhythm Abdomen: soft, nontender Psych Mental Status: mental status grossly normal Speech and Movement: speech and movement normal Mood: congruent mood Affect: normal affect DS: Data Vitals/I&O Vitals and I&O: Vital Signs Temperature 36.2 C L 12/13/20 07:16 Temperature Source Tympanic 12/13/20 07:16 Pulse 86 12/13/20 11:24 Pulse Rhythm Regular 12/13/20 07:49 Pulse 95 H 12/10/20 04:20 Respiratory Rate 16 12/13/20 11:24 Respiratory Effort 12/13/20 07:49 Respiratory Depth Normal 12/13/20 07:49 Respiratory Pattern Normal 12/13/20 07:49 Blood Pressure 128/78 12/13/20 07:16 Blood Pressure Mean 86 12/10/20 04:15 Pulse Oximetry 97 12/13/20 11:24 Oxygen Delivery Method Room Air 12/13/20 11:24 Oxygen Flow Rate 0 12/13/20 11:24 Pain Level 0 12/13/20 07:16 Comment 12/10/20 14:43 Intake & Output 12/12/20 12/13/20 12/13/20 23:59 11:59 23:59 Intake Total 820 / 1340 550 / 1240 690 / 1240 Output Total 1000 / 3000 1500 / 1500 Balance -180 / -1660 -950 / -260 690 / -260 Intake: Oral 820 / 1340 550 / 1240 690 / 1240 Output: Urine 1000 / 3000 1500 / 1500 Other: Urine Color Yellow Yellow Urine Appearance Clear Clear Urine Odor Normal Normal Voiding Methods Toilet Toilet Data Completed and Pending Labs on day of discharge: Labs from last 24 hours 12/13/20 06:45 WBC 10.67 RBC 4.50 Hgb 12.8 Hct 39.9 MCV 88.7 MCH 28.4 MCHC 32.1 RDW 15.9 H Plt Count 401 H MPV 8.3 Preliminary micro results at discharge 12/10/20 22:14 Sputum Culture - Preliminary Sputum Normal Elise COUNTS INCLUDE 234 BEDS AT THE [facility] Medical History 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 COPD (chronic obstructive pulmonary disease) Emphysema Depression Depressive disorder fatigue Diverticulitis Forgetfulness HTN (hypertension) Hx of chest pain Pt. 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 Hypothyroidism Irritable colon Osteoarthritis Sialoadenitis Surgical History Arthroscopy, Shoulder right; acromioplasty Colectomy 04/25/14 Colonoscopy - MAC (09/24/16) EGD - IV Sedation 2014 EGD - MAC (09/24/16) Extraction of cataract H/O surgical procedure a. total abdominal hysterectomy-bso b. exploratory laparotomy for reoval of ovaries c. knee replacements d. sigmoid resection 04/25/2014 e. right shoulder acromioplasty f. Elyssa fundoplication 1995 g. 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) Status post total hip replacement, right Family History Mother Diabetes Essential hypertension Personal history of malignant neoplasm LUNG Hyperlipidemia Asthma Father Essential hypertension Personal history of malignant neoplasm THROAT Heart disease Hyperlipidemia Sister Drug abuse Essential hypertension COPD (chronic obstructive pulmonary disease) Depression Heart disease Hyperlipidemia Asthma Grandfather Essential hypertension Personal history of malignant neoplasm Heart disease Hyperlipidemia Stroke Grandfather , UNKNOWN Alcohol abuse Heart disease Stroke Grandmother Essential hypertension Personal history of malignant neoplasm Hyperlipidemia Grandmother Alcohol abuse Personal history of malignant neoplasm Heart disease Son Depression Heart disease Asthma Son Alcohol abuse Essential hypertension Depression Daughter Essential hypertension Asthma Daughter Essential hypertension Depression Hyperlipidemia Social History Smoking/Tobacco Use Status: Former Tobacco Use Smoking risk assessment performed?: Yes Alcohol Intake: current Alcohol Intake frequency: a few times a month Drug use: Never Substance use type: does not use Number of Children: 4 Pets and animals: Yes Pets and animals: cat(s) and dog(s) Current gender identity: female What type of physical activity do you participate in: walking Frequency: daily Seatbelt use: always Water heater temp set <120 deg: Yes Working smoke detector in home: Yes Fire extinguisher in home: Yes Carbon monox detector in home: Yes Firearms in home: Yes Firearms unloaded and locked: Yes Do you feel safe at home: Yes Do you feel safe in your relationship?: Yes
== END 2020-12-13 15:55 | disposition home or self-care (01) | DRG 192 ==
LOC: ER 05:07 → MS 05:09
PROVIDERS: Internal Medicine; Admitting Provider General Practice; Emergency Provider Emergency Medicine; PCP Nurse Practitioner; Visit Provider General Practice
DX: J44.1 Chronic obstructive pulmonary disease with (acute) exacerbation (principal); K22.719 Barrett's esophagus with dysplasia, unspecified; F32.9 Major depressive disorder, single episode, unspecified; R53.83 Other fatigue; I10 Essential (primary) hypertension; E03.9 Hypothyroidism, unspecified; Z87.891 Personal history of nicotine dependence; Z66 Do not resuscitate; Z20.822 Contact with and (suspected) exposure to COVID-19; K59.00 Constipation, unspecified
CPT/HCPCS: 36415; 80053; 85027; 87635; 93005; 94640; 96365; 96366; 96375; 99285; J1650; 71046; 83735; 84484; 85025; 87070; 87205; 93010; 93225; 94667; 99222; 99232; 99238; G0378; J0696; J2930; J3490; J7512; J7613; J7620

== ENCOUNTER 2020-12-24 16:20 | Outpatient (CLI) | payer OTHER, MEDICAID, SELFPAY ==
--- NOTE | 2020-12-24 11:30 | DI.RAD_ITS ---
Exam(s) XR CHEST 2V PA LATERAL EXAM: XR CHEST 2V PA LATERAL CLINICAL HISTORY: cough, dyspnea, acute exacerbation of COPD; questionable infiiltrate. TECHNIQUE: 2D digital imaging was performed. COMPARISON: Chest x-ray 12/10/2020 FINDINGS: Heart size is normal. The mediastinum is not widened. Left lung remains clear. The been some improvement in the right lung infiltrate almost completely resolved. No pleural effusi ons. No pneumothorax. IMPRESSION: Improving right lung infiltrate. Not yet completely resolved. DATA REPOSITORY: RADIATION DOSE DELIVERED:
== END 2020-12-24 16:40 ==
PROVIDERS: PCP Nurse Practitioner; Visit Provider Internal Medicine
DX: R91.8 Other nonspecific abnormal finding of lung field; J44.1 Chronic obstructive pulmonary disease with (acute) exacerbation
CPT/HCPCS: 71046

== ENCOUNTER 2021-01-28 00:21 | Outpatient (CLI) | payer OTHER, MEDICAID, SELFPAY ==
--- NOTE | 2021-01-28 07:00 | DI.NM_ITS ---
APPROVED REPORT Exam: Pharmacologic Patient Location: Out-Patient Room/Bed: Stress Nurse: Korina Jones RN Ordering Provider:PIERRE ESTRADA, Contact Number: [phone] BMI: 27.37 Baseline Rhythm: Sinus Rhythm Comment: Fliiped T waves lead V2 Indications: Left chest fluttering and pressure with activity, other chest pain, palpitations Medical History Medical History: Chest palpitations, COPD, left chest pressure, insomnia, pneumonia, SOB, s/p left TH A, IBS, Edouard's esophagus, hypothyroid, hypertension Cardiac Medications: Omeprazole, tiotropium-olodaterol, levothyroxine, albuterol sulfate, meclizine, trazodone Allergies: Tramadol, hydrocodone, fluticasone, methylpheiclate, desipramine, pregabalin, salmeterol, methylprednisone, paroxetine, sertraline, tylenol Cardiac Risk Factors: Hypertension, smoker (former), COPD, family hx Previous Cardiac Procedures: Cardiac cath 2010 Pretest Chest Pain Characteristics: None Exercise History: Physically active Physical Disabilities: chronic hip pain Lung Sounds: Clear to auscultation Heart Sounds: Regular Stress Test Details Test: Exercise stress converted to pharmacologic stress due to failure to obtain a diagnostic stress test. Reason for pharmacologic stress test: changed from exercise stress test due to inability to reach t arget heart rate. Nuclear Acquisition: Rest Tc-99m/Stress Tc-99m 1 day Rest Isotope: Tc-99m Sestamibi. Dose: 10.0 Date: 01/28/2021 Injection Time: 0940 Stress Isotope: Tc-99m Sestamibi. Dose: 32.8 Date: 01/28/2021 Injection Time: 1110 HR Resting HR Supine: 71 bpm Max Heart Rate (APMHR): 149.276749 bpm Resting HR Standin bpm Target HR (85% APMHR): 126.498806 bpm Max HR Achieved: 115 bpm % of APMHR: 77.18 Recovery HR: 94 bpm HR response to stress: Normal HR response to stress BP Resting BP Supine: 138/64 mmHg Resting BP Standin/70 mmHg Max BP: 138/64 mmHg Recovery BP: 128/64 mmHg BP response to stress: Normal blood pressure response to stress. ECG Resting ECG: Sinus Rhythm Ectopy: None Comment: Flipped T waves lead V2 Stress ECG: Sinus Tachycardia ST Change: No significant ST segment changes noted Arrhythmia: None Recovery ECG: Sinus Rhythm Recovery ST Change: No significant ST segment changes noted Recovery Arrhythmia: None Clinical Reason for Termination: Fatigue Stress Symptoms: Dyspnea, General Fatigue, Chest Tightness Exercise capacity: 4.64 METs Rate Pressure Product: 14575 Stress ECG Conclusion 1. This is an exercise stress test that was converted to a pharmacological stress test after patient failed to reach target heart rate. 2. The ECG portion of the exam is nondiagnostic. Stress Test Summary STAGE Time (mins) Speed (mph) Grade (%) HR BP SYMPTOMS METS Supine 71 138/64 Standing 79 130/70 SpO2 93% 1 3 1.7 10 114 SpO2 93%, mild SOB 4.6 1 min post Lexiscan injection 114 SpO2 93%, moderate SOB, chest tightness 2/10 3 min post Lexiscan injection 104 130/70 SpO2 97%, symptoms improving 6 min post Lexiscan injection 94 128/64 SpO2 97%, symptoms resolved Pt began stress test with Aren protocol. After 2 min 40 sec exercise, pt did not want to continue an d try next stage. Transition to walking Lexiscan at 1.0mph and 0% grade. Pt tolerated testing well. MPI Conclusion The patient's ejection fraction was 60% with stress. There were no wall motion abnormalities. There is no evidence of ischemia on the imaging portion exam. This represents a normal SPECT stress test. Radiologist Interpretation Radiologist Interpretation by: Royce Price MD Interpretation Date/Time: 01/29/2021 08:28:32
[2021-01-28] MEDS: Regadenoson 0.4 MG/5 ML SYR IVP (11:48)
== END 2021-01-28 00:41 ==
PROVIDERS: PCP Nurse Practitioner; Visit Provider Nurse Practitioner
DX: R00.2 Palpitations (principal); R07.89 Other chest pain; I10 Essential (primary) hypertension; Z87.891 Personal history of nicotine dependence; J44.9 Chronic obstructive pulmonary disease, unspecified; Z82.49 Family history of ischemic heart disease and other diseases of the circulatory system
CPT/HCPCS: 78452; 93016; 93018; 93017; J2785

== ENCOUNTER 2021-02-19 16:42 | Outpatient (REF) | payer OTHER, MEDICAID, SELFPAY ==
[2021-02-21 11:53] LABS: COVID-19 RT-PCR UVMMC Result Negative (Negative)
== END 2021-02-19 16:43 | disposition home or self-care (01) ==
LOC: LBN 16:42
PROVIDERS: Student in an Organized Health Care Education/Training Program; PCP Nurse Practitioner; Visit Provider Nurse Practitioner
DX: Z20.822 Contact with and (suspected) exposure to COVID-19 (principal); R05 Cough; R09.89 Other specified symptoms and signs involving the circulatory and respiratory systems
CPT/HCPCS: U0003

== ENCOUNTER 2021-02-28 02:12 | Outpatient (CLI) | payer OTHER, MEDICAID, SELFPAY ==
--- NOTE | 2021-02-28 09:10 | DI.CT_ITS ---
Exam(s) CT CHEST WO EXAM: CT CHEST WO CLINICAL HISTORY: f/u May lung CT, LUNG NODULE, COPD, R91.1, K56.609, J44.9. TECHNIQUE: Imaging protocol: Axial computed tomography images were obtained and coronal and sagittal reformatted images were created and reviewed. COMPARISON: CT CT CHEST WO from 12/02/[address] CHEST WO from 12/02/[address] ABDOMEN PELVIS W from 10/01/2020 FINDINGS: Tracheobronchial tree: Patent where visualized. Pulmonary parenchyma: No consolidation or dominant measurable mass. Marked centrilobular and parasept al emphysematous changes are present. There is a stable 0.7 cm nodule in the right upper lobe. The 9 mm nodule in the left lower lobe is unchanged. Mediastinum and Precious: No dominant adenopathy or fluid collection. Small hiatal hernia. Pleura: No effusion or pneumothorax. Heart: The heart is not dilated. Mild coronary artery calcification. No pericardial effusion. Aorta: Thoracic aorta non-dilated. Atherosclerosis. Upper abdomen: There is diverticulosis of the colon but no evidence of acute diverticulitis. Lymph nodes: No axillary adenopathy. Soft tissues: Unremarkable. Bones:Moderately severe degenerative changes seen in the thoracic spine. Marked degenerative changes seen in the right shoulder. IMPRESSION: 1. Stable pulmonary nodules. 2. Marked centrilobular and paraseptal emphysema. 3. CT scan of the chest in 12 months is recommended for re-evaluation. RADIATION DOSE DELIVERED: 418.25mGy.cm Total DLP 418.25mGy.cm Total DLP DATA REPOSITORY: All CT scans at this facility are submitted to the National Radiology Data Registry (NRDR) Dose Index Registry (DIR) with the [employer] ([employer]). RADIATION OPTIMIZATION: All CT scans at this facility use at least one of these dose optimization te chniques: automated exposure control; mA and/or kV adjustment per patient size (includes targeted exa ms where dose is matched to clinical indication); or iterative reconstruction.
== END 2021-02-28 02:32 ==
PROVIDERS: PCP Nurse Practitioner; Visit Provider Nurse Practitioner
DX: J44.9 Chronic obstructive pulmonary disease, unspecified (principal); R91.1 Solitary pulmonary nodule; K56.609 Unspecified intestinal obstruction, unspecified as to partial versus complete obstruction; J43.2 Centrilobular emphysema
CPT/HCPCS: 71250

== ENCOUNTER 2021-03-06 10:51 | Outpatient (REF) | payer OTHER, MEDICAID, SELFPAY | END 2021-03-06 10:52 | disposition home or self-care (01) | LOC: LBN 10:51 | PROVIDERS: PCP Nurse Practitioner; Visit Provider Nurse Practitioner | DX: R30.0 Dysuria (principal) | CPT/HCPCS: 87077; 87086; 87186 ==

== ENCOUNTER 2021-07-27 07:47 | Emergency (ER) | payer MEDICARE, MEDICAID, SELFPAY ==
[2021-07-27] VITALS (19 sets, daily range): BP systolic 136–150; BP diastolic 54–70; PULSE 72–114; RESP 4–18; TEMP 36.3–36.4; O2SAT 90–100
--- NOTE | 2021-07-27 07:45 | RT.EKG_ITS ---
APPROVED REPORT Exam: Resting ECG Reason for Exam: chest pain Patient Location: E HR:76 bpm ECG Measurements Heart Rate 76 AXIS NC 158 P 32 QRSd 93 QRS -45 QT 377 T 10 QTc 425 Conclusion Sinus rhythm...normal P axis, V-rate 60- 99 Left anterior fascicular block...axis(240,-40), init forces inf sinus rhythm, left axis, non ischemic
--- NOTE | 2021-07-27 08:15 | DI.RAD_ITS ---
Exam(s) XR PORTABLE CHEST AP EXAM: XR PORTABLE CHEST AP CLINICAL HISTORY: COPD, productive cough, left lung field wheezing TECHNIQUE: 2D digital imaging was performed of the chest. One image was obtained. An AP view was ob tained. COMPARISON: CR,XR XR PORTABLE CHEST AP from 10/02/2020 CR XR CHEST 2V PA LATERAL from 12/24/2020 FINDINGS: MEDIASTINUM: Normal. HEART: Normal. PULMONARY VASCULATURE: Normal. LUNGS: Clear. PLEURAL SPACE: No pleural effusion or pneumothorax. BONE:Within normal limits for the patient's age. OTHER FINDINGS:Normal. IMPRESSION: No acute pulmonary findings. DATA REPOSITORY: RADIATION DOSE DELIVERED:
--- NOTE | 2021-07-27 08:24 | ED.GENADUL_ITS ---
Discharge Plan Disposition Patient Disposition: HOME Condition: Improving Discharge Details Clinical Impression: COPD (chronic obstructive pulmonary disease) Primary Care Provider: Kristine Carter ED Provider: Manuel Loyd Home Meds and New Rx's Prescriptions: Continued levothyroxine 50 mcg tablet 50 mcg PO DAILY Qty: 90 3RF Stiolto Respimat 2.5-2.5 mcg/actuation mist 2 puff IH DAILY Qty: 4 12RF omeprazole 40 mg capsule,delayed release(DR/EC) 40 mg PO DAILY Qty: 90 3RF Hold Instructions: Home Medication placed on hold at Doctor's office ibuprofen 200 mg tablet 400 mg PO Q6H PRN0RF azithromycin 250 mg tablet 250 mg PO DAILY Qty: 30 12RF Metamucil 3.4 gram/5.4 gram powder 1 tbs PO DAILY 0RF Rx Instructions: mix into at least 8 oz of water or juice before administering [employer] [facility] 18-400 mg-mcg tablet 1 tab PO DAILY 0RF (DME) compressor, for nebulizer Device See Rx Instructions .ROUTE .MEDSUPPLY Qty: 1 0RF Rx Instructions: As directed ipratropium-albuterol 0.5 mg-3 mg(2.5 mg base)/3 mL solution for nebulization 3 ml inhalation Q6H PRN (Reason: wheezing) Qty: 15 0RF Rx Instructions: Trial for Cough, COPD Exacerbation (DME) EasiVent Mask Large 1 EACH device 1 ea Miscellaneous DIRECTED Qty: 1 0RF Rx Instructions: DIRECTED WITH INHALER albuterol sulfate [Ventolin HFA] 90 mcg/actuation HFA aerosol inhaler 2 puff inhalation Q4H PRN0RF Rx Instructions: rescue only per note dated 09/14/20 [facility] acetaminophen 500 mg tablet 1,000 mg PO Q8H PRN (Reason: pain) Qty: 90 3RF meclizine 25 mg tablet 25 mg PO TID PRN (Reason: dizziness) Qty: 20 0RF Discharge Instructions Instructions: COPD (Chronic Obstructive Pulmonary Disease) (ED) Additional Instructions: Please follow-up with your primary care physician next week. Continue with nebs at home as needed. If you have worsening chest pain or shortness of breath please return to the emergency department. Continue with any prescriptions they have been taking. Medical Decision Making 71-year-old female history of COPD, hypertension, presents with worsening shortness of breath wet cough productive of yellow-green sputum and left-sided chest discomfort, wheezing to left lung field, clear lung meyer on the right, no hypoxia no tachypnea, nontoxic afebrile, consider pneumonia versus pleural effusion versus COPD exacerbation versus less likely PE or ACS, patient is low risk heart score, without PE risk factors, nontoxic generally well-appearing however will benefit from steroids neb, evaluation with lab occluding troponin, chest x-ray EKG. Disposition pending reassessment of symptomatology and results. Likely home with close follow-up 10: 25 patient resting comfortably no acute distress chest pain-free. Breathing much more comfortably after nebs and steroids. Wheezing has cleared. No hypoxia. EKG largely unchanged from 12/10/2020. Likely COPD exacerbation. Ward escamilla has nebs at home. Feels comfortable following her primary. Given strict return precautions. HPI General Date/Time Provider Initiated Documentation: 07/27/21 07:55 . HPI Narrative: 71-year-old female history of COPD, endorses recent pulmonary infection and believes she is on erythromycin although she may be on azithromycin, presents with worsening cough productive of yellow-green sputum, denies fevers chills nausea or vomiting. Endorses left-sided chest pain under her left breast. Denies home oxygen use. Follows with Dr. Khan of pulmonology Related Data Home Medications Medication Instructions Recorded Confirmed inhaler,assist devices,access #1 ea 09/01/13 07/22/21 (EasiVent Mask Large) psyllium husk 3.4 gram/5.4 gram 1 tbs PO DAILY 08/11/19 07/27/21 oral powder (Metamucil) multivitamin-ferrous 1 tab PO DAILY 01/10/20 07/27/21 fumarate-folic acid 18 mg-400 mcg tablet ([email or web address]) acetaminophen 500 mg tablet 1,000 mg PO Q8H PRN #90 tab 01/24/20 07/27/21 levothyroxine 50 mcg tablet 50 mcg PO DAILY #90 tab 07/18/20 07/27/21 albuterol sulfate 90 mcg/actuation 2 puff INHALATION Q4H PRN g 09/14/20 07/27/21 aerosol inhaler (Ventolin HFA) meclizine 25 mg tablet 25 mg PO TID PRN #20 tab 10/06/20 07/27/21 omeprazole 40 mg capsule,delayed 40 mg PO DAILY #90 tab-cap 01/16/21 07/27/21 release tiotropium 2.5 mcg-olodaterol 2.5 2 puff IH DAILY #4 g 01/16/21 07/27/21 mcg/actuation mist for inhalation (Stiolto Respimat) compressor, for nebulizer #1 ea 02/19/21 07/22/21 ipratropium 0.5 mg-albuterol 3 mg 3 ml INHALATION Q6H PRN #15 ml 02/19/21 07/27/21 (2.5 mg base)/3 mL nebulization soln azithromycin 250 mg tablet 250 mg PO DAILY #30 tab 07/22/21 07/27/21 ibuprofen 200 mg tablet 400 mg PO Q6H PRN tab 07/22/21 07/27/21 Previous Rx's Medication Instructions Recorded acetaminophen 500 mg tablet 1,000 mg PO Q8H PRN #90 tab 01/24/20 levothyroxine 50 mcg tablet 50 mcg PO DAILY #90 tab 07/18/20 meclizine 25 mg tablet 25 mg PO TID PRN #20 tab 10/06/20 omeprazole 40 mg capsule,delayed 40 mg PO DAILY #90 tab-cap 01/16/21 release tiotropium 2.5 mcg-olodaterol 2.5 2 puff IH DAILY #4 g 01/16/21 mcg/actuation mist for inhalation (Stiolto Respimat) compressor, for nebulizer #1 ea 02/19/21 ipratropium 0.5 mg-albuterol 3 mg 3 ml INHALATION Q6H PRN #15 ml 02/19/21 (2.5 mg base)/3 mL nebulization soln azithromycin 250 mg tablet 250 mg PO DAILY #30 tab 07/22/21 Allergies Allergy/AdvReac Type Severity Reaction Status Date / Time tramadol Allergy Severe ITCHING, Verified 07/27/21 08:17 GI UPSET hydrocodone bitartrate Allergy Intermediate RASH, Verified 07/27/21 08:17 [From Vicodin] ITCHING fluticasone Allergy Verified 07/27/21 08:17 methylphenidate Allergy Verified 07/27/21 08:17 desipramine AdvReac Intermediate PALPITATION Verified 07/27/21 08:17 S pregabalin [From Lyrica] AdvReac Intermediate CONFUSION Verified 07/27/21 08:17 salmeterol xinafoate AdvReac Intermediate COUGH Verified 07/27/21 08:17 [From Advair Diskus] methylprednisolone sodium AdvReac Mild Agitation Verified 07/27/21 08:17 succinate [From Solu-Medrol] paroxetine HCl [From Paxil] AdvReac Mild JITTERY Verified 07/27/21 08:17 sertraline HCl [From Zoloft] AdvReac Mild JITTERY Verified 07/27/21 08:17 acetaminophen AdvReac nausea, Verified 07/27/21 08:17 vomiting General Stated Complaint: Chest Pain NATY: 3 Review of Systems Narrative: Review of Systems Constitutional: negative Eyes: negative ENT: negative Cardiovascular: Chest pain Respiratory: Shortness of breath Gastrointestinal: negative : negative Musculoskeletal: negative Skin: negative Neurologic: negative Psych: negative PFSH All Active Problems Pulmonary nodule (Acute) Voiding difficulty (Acute) Depression (Chronic) Cough (Acute) PND (post-nasal drip) (Acute) acute on chronic? Hx nasal steroid per Dr. Garza. Weight loss, non-intentional (Acute) ~ 8 lbs, 3-4 mos Insomnia (Acute) Fluttering sensation of heart (Acute) Left chest pressure (Acute) History of pneumonia (Acute) Acute exacerbation of chronic obstructive pulmonary disease (COPD) (Acute) Constipation (Acute) Vision changes (Acute) Lung nodule (Acute) Abdominal pain (Acute) Dizziness (Acute) SBO (small bowel obstruction) (Acute) Forgetfulness (Acute) Fatigue (Acute) Status post total hip replacement, left (Acute 01/24/20) Status post total hip replacement, right (Acute) Diverticulitis (Chronic 04/25/14) a. 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 that pain is secondary to scar tissue within muscle and lidocaine injection given with effect. Lymphadenitis (Acute 05/23/13) Diverticulitis of sigmoid colon (Acute 04/25/14) Bilateral knee pain (Acute) 02/23/19 F/u [facility] Orthopaedics Left foot pain (Acute) IFG (impaired fasting glucose) (Acute) Itching (Acute) Cough (Acute) SOB (shortness of breath) (Acute) Vertigo (Acute) Left hip pain (Acute) Anxiety and depression (Acute) Headache (Acute) Osteoarthritis of left hip (Acute) History of Edouard's esophagus (Acute) Pharyngeal dysphagia (Acute) Polyarthralgia (Acute) Positive SANDY (antinuclear antibody) (Acute) assisted (current) use of non-steroidal anti-inflammatories (nsaid) (Acute) Regurgitation of food (Acute) Depressive disorder (Chronic) fatigue History of bilateral knee replacement (Acute) Medical History (Updated 07/27/21 @ 10:26 by Manuel Loyd MD) Chronic obstructive lung disease quit smoking 2000, [facility] PFT 01/06/18 Mild airflow obstruction, no significant improvement after inhaled bronchodilators RH COPD (chronic obstructive pulmonary disease) Emphysema Depression Diverticulitis HTN (hypertension) Hx of chest pain Pt. states her chest pain was related to her stomach issues, and has not had any cardiac issues currently, and does not see a emergency management coordinator. Irritable colon Osteoarthritis Sialoadenitis Surgical History Arthroscopy, Shoulder right; acromioplasty Colectomy 04/25/14 Colonoscopy - MAC (09/24/16) EGD - IV Sedation 2014 EGD - MAC (09/24/16) Extraction of cataract H/O surgical procedure a. total abdominal hysterectomy-bso b. exploratory laparotomy for reoval of ovaries c. knee replacements d. sigmoid resection 04/25/2014 e. right shoulder acromioplasty f. Elyssa fundoplication 1995 g. bilateral open carpal tunnel release 1985 History of bilateral salpingo-oophorectomy (05/18/14) History of hysterectomy (05/18/14) Elyssa Fundoplication (~1995) Open Carpal Tunnel release (~1985) B/L Replacement of total knee joint (~2004) B/L Family History Mother Diabetes Essential hypertension Personal history of malignant neoplasm LUNG Hyperlipidemia Asthma Father Essential hypertension Personal history of malignant neoplasm THROAT Heart disease Hyperlipidemia Sister Drug abuse Essential hypertension COPD (chronic obstructive pulmonary disease) Depression Heart disease Hyperlipidemia Asthma Grandfather Essential hypertension Personal history of malignant neoplasm Heart disease Hyperlipidemia Stroke Grandfather , UNKNOWN Alcohol abuse Heart disease Stroke Grandmother Essential hypertension Personal history of malignant neoplasm Hyperlipidemia Grandmother Alcohol abuse Personal history of malignant neoplasm Heart disease Son Depression Heart disease Asthma Son Alcohol abuse Essential hypertension Depression Daughter Essential hypertension Asthma Daughter Essential hypertension Depression Hyperlipidemia Social History Smoking/Tobacco Use Status: Former Tobacco Use Smoking risk assessment performed?: Yes Alcohol Intake: current Alcohol Intake frequency: a few times a month Drug use: Never Substance use type: does not use Number of Children: 4 Pets and animals: Yes Pets and animals: cat(s) and dog(s) Current gender identity: female What type of physical activity do you participate in: walking Frequency: daily Seatbelt use: always Water heater temp set <120 deg: Yes Working smoke detector in home: Yes Fire extinguisher in home: Yes Carbon monox detector in home: Yes Firearms in home: Yes Firearms unloaded and locked: Yes Do you feel safe at home: Yes Do you feel safe in your relationship?: Yes Exam Narrative Exam Narrative: Physical Examination General: alert, awake, cooperative, resting comfortably, no acute distress HEENT: normocephalic, atraumatic; PERRL, EOM intact, conjunctiva normal; no nasal discharge; moist mucous membranes, oral and pharyngeal mucosa normal, tolerating secretions Neck: supple, trachea midline; full ROM Chest: normal to inspection Respiratory: Expiratory wheeze left lung meyer, right lung field clear, wet cough, speaking in full sentences, clear to auscultation, rales or rhonchi Cardiac: regular rate, regular rhythm, S1S2 intact, no murmurs rubs or gallops GI: abdomen soft, non-tender, non-distended; no palpable mass or hepatosplenomegaly Skin: no lesions, rashes or trauma appreciated Neuro: AAOx3, normal speech, moving all extremities Extremities: No peripheral edema Psych: Appropriate mood and affect Course Vital Signs Vital signs: Vital Signs Temperature 36.3 C L 07/27/21 07:57 Pulse 81 07/27/21 07:57 Respiratory Rate 18 07/27/21 07:57 Blood Pressure 140/70 07/27/21 07:57 Pulse Oximetry 95 07/27/21 07:57 Temperature 36.3 C L 07/27/21 07:57 Temperature Source Temporal Artery Scan 07/27/21 07:57 Pulse 81 07/27/21 07:57 Respiratory Rate 18 07/27/21 08:13 Respiratory Effort 07/27/21 08:13 Respiratory Depth Normal 07/27/21 08:13 Blood Pressure 140/70 07/27/21 07:57 Blood Pressure Position Sitting 07/27/21 07:57 Pulse Oximetry 95 07/27/21 07:57 Oxygen Delivery Method Room Air 07/27/21 07:57 Oxygen Flow Rate 0 07/27/21 07:57
[2021-07-27 08:36] LABS: Abs Immature Grans 0.02 10^3/uL (0.0-0.06); Absolute Basophil Count 0.05 10^3/uL (0.0-0.2); Absolute Lymphocyte Count 1.44 10^3/uL (1.2-3.4); Absolute Monocyte Count 0.46 10^3/uL (0.1-0.8); Absolute Neutrophil Count 3.82 10^3/uL (1.2-6.7); Basophils % 0.8; Eosinophils % 7.9; HCT 38.6 % (36.0-46.0); HGB 12.5 g/dL (11.2-15.7); Immature Grans % 0.3; Lymphocytes % 22.9; MCH 28.4 pg (27.0-33.0); MCHC 32.4 % (32.0-36.0); MCV 87.7 fL (80-95); MPV 8.3 fL (8.0-11.0); Monocytes % 7.3; Neutrophils % 60.8; Nucleated RBC 0 %; Platelet Count 373 10^3/uL (130-400); RDW-SD 45.1 fL; WBC 6.29 10^3/uL (4.4-10.8)
[2021-07-27 08:58] LABS: ALT 21 U/L (14-59); AST 20 U/L (15-37); Albumin 3.4 g/dL (3.4-5.0); Alkaline Phosphatase 85 U/L (46-116); Anion Gap 8.8 mmol/L (3-11); BUN 8 mg/dL (7-18); Bilirubin, Total 0.3 mg/dL (0.2-1.0); CO2 26.2 mmol/L (21.0-32.0); CREATININE 0.8 mg/dL (0.55-1.02); Calcium 8.6 mg/dL (8.5-10.1); Chloride 105 mmol/L (98-107); Glucose 96 mg/dL (74-106); Potassium 4.1 mmol/L (3.5-5.1); Sodium 140 mmol/L (136-145); Total Protein 6.9 g/dL (6.4-8.2); Troponin I < 50 ng/L (<or=60)
--- NOTE | 2021-07-27 08:59 | DI.VRAD_ITS ---
PROCEDURE INFORMATION: Exam: XR Chest Exam date and time: 07/27/2021 8:24 AM Age: 71 years old Clinical indication: Other: Cough, SOB; Patient HX: Cough, SOB TECHNIQUE: Imaging protocol: XR of the chest. Views: 1 view. COMPARISON: CT CHEST WO 02/28/2021 9:07 AM FINDINGS: Lungs: Unremarkable. No consolidation. Pleural spaces: Unremarkable. No pleural effusion. No pneumothorax. Heart/Mediastinum: Unremarkable. No cardiomegaly. Bones/joints: Degenerative changes about the shoulders. IMPRESSION: No acute findings. Dictated and Authenticated by: Eddie George MD. Ordering:DALLIN Jackson MD
[2021-07-27] MEDS: Dexamethasone 10 MG/ML VIAL IVP (09:14)
[2021-07-27] MEDS: Albuterol/Ipratropium 3 ML UPD VIAL 9 ML UPD ×2 (09:14→09:29)
[2021-07-28 11:02] LABS: COVID-19 RT-PCR UVMMC Result Negative (Negative)
== END 2021-07-27 11:26 | disposition home or self-care (01) ==
PROVIDERS: Emergency Provider Emergency Medicine; PCP Nurse Practitioner
DX: J44.9 Chronic obstructive pulmonary disease, unspecified (principal); R07.9 Chest pain, unspecified; R06.2 Wheezing
CPT/HCPCS: 36415; 80053; 93005; 94640; 96374; 99284; U0003; U0005; 71045; 84484; 85025; 93010; 99283; J1100; J7620

== ENCOUNTER 2021-09-06 08:46 | Outpatient (CLI) | payer MEDICARE, MEDICAID, SELFPAY ==
--- NOTE | 2021-09-06 08:42 | DI.RAD_ITS ---
Exam(s) XR HIP PELVIS ADULT BL EXAM: XR HIP PELVIS ADULT BL CLINICAL HISTORY: bilateral hip pain, s/p L DELANO. TECHNIQUE: 2D digital imaging was performed. COMPARISON: CR XR HIP LT COMPLETE AP PELVIS from 01/31/2020 FINDINGS: 3 views There is stable position alignment components left hip prosthesis no evidence of fracture or. Right hip appears unchanged and relatively unremarkable. Incidentally noted is evidence prior partial sigmoid resection in the pelvis. IMPRESSION: As above but minimal if any significant change compared to 01/31/2020 DATA REPOSITORY: RADIATION DOSE DELIVERED:
--- NOTE | 2021-09-06 08:50 | DI.RAD_ITS ---
Exam(s) XR LUMBAR SPINE AP, LAT EXAM: XR LUMBAR SPINE AP, LAT CLINICAL HISTORY: eval LBP and ischial pain. TECHNIQUE: 2D digital imaging was performed. COMPARISON: CR XR LUMBAR SPINE COMPLETE from 08/11/2019 FINDINGS: 3 views Again noted is disc space narrowing and degenerative anterolisthesis L4 upon L5, unchanged. Also adv anced disc space narrowing at L5-S1 without listhesis at this level. Disc spaces at L3-4 above exhib it normal height. Minimal scoliosis, less than previous and probably positional. Sacroiliac joints appear unremarkable. There is a left hip prosthesis now evident which was not evident on 08/11/2019. IMPRESSION: Stable appearance of lumbosacral spinal column. Left hip prosthesis partially visualized, not previously present. DATA REPOSITORY: RADIATION DOSE DELIVERED:
== END 2021-09-06 08:47 | disposition home or self-care (01) ==
LOC: DIORS 08:48
PROVIDERS: PCP Nurse Practitioner; Referring Provider Nurse Practitioner; Visit Provider Student in an Organized Health Care Education/Training Program
DX: M47.816 Spondylosis without myelopathy or radiculopathy, lumbar region (principal); M25.551 Pain in right hip; M25.552 Pain in left hip; M43.16 Spondylolisthesis, lumbar region; Z96.642 Presence of left artificial hip joint; R29.898 Other symptoms and signs involving the musculoskeletal system
CPT/HCPCS: 73521; 99213; 72100

== ENCOUNTER 2021-11-03 09:50 | Emergency (ER) | payer MEDICARE, MEDICAID, SELFPAY ==
--- NOTE | 2021-11-03 09:52 | W.ED.GENAD ---
Discharge Plan Disposition Patient Disposition: HOME Condition: Stable Discharge Details Clinical Impression: Chronic leg pain Primary Care Provider: Kristine Carter ED Provider: Nasra Capps Home Meds and New Rx's Prescriptions: Continued Stiolto Respimat 2.5-2.5 mcg/actuation mist 2 puff IH DAILY Qty: 4 12RF omeprazole 40 mg capsule,delayed release(DR/EC) 40 mg PO DAILY Qty: 90 3RF Hold Instructions: Home Medication placed on hold at Doctor's office ibuprofen 200 mg tablet 400 mg PO Q6H PRN azithromycin 250 mg tablet 250 mg PO DAILY Qty: 30 12RF Metamucil 3.4 gram/5.4 gram powder 1 tbs PO DAILY Rx Instructions: mix into at least 8 oz of water or juice before administering [employer] [facility] 18-400 mg-mcg tablet 1 tab PO DAILY (DME) compressor, for nebulizer Device See Rx Instructions .ROUTE .MEDSUPPLY Qty: 1 0RF Rx Instructions: As directed ipratropium-albuterol 0.5 mg-3 mg(2.5 mg base)/3 mL solution for nebulization 3 ml inhalation Q6H PRN (Reason: wheezing) Qty: 15 0RF Rx Instructions: Trial for Cough, COPD Exacerbation (DME) EasiVent Mask Large 1 EACH device 1 ea Miscellaneous DIRECTED Qty: 1 Rx Instructions: DIRECTED WITH INHALER albuterol sulfate [Ventolin HFA] 90 mcg/actuation HFA aerosol inhaler 2 puff inhalation Q4H PRN Rx Instructions: rescue only per note dated 09/14/20 [facility] levothyroxine 50 mcg tablet See Rx Instructions .ROUTE .COMPLEX Qty: 90 3RF Dose Instruction: TAKE ONE TABLET BY MOUTH EVERY DAY Rx Instructions: TAKE ONE TABLET BY MOUTH EVERY DAY acetaminophen 500 mg tablet 1,000 mg PO Q8H PRN (Reason: pain) Qty: 90 3RF meclizine 25 mg tablet 25 mg PO TID PRN (Reason: dizziness) Qty: 20 0RF Discharge Instructions Instructions: Leg Pain (ED) Additional Instructions: Take 500 mg of Tylenol every 4 hours and 600 mg of ibuprofen every 6 hours for the next 2 days. An order for an outpatient leg ultrasound has been placed. You will receive a call from the radiology department regarding scheduling of this test. You can also call the hospital radiology department at [phone]. Alternate ice and heat to the affected area(s) several times daily for 20 minutes at a time. Call your primary care doctor's office tomorrow to schedule a follow-up appointment for reevaluation this week and for referral to physical therapy, orthopedics and/or for an outpatient lumbar spine MRI for further evaluation of your back to rule out a possible cause of your bilateral leg pain. Return immediately to the emergency department if you develop any worsening or new concerning symptoms. Referrals: Marcelino Bergman MD [ [facility] STAFF PHYSICIAN] - Discharge Data Discharge Date/Time-TO BE ENTERED AT DEPARTURE: 11/03/21 11:47 Discharge Physician: Nasra Capps Medical Decision Making 71-year-old female with a history of COPD, hypothyroidism, polyarthralgia, osteoarthritis with history of left hip and bilateral knee replacements presents with left leg pain for the past 7 weeks and right thigh pain today. Patient states she has been more active with the spring weather and has been walking around frequently. She denies any known injury, fever, or leg edema. Her vitals are within normal limits. She appears comfortable and nontoxic. Her legs are normal to inspection without cyanosis, erythema, edema, rash, lesions with intact pulses bilaterally. Bedside leg ultrasound negative for obvious DVT within the femoral and popliteal distribution. Differential diagnosis includes muscle strain, joint sprain, overuse injury, spinal stenosis or degenerative disc disease causing radicular pain. Other possibilities include restless leg syndrome although she describes more of a pain sensation. History and presentation does not appear consistent with DVT, arterial embolism, cellulitis, fracture. She was given a dose of ibuprofen here. An outpatient bilateral leg ultrasound ordered. She was advised to take Tylenol every 4 hours and ibuprofen every 6 hours for the next 2 days. Advised to call the PCP office tomorrow for follow-up this week for further evaluation of her leg pain and consideration for outpatient lumbar spine MRI as she describes a hot poker sensation in her left thigh for further assessment of her lumbar spine. Discussed additional follow-up could include possible orthopedics, physical therapy or neurology. Also discussed patient's generalized weakness this morning and recommended screening lab work and urinalysis but she declined. Patient states she was only here for left leg pain and feels that her generalized weakness was due to lack of sleep due to her leg pain last night. Advised to return here immediately if she develop bowel or bladder incontinence, saddle anesthesia, leg weakness or numbness. Medical Records Medical records reviewed: Yes I reviewed the patient's medical records. HPI General Mode of arrival: ambulatory. Date/Time Provider Initiated Documentation: 11/03/21 09:51. Information obtained by: patient. HPI Narrative: Patient is a 71-year-old female with history of COPD, anxiety, hypertension, hypothyroidism, osteoarthritis, depression with history of left hip and bilateral knee replacements who presents for left leg pain for the past 7 weeks and right thigh pain today. Patient states her pain is in her left medial knee and extends to her left medial thigh and occasionally radiates down her left medial leg. 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 She states the pain is usually worse at nighttime while she is sleeping. She does admit to a previous history of restless leg syndrome. She has taken ibuprofen and Tylenol for her pain with some relief. She does admit to a history of chronic back pain but denies any bowel or bladder incontinence, saddle anesthesia or leg weakness or numbness. She states she saw her primary care doctor recently and told her about her left leg pain and states she was advised to take Tums. She states she also saw her retail asset protection specialist and discussed her leg pain with her and was advised to drink seltzer water. Patient denies any fever or known leg injury. She also states today she was up and walking around and felt generally weak. She states she did not sleep well and feels that her weakness is due to lack of sleep due to the leg pain. Related Data Home Medications Medication Instructions Recorded Confirmed inhaler,assist devices,access #1 ea 09/01/13 11/03/21 (EasiVent Mask Large) psyllium husk 3.4 gram/5.4 gram 1 tbs PO DAILY 08/11/19 11/03/21 oral powder (Metamucil) multivitamin-ferrous 1 tab PO DAILY 01/10/20 11/03/21 fumarate-folic acid 18 mg-400 mcg tablet ([facility]) acetaminophen 500 mg tablet 1,000 mg PO Q8H PRN pain #90 tabs 01/24/20 11/03/21 albuterol sulfate 90 mcg/actuation 2 puff inhalation Q4H PRN 04/16/21 06/05/22 aerosol inhaler (Ventolin HFA) meclizine 25 mg tablet 25 mg PO TID PRN dizziness #20 tabs 10/06/20 11/03/21 omeprazole 40 mg capsule,delayed 40 mg PO DAILY #90 tab-caps 01/16/21 11/03/21 release tiotropium 2.5 mcg-olodaterol 2.5 2 puff inhalation DAILY #4 grams 01/16/21 11/03/21 mcg/actuation mist for inhalation (Stiolto Respimat) compressor, for nebulizer #1 ea 02/19/21 11/03/21 ipratropium 0.5 mg-albuterol 3 mg 3 ml inhalation Q6H PRN wheezing 02/19/21 11/03/21 (2.5 mg base)/3 mL nebulization #15 mL soln azithromycin 250 mg tablet 250 mg PO DAILY COPD #30 tabs 07/22/21 11/03/21 ibuprofen 200 mg tablet 400 mg PO Q6H PRN 07/22/21 11/03/21 levothyroxine 50 mcg tablet See Rx Instructions .Route 09/16/21 11/03/21 .COMPLEX #90 tabs Previous Rx's Medication Instructions Recorded acetaminophen 500 mg tablet 1,000 mg PO Q8H PRN pain #90 tabs 01/24/20 meclizine 25 mg tablet 25 mg PO TID PRN dizziness #20 tabs 10/06/20 omeprazole 40 mg capsule,delayed 40 mg PO DAILY #90 tab-caps 01/16/21 release tiotropium 2.5 mcg-olodaterol 2.5 2 puff inhalation DAILY #4 grams 01/16/21 mcg/actuation mist for inhalation (Stiolto Respimat) compressor, for nebulizer #1 ea 02/19/21 ipratropium 0.5 mg-albuterol 3 mg 3 ml inhalation Q6H PRN wheezing 02/19/21 (2.5 mg base)/3 mL nebulization #15 mL soln azithromycin 250 mg tablet 250 mg PO DAILY COPD #30 tabs 07/22/21 levothyroxine 50 mcg tablet See Rx Instructions .Route 09/16/21 .COMPLEX #90 tabs Allergies Allergy/AdvReac Type Severity Reaction Status Date / Time tramadol Allergy Severe ITCHING, Verified 11/03/21 09:58 GI UPSET hydrocodone bitartrate Allergy Intermediate RASH, Verified 11/03/21 09:58 [From Vicodin] ITCHING fluticasone Allergy Verified 11/03/21 09:58 methylphenidate Allergy Verified 11/03/21 09:58 desipramine AdvReac Intermediate PALPITATION Verified 11/03/21 09:58 S pregabalin [From Lyrica] AdvReac Intermediate CONFUSION Verified 11/03/21 09:58 salmeterol xinafoate AdvReac Intermediate COUGH Verified 11/03/21 09:58 [From Advair Diskus] methylprednisolone sodium AdvReac Mild Agitation Verified 11/03/21 09:58 succinate [From Solu-Medrol] paroxetine HCl [From Paxil] AdvReac Mild JITTERY Verified 11/03/21 09:58 sertraline HCl [From Zoloft] AdvReac Mild JITTERY Verified 11/03/21 09:58 acetaminophen AdvReac nausea, Verified 11/03/21 09:58 vomiting General Stated Complaint: Orthopedic NATY: 3 Review of Systems All systems reviewed & are unremarkable except as noted in HPI and below Constitutional Constitutional: Denies chills, Denies excessive sweating, Denies fatigue, Denies fever(s), Denies weakness and Denies weight loss Eyes Eyes: Reports system reviewed and no additional complaints, except as documented and Denies blurry vision ENT Ears, Nose, Mouth, and Throat: Denies vertigo, Denies dizziness, Denies otalgia, Denies nasal congestion, Denies sore throat and Denies throat swelling Cardiovascular Cardiovascular: Denies chest pain, Denies syncope, Denies rapid heart rate and Denies dyspnea Respiratory Respiratory: Denies chest congestion, Denies cough, Denies pain on inspiration and Denies dyspnea Gastrointestinal Gastrointestinal: Denies abdominal pain, Denies diarrhea and Denies vomiting Genitourinary Genitourinary: Denies hematuria, Denies dysuria and Denies flank pain Musculoskeletal Musculoskeletal: Denies back pain and Denies joint swelling Comments: b/l leg pain Integumentary/Breasts Skin/Breast: Denies lesions and Denies rash Neurologic Neurologic: Denies behavioral changes, Denies confusion, Denies vertigo, Denies dizziness, Denies syncope, Denies localized weakness and Denies weakness Psychiatric Psychiatric: Denies behavioral changes, Denies confusion and Denies depression Endocrine Endocrine: Denies excessive sweating and Denies fatigue Hematologic/Lymphatic Hematologic/Lymphatic: Denies easy bruising and Denies lymphadenopathy Allergic/Immunologic Allergic/Immunologic: Denies throat swelling PFSH All Active Problems Chronic leg pain (Acute) Muscular deconditioning (Acute) Ischial bursitis (Acute) Lumbar spondylosis (Acute) Right hip pain (Acute) Pulmonary nodule (Acute) Voiding difficulty (Acute) Depression (Chronic) Cough (Acute) PND (post-nasal drip) (Acute) acute on chronic? Hx nasal steroid per Dr. Garza. Weight loss, non-intentional (Acute) ~ 8 lbs, 3-4 mos Insomnia (Acute) Fluttering sensation of heart (Acute) Left chest pressure (Acute) History of pneumonia (Acute) Acute exacerbation of chronic obstructive pulmonary disease (COPD) (Acute) Constipation (Acute) Vision changes (Acute) Lung nodule (Acute) Abdominal pain (Acute) Dizziness (Acute) SBO (small bowel obstruction) (Acute) Forgetfulness (Acute) Fatigue (Acute) Status post total hip replacement, left (Acute 01/24/20) Diverticulitis (Chronic 04/25/14) a. 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 RUQ pain (Acute) 08/12/[address] Froilan Hogue - ? that pain is secondary to scar tissue within muscle and lidocaine injection given with effect. Lymphadenitis (Acute 05/23/13) Diverticulitis of sigmoid colon (Acute 04/25/14) Bilateral knee pain (Acute) 02/23/19 F/u [facility] Orthopaedics Left foot pain (Acute) IFG (impaired fasting glucose) (Acute) Itching (Acute) Cough (Acute) SOB (shortness of breath) (Acute) Vertigo (Acute) Left hip pain (Acute) Anxiety and depression (Acute) Headache (Acute) Osteoarthritis of left hip (Acute) History of Edouard's esophagus (Acute) Pharyngeal dysphagia (Acute) Polyarthralgia (Acute) Positive SANDY (antinuclear antibody) (Acute) care home (current) use of non-steroidal anti-inflammatories (nsaid) (Acute) Regurgitation of food (Acute) Depressive disorder (Chronic) fatigue History of bilateral knee replacement (Acute) Medical History Chronic obstructive lung disease quit smoking 2000, [facility] PFT 01/06/18 Mild airflow obstruction, no significant improvement after inhaled bronchodilators RH COPD (chronic obstructive pulmonary disease) Emphysema Depression Diverticulitis HTN (hypertension) Hx of chest pain Pt. states her chest pain was related to her stomach issues, and has not had any cardiac issues currently, and does not see a carbon lamp cleaner. Irritable colon Osteoarthritis Sialoadenitis Surgical History Arthroscopy, Shoulder right; acromioplasty Colectomy 04/25/14 Colonoscopy - MAC (09/24/16) EGD - IV Sedation 2014 EGD - MAC (09/24/16) Extraction of cataract H/O surgical procedure a. total abdominal hysterectomy-bso b. exploratory laparotomy for reoval of ovaries c. knee replacements d. sigmoid resection 04/25/2014 e. right shoulder acromioplasty f. Elyssa fundoplication 1995 g. bilateral open carpal tunnel release 1985 History of bilateral salpingo-oophorectomy (05/18/14) History of hysterectomy (05/18/14) Elyssa Fundoplication (~1995) Open Carpal Tunnel release (~1985) B/L Replacement of total knee joint (~2004) B/L Family History Mother Diabetes Essential hypertension Personal history of malignant neoplasm LUNG Hyperlipidemia Asthma Father Essential hypertension Personal history of malignant neoplasm THROAT Heart disease Hyperlipidemia Sister Drug abuse Essential hypertension COPD (chronic obstructive pulmonary disease) Depression Heart disease Hyperlipidemia Asthma Grandfather Essential hypertension Personal history of malignant neoplasm Heart disease Hyperlipidemia Stroke Grandfather , UNKNOWN Alcohol abuse Heart disease Stroke Grandmother Essential hypertension Personal history of malignant neoplasm Hyperlipidemia Grandmother Alcohol abuse Personal history of malignant neoplasm Heart disease Son Depression Heart disease Asthma Son Alcohol abuse Essential hypertension Depression Daughter Essential hypertension Asthma Daughter Essential hypertension Depression Hyperlipidemia Social History Smoking/Tobacco Use Status: Former Tobacco Use Smoking risk assessment performed?: Yes Alcohol Intake: current Alcohol Intake frequency: a few times a month Drug use: Never Substance use type: does not use Number of Children: 4 Pets and animals: Yes Pets and animals: cat(s) and dog(s) Current gender identity: female What type of physical activity do you participate in: walking Frequency: daily Seatbelt use: always Water heater temp set <120 deg: Yes Working smoke detector in home: Yes Fire extinguisher in home: Yes Carbon monox detector in home: Yes Firearms in home: Yes Firearms unloaded and locked: Yes Do you feel safe at home: Yes Do you feel safe in your relationship?: Yes Exam Const General: cooperative and healthy appearing Orientation: alert, awake and oriented x3 HENMT Head: normal to inspection Ears: hearing grossly normal bilaterally, external ears normal and TM's normal bilaterally General nose exam: external nose normal Face and sinus: normal facial exam Mouth: oral mucosae normal Teeth and gingiva: dentition normal Throat: posterior oropharynx normal Eyes General: appearance normal, both eyes and all related structures Eyelids: eyelids normal Pupils: PERRL EOM: EOM intact bilaterally Neck Neck: normal visual inspection Lymphatic: no lymphadenopathy noted Chest Chest: normal inspection of the chest Resp Effort & Inspection: normal respiratory effort and able to speak in complete sentences Auscultation: clear to auscultation bilaterally Cardio Rate: regular rate Rhythm: regular rhythm GI Inspection: normal to inspection Palpation: soft, not firm, no guarding, no hepatosplenomegaly, no masses and nontender Auscultation: normal bowel sounds Back/Spine/Pelvis Back: no CVA tenderness Skin General skin exam: no rashes or lesions noted Neuro General: patient alert and patient awake Cognition: normal cognition Speech: speech normal Gait: normal gait Motor: muscle tone normal throughout Sensory Exam: no sensory deficits noted Extrem General: normal to inspection, full ROM and capillary refill normal Other: Bilateral lower extremity pulses intact. Bilateral lower extremities appear normal to inspection without cyanosis, erythema, edema, rash or lesions. Normal range of motion at hips, knees and ankles bilaterally. Psych Appearance: grossly normal Mental Status: mental status grossly normal Speech and Movement: speech and movement normal Affect: normal affect Thought Process: normal
[2021-11-03 09:54] VITALS: BP 155/79; PULSE 82; RESP 18; TEMP 36.4; O2SAT 97
[2021-11-03] MEDS: Ibuprofen 600 MG TAB PO (10:52)
== END 2021-11-03 11:47 | disposition home or self-care (01) ==
PROVIDERS: Emergency Provider Physician Assistant; PCP Nurse Practitioner
DX: M79.605 Pain in left leg (principal); G89.29 Other chronic pain; M79.651 Pain in right thigh; J44.9 Chronic obstructive pulmonary disease, unspecified; I10 Essential (primary) hypertension; Z96.642 Presence of left artificial hip joint; Z96.653 Presence of artificial knee joint, bilateral
CPT/HCPCS: 99283

== ENCOUNTER → 2021-11-04 12:06 | Outpatient (CLI) | payer MEDICARE, MEDICAID, SELFPAY ==
--- NOTE | 2021-11-04 | DI.US_ITS ---
Exam(s) US EXTREMITY VENOUS BI EXAM: US EXTREMITY VENOUS BI CLINICAL HISTORY: PAIN IN BILAT LEGS M79.605 M79.604. TECHNIQUE: Bilateral lower extremity venous ultrasound performed using grayscale, color-flow, and sp ectral Doppler analysis. COMPARISON: No exams were available for comparison FINDINGS: The bilateral common femoral, femoral and popliteal veins demonstrate normal compressibility, augment ation, and color Doppler. The posterior tibial veins are patent. IMPRESSION: Right: Negative for DVT Left: Negative for DVT DATA REPOSITORY:
== END ==
PROVIDERS: PCP Nurse Practitioner; Visit Provider Physician Assistant
DX: M79.605 Pain in left leg (principal); M79.604 Pain in right leg
CPT/HCPCS: 93970

== ENCOUNTER → 2021-11-07 01:22 | Outpatient (CLI) | payer MEDICARE, MEDICAID, SELFPAY ==
--- NOTE | 2021-11-07 07:45 | DI.US_ITS ---
Exam(s) US RENAL EXAM: US RENAL CLINICAL HISTORY: has to lean forward to void, new sx,VOIDING DIFFICULTY,R39.198 TECHNIQUE: Ultrasound of both kidneys performed using standard protocol. COMPARISON: CT,NM,TMT NM MPI REST STRESS GRP from 01/28/2021 US US EXTREMITY VENOUS BI from 11/04/2021 FINDINGS: RIGHT KIDNEY: Measures 9.6 cm in length. No cysts evident. Normal cortical thickness and corticomedullary different iation .No solid masses No intrarenal calculi nor hydronephrosis. LEFT KIDNEY: Measures 9.6 cm in length. No cysts evident. Normal cortical thickness and corticomedullary differen tiaion. In the superior half of the left kidney there is a subtle suggestion of a possible 2 x 2.5 c m solid nodule. URINARY BLADDER: Prevoid volume is 377 cc Postvoid volume is 39 cc No evidence of bladder mass nor diverticuli. Ureterovesical jets: Not identified. There is abundant adjacent bowel gas. IMPRESSION: 1. There is subtle suggestion of a possible mass in the left kidney measuring approximately 2 x 2.5 cm. Follow-up CT scan recommended. DATA REPOSITORY:
== END ==
PROVIDERS: PCP Nurse Practitioner; Visit Provider Nurse Practitioner
DX: R39.198 Other difficulties with micturition (principal)
CPT/HCPCS: 76770

== ENCOUNTER → 2021-11-28 01:34 | Outpatient (CLI) | payer MEDICARE, MEDICAID, SELFPAY ==
--- NOTE | 2021-11-28 06:15 | DI.MRI_ITS ---
Exam(s) MR LUMBAR SPINE WO EXAM: MR LUMBAR SPINE WO CLINICAL HISTORY: worsening LBP, now bilateral medial radiculopathy,CHRONIC LEG AND BACK PAIN. TECHNIQUE: Multiplanar multisequence MRI of the Lumbar spine was performed. COMPARISON: No exams were available for comparison FINDINGS: Bones: The last intervertebral disc space is designated the L5/S1 level for the numbering purpose of this examination. The vertebral body heights are well maintained. Grade 1 pseudo spondylolisthesis of L4 on L5 is noted. This is unchanged. Endplate degenerative signal changes are seen at several l evels of the lumbar spine. Cord: The conus tip ends at the L1 level. It is of normal size and signal intensity. T12-L1: No disc herniations or bulges are present. No central spinal canal or neural foraminal stenos is. L1-2: No disc herniations or bulges are present. No central spinal canal or neural foraminal stenosis . L2-3: No disc herniations or bulges are present. No central spinal canal or neural foraminal stenosis .There are degenerative changes of the facets present. L3-4: No disc herniations or bulges are present. No significant central spinal canal stenosis is seen . There is mild narrowing of the right neural foramen. No significant left neural foraminal stenosi s is present.There are moderate degenerative changes of the facets and mild hypertrophy of the ligame ntum flavum. L4-5: There are degenerative changes of the facets and hypertrophy of the ligamentum flavum. No foca l disc herniation is present. These findings in addition to the spondylolisthesis contribute to caus e moderate narrowing of the central spinal canal. No significant neural foraminal stenosis is seen. L5-S1: No disc herniations or bulges are present. No central spinal canal or neural foraminal stenosi s.There are mild degenerative changes of the facets. Soft tissues: The visualized SI joints and sacrum are well maintained. The paraspinal soft tissues ar e unremarkable. IMPRESSION: 1. Multilevel degenerative changes in the lumbar spine. 2. Degenerative changes at L4-L5 and grade 1 pseudo spondylolisthesis which all contribute to cause m oderate narrowing of the central spinal canal. 3. Degenerative changes at L3-L4 which results in mild right neural foraminal narrowing. DATA REPOSITORY:
--- NOTE | 2021-11-28 06:30 | DI.CT_ITS ---
Exam(s) CT ABDOMEN PELVIS WO EXAM: CT ABDOMEN PELVIS WO CLINICAL HISTORY: ? L kidney mass on US,abnl us,r93.429. TECHNIQUE: Imaging Protocol: Axial computed tomography images with coronal and sagittal reformatted images were created and reviewed. COMPARISON: CT CT ABDOMEN PELVIS W from 10/01/2020 CT,NM,TMT NM MPI REST STRESS GRP from 01/28/[address] CHEST WO from 02/28/2021 US US RENAL from 11/07/2021 MR MR LUMBAR SPINE WO from 11/28/2021 FINDINGS: ABDOMEN: Lung Bases: Stable emphysematous changes are seen in the lung bases. Postsurgical changes are seen a t the gastroesophageal junction. Liver: Normal density. No measurable mass. Gallbladder and biliary tract: No radiodense calculus or biliary ductal dilation. Pancreas: Normal density, no abnormal calcifications or inflammatory process. Spleen: Normal. Kidneys: The kidneys both have a lobulated contour. No definite discrete mass is identified. However the examination is limited by lack of IV contrast.No radiodense stones or obstructive uropathy. No ma sses seen. Adrenal glands: No mass is seen. Lymph nodes: Within normal limits. Abdominal Aorta: Abdominal portion non-dilated. Atherosclerosis is present. PELVIS: Bladder:Symmetric distention, no gross wall thickening. Bowel: No obstruction or bowel wall thickening. No evidence of appendicitis. There are scattered div erticula in the colon, but no evidence of acute diverticulitis. Peritoneal cavity: No ascites, collection or mesenteric inflammatory response. No free air. Reproductive organs: Status post hysterectomy. Bones: Within normal limits. The patient has a left total hip replacement. There is grade 1 pseudo s pondylolisthesis of L4 on L5. Soft Tissues: Within normal limits. IMPRESSION: 1. Examination limited by lack of IV contrast. 2. Lobulated contour of the kidneys. Mass cannot be entirely excluded. Postcontrast CT scan of the ab domen or pre and postcontrast MRI of the abdomen is recommended. RADIATION DOSE DELIVERED: 598.36mGy.cm Total DLP DATA REPOSITORY: All CT scans at this facility are submitted to the National Radiology Data Registry (NRDR) Dose Index Registry (DIR) with the [employer] (ACR). RADIATION OPTIMIZATION: All CT scans at this facility use at least one of these dose optimization te chniques: automated exposure control; mA and/or kV adjustment per patient size (includes targeted exa ms where dose is matched to clinical indication); or iterative reconstruction.
== END ==
PROVIDERS: PCP Nurse Practitioner; Visit Provider Nurse Practitioner
DX: M47.816 Spondylosis without myelopathy or radiculopathy, lumbar region (principal); M48.061 Spinal stenosis, lumbar region without neurogenic claudication; M43.16 Spondylolisthesis, lumbar region; G89.29 Other chronic pain; R93.429 Abnormal radiologic findings on diagnostic imaging of unspecified kidney
CPT/HCPCS: 72148; 74176

== ENCOUNTER → 2021-12-13 00:57 | Outpatient (CLI) | payer MEDICARE, MEDICAID, SELFPAY ==
--- NOTE | 2021-12-13 07:01 | DI.MRI_ITS ---
Exam(s) MR ABDOMEN WO/W EXAM: MR ABDOMEN WO/W CLINICAL HISTORY: abnormal appearance kidneys on CT,R93.5 TECHNIQUE: Multiplanar multisequence MRA of the Abdomen was performed. CONTRAST MATERIAL: IV Contrast: 12 mL of Dotarem contrast administered. COMPARISON: CT CT ABDOMEN PELVIS WO from 11/28/2021 FINDINGS: Liver: Unremarkable. Pancreas: Unremarkable. Gallbladder and Bile Ducts: Unremarkable. There is no biliary ductal dilatation. Adrenals: Unremarkable. Kidneys: Unremarkable. Spleen: Unremarkable. Bowel: There is diverticulosis in the colon, but no evidence of acute diverticulitis. Aorta: Unremarkable. Soft Tissues: Unremarkable. Bone: Within normal limits. There is a mild right convex curvature of the lumbar spine. Lymph Nodes: Unremarkable. IMPRESSION: No evidence of a renal mass. Unremarkable MRI of the abdomen. DATA REPOSITORY:
== END ==
PROVIDERS: PCP Nurse Practitioner; Visit Provider Nurse Practitioner
DX: R93.5 Abnormal findings on diagnostic imaging of other abdominal regions, including retroperitoneum (principal)
CPT/HCPCS: 74183

== ENCOUNTER → 2021-12-17 12:51 | Outpatient (BNVA) | payer MEDICARE, SELFPAY | PROVIDERS: PCP Nurse Practitioner; Referring Provider Nurse Practitioner; Visit Provider Urology | DX: K56.51 Intestinal adhesions [bands], with partial obstruction (principal); K59.09 Other constipation; Z98.890 Other specified postprocedural states; R39.198 Other difficulties with micturition; R39.11 Hesitancy of micturition | CPT/HCPCS: 51798; 81003; 99215 ==

== ENCOUNTER → 2022-02-11 10:50 | Outpatient (BNVA) | payer MEDICARE, SELFPAY | PROVIDERS: PCP Nurse Practitioner; Referring Provider Nurse Practitioner; Visit Provider Surgery | DX: R19.7 Diarrhea, unspecified (principal); Z63.79 Other stressful life events affecting family and household; R10.11 Right upper quadrant pain | CPT/HCPCS: 99213 ==

== ENCOUNTER 2022-02-19 01:18 | Outpatient (CLI) | payer MEDICARE, SELFPAY ==
--- NOTE | 2022-02-19 07:30 | DI.CT_ITS ---
Exam(s) CT CHEST WO EXAM: CT CHEST WO CLINICAL HISTORY: f/u lung nodules,R91.1. TECHNIQUE: Multi planar reconstructions were performed. CONTRAST MATERIAL: None COMPARISON: CT CT CHEST WO from 02/28/2021 FINDINGS: CHEST: LUNGS: COPD findings again noted. In the left lower lobe the previously described 9 millimeter nodul ar infiltrate is again noted and appears unchanged. There are no new left lung nodules. In the oppo site-right lung the previously described 7 millimeter nodule adjacent to the major fissure is also un changed. Also unchanged is a small a area of infiltrate adjacent to confluent bullae in the right lo wer lobe. There are no new lung nodules. No pleural effusions. No new focal findings in the trachea and daryl tem bronchi. MEDIASTINUM: There is no obvious hilar nor mediastinal adenopathy. Visualized thyroid unremarkable.No obvious axillary adenopathy CARDIAC: Heart size is normal. There is no pericardial effusion.Caliber of the thoracic aorta is wit hin normal limits. VISUALIZED UPPER ABDOMEN:No significant adrenal masses. No splenomegaly. OSSEOUS: No significant osseous lesions.. IMPRESSION: 1. Continued stable appearance of the bilateral lung nodules, unchanged from 02/28/2021. No new nodu les nor pleural effusions nor intrathoracic adenopathy. RADIATION DOSE DELIVERED: 414.03mGy.cm Total DLP DATA REPOSITORY: All CT scans at this facility are submitted to the National Radiology Data Registry (NRDR) Dose Index Registry (DIR) with the [employer] (ACR). RADIATION OPTIMIZATION: All CT scans at this facility use at least one of these dose optimization te chniques: automated exposure control; mA and/or kV adjustment per patient size (includes targeted exa ms where dose is matched to clinical indication); or iterative reconstruction.
== END 2022-02-19 01:38 ==
PROVIDERS: PCP Nurse Practitioner; Visit Provider Student in an Organized Health Care Education/Training Program
DX: R91.1 Solitary pulmonary nodule (principal)
CPT/HCPCS: 71250

== ENCOUNTER → 2022-02-19 01:18 | Outpatient (CLI) | payer MEDICARE, SELFPAY ==
--- NOTE | 2022-02-19 12:59 | DI.MAMMO_ITS ---
Exam(s) MAMMO SCREENING EXAM: MAMMO SCREENING CLINICAL HISTORY: screening.Z12.39. TECHNIQUE: Bilateral full field digital CC and MLO mammographic images were obtained with 3D tomosyn thesis and utilizing computer aided detection (CAD). COMPARISON: Prior mammograms were reviewed, the most recent being April 2019. FINDINGS: There has been no significant change in appearance and distribution of the fibroglandular tissue. There are no new spiculated masses nor malignant appearing microcalcification groups. There is no significant architectural distortion nor skin thickening-retraction. IMPRESSION: No radiographic evidence of malignancy. BI-RADS Category 1 - Negative Breast Density - Category B - Scattered areas of fibroglandular density Breast density Category C or D implies that the patient has dense breast tissue. Dense breast tissue can make it harder to find cancer on a mammogram. Dense breast tissue is also associated with an incr eased risk of breast cancer. This information about the result of the mammogram report was provided to the patient to raise their awareness. Use this report when you speak with the patient about their risks for breast cancer, which includes their family history. At that time, you may recommend additional screening tests (Ultrasoun d or MRI) as these tests may add significant information. A negative radiographic report should not delay biopsy if a dominant or clinically suspicious mass is present. Up to ten percent of cancers are not identified on mammography. A negative report may reinforce clinical impression. Adenosis and dense breasts may obscure an underlying neoplasm. False positive reports average 6 to 10%. Patient will receive a letter notifying them of these results.
== END ==
PROVIDERS: PCP Nurse Practitioner; Visit Provider Nurse Practitioner
DX: Z12.31 Encounter for screening mammogram for malignant neoplasm of breast (principal)
CPT/HCPCS: 77063; 77067

== ENCOUNTER 2022-03-17 12:16 | Emergency (ER) | payer MEDICARE, SELFPAY ==
[2022-03-17 12:23] VITALS: BP 175/92; PULSE 72; RESP 18; TEMP 36.1; O2SAT 96
--- NOTE | 2022-03-17 12:45 | DI.RAD_ITS ---
Exam(s) XR HAND RT COMPLETE EXAM: XR HAND RT COMPLETE CLINICAL HISTORY: fish hook removed 3rd digit. TECHNIQUE: 2D digital imaging was performed of the right hand. Three images were obtained. AP, late ral and oblique views were obtained. COMPARISON: No exams were available for comparison FINDINGS: BONES: No acute fracture is present. No bony destructive lesion is seen. JOINTS: No dislocation present. Mild degenerative changes are seen in the hand. SOFT TISSUE: No radiopaque foreign bodies are identified. IMPRESSION: No acute fracture, dislocation or radiopaque foreign body. DATA REPOSITORY: RADIATION DOSE DELIVERED:
--- NOTE | 2022-03-17 12:57 | W.ED.GENAD ---
Discharge Plan Disposition Patient Disposition: HOME Condition: Improving Discharge Details Clinical Impression: [place] injury to finger Primary Care Provider: Kristine Carter ED Provider: Froilan Churchill Home Meds and New Rx's Prescriptions: Continued ibuprofen 200 mg tablet 400 mg PO Q6H PRN azithromycin 250 mg tablet 250 mg PO DAILY Qty: 30 12RF Metamucil 3.4 gram/5.4 gram powder 1 tbs PO DAILY Rx Instructions: mix into at least 8 oz of water or juice before administering [employer] [facility] 18-400 mg-mcg tablet 1 tab PO DAILY (DME) compressor, for nebulizer Device See Rx Instructions .ROUTE .MEDSUPPLY Qty: 1 0RF Rx Instructions: As directed ipratropium-albuterol 0.5 mg-3 mg(2.5 mg base)/3 mL solution for nebulization 3 ml inhalation Q6H PRN (Reason: wheezing) Qty: 15 0RF Rx Instructions: Trial for Cough, COPD Exacerbation (DME) EasiVent Mask Large 1 EACH device 1 ea Miscellaneous DIRECTED Qty: 1 Rx Instructions: DIRECTED WITH INHALER albuterol sulfate [Ventolin HFA] 90 mcg/actuation HFA aerosol inhaler 2 puff inhalation Q4H PRN Rx Instructions: rescue only per note dated 09/14/20 [facility] levothyroxine 50 mcg tablet See Rx Instructions .ROUTE .COMPLEX Qty: 90 3RF Dose Instruction: TAKE ONE TABLET BY MOUTH EVERY DAY Rx Instructions: TAKE ONE TABLET BY MOUTH EVERY DAY omeprazole 40 mg capsule,delayed release(DR/EC) 40 mg PO DAILY Qty: 90 3RF Hold Instructions: Home Medication placed on hold at Doctor's office Stiolto Respimat 2.5-2.5 mcg/actuation mist See Rx Instructions .ROUTE .COMPLEX Qty: 4 12RF Dose Instruction: INHALE TWO PUFFS BY MOUTH EVERY DAY Rx Instructions: INHALE TWO PUFFS BY MOUTH EVERY DAY acetaminophen 500 mg tablet 1,000 mg PO Q8H PRN (Reason: pain) Qty: 90 3RF meclizine 25 mg tablet 25 mg PO TID PRN (Reason: dizziness) Qty: 20 0RF Discharge Instructions Additional Instructions: [place] removed without difficulty. Tetanus status updated. Keep the area clean and dry, change antibiotic dressing daily. [id number] medications such as Tylenol as directed for discomfort. Please watch for new or worsening symptoms and return to the ER for any concerns. I do recommend a wound recheck through your PCP in the next 3-5 days if not healing appropriately Medical Decision Making 72-year-old female, [id number], presents for fishhook in her right middle finger. Will update tetanus, remove fishhook and obtain x-ray to be sure there is no residual foreign body or bony abnormality [place] removed without difficulty, thoroughly cleaned and then appropriately dressed. Standard discharge and return precautions were provided. Patient understands, is agreeable to this plan, and has no additional questions or concerns upon discharge. This documentation was generated using Theoremation system, please disregard any oddities of phrase or misspellings. Medical Records Medical records reviewed: Yes I reviewed the patient's medical records. Imaging Data Radiologic Study: Attestation: I personally reviewed and interpreted this imaging study as follows: Imaging: X-Ray Radiologist's impression: Exam(s) XR HAND RT COMPLETE EXAM: XR HAND RT COMPLETE CLINICAL HISTORY: fish hook removed 3rd digit. TECHNIQUE: 2D digital imaging was performed of the right hand. Three images were obtained. AP, lateral and oblique views were obtained. COMPARISON: No exams were available for comparison FINDINGS: BONES: No acute fracture is present. No bony destructive lesion is seen. JOINTS: No dislocation present. Mild degenerative changes are seen in the hand. SOFT TISSUE: No radiopaque foreign bodies are identified. IMPRESSION: No acute fracture, dislocation or radiopaque foreign body. HPI General Mode of arrival: ambulatory. Date/Time Provider Initiated Documentation: 03/17/22 12:52. Limitations to Documentation: no limitations. Information obtained by: patient. History of Present Illness 72 year old F presents to the emergency department with the chief complaint of R middle finger fish hook, described as moderate, with intensity rated at 4. Quality is described as aching, and is localized to the right and upper extremity. Patient reports no radiation. Patient started experiencing this hour(s) (1) and it has been constant. No relieving factors improve symptom(s), Movement worsens symptoms . Patient notes no other symptoms.. Patient did receive the following treatments prior to arrival, none Related Data Home Medications Medication Instructions Recorded Confirmed inhaler,assist devices,access #1 ea 09/01/13 02/11/22 (EasiVent Mask Large) psyllium husk 3.4 gram/5.4 gram 1 tbs PO DAILY 08/11/19 02/11/22 oral powder (Metamucil) multivitamin-ferrous 1 tab PO DAILY 01/10/20 02/11/22 fumarate-folic acid 18 mg-400 mcg tablet ([facility]) acetaminophen 500 mg tablet 1,000 mg PO Q8H PRN pain #90 tabs 01/24/20 02/11/22 albuterol sulfate 90 mcg/actuation 2 puff inhalation Q4H PRN 09/14/20 02/11/22 aerosol inhaler (Ventolin HFA) meclizine 25 mg tablet 25 mg PO TID PRN dizziness #20 tabs 10/06/20 02/11/22 compressor, for nebulizer #1 ea 02/19/21 02/11/22 ipratropium 0.5 mg-albuterol 3 mg 3 ml inhalation Q6H PRN wheezing 02/19/21 02/11/22 (2.5 mg base)/3 mL nebulization #15 mL soln azithromycin 250 mg tablet 250 mg PO DAILY COPD #30 tabs 07/22/21 02/11/22 ibuprofen 200 mg tablet 400 mg PO Q6H PRN 07/22/21 02/11/22 levothyroxine 50 mcg tablet See Rx Instructions .Route 09/16/21 02/11/22 .COMPLEX #90 tabs omeprazole 40 mg capsule,delayed 40 mg PO DAILY #90 tab-caps 01/15/22 02/11/22 release tiotropium 2.5 mcg-olodaterol 2.5 See Rx Instructions .Route 02/17/22 mcg/actuation mist for inhalation .COMPLEX #4 grams (Stiolto Respimat) Previous Rx's Medication Instructions Recorded acetaminophen 500 mg tablet 1,000 mg PO Q8H PRN pain #90 tabs 01/24/20 meclizine 25 mg tablet 25 mg PO TID PRN dizziness #20 tabs 10/06/20 compressor, for nebulizer #1 ea 02/19/21 ipratropium 0.5 mg-albuterol 3 mg 3 ml inhalation Q6H PRN wheezing 02/19/21 (2.5 mg base)/3 mL nebulization #15 mL soln azithromycin 250 mg tablet 250 mg PO DAILY COPD #30 tabs 07/22/21 levothyroxine 50 mcg tablet See Rx Instructions .Route 09/16/21 .COMPLEX #90 tabs omeprazole 40 mg capsule,delayed 40 mg PO DAILY #90 tab-caps 01/15/22 release tiotropium 2.5 mcg-olodaterol 2.5 See Rx Instructions .Route 02/17/22 mcg/actuation mist for inhalation .COMPLEX #4 grams (Stiolto Respimat) Allergies Allergy/AdvReac Type Severity Reaction Status Date / Time tramadol Allergy Severe ITCHING, Verified 02/11/22 10:53 GI UPSET hydrocodone bitartrate Allergy Intermediate RASH, Verified 02/11/22 10:53 [From Vicodin] ITCHING fluticasone Allergy Verified 02/11/22 10:53 methylphenidate Allergy Verified 02/11/22 10:53 desipramine AdvReac Intermediate PALPITATION Verified 02/11/22 10:53 S pregabalin [From Lyrica] AdvReac Intermediate CONFUSION Verified 02/11/22 10:53 salmeterol xinafoate AdvReac Intermediate COUGH Verified 02/11/22 10:53 [From Advair Diskus] methylprednisolone sodium AdvReac Mild Agitation Verified 02/11/22 10:53 succinate [From Solu-Medrol] paroxetine HCl [From Paxil] AdvReac Mild JITTERY Verified 02/11/22 10:53 sertraline HCl [From Zoloft] AdvReac Mild JITTERY Verified 02/11/22 10:53 acetaminophen AdvReac nausea, Verified 02/11/22 10:53 vomiting General Stated Complaint: Orthopedic NATY: 3 Review of Systems Constitutional Constitutional: Denies fever(s) and Denies weakness Musculoskeletal Musculoskeletal: Denies numbness, Reports stiffness and Denies tingling Integumentary/Breasts Skin/Breast: Denies erythema Neurologic Neurologic: Denies numbness, Denies tingling and Denies weakness PFSH All Active Problems [place] injury to finger (Acute) Muscular deconditioning (Acute) Ischial bursitis (Acute) Lumbar spondylosis (Acute) Right hip pain (Acute) Pulmonary nodule (Acute) Voiding difficulty (Acute) Depression (Chronic) Cough (Acute) PND (post-nasal drip) (Acute) acute on chronic? Hx nasal steroid per Dr. Garza. Weight loss, non-intentional (Acute) ~ 8 lbs, 3-4 mos Insomnia (Acute) Fluttering sensation of heart (Acute) Left chest pressure (Acute) History of pneumonia (Acute) Acute exacerbation of chronic obstructive pulmonary disease (COPD) (Acute) Constipation (Acute) Vision changes (Acute) Lung nodule (Acute) Abdominal pain (Acute) Dizziness (Acute) SBO (small bowel obstruction) (Acute) Forgetfulness (Acute) Fatigue (Acute) Status post total hip replacement, left (Acute 01/24/20) Diverticulitis (Chronic 04/25/14) a. 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 that pain is secondary to scar tissue within muscle and lidocaine injection given with effect. Lymphadenitis (Acute 05/23/13) Diverticulitis of sigmoid colon (Acute 04/25/14) Bilateral knee pain (Acute) 02/23/19 F/u [facility] Left foot pain (Acute) IFG (impaired fasting glucose) (Acute) Itching (Acute) Cough (Acute) SOB (shortness of breath) (Acute) Vertigo (Acute) Left hip pain (Acute) Anxiety and depression (Acute) Headache (Acute) Osteoarthritis of left hip (Acute) History of Edouard's esophagus (Acute) Pharyngeal dysphagia (Acute) Polyarthralgia (Acute) Positive SANDY (antinuclear antibody) (Acute) roasterman (current) use of non-steroidal anti-inflammatories (nsaid) (Acute) Regurgitation of food (Acute) Depressive disorder (Chronic) fatigue History of bilateral knee replacement (Acute) Medical History Chronic obstructive lung disease quit smoking 2000, [facility] PFT 01/06/18 Mild airflow obstruction, no significant improvement after inhaled bronchodilators RH COPD (chronic obstructive pulmonary disease) Emphysema Depression Diverticulitis HTN (hypertension) Hx of chest pain Pt. states her chest pain was related to her stomach issues, and has not had any cardiac issues currently, and does not see a money position officer. Irritable colon Osteoarthritis Sialoadenitis Surgical History Arthroscopy, Shoulder right; acromioplasty Colectomy 04/25/14 Colonoscopy - MAC (09/24/16) EGD - IV Sedation 2014 EGD - MAC (09/24/16) Extraction of cataract H/O surgical procedure a. total abdominal hysterectomy-bso b. exploratory laparotomy for reoval of ovaries c. knee replacements d. sigmoid resection 04/25/2014 e. right shoulder acromioplasty f. Elyssa fundoplication 1995 g. bilateral open carpal tunnel release 1985 History of bilateral salpingo-oophorectomy (05/18/14) History of hysterectomy (05/18/14) Elyssa Fundoplication (~1995) Open Carpal Tunnel release (~1985) B/L Replacement of total knee joint (~2004) B/L Family History Mother Diabetes Essential hypertension Personal history of malignant neoplasm LUNG Hyperlipidemia Asthma Father Essential hypertension Personal history of malignant neoplasm THROAT Heart disease Hyperlipidemia Sister Drug abuse Essential hypertension COPD (chronic obstructive pulmonary disease) Depression Heart disease Hyperlipidemia Asthma Grandfather Essential hypertension Personal history of malignant neoplasm Heart disease Hyperlipidemia Stroke Grandfather , UNKNOWN Alcohol abuse Heart disease Stroke Grandmother Essential hypertension Personal history of malignant neoplasm Hyperlipidemia Grandmother Alcohol abuse Personal history of malignant neoplasm Heart disease Son Depression Heart disease Asthma Son Alcohol abuse Essential hypertension Depression Daughter Essential hypertension Asthma Daughter Essential hypertension Depression Hyperlipidemia Social History Smoking/Tobacco Use Status: Former Tobacco Use Smoking risk assessment performed?: Yes Alcohol Intake: current Alcohol Intake frequency: a few times a month Drug use: Never Substance use type: does not use Number of Children: 4 Pets and animals: Yes Pets and animals: cat(s) and dog(s) Current gender identity: female What type of physical activity do you participate in: walking Frequency: daily Seatbelt use: always Water heater temp set <120 deg: Yes Working smoke detector in home: Yes Fire extinguisher in home: Yes Carbon monox detector in home: Yes Firearms in home: Yes Firearms unloaded and locked: Yes Do you feel safe at home: Yes Do you feel safe in your relationship?: Yes Exam Const General: cooperative, healthy appearing, comfortable and no acute distress Orientation: alert and awake HENLA Head: normal to inspection, normocephalic and atraumatic Eyes Conjunctivae: conjunctivae normal Neck Neck: normal visual inspection, trachea midline and supple Resp Effort & Inspection: normal respiratory effort and able to speak in complete sentences Cardio Rate: regular rate Rhythm: regular rhythm Skin General skin exam: no rashes or lesions noted Neuro General: patient alert, patient awake, patient oriented x3, moves all extremities and no focal motor deficits Cognition: normal cognition Speech: speech normal Gait: normal gait Motor: muscle tone normal throughout Sensory Exam: no sensory deficits noted Extrem General: full ROM and capillary refill normal Hand/finger images: 1. [place] foreign body. Diffuse mild discomfort. Neuro, vascular, tendon intact. Normal capillary refill and 5-5 strength. Psych Appearance: grossly normal Mental Status: mental status grossly normal Course Vital Signs Vital signs: Vital Signs Temperature 36.1 C L 03/17/22 12:23 Pulse 72 03/17/22 12:23 Respiratory Rate 18 03/17/22 12:23 Blood Pressure 175/92 H 03/17/22 12:23 Pulse Oximetry 96 03/17/22 12:23 Temperature 36.1 C L 03/17/22 12:23 Temperature Source Tympanic 03/17/22 12:23 Pulse 72 03/17/22 12:23 Respiratory Rate 18 03/17/22 12:23 Respiratory Effort Non-Labored 03/17/22 12:32 Blood Pressure 175/92 H 03/17/22 12:23 Blood Pressure Position Sitting 03/17/22 12:23 Pulse Oximetry 96 10/17/22 12:23 Oxygen Delivery Method Room Air 03/17/22 12:23 Oxygen Flow Rate 0 03/17/22 12:23 Procedures Foreign Body Removal Time Out Performed: yes Site: right and hand Description of foreign body: fish hook Sedation/Analgesia: other (Digital block, 4 cc 0.5% bupivacaine) Technique: manual removal (Cut with pliers and pushed through) Confirmed by:: direct visualization and radiograph Complications: none Neurovascular: normal distal pulse, normal capillary fill and distal motor function normal
== END 2022-03-17 14:38 | disposition home or self-care (01) ==
PROVIDERS: Emergency Provider Physician Assistant; PCP Nurse Practitioner
DX: S60.452A Superficial foreign body of right middle finger, initial encounter (principal); J43.9 Emphysema, unspecified; I10 Essential (primary) hypertension; Z87.891 Personal history of nicotine dependence; X58.XXXA Exposure to other specified factors, initial encounter; Z23 Encounter for immunization
CPT/HCPCS: 10120; 90471; 99283; 73130; 99282

== ENCOUNTER 2022-04-24 11:46 | Emergency (ER) | payer MEDICARE, SELFPAY ==
--- NOTE | 2022-04-24 12:00 | RT.EKG_ITS ---
APPROVED REPORT Exam: Resting ECG Reason for Exam: SOB Patient Location: E HR:93 bpm ECG Measurements Heart Rate [address] 145 P 41 QRSd 91 QRS -45 QT 369 T 13 QTc 458 Conclusion Sinus rhythm...normal P axis, V-rate 60- 99 Left anterior fascicular block...axis(240,-40), init forces inf sinus rhtyhm, left axis, normal intervals, non ischemic
[2022-04-24 12:03] VITALS: BP 141/83; PULSE 96; RESP 18; TEMP 36.8; O2SAT 98
--- NOTE | 2022-04-24 12:15 | DI.RAD_ITS ---
Exam(s) XR PORTABLE CHEST AP EXAM: XR PORTABLE CHEST AP CLINICAL HISTORY: cough, productive; copd TECHNIQUE: COMPARISON: CR,XR XR PORTABLE CHEST AP from 07/27/2021 FINDINGS: Portable AP chest was obtained. Examination is compared with prior examination of July 27 ere are changes of apparent pulmonary scarring bilaterally. Question of increased opacification in r ight mid lung region, acute pneumonitis not excluded. No gross pleural effusion on this frontal film . IMPRESSION: Question right mid lung patchy infiltrate, appropriate follow-up films requested. RADIATION DOSE DELIVERED: Total DLP
[2022-04-24 12:45] LABS: Abs Immature Grans 0.02 10^3/uL (0.0-0.06); Absolute Basophil Count 0.01 10^3/uL (0.0-0.2); Absolute Eosinophil Count 0.03 10^3/uL (0.0-0.7); Absolute Lymphocyte Count 0.77 10^3/uL (1.2-3.4); Absolute Monocyte Count 0.33 10^3/uL (0.1-0.8); Absolute Neutrophil Count 1.46 10^3/uL (1.2-6.7); Basophils % 0.4; Eosinophils % 1.1; HCT 36.6 % (36.0-46.0); HGB 12.2 g/dL (11.2-15.7); Immature Grans % 0.8; Lymphocytes % 29.4; MCH 28.6 pg (27.0-33.0); MCHC 33.3 % (32.0-36.0); MCV 86 fL (80-95); MPV 8.8 fL (8.0-11.0); Monocytes % 12.6; Neutrophils % 55.7; Platelet Count 257 10^3/uL (130-400); RBC 4.26 10^6/uL (3.93-5.22); RDW 13.6 % (11.7-14.6); WBC 2.62 10^3/uL (4.4-10.8)
--- NOTE | 2022-04-24 12:45 | W.ED.GENAD ---
Discharge Plan Disposition Patient Disposition: Home Condition: Improving Discharge Details Clinical Impression: Cough Primary Care Provider: Kristine Carter ED Provider: Manuel Loyd Home Meds and New Rx's Prescriptions: New amoxicillin 500 mg capsule 500 mg PO BID 7 Days Qty: 14 0RF No Action ibuprofen 200 mg tablet 400 mg PO Q6H PRN azithromycin 250 mg tablet 250 mg PO DAILY Qty: 30 12RF Metamucil 3.4 gram/5.4 gram powder 1 tbs PO DAILY Rx Instructions: mix into at least 8 oz of water or juice before administering [employer] [facility] 18-400 mg-mcg tablet 1 tab PO DAILY (DME) compressor, for nebulizer Device See Rx Instructions .ROUTE .MEDSUPPLY Qty: 1 0RF Rx Instructions: As directed ipratropium-albuterol 0.5 mg-3 mg(2.5 mg base)/3 mL solution for nebulization 3 ml inhalation Q6H PRN (Reason: wheezing) Qty: 15 0RF Rx Instructions: Trial for Cough, COPD Exacerbation (DME) EasiVent Mask Large 1 EACH device 1 ea Miscellaneous DIRECTED Qty: 1 Rx Instructions: DIRECTED WITH INHALER albuterol sulfate [Ventolin HFA] 90 mcg/actuation HFA aerosol inhaler 2 puff inhalation Q4H PRN Rx Instructions: rescue only per note dated 09/14/20 [facility] levothyroxine 50 mcg tablet See Rx Instructions .ROUTE .COMPLEX Qty: 90 3RF Dose Instruction: TAKE ONE TABLET BY MOUTH EVERY DAY Rx Instructions: TAKE ONE TABLET BY MOUTH EVERY DAY omeprazole 40 mg capsule,delayed release(DR/EC) 40 mg PO DAILY Qty: 90 3RF Hold Instructions: Home Medication placed on hold at Doctor's office Stiolto Respimat 2.5-2.5 mcg/actuation mist See Rx Instructions .ROUTE .COMPLEX Qty: 4 12RF Dose Instruction: INHALE TWO PUFFS BY MOUTH EVERY DAY Rx Instructions: INHALE TWO PUFFS BY MOUTH EVERY DAY acetaminophen 500 mg tablet 1,000 mg PO Q8H PRN (Reason: pain) Qty: 90 3RF meclizine 25 mg tablet 25 mg PO TID PRN (Reason: dizziness) Qty: 20 0RF Discharge Instructions Instructions: Acute Cough (ED) Additional Instructions: Please follow-up with your primary care physician. Please return to the emergency department for any worsening symptoms. Medical Decision Making 72-year-old female history of COPD on azithromycin, presents with cough for the past several weeks worsening over the past week now productive of yellow sputum, afebrile nontoxic no respiratory distress, lungs clear bilaterally, likely COPD exacerbation in the setting of viral respiratory illness versus superimposed pneumonia less likely primary cardiac etiology or PE. Screening labs chest x-ray trial of nebs and dexamethasone. Close reassessment likely home with antibiotics 14: 55 patient resting comfortably feeling better after medications. No respiratory distress no evidence of pneumonia. However given longstanding productive cough and history of COPD will add amoxicillin to azithromycin regimen. Patient to follow-up with her primary care doctor. Daughter coming to pick her up. Sign Out No HPI General Date/Time Provider Initiated Documentation: 04/24/22 12:08. HPI Narrative: 72-year-old female, history of COPD, presents with shortness of breath and cough over the last week productive of yellow sputum, patient is chronically on azithromycin, believes she may have contracted a viral illness from her grandkids. Does not use oxygen at home however has been using her albuterol nebulizer intermittently Related Data Home Medications Medication Instructions Recorded Confirmed inhaler,assist devices,access #1 ea 09/01/02/11/22 (EasiVent Mask Large) psyllium husk 3.4 gram/5.4 gram 1 tbs PO DAILY 08/11/19 04/24/22 oral powder (Metamucil) multivitamin-ferrous 1 tab PO DAILY 01/10/20 04/24/22 fumarate-folic acid 18 mg-400 mcg tablet ([facility]) acetaminophen 500 mg tablet 1,000 mg PO Q8H PRN pain #90 tabs 01/24/20 04/24/22 albuterol sulfate 90 mcg/actuation 2 puff inhalation Q4H PRN 09/14/20 04/24/22 aerosol inhaler (Ventolin HFA) meclizine 25 mg tablet 25 mg PO TID PRN dizziness #20 tabs 10/06/20 04/24/22 compressor, for nebulizer #1 ea 02/19/21 02/11/22 ipratropium 0.5 mg-albuterol 3 mg 3 ml inhalation Q6H PRN wheezing 02/19/21 04/24/22 (2.5 mg base)/3 mL nebulization #15 mL soln azithromycin 250 mg tablet 250 mg PO DAILY COPD #30 tabs 07/22/21 04/24/22 ibuprofen 200 mg tablet 400 mg PO Q6H PRN 07/22/21 04/24/22 levothyroxine 50 mcg tablet See Rx Instructions .Route 09/16/21 04/24/22 .COMPLEX #90 tabs omeprazole 40 mg capsule,delayed 40 mg PO DAILY #90 tab-caps 01/15/22 04/24/22 release tiotropium 2.5 mcg-olodaterol 2.5 See Rx Instructions .Route 02/17/22 04/24/22 mcg/actuation mist for inhalation .COMPLEX #4 grams (Stiolto Respimat) amoxicillin 500 mg capsule 500 mg PO BID 7 days #14 caps 04/24/22 Previous Rx's Medication Instructions Recorded acetaminophen 500 mg tablet 1,000 mg PO Q8H PRN pain #90 tabs 01/24/20 meclizine 25 mg tablet 25 mg PO TID PRN dizziness #20 tabs 10/06/20 compressor, for nebulizer #1 ea 02/19/21 ipratropium 0.5 mg-albuterol 3 mg 3 ml inhalation Q6H PRN wheezing 02/19/21 (2.5 mg base)/3 mL nebulization #15 mL soln azithromycin 250 mg tablet 250 mg PO DAILY COPD #30 tabs 07/22/21 levothyroxine 50 mcg tablet See Rx Instructions .Route 09/16/21 .COMPLEX #90 tabs omeprazole 40 mg capsule,delayed 40 mg PO DAILY #90 tab-caps 01/15/22 release tiotropium 2.5 mcg-olodaterol 2.5 See Rx Instructions .Route 02/17/22 mcg/actuation mist for inhalation .COMPLEX #4 grams (Stiolto Respimat) amoxicillin 500 mg capsule 500 mg PO BID 7 days #14 caps 04/24/22 Allergies Allergy/AdvReac Type Severity Reaction Status Date / Time tramadol Allergy Severe ITCHING, Verified 02/11/22 10:53 GI UPSET hydrocodone bitartrate Allergy Intermediate RASH, Verified 02/11/22 10:53 [From Vicodin] ITCHING fluticasone Allergy Verified 02/11/22 10:53 methylphenidate Allergy Verified 02/11/22 10:53 desipramine AdvReac Intermediate PALPITATION Verified 02/11/22 10:53 S pregabalin [From Lyrica] AdvReac Intermediate CONFUSION Verified 02/11/22 10:53 salmeterol xinafoate AdvReac Intermediate COUGH Verified 02/11/22 10:53 [From Advair Diskus] methylprednisolone sodium AdvReac Mild Agitation Verified 02/11/22 10:53 succinate [From Solu-Medrol] paroxetine HCl [From Paxil] AdvReac Mild JITTERY Verified 02/11/22 10:53 sertraline HCl [From Zoloft] AdvReac Mild JITTERY Verified 02/11/22 10:53 acetaminophen AdvReac nausea, Verified 02/11/22 10:53 vomiting General Stated Complaint: RespSymp NATY: 3 Review of Systems Narrative: Review of Systems Constitutional: negative Eyes: negative ENT: negative Cardiovascular: negative Respiratory: Cough Gastrointestinal: negative : negative Musculoskeletal: negative Skin: negative Neurologic: negative Psych: negative PFSH All Active Problems Cough (Acute) Muscular deconditioning (Acute) Ischial bursitis (Acute) Lumbar spondylosis (Acute) Right hip pain (Acute) Pulmonary nodule (Acute) Voiding difficulty (Acute) Depression (Chronic) Cough (Acute) PND (post-nasal drip) (Acute) acute on chronic? Hx nasal steroid per Dr. Garza. Weight loss, non-intentional (Acute) ~ 8 lbs, 3-4 mos Insomnia (Acute) Fluttering sensation of heart (Acute) Left chest pressure (Acute) History of pneumonia (Acute) Acute exacerbation of chronic obstructive pulmonary disease (COPD) (Acute) Constipation (Acute) Vision changes (Acute) Lung nodule (Acute) Abdominal pain (Acute) Dizziness (Acute) SBO (small bowel obstruction) (Acute) Forgetfulness (Acute) Fatigue (Acute) Status post total hip replacement, left (Acute 01/24/20) Diverticulitis (Chronic 04/25/14) a. 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 that pain is secondary to scar tissue within muscle and lidocaine injection given with effect. 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 states her chest pain was related to her stomach issues, and has not had any cardiac issues currently, and does not see a continuity person. Irritable colon Osteoarthritis Sialoadenitis Surgical History Arthroscopy, Shoulder right; acromioplasty Colectomy 04/25/14 Colonoscopy - MAC (09/24/16) EGD - IV Sedation 2014 EGD - MAC (09/24/16) Extraction of cataract H/O surgical procedure a. total abdominal hysterectomy-bso b. exploratory laparotomy for reoval of ovaries c. knee replacements d. sigmoid resection 04/25/2014 e. right shoulder acromioplasty f. Elyssa fundoplication 1995 g. bilateral open carpal tunnel release 1985 History of bilateral salpingo-oophorectomy (05/18/14) History of hysterectomy (05/18/14) Elyssa Fundoplication (~1995) Open Carpal Tunnel release (~1985) B/L Replacement of total knee joint (~2004) B/L Family History Mother Diabetes Essential hypertension Personal history of malignant neoplasm LUNG Hyperlipidemia Asthma Father Essential hypertension Personal history of malignant neoplasm THROAT Heart disease Hyperlipidemia Sister Drug abuse Essential hypertension COPD (chronic obstructive pulmonary disease) Depression Heart disease Hyperlipidemia Asthma Grandfather Essential hypertension Personal history of malignant neoplasm Heart disease Hyperlipidemia Stroke Grandfather , UNKNOWN Alcohol abuse Heart disease Stroke Grandmother Essential hypertension Personal history of malignant neoplasm Hyperlipidemia Grandmother Alcohol abuse Personal history of malignant neoplasm Heart disease Son Depression Heart disease Asthma Son Alcohol abuse Essential hypertension Depression Daughter Essential hypertension Asthma Daughter Essential hypertension Depression Hyperlipidemia Social History Smoking/Tobacco Use Status: Former Tobacco Use Smoking risk assessment performed?: Yes Alcohol Intake: current Alcohol Intake frequency: a few times a month Drug use: Never Substance use type: does not use Number of Children: 4 Pets and animals: Yes Pets and animals: cat(s) and dog(s) Current gender identity: female What type of physical activity do you participate in: walking Frequency: daily Seatbelt use: always Water heater temp set <120 deg: Yes Working smoke detector in home: Yes Fire extinguisher in home: Yes Carbon monox detector in home: Yes Firearms in home: Yes Firearms unloaded and locked: Yes Do you feel safe at home: Yes Do you feel safe in your relationship?: Yes Exam Narrative Exam Narrative: Physical Examination General: alert, awake, cooperative, resting comfortably, no acute distress HEENT: normocephalic, atraumatic; PERRL, EOM intact, conjunctiva normal; no nasal discharge; moist mucous membranes, oral and pharyngeal mucosa normal, tolerating secretions Neck: supple, trachea midline; full ROM Chest: normal to inspection Respiratory: normal respiratory effort, speaking in full sentences, clear to auscultation, no wheezing, rales or rhonchi Cardiac: regular rate, regular rhythm, S1S2 intact, no murmurs rubs or gallops GI: abdomen soft, non-tender, non-distended; no palpable mass or hepatosplenomegaly Skin: no lesions, rashes or trauma appreciated Neuro: AAOx3, normal speech, moving all extremities Psych: Appropriate mood and affect Course Vital Signs Vital signs: Vital Signs Temperature 36.8 C 04/24/22 12:03 Pulse 96 H 04/24/22 12:03 Respiratory Rate 18 04/24/22 12:03 Blood Pressure 141/83 H 04/24/22 12:03 Pulse Oximetry 98 04/24/22 12:03 Temperature 36.8 C 04/24/22 12:03 Temperature Source Tympanic 04/24/22 12:03 Pulse 96 H 04/24/22 12:03 Respiratory Rate 18 04/24/22 12:03 Respiratory Effort Short of Breath 04/24/22 12:42 Respiratory Depth Normal 04/24/22 12:42 Blood Pressure 141/83 H 04/24/22 12:03 Blood Pressure Position Sitting 04/24/22 12:03 Pulse Oximetry 98 04/24/22 12:03 Oxygen Delivery Method Room Air 04/24/22 12:03 Oxygen Flow Rate 0 04/24/22 12:03
--- NOTE | 2022-04-24 13:11 | DI.VRAD_ITS ---
Addendum created by Kelsey Meza MD on 04/24/2022 1:12:22 PM EST: Addendum: Upon further review of the images, there is suggestion of a mild hazy asymmetric opacity in the periphery of the right mid lung. Pneumonia would be difficult to exclude. Initial report created on 04/24/2022 1:11:33 PM EST: PROCEDURE INFORMATION: Exam: XR Chest Exam date and time: 04/24/2022 12:22 PM Age: 72 years old Clinical indication: Other: Cough, productive; Copd TECHNIQUE: Imaging protocol: Radiologic exam of the chest. Views: 1 view. COMPARISON: CT CHEST WO 02/19/2022 11:18 AM FINDINGS: Limitations: Low lung volumes. Lungs: Unremarkable. No consolidation. Pleural spaces: Unremarkable. No pleural effusion. No pneumothorax. Heart/Mediastinum: Unremarkable. No cardiomegaly. Bones/joints: Unremarkable. IMPRESSION: No evidence of active cardiopulmonary disease. Dictated and Authenticated by: Kelsey Meza MD. Ordering:P.BALDEMAR Jackson MD
[2022-04-24 13:34] LABS: ALT 22 U/L (14-59); AST 26 U/L (15-37); Albumin 3.5 g/dL (3.4-5.0); Alkaline Phosphatase 57 U/L (46-116); Anion Gap 9.1 mmol/L (3-11); BUN 12 mg/dL (7-18); Bilirubin, Total 0.3 mg/dL (0.2-1.0); CO2 25.9 mmol/L (21.0-32.0); CREATININE 1.1 mg/dL (0.55-1.02); Calcium 8.2 mg/dL (8.5-10.1); Chloride 98 mmol/L (98-107); Estimated GFR 53.06 (mL/min/1.73m2); Glucose 103 mg/dL (74-106); Potassium 3.1 mmol/L (3.5-5.1); Sodium 133 mmol/L (136-145); Total Protein 6.8 g/dL (6.4-8.2)
== END 2022-04-24 15:16 | disposition home or self-care (01) ==
PROVIDERS: Emergency Provider Emergency Medicine; PCP Nurse Practitioner
DX: R05.9 Cough, unspecified (principal); J43.9 Emphysema, unspecified; I10 Essential (primary) hypertension; M19.90 Unspecified osteoarthritis, unspecified site; Z90.49 Acquired absence of other specified parts of digestive tract; Z87.891 Personal history of nicotine dependence
CPT/HCPCS: 80053; 93005; 94640; 96374; 99284; 71045; 85025; 93010; 99285

== ENCOUNTER 2022-04-26 08:40 | Emergency (ER) | payer MEDICARE, SELFPAY ==
[2022-04-26] VITALS (25 sets, daily range): BP systolic 114–159; BP diastolic 52–97; PULSE 74–97; RESP 10–28; TEMP 36.7–36.9; O2SAT 92–94
--- NOTE | 2022-04-26 09:12 | ED.GENADUL_ITS ---
Discharge Plan Disposition Patient Disposition: Home Condition: Improving Discharge Details Clinical Impression: Cough, COPD exacerbation Primary Care Provider: Kristine Carter ED Provider: Froilan Churchill Home Meds and New Rx's Prescriptions: New prednisone 20 mg tablet 60 mg PO DAILY 5 Days Qty: 15 0RF Continued ibuprofen 200 mg tablet 400 mg PO Q6H PRN azithromycin 250 mg tablet 250 mg PO DAILY Qty: 30 12RF Metamucil 3.4 gram/5.4 gram powder 1 tbs PO DAILY Rx Instructions: mix into at least 8 oz of water or juice before administering [email or web address] Women's 18-400 mg-mcg tablet 1 tab PO DAILY (DME) compressor, for nebulizer Device See Rx Instructions .ROUTE .MEDSUPPLY Qty: 1 0RF Rx Instructions: As directed ipratropium-albuterol 0.5 mg-3 mg(2.5 mg base)/3 mL solution for nebulization 3 ml inhalation Q6H PRN (Reason: wheezing) Qty: 15 0RF Rx Instructions: Trial for Cough, COPD Exacerbation (DME) EasiVent Mask Large 1 EACH device 1 ea Miscellaneous DIRECTED Qty: 1 Rx Instructions: DIRECTED WITH INHALER albuterol sulfate [Ventolin HFA] 90 mcg/actuation HFA aerosol inhaler 2 puff inhalation Q4H PRN Rx Instructions: rescue only per note dated 09/14/20 [facility] levothyroxine 50 mcg tablet See Rx Instructions .ROUTE .COMPLEX Qty: 90 3RF Dose Instruction: TAKE ONE TABLET BY MOUTH EVERY DAY Rx Instructions: TAKE ONE TABLET BY MOUTH EVERY DAY omeprazole 40 mg capsule,delayed release(DR/EC) 40 mg PO DAILY Qty: 90 3RF Hold Instructions: Home Medication placed on hold at Doctor's office Stiolto Respimat 2.5-2.5 mcg/actuation mist See Rx Instructions .ROUTE .COMPLEX Qty: 4 12RF Dose Instruction: INHALE TWO PUFFS BY MOUTH EVERY DAY Rx Instructions: INHALE TWO PUFFS BY MOUTH EVERY DAY acetaminophen 500 mg tablet 1,000 mg PO Q8H PRN (Reason: pain) Qty: 90 3RF meclizine 25 mg tablet 25 mg PO TID PRN (Reason: dizziness) Qty: 20 0RF amoxicillin 500 mg capsule 500 mg PO BID 7 Days Qty: 14 0RF Discharge Instructions Instructions: Acute Cough (ED) Additional Instructions: Work-up in the ER overall is very reassuring and there is no obvious emergent process. You have responded nicely to the breathing treatment and IV steroids. Please take prednisone as directed. Continue all of your at home medications as directed including your inhalers and your antibiotics you are chronically on as well as the new antibiotic prescribed 2 days ago. Please watch for new or worsening symptoms and return to the ER for any concerns. Lastly, please contact your primary care provider on Thursday to discuss your ER visit and need for outpatient reevaluation. Medical Decision Making This is a 72-year-old female with a past medical history of COPD, depression, hypertension, presenting to the ER reporting that she caught a viral syndrome from her grandchildren almost 2 weeks ago, continues to have a dry cough and feels short of breath with exertion or coughing, seen in the ER 2 days ago, work-up completed, initiated on amoxicillin, has had 2 doses of this medication and continues with no improvement. Clinically she appears well, nontoxic, afebrile, O2 sat 94% on room air, speaking in full sentences. She denies any chest pain whatsoever. Given her presentation will obtain IV access, obtain routine screening laboratory values, a single troponin and EKG, will obtain CTA of the chest as she had a chest x-ray just 2 days ago. Clinically this appears to be more of a viral syndrome which has exacerbated her COPD and therefore I will give a single neb treatment as well as 125 IV Solu-Medrol. Patient speaking full sentences. Laboratory values do not reveal any obvious emergent process. In fact they are quite reassuring. Her D-dimer was elevated at 1012 but I was not waiting on the D-dimer to obtain a CTA. Troponin is less than 50. BNP 200. COVID, flu, RSV negative. Patient responded well to the neb treatment, reports overall moderate improvement of her symptoms. CTA negative. Given her benign work-up, unremarkable CTA, O2 sat remaining in the mid 90s on room air, there is no clear indication for hospitalization at this point. Although overall she does not feel well, she understands at this time there is no obvious emergent process and there is no clear indication for admission. She is comfortable discharge home. I will provide a prescription of a burst dose of steroids. Standard discharge and return precautions were provided. Patient understands, is agreeable to this plan, and has no additional questions or concerns upon discharge. This documentation was generated using [employer] system, please disregard any oddities of phrase or misspellings. Medical Records Medical records reviewed: Yes I reviewed the patient's medical records. Imaging Data Radiologic Study: Attestation: I personally reviewed and interpreted this imaging study as follows: Imaging: CT Scan Radiologist's impression: PROCEDURE INFORMATION: Exam: CTA Chest With Contrast Exam date and time: 04/26/2022 10:07 AM Age: 72 years old Clinical indication: Cough and shortness of breath TECHNIQUE: Imaging protocol: Computed tomographic angiography of the chest with contrast. 3D rendering (Not supervised by radiologist): MIP and/or 3D reconstructed images were created by the technologist. Radiation optimization: All CT scans at this facility use at least one of these dose optimization techniques: automated exposure control; mA and/or kV adjustment per patient size (includes targeted exams where dose is matched to clinical indication); or iterative reconstruction. Contrast material: OMNIPAQUE 350; Contrast volume: 100 ml; Contrast route: INTRAVENOUS (IV); COMPARISON: CT CHEST WO 02/19/2022 11:18 AM FINDINGS: Pulmonary arteries: Negative for acute pulmonary embolism. Aorta: Unremarkable. No aortic aneurysm. No aortic dissection. Lungs: Emphysematous changes. Pleural spaces: Unremarkable. No pneumothorax. No pleural effusion. He art: Unremarkable. No cardiomegaly. No pericardial effusion. Lymph nodes: Unremarkable. No enlarged lymph nodes. Bones/joints: Unremarkable. No acute fracture. Soft tissues: Unremarkable. IMPRESSION:Negative for acute pulmonary embolism. Lab Data Lab results reviewed: Yes I reviewed the patient's lab results. Labs: Laboratory Tests Range/Units 04/26/22 04/26/22 04/26/22 09:35 09:35 09:35 WBC (4.4-10.8) 10^3/uL RBC (3.93-5.22) 10^6/uL Hgb (11.2-15.7) g/dL Hct (36.0-46.0) % MCV (80-95) fL MCH (27.0-33.0) pg MCHC (32.0-36.0) % RDW (11.7-14.6) % Plt Count (130-400) 10^3/uL MPV (8.0-11.0) fL Immature Gran % Neutrophils % Lymphocytes % Monocytes % Eosinophils % Basophils % Nucleated RBC % (0.0-0.3) % Absolute Neutrophils (1.2-6.7) 10^3/uL Absolute Lymphocytes (1.2-3.4) 10^3/uL Absolute Monocytes (0.1-0.8) 10^3/uL Absolute Eosinophils (0.0-0.7) 10^3/uL Absolute Basophils (0.0-0.2) 10^3/uL PT (9.3-11.0) sec 9.8 INR (0.9-1.1) 1.0 APTT (21.0-27.5) sec 22.1 D-Dimer (<500) ng/mlFEU 1012 H Sodium (136-145) mmol/L 137 Potassium (3.5-5.1) mmol/L 3.7 Chloride (98-107) mmol/L 102 Carbon Dioxide (21.0-32.0) mmol/L 26.6 Anion Gap (3-11) mmol/L 8.4 BUN (7-18) mg/dL 9 Creatinine (0.55-1.02) mg/dL 0.9 Est GFR (CKD-EPI 2020) (mL/min/1.73m2) 67.50 Glucose (74-106) mg/dL 85 Calcium (8.5-10.1) mg/dL 8.4 L Magnesium (1.8-2.4) mg/dL 1.8 Total Bilirubin (0.2-1.0) mg/dL 0.3 AST (15-37) U/L 25 ALT (14-59) U/L 22 Alkaline Phosphatase (46-116) U/L 58 Troponin I (<or=60) ng/L < 50 NT-Pro-B Natriuret Pep Cancelled 200 Total Protein (6.4-8.2) g/dL 6.8 Albumin (3.4-5.0) g/dL 3.5 COVID-19 Source SARS-CoV-2 (PCR) (Negative) Influenza Type A (PCR) (Negative) Influenza Type B (PCR) (Negative) RSV (PCR) (Negative) Range/Units 04/26/22 04/26/22 09:35 09:49 WBC (4.4-10.8) 10^3/uL 4.24 L RBC (3.93-5.22) 10^6/uL 4.38 Hgb (11.2-15.7) g/dL 12.5 Hct (36.0-46.0) % 37.9 MCV (80-95) fL 87 MCH (27.0-33.0) pg 28.5 MCHC (32.0-36.0) % 33.0 RDW (11.7-14.6) % 14.0 Plt Count (130-400) 10^3/uL 263 MPV (8.0-11.0) fL 8.8 Immature Gran % 0.2 Neutrophils % 54.2 Lymphocytes % 36.6 Monocytes % 6.6 Eosinophils % 1.9 Basophils % 0.5 Nucleated RBC % (0.0-0.3) % 0.0 Absolute Neutrophils (1.2-6.7) 10^3/uL 2.30 Absolute Lymphocytes (1.2-3.4) 10^3/uL 1.55 Absolute Monocytes (0.1-0.8) 10^3/uL 0.28 Absolute Eosinophils (0.0-0.7) 10^3/uL 0.08 Absolute Basophils (0.0-0.2) 10^3/uL 0.02 PT (9.3-11.0) sec INR (0.9-1.1) APTT (21.0-27.5) sec D-Dimer (<500) ng/mlFEU Sodium (136-145) mmol/L Potassium (3.5-5.1) mmol/L Chloride (98-107) mmol/L Carbon Dioxide (21.0-32.0) mmol/L Anion Gap (3-11) mmol/L BUN (7-18) mg/dL Creatinine (0.55-1.02) mg/dL Est GFR (CKD-EPI 2020) (mL/min/1.73m2) Glucose (74-106) mg/dL Calcium (8.5-10.1) mg/dL Magnesium (1.8-2.4) mg/dL Total Bilirubin (0.2-1.0) mg/dL AST (15-37) U/L ALT (14-59) U/L Alkaline Phosphatase (46-116) U/L Troponin I (<or=60) ng/L NT-Pro-B Natriuret Pep Total Protein (6.4-8.2) g/dL Albumin (3.4-5.0) g/dL COVID-19 Source Nasopharynx SARS-CoV-2 (PCR) (Negative) Negative Influenza Type A (PCR) (Negative) Negative Influenza Type B (PCR) (Negative) Negative RSV (PCR) (Negative) Negative ECG Data Attestation: I personally reviewed and interpreted this ECG (s) as follows: Interpretation: Sinus rhythm, ventricular rate of 76. Left anterior fascicular block. No STEMI. Sign Out No HPI General Mode of arrival: ambulatory . Date/Time Provider Initiated Documentation: 04/26/22 08:42 . Limitations to Documentation: no limitations . Information obtained by: patient . History of Present Illness 72 year old F presents to the emergency department with the chief complaint of Cough/sob, described as moderate, with intensity rated at 6. Quality is described as aching, and is localized to the chest (with coughing). Patient reports no radiation. Patient started experiencing this week(s) (2) and it has been constant. No relieving factors improve symptom(s), No exacerbating factors reported . Patient notes chest pain, cough and weakness (generalized); denies fever/chills. Patient did receive the following treatments prior to arrival, other (amoxicilin x 2) Related Data Home Medications Medication Instructions Recorded Confirmed inhaler,assist devices,access #1 ea 09/01/13 04/26/22 (EasiVent Mask Large) psyllium husk 3.4 gram/5.4 gram 1 tbs PO DAILY 08/11/19 04/26/22 oral powder (Metamucil) multivitamin-ferrous 1 tab PO DAILY 01/10/20 04/26/22 fumarate-folic acid 18 mg-400 mcg tablet ([facility]) acetaminophen 500 mg tablet 1,000 mg PO Q8H PRN pain #90 tabs 01/24/20 04/26/22 albuterol sulfate 90 mcg/actuation 2 puff inhalation Q4H PRN 09/14/20 04/26/22 aerosol inhaler (Ventolin HFA) meclizine 25 mg tablet 25 mg PO TID PRN dizziness #20 tabs 10/06/20 04/26/22 compressor, for nebulizer #1 ea 02/19/21 04/26/22 ipratropium 0.5 mg-albuterol 3 mg 3 ml inhalation Q6H PRN wheezing 02/19/21 04/26/22 (2.5 mg base)/3 mL nebulization #15 mL soln azithromycin 250 mg tablet 250 mg PO DAILY COPD #30 tabs 07/22/21 04/26/22 ibuprofen 200 mg tablet 400 mg PO Q6H PRN 07/22/21 04/26/22 levothyroxine 50 mcg tablet See Rx Instructions .Route 09/16/21 04/26/22 .COMPLEX #90 tabs omeprazole 40 mg capsule,delayed 40 mg PO DAILY #90 tab-caps 01/15/22 04/26/22 release tiotropium 2.5 mcg-olodaterol 2.5 See Rx Instructions .Route 02/17/22 04/26/22 mcg/actuation mist for inhalation .COMPLEX #4 grams (Stiolto Respimat) amoxicillin 500 mg capsule 500 mg PO BID 7 days #14 caps 04/24/22 04/26/22 prednisone 20 mg tablet 60 mg PO DAILY 5 days #15 tabs 04/26/22 Previous Rx's Medication Instructions Recorded acetaminophen 500 mg tablet 1,000 mg PO Q8H PRN pain #90 tabs 01/24/20 meclizine 25 mg tablet 25 mg PO TID PRN dizziness #20 tabs 10/06/20 compressor, for nebulizer #1 ea 02/19/21 ipratropium 0.5 mg-albuterol 3 mg 3 ml inhalation Q6H PRN wheezing 02/19/21 (2.5 mg base)/3 mL nebulization #15 mL soln azithromycin 250 mg tablet 250 mg PO DAILY COPD #30 tabs 07/22/21 levothyroxine 50 mcg tablet See Rx Instructions .Route 09/16/21 .COMPLEX #90 tabs omeprazole 40 mg capsule,delayed 40 mg PO DAILY #90 tab-caps 01/15/22 release tiotropium 2.5 mcg-olodaterol 2.5 See Rx Instructions .Route 02/17/22 mcg/actuation mist for inhalation .COMPLEX #4 grams (Stiolto Respimat) amoxicillin 500 mg capsule 500 mg PO BID 7 days #14 caps 11/24/22 prednisone 20 mg tablet 60 mg PO DAILY 5 days #15 tabs 04/26/22 Allergies Allergy/AdvReac Type Severity Reaction Status Date / Time tramadol Allergy Severe ITCHING, Verified 04/26/22 08:49 GI UPSET hydrocodone bitartrate Allergy Intermediate RASH, Verified 04/26/22 08:49 [From Vicodin] ITCHING fluticasone Allergy Verified 04/26/22 08:49 methylphenidate Allergy Verified 04/26/22 08:49 desipramine AdvReac Intermediate PALPITATION Verified 04/26/22 08:49 S pregabalin [From Lyrica] AdvReac Intermediate CONFUSION Verified 04/26/22 08:49 salmeterol xinafoate AdvReac Intermediate COUGH Verified 04/26/22 08:49 [From Advair Diskus] methylprednisolone sodium AdvReac Mild Agitation Verified 04/26/22 08:49 succinate [From Solu-Medrol] paroxetine HCl [From Paxil] AdvReac Mild JITTERY Verified 04/26/22 08:49 sertraline HCl [From Zoloft] AdvReac Mild JITTERY Verified 04/26/22 08:49 acetaminophen AdvReac nausea, Verified 04/26/22 08:49 vomiting General Stated Complaint: RespSymp NATY: 3 Review of Systems Constitutional Constitutional: Reports fatigue, Denies fever(s) and Reports weakness (generalized) ENT Ears, Nose, Mouth, and Throat: Denies neck pain Cardiovascular Cardiovascular: Reports chest pain and Reports dyspnea Respiratory Respiratory: Reports cough and Reports dyspnea Gastrointestinal Gastrointestinal: Denies abdominal pain, Denies nausea and Denies vomiting Genitourinary Genitourinary: Denies dysuria Musculoskeletal Musculoskeletal: Denies back pain and Denies neck pain Integumentary/Breasts Skin/Breast: Denies rash Neurologic Neurologic: Reports weakness (generalized) Endocrine Endocrine: Reports fatigue Hematologic/Lymphatic Hematologic/Lymphatic: Denies easy bleeding and Denies easy bruising PFSH All Active Problems Cough (Acute) Cough (Acute) COPD exacerbation (Acute) Muscular deconditioning (Acute) Ischial bursitis (Acute) Lumbar spondylosis (Acute) Right hip pain (Acute) Pulmonary nodule (Acute) Voiding difficulty (Acute) Depression (Chronic) Cough (Acute) PND (post-nasal drip) (Acute) acute on chronic? Hx nasal steroid per Dr. Garza. Weight loss, non-intentional (Acute) ~ 8 lbs, 3-4 mos Insomnia (Acute) Fluttering sensation of heart (Acute) Left chest pressure (Acute) History of pneumonia (Acute) Acute exacerbation of chronic obstructive pulmonary disease (COPD) (Acute) Constipation (Acute) Vision changes (Acute) Lung nodule (Acute) Abdominal pain (Acute) Dizziness (Acute) SBO (small bowel obstruction) (Acute) Forgetfulness (Acute) Fatigue (Acute) Status post total hip replacement, left (Acute 01/24/20) Diverticulitis (Chronic 04/25/14) a. 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 that pain is secondary to scar tissue within muscle and lidocaine injection given with effect. Lymphadenitis (Acute 05/23/13) Diverticulitis of sigmoid colon (Acute 04/25/14) Bilateral knee pain (Acute) 02/23/19 F/u [facility] Left foot pain (Acute) IFG (impaired fasting glucose) (Acute) Itching (Acute) Cough (Acute) SOB (shortness of breath) (Acute) Vertigo (Acute) Left hip pain (Acute) Anxiety and depression (Acute) Headache (Acute) Osteoarthritis of left hip (Acute) History of Edouard's esophagus (Acute) Pharyngeal dysphagia (Acute) Polyarthralgia (Acute) Positive SANDY (antinuclear antibody) (Acute) long-term (current) use of non-steroidal anti-inflammatories (nsaid) (Acute) Regurgitation of food (Acute) Depressive disorder (Chronic) fatigue History of bilateral knee replacement (Acute) Medical History Chronic obstructive lung disease quit smoking 2000, [facility] PFT 01/06/18 Mild airflow obstruction, no significant improvement after inhaled bronchodilators RH COPD (chronic obstructive pulmonary disease) Emphysema Depression Diverticulitis HTN (hypertension) Hx of chest pain Pt. states her chest pain was related to her stomach issues, and has not had any cardiac issues currently, and does not see a senior erp consultant. Irritable colon Osteoarthritis Sialoadenitis Surgical History Arthroscopy, Shoulder right; acromioplasty Colectomy 04/25/14 Colonoscopy - MAC (09/24/16) EGD - IV Sedation 2014 EGD - MAC (09/24/16) Extraction of cataract H/O surgical procedure a. total abdominal hysterectomy-bso b. exploratory laparotomy for reoval of ovaries c. knee replacements d. sigmoid resection 04/25/2014 e. right shoulder acromioplasty f. Elyssa fundoplication 1995 g. bilateral open carpal tunnel release 1985 History of bilateral salpingo-oophorectomy (05/18/14) History of hysterectomy (05/18/14) Elyssa Fundoplication (~1995) Open Carpal Tunnel release (~1985) B/L Replacement of total knee joint (~2004) B/L Family History Mother Diabetes Essential hypertension Personal history of malignant neoplasm LUNG Hyperlipidemia Asthma Father Essential hypertension Personal history of malignant neoplasm THROAT Heart disease Hyperlipidemia Sister Drug abuse Essential hypertension COPD (chronic obstructive pulmonary disease) Depression Heart disease Hyperlipidemia Asthma Grandfather Essential hypertension Personal history of malignant neoplasm Heart disease Hyperlipidemia Stroke Grandfather , UNKNOWN Alcohol abuse Heart disease Stroke Grandmother Essential hypertension Personal history of malignant neoplasm Hyperlipidemia Grandmother Alcohol abuse Personal history of malignant neoplasm Heart disease Son Depression Heart disease Asthma Son Alcohol abuse Essential hypertension Depression Daughter Essential hypertension Asthma Daughter Essential hypertension Depression Hyperlipidemia Social History Smoking/Tobacco Use Status: Former Tobacco Use Smoking risk assessment performed?: Yes Alcohol Intake: current Alcohol Intake frequency: a few times a month Drug use: Never Substance use type: does not use Number of Children: 4 Pets and animals: Yes Pets and animals: cat(s) and dog(s) Current gender identity: female What type of physical activity do you participate in: walking Frequency: daily Seatbelt use: always Water heater temp set <120 deg: Yes Working smoke detector in home: Yes Fire extinguisher in home: Yes Carbon monox detector in home: Yes Firearms in home: Yes Firearms unloaded and locked: Yes Do you feel safe at home: Yes Do you feel safe in your relationship?: Yes Exam Const General: cooperative, healthy appearing, comfortable and no acute distress Orientation: alert, awake and oriented x3 HENMT Head: normal to inspection, normocephalic and atraumatic Face and sinus: normal facial exam Mouth: moist mucous membranes Throat: posterior oropharynx normal Eyes Conjunctivae: conjunctivae normal Neck Neck: normal visual inspection, full ROM, no meningeal signs, trachea midline and supple Resp Effort & Inspection: normal respiratory effort, able to speak in complete sentences and cough Quality of cough: dry (mild) Auscultation: diminished lung sounds bilaterally in the lower lung meyer and wheezes (Rare, scattered expiratory, partially clear with cough) Cardio Rate: regular rate Rhythm: regular rhythm GI Palpation: soft and nontender Back/Spine/Pelvis Back: No back tenderness Skin General skin exam: no rashes or lesions noted Neuro General: patient alert, patient awake, moves all extremities and no focal motor deficits Cognition: normal cognition Speech: speech normal Gait: normal gait Motor: muscle tone normal throughout Sensory Exam: no sensory deficits noted Extrem General: normal to inspection, full ROM, capillary refill normal, no pedal edema and no calf tenderness Psych Appearance: grossly normal Mental Status: mental status grossly normal Course Vital Signs Vital signs: Vital Signs Temperature 36.9 C 04/26/22 08:45 Pulse 88 04/26/22 08:45 Respiratory Rate 18 04/26/22 08:45 Blood Pressure 141/74 H 04/26/22 08:45 Pulse Oximetry 94 04/26/22 08:45 Temperature 36.9 C 04/26/22 08:45 Temperature Source Temporal Artery Scan 04/26/22 08:45 Pulse 88 04/26/22 08:45 Respiratory Rate 18 04/26/22 08:45 Respiratory Effort 04/26/22 08:49 Blood Pressure 141/74 H 04/26/22 08:45 Blood Pressure Position Sitting 04/26/22 08:45 Pulse Oximetry 94 04/26/22 08:45 Oxygen Delivery Method Room Air 04/26/22 08:45 Oxygen Flow Rate 0 04/26/22 08:45 PAWSS Have you Been Recently Intoxicated or Drunk Within the Last 30 days?: No Have you Ever Experienced Previous Episodes of Alcohol Withdrawal?: No Have you ever Experienced Withdrawal Seizures?: No Have you ever Experienced Delirium Tremens(DT)s?: No Have you ever undergone Alcohol Rehabilitation Treatment (i.e, inpt ot outpatient treatment programs)?: No Have you ever Experienced Blackouts?: No Have you ever Combined Alcohol with other Downers within the last 90 days?: No Have you ever Combined Alcohol with any other Substance of Abuse during the last 90 days?: No Positive Blood Alcohol level on Presentation? [PCS.BAL]: No Evidence of Increased Autonomic Activity (i.e. HR>120, tremor, sweating, agitation, nausea)?: No Result: 0
--- NOTE | 2022-04-26 09:15 | DI.CT_ITS ---
Exam(s) CT CHEST PE CTA EXAM: CT CHEST PE CTA CLINICAL HISTORY: cough/sob. TECHNIQUE: Imaging Protocol: Axial CT angiography was performed with multi-slice acquisition and mu lti-planar reconstructions as well as axial, coronal and sagittal MIP reconstructions. CONTRAST MATERIAL: Intravenous: Omnipaque 350 Contrast volume:100 ml COMPARISON: CT CT CHEST WO from 02/19/2022 FINDINGS: Pulmonary Arteries: No evidence of filling defect to suggest pulmonary emboli. Tracheobronchial tree: Patent where visualized. Mediastinum and Precious: No dominant adenopathy or fluid collection. Pulmonary parenchyma: Moderate emphysematous changes. No consolidation or dominant measurable mass. Pleura: No effusion or pneumothorax. Heart: The heart is not dilated. Mild coronary artery calcifications are seen. Aorta: Thoracic aorta non-dilated. No aneurysm. No dissection. Atherosclerotic changes. Upper abdomen: Unremarkable. Bones: Severe degenerative changes. IMPRESSION: No evidence of pulmonary embolism or other acute abnormality.. RADIATION DOSE DELIVERED: 296.7mGy.cm Total DLP DATA REPOSITORY: All CT scans at this facility are submitted to the National Radiology Data Registry (NRDR) Dose Index Registry (DIR) with the [employer] (ACR). RADIATION OPTIMIZATION: All CT scans at this facility use at least one of these dose optimization te chniques: automated exposure control; mA and/or kV adjustment per patient size (includes targeted exa ms where dose is matched to clinical indication); or iterative reconstruction.
--- NOTE | 2022-04-26 09:15 | RT.EKG_ITS ---
APPROVED REPORT Exam: Resting ECG Reason for Exam: sob Patient Location: E HR:76 bpm ECG Measurements Heart Rate 76 AXIS OR 147 P 40 QRSd 91 QRS -47 QT 388 T 31 QTc 436 Conclusion Sinus rhythm...normal P axis, V-rate 60- 99 Left anterior fascicular block...axis(240,-40), init forces inf
[2022-04-26 09:44] LABS: Abs Immature Grans 0.01 10^3/uL (0.0-0.06); Absolute Basophil Count 0.02 10^3/uL (0.0-0.2); Absolute Eosinophil Count 0.08 10^3/uL (0.0-0.7); Absolute Lymphocyte Count 1.55 10^3/uL (1.2-3.4); Absolute Monocyte Count 0.28 10^3/uL (0.1-0.8); Basophils % 0.5; Eosinophils % 1.9; HCT 37.9 % (36.0-46.0); HGB 12.5 g/dL (11.2-15.7); Immature Grans % 0.2; Lymphocytes % 36.6; MCH 28.5 pg (27.0-33.0); MCV 87 fL (80-95); MPV 8.8 fL (8.0-11.0); Monocytes % 6.6; Neutrophils % 54.2; Platelet Count 263 10^3/uL (130-400); RBC 4.38 10^6/uL (3.93-5.22); RDW-SD 45.1 fL; WBC 4.24 10^3/uL (4.4-10.8)
[2022-04-26 09:58] LABS: PTT Activated 22.1 sec (21.0-27.5); Prothrombin Time 9.8 sec (9.3-11.0)
[2022-04-26 10:03] LABS: ALT 22 U/L (14-59); AST 25 U/L (15-37); Albumin 3.5 g/dL (3.4-5.0); Alkaline Phosphatase 58 U/L (46-116); Anion Gap 8.4 mmol/L (3-11); BUN 9 mg/dL (7-18); Bilirubin, Total 0.3 mg/dL (0.2-1.0); CO2 26.6 mmol/L (21.0-32.0); CREATININE 0.9 mg/dL (0.55-1.02); Calcium 8.4 mg/dL (8.5-10.1); Chloride 102 mmol/L (98-107); Glucose 85 mg/dL (74-106); Magnesium 1.8 mg/dL (1.8-2.4); Potassium 3.7 mmol/L (3.5-5.1); Sodium 137 mmol/L (136-145); Total Protein 6.8 g/dL (6.4-8.2); Troponin I < 50 ng/L (<or=60)
[2022-04-26] MEDS: Omnipaque 350 MG/ML 500 ML BTL-Imaging package IJ (10:07)
[2022-04-26] MEDS: Normal Saline - Diluent 50 ML VIAL IJ (10:09)
[2022-04-26] MEDS: Normal Saline Flush 10 ML SYR IVP (10:09)
[2022-04-26 10:14] LABS: D-Dimer 1012 ng/mlFEU (<500)
[2022-04-26 10:28] LABS: NT-proBNP 200 pg/mL (<300)
--- NOTE | 2022-04-26 10:41 | DI.VRAD_ITS ---
PROCEDURE INFORMATION: Exam: CTA Chest With Contrast Exam date and time: 04/26/2022 10:07 AM Age: 72 years old Clinical indication: Cough and shortness of breath TECHNIQUE: Imaging protocol: Computed tomographic angiography of the chest with contrast. 3D rendering (Not supervised by radiologist): MIP and/or 3D reconstructed images were created by the technologist. Radiation optimization: All CT scans at this facility use at least one of these dose optimization techniques: automated exposure control; mA and/or kV adjustment per patient size (includes targeted exams where dose is matched to clinical indication); or iterative reconstruction. Contrast material: OMNIPAQUE 350; Contrast volume: 100 ml; Contrast route: INTRAVENOUS (IV); COMPARISON: CT CHEST WO 02/19/2022 11:18 AM FINDINGS: Pulmonary arteries: Negative for acute pulmonary embolism. Aorta: Unremarkable. No aortic aneurysm. No aortic dissection. Lungs: Emphysematous changes. Pleural spaces: Unremarkable. No pneumothorax. No pleural effusion. Heart: Unremarkable. No cardiomegaly. No pericardial effusion. Lymph nodes: Unremarkable. No enlarged lymph nodes. Bones/joints: Unremarkable. No acute fracture. Soft tissues: Unremarkable. IMPRESSION: Negative for acute pulmonary embolism. Dictated and Authenticated by: Vidya Barrera MD. Ordering:AMINATA Mcgovern MD
[2022-04-26 10:44] LABS: COVID-19 PCR Negative (Negative); Influenza A PCR Negative (Negative); Influenza B PCR Negative (Negative); RSV PCR Negative (Negative)
[2022-04-26 10:45] LABS: Source Nasopharynx
[2022-04-26] MEDS: Albuterol/Ipratropium 3 ML UPD VIAL UPD (11:26)
[2022-04-26] MEDS: methylPREDNISolone SUCC 125 MG VIAL IVP (11:26)
== END 2022-04-26 13:05 | disposition home or self-care (01) ==
PROVIDERS: Emergency Provider Physician Assistant; PCP Nurse Practitioner
DX: J44.1 Chronic obstructive pulmonary disease with (acute) exacerbation (principal); I10 Essential (primary) hypertension; R79.89 Other specified abnormal findings of blood chemistry; Z20.822 Contact with and (suspected) exposure to COVID-19; R06.02 Shortness of breath
CPT/HCPCS: 36415; 71275; 80053; 87637; 93005; 96374; 99285; 83735; 83880; 84484; 85025; 85379; 85610; 85730; 93010; J2930; J7620

== ENCOUNTER 2022-05-15 02:49 | Outpatient (CLI) | payer MEDICARE, SELFPAY ==
[2022-05-15 10:25] LABS: Calculated LDL 121 mg/dL (<100); Cholesterol 226 mg/dL (<200); HDL Cholesterol 79 mg/dL (40-60); TSH (W/Ref FT4) 1.78 uIU/mL (0.36-3.74); Triglyceride 131 mg/dL (<150)
[2022-05-16 10:07] LABS: Hepatitis C Ab w Rflx HCV PCR Negative (Negative)
== END 2022-05-15 02:50 | disposition home or self-care (01) ==
LOC: LBO 02:50
PROVIDERS: PCP Nurse Practitioner; Referring Provider Nurse Practitioner; Visit Provider Nurse Practitioner
DX: Z11.59 Encounter for screening for other viral diseases (principal); I10 Essential (primary) hypertension; E03.9 Hypothyroidism, unspecified
CPT/HCPCS: 36415; 80061; 86803; 84443

== ENCOUNTER 2022-05-20 13:07 | Observation (INO) | payer MEDICARE, SELFPAY ==
[2022-05-20] VITALS (87 sets, daily range): BP systolic 103–166; BP diastolic 40–123; PULSE 72–111; RESP 11–33; TEMP 36.2–36.9; O2SAT 93–97
--- NOTE | 2022-05-20 13:00 | RT.EKG_ITS ---
APPROVED REPORT Exam: Resting ECG Reason for Exam: chest pain Patient Location: E HR:93 bpm ECG Measurements Heart Rate 93 AXIS RI 152 P 18 QRSd 88 QRS 106 QT 364 T 59 QTc 452 Conclusion Sinus rhythm...normal P axis, V-rate 60- 99 Right axis deviation...QRS axis ( 61,534)
[2022-05-20 13:48] LABS: Abs Immature Grans 0.02 10^3/uL (0.0-0.06); Absolute Basophil Count 0.04 10^3/uL (0.0-0.2); Absolute Eosinophil Count 0.22 10^3/uL (0.0-0.7); Absolute Lymphocyte Count 1.62 10^3/uL (1.2-3.4); Absolute Monocyte Count 0.57 10^3/uL (0.1-0.8); Absolute Neutrophil Count 5.06 10^3/uL (1.2-6.7); Basophils % 0.5; Eosinophils % 2.9; HCT 37.2 % (36.0-46.0); HGB 12.2 g/dL (11.2-15.7); Immature Grans % 0.3; Lymphocytes % 21.5; MCH 28.6 pg (27.0-33.0); MCHC 32.8 % (32.0-36.0); MCV 87 fL (80-95); MPV 8.4 fL (8.0-11.0); Monocytes % 7.6; Neutrophils % 67.2; Platelet Count 420 10^3/uL (130-400); RBC 4.26 10^6/uL (3.93-5.22); RDW 14.1 % (11.7-14.6); WBC 7.53 10^3/uL (4.4-10.8)
[2022-05-20 14:05] LABS: ALT 18 U/L (14-59); AST 21 U/L (15-37); Albumin 3.8 g/dL (3.4-5.0); Alkaline Phosphatase 69 U/L (46-116); Anion Gap 8.9 mmol/L (3-11); BUN 13 mg/dL (7-18); Bilirubin, Total 0.2 mg/dL (0.2-1.0); CO2 26.1 mmol/L (21.0-32.0); CREATININE 0.8 mg/dL (0.55-1.02); Calcium 8.7 mg/dL (8.5-10.1); Chloride 101 mmol/L (98-107); Estimated GFR 77.75 (mL/min/1.73m2); Glucose 97 mg/dL (74-106); Magnesium 1.9 mg/dL (1.8-2.4); Potassium 3.8 mmol/L (3.5-5.1); Sodium 136 mmol/L (136-145); Total Protein 7.3 g/dL (6.4-8.2); Troponin I < 50 ng/L (<or=60)
--- NOTE | 2022-05-20 14:15 | DI.RAD_ITS ---
Exam(s) XR PORTABLE CHEST AP EXAM: XR PORTABLE CHEST AP CLINICAL HISTORY: chest pain. TECHNIQUE: 2D digital imaging was performed. COMPARISON: CR,XR XR PORTABLE CHEST AP from 04/24/2022 FINDINGS: Single AP portable view. Heart size is upper normal. The mediastinum is not widened. Lungs are clear. No infiltrates nor obvious pleural effusions. IMPRESSION: No acute pulmonary findings on this single AP portable view of the chest. DATA REPOSITORY: RADIATION DOSE DELIVERED:
--- NOTE | 2022-05-20 15:51 | W.ED.GENAD ---
Discharge Plan Disposition Patient Disposition: Admit to [facility] Condition: Serious Discharge Details Chief Complaint: Chest Pain Clinical Impression: Chest pain Primary Care Provider: Kristine Carter ED Provider: Kareem Cuevas Home Meds and New Rx's Prescriptions: No Action ibuprofen 200 mg tablet 400 mg PO Q6H PRN azithromycin 250 mg tablet 250 mg PO DAILY Qty: 30 12RF sertraline 50 mg tablet 50 mg PO DAILY Qty: 90 3RF Metamucil 3.4 gram/5.4 gram powder 1 tbs PO DAILY Rx Instructions: mix into at least 8 oz of water or juice before administering [employer] Women's 18-400 mg-mcg tablet 1 tab PO DAILY (DME) compressor, for nebulizer Device See Rx Instructions .ROUTE .MEDSUPPLY Qty: 1 0RF Rx Instructions: As directed ipratropium-albuterol 0.5 mg-3 mg(2.5 mg base)/3 mL solution for nebulization 3 ml inhalation Q6H PRN (Reason: wheezing) Qty: 15 0RF Rx Instructions: Trial for Cough, COPD Exacerbation (DME) EasiVent Mask Large 1 EACH device 1 ea Miscellaneous DIRECTED Qty: 1 Rx Instructions: DIRECTED WITH INHALER albuterol sulfate [Ventolin HFA] 90 mcg/actuation HFA aerosol inhaler 2 puff inhalation Q4H PRN Rx Instructions: rescue only per note dated 09/14/20 [facility] levothyroxine 50 mcg tablet See Rx Instructions .ROUTE .COMPLEX Qty: 90 3RF Dose Instruction: TAKE ONE TABLET BY MOUTH EVERY DAY Rx Instructions: TAKE ONE TABLET BY MOUTH EVERY DAY omeprazole 40 mg capsule,delayed release(DR/EC) 40 mg PO DAILY Qty: 90 3RF Hold Instructions: Home Medication placed on hold at Doctor's office Stiolto Respimat 2.5-2.5 mcg/actuation mist See Rx Instructions .ROUTE .COMPLEX Qty: 4 12RF Dose Instruction: INHALE TWO PUFFS BY MOUTH EVERY DAY Rx Instructions: INHALE TWO PUFFS BY MOUTH EVERY DAY acetaminophen 500 mg tablet 1,000 mg PO Q8H PRN (Reason: pain) Qty: 90 3RF meclizine 25 mg tablet 25 mg PO TID PRN (Reason: dizziness) Qty: 20 0RF Medical Decision Making 2185 --72-year-old female with history of COPD, HTN, and angina in the past presents with chest discomfort that started this morning with some radiation to her left shoulder. Patient saturating well in no respiratory distress. She has no shortness of breath. Pain was severe earlier and now hardly noticeable. She did take 2 baby aspirin prior to arrival. Consider ACS. EKG was reviewed and interpreted by me: Please see report, sinus rhythm 93 bpm, right axis deviation, no STEMI. Plan to obtain troponin and will trend. I reviewed past medical record, patient was seen here in the emergency department on 04/26/2022 for shortness of breath and had CT of the chest that was negative for pulmonary embolism. X-ray was reviewed and interpreted by radiology: No acute pulmonary findings on this single AP portable view of the chest. While patient was here in the [facility] [place] she had 2 episodes of suddenly worsening severe chest discomfort that was brief. Patient remains hemodynamically stable. Of note, EKG was performed immediately following an episode of chest discomfort here. 1654 --chest x-ray was interpreted by radiology: No acute pulmonary findings on this single AP portable view of the chest. Repeat troponin negative. Patient was given nitro SL and pressure resolved. -- Will hospitalize for chest pain concern for ACS, plan for cardiac monitoring and trending troponins. I spoke with Dr. Conner, discussed ED presentation and course including diagnostics, he will admit the patient for further diagnostics and treatment. Care was transitioned at time of admission. Medical Records Medical records reviewed: Yes I reviewed the patient's medical records. Medical records narrative: Myocardial perfusion scan 01/28/2021: MPI Conclusion The patient's ejection fraction was 60% with stress.? There were no wall motion abnormalities. There is no evidence of ischemia on the imaging portion exam. This represents a normal SPECT stress test. Lab Data Lab results reviewed: Yes I reviewed the patient's lab results. Labs: Laboratory Tests Range/Units 05/20/22 05/20/22 05/20/22 13:28 13:28 16:36 WBC (4.4-10.8) 10^3/uL 7.53 RBC (3.93-5.22) 10^6/uL 4.26 Hgb (11.2-15.7) g/dL 12.2 Hct (36.0-46.0) % 37.2 MCV (80-95) fL 87 MCH (27.0-33.0) pg 28.6 MCHC (32.0-36.0) % 32.8 RDW (11.7-14.6) % 14.1 Plt Count (130-400) 10^3/uL 420 H MPV (8.0-11.0) fL 8.4 Immature Gran % 0.3 Neutrophils % 67.2 Lymphocytes % 21.5 Monocytes % 7.6 Eosinophils % 2.9 Basophils % 0.5 Nucleated RBC % (0.0-0.3) % 0.0 Absolute Neutrophils (1.2-6.7) 10^3/uL 5.06 Absolute Lymphocytes (1.2-3.4) 10^3/uL 1.62 Absolute Monocytes (0.1-0.8) 10^3/uL 0.57 Absolute Eosinophils (0.0-0.7) 10^3/uL 0.22 Absolute Basophils (0.0-0.2) 10^3/uL 0.04 Sodium (136-145) mmol/L 136 Potassium (3.5-5.1) mmol/L 3.8 Chloride (98-107) mmol/L 101 Carbon Dioxide (21.0-32.0) mmol/L 26.1 Anion Gap (3-11) mmol/L 8.9 BUN (7-18) mg/dL 13 Creatinine (0.55-1.02) mg/dL 0.8 Est GFR (CKD-EPI 2020) (mL/min/1.73m2) 77.75 Glucose (74-106) mg/dL 97 Calcium (8.5-10.1) mg/dL 8.7 Magnesium (1.8-2.4) mg/dL 1.9 Total Bilirubin (0.2-1.0) mg/dL 0.2 AST (15-37) U/L 21 ALT (14-59) U/L 18 Alkaline Phosphatase (46-116) U/L 69 Troponin I (<or=60) ng/L < 50 < 50 Total Protein (6.4-8.2) g/dL 7.3 Albumin (3.4-5.0) g/dL 3.8 COVID-19 Source SARS-CoV-2 (PCR) (Negative) Range/Units 05/20/22 18:07 WBC (4.4-10.8) 10^3/uL RBC (3.93-5.22) 10^6/uL Hgb (11.2-15.7) g/dL Hct (36.0-46.0) % MCV (80-95) fL MCH (27.0-33.0) pg MCHC (32.0-36.0) % RDW (11.7-14.6) % Plt Count (130-400) 10^3/uL MPV (8.0-11.0) fL Immature Gran % Neutrophils % Lymphocytes % Monocytes % Eosinophils % Basophils % Nucleated RBC % (0.0-0.3) % Absolute Neutrophils (1.2-6.7) 10^3/uL Absolute Lymphocytes (1.2-3.4) 10^3/uL Absolute Monocytes (0.1-0.8) 10^3/uL Absolute Eosinophils (0.0-0.7) 10^3/uL Absolute Basophils (0.0-0.2) 10^3/uL Sodium (136-145) mmol/L Potassium (3.5-5.1) mmol/L Chloride (98-107) mmol/L Carbon Dioxide (21.0-32.0) mmol/L Anion Gap (3-11) mmol/L BUN (7-18) mg/dL Creatinine (0.55-1.02) mg/dL Est GFR (CKD-EPI 2020) (mL/min/1.73m2) Glucose (74-106) mg/dL Calcium (8.5-10.1) mg/dL Magnesium (1.8-2.4) mg/dL Total Bilirubin (0.2-1.0) mg/dL AST (15-37) U/L ALT (14-59) U/L Alkaline Phosphatase (46-116) U/L Troponin I (<or=60) ng/L Total Protein (6.4-8.2) g/dL Albumin (3.4-5.0) g/dL COVID-19 Source Nasal/Nares SARS-CoV-2 (PCR) (Negative) Negative HPI General Mode of arrival: ambulatory. Date/Time Provider Initiated Documentation: 05/20/22 13:28. Limitations to Documentation: no limitations. Information obtained by: patient. HPI Narrative: 72-year-old female with multiple medical problems including history of COPD, here with chief complaint of chest discomfort. Patient notes chest tightness that started this morning. She has had some radiation of the discomfort into her left arm. Patient notes she took 2 baby aspirin prior to arrival in the [facility]. Pain has improved and is hardly noticeable now. She has no associated shortness of breath. No cough. No leg swelling or calf tenderness. Related Data Home Medications Medication Instructions Recorded Confirmed inhaler,assist devices,access #1 ea 09/01/13 04/26/22 (EasiVent Mask Large) psyllium husk 3.4 gram/5.4 gram 1 tbs PO DAILY 08/11/19 05/20/22 oral powder (Metamucil) multivitamin-ferrous 1 tab PO DAILY 01/10/20 05/20/22 fumarate-folic acid 18 mg-400 mcg tablet ([facility]) acetaminophen 500 mg tablet 1,000 mg PO Q8H PRN pain #90 tabs 01/24/20 05/20/22 albuterol sulfate 90 mcg/actuation 2 puff inhalation Q4H PRN 09/14/20 05/20/22 aerosol inhaler (Ventolin HFA) meclizine 25 mg tablet 25 mg PO TID PRN dizziness #20 tabs 10/06/20 05/20/22 compressor, for nebulizer #1 ea 02/19/21 04/26/22 ipratropium 0.5 mg-albuterol 3 mg 3 ml inhalation Q6H PRN wheezing 02/19/21 05/20/22 (2.5 mg base)/3 mL nebulization #15 mL soln azithromycin 250 mg tablet 250 mg PO DAILY COPD #30 tabs 07/22/21 05/20/22 ibuprofen 200 mg tablet 400 mg PO Q6H PRN 07/22/21 05/20/22 levothyroxine 50 mcg tablet See Rx Instructions .Route 09/16/21 05/20/22 .COMPLEX #90 tabs omeprazole 40 mg capsule,delayed 40 mg PO DAILY #90 tab-caps 01/15/22 05/20/22 release tiotropium 2.5 mcg-olodaterol 2.5 See Rx Instructions .Route 02/17/22 05/20/22 mcg/actuation mist for inhalation .COMPLEX #4 grams (Stiolto Respimat) sertraline 50 mg tablet 50 mg PO DAILY #90 tabs 05/01/22 05/20/22 Previous Rx's Medication Instructions Recorded acetaminophen 500 mg tablet 1,000 mg PO Q8H PRN pain #90 tabs 01/24/20 meclizine 25 mg tablet 25 mg PO TID PRN dizziness #20 tabs 10/06/20 compressor, for nebulizer #1 ea 02/19/21 ipratropium 0.5 mg-albuterol 3 mg 3 ml inhalation Q6H PRN wheezing 02/19/21 (2.5 mg base)/3 mL nebulization #15 mL soln azithromycin 250 mg tablet 250 mg PO DAILY COPD #30 tabs 07/22/21 levothyroxine 50 mcg tablet See Rx Instructions .Route 09/16/21 .COMPLEX #90 tabs omeprazole 40 mg capsule,delayed 40 mg PO DAILY #90 tab-caps 01/15/22 release tiotropium 2.5 mcg-olodaterol 2.5 See Rx Instructions .Route 02/17/22 mcg/actuation mist for inhalation .COMPLEX #4 grams (Stiolto Respimat) sertraline 50 mg tablet 50 mg PO DAILY #90 tabs 05/01/22 Allergies Allergy/AdvReac Type Severity Reaction Status Date / Time tramadol Allergy Severe ITCHING, Verified 05/20/22 13:52 GI UPSET hydrocodone bitartrate Allergy Intermediate RASH, Verified 05/20/22 13:52 [From Vicodin] ITCHING fluticasone Allergy Verified 05/20/22 13:52 methylphenidate Allergy Verified 05/20/22 13:52 desipramine AdvReac Intermediate PALPITATION Verified 05/20/22 13:52 S pregabalin [From Lyrica] AdvReac Intermediate CONFUSION Verified 05/20/22 13:52 salmeterol xinafoate AdvReac Intermediate COUGH Verified 05/20/22 13:52 [From Advair Diskus] methylprednisolone sodium AdvReac Mild Agitation Verified 05/20/22 13:52 succinate [From Solu-Medrol] paroxetine HCl [From Paxil] AdvReac Mild JITTERY Verified 05/20/22 13:52 sertraline HCl [From Zoloft] AdvReac Mild JITTERY Verified 05/20/22 13:52 acetaminophen AdvReac nausea, Verified 05/20/22 13:52 vomiting General Stated Complaint: Chest Pain NATY: 3 PFSH All Active Problems Chest pain (Acute) Cough (Acute) Cough (Acute) COPD exacerbation (Acute) Muscular deconditioning (Acute) Ischial bursitis (Acute) Lumbar spondylosis (Acute) Right hip pain (Acute) Pulmonary nodule (Acute) Voiding difficulty (Acute) Depression (Chronic) Cough (Acute) PND (post-nasal drip) (Acute) acute on chronic? Hx nasal steroid per Dr. Garza. Weight loss, non-intentional (Acute) ~ 8 lbs, 3-4 mos Insomnia (Acute) Fluttering sensation of heart (Acute) Left chest pressure (Acute) History of pneumonia (Acute) Acute exacerbation of chronic obstructive pulmonary disease (COPD) (Acute) Constipation (Acute) Vision changes (Acute) Lung nodule (Acute) Abdominal pain (Acute) Dizziness (Acute) SBO (small bowel obstruction) (Acute) Forgetfulness (Acute) Fatigue (Acute) Status post total hip replacement, left (Acute 01/24/20) Diverticulitis (Chronic 04/25/14) a. 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 that pain is secondary to scar tissue within muscle and lidocaine injection given with effect. Lymphadenitis (Acute 05/23/13) Diverticulitis of sigmoid colon (Acute 04/25/14) Bilateral knee pain (Acute) 02/23/19 F/u [facility] [place] [facility] Left foot pain (Acute) IFG (impaired fasting glucose) (Acute) Itching (Acute) Cough (Acute) SOB (shortness of breath) (Acute) Vertigo (Acute) Left hip pain (Acute) Anxiety and depression (Acute) Headache (Acute) Osteoarthritis of left hip (Acute) History of Edouard's esophagus (Acute) Pharyngeal dysphagia (Acute) Polyarthralgia (Acute) Positive SANDY (antinuclear antibody) (Acute) intermediate (current) use of non-steroidal anti-inflammatories (nsaid) (Acute) Regurgitation of food (Acute) Depressive disorder (Chronic) fatigue History of bilateral knee replacement (Acute) Medical History Chronic obstructive lung disease quit smoking 2000, [facility] PFT 01/06/18 Mild airflow obstruction, no significant improvement after inhaled bronchodilators RH COPD (chronic obstructive pulmonary disease) Emphysema Depression Diverticulitis HTN (hypertension) Hx of chest pain Pt. states her chest pain was related to her stomach issues, and has not had any cardiac issues currently, and does not see a home health care provider. Irritable colon Osteoarthritis Sialoadenitis Surgical History Arthroscopy, Shoulder right; acromioplasty Colectomy 04/25/14 Colonoscopy - MAC (09/24/16) EGD - IV Sedation 2014 EGD - MAC (09/24/16) Extraction of cataract H/O surgical procedure a. total abdominal hysterectomy-bso b. exploratory laparotomy for reoval of ovaries c. knee replacements d. sigmoid resection 04/25/2014 e. right shoulder acromioplasty f. Elyssa fundoplication 1995 g. bilateral open carpal tunnel release 1985 History of bilateral salpingo-oophorectomy (05/18/14) History of hysterectomy (05/18/14) Elyssa Fundoplication (~1995) Open Carpal Tunnel release (~1985) B/L Replacement of total knee joint (~2004) B/L Family History Mother Diabetes Essential hypertension Personal history of malignant neoplasm LUNG Hyperlipidemia Asthma Father Essential hypertension Personal history of malignant neoplasm THROAT Heart disease Hyperlipidemia Sister Drug abuse Essential hypertension COPD (chronic obstructive pulmonary disease) Depression Heart disease Hyperlipidemia Asthma Grandfather Essential hypertension Personal history of malignant neoplasm Heart disease Hyperlipidemia Stroke Grandfather , UNKNOWN Alcohol abuse Heart disease Stroke Grandmother Essential hypertension Personal history of malignant neoplasm Hyperlipidemia Grandmother Alcohol abuse Personal history of malignant neoplasm Heart disease Son Depression Heart disease Asthma Son Alcohol abuse Essential hypertension Depression Daughter Essential hypertension Asthma Daughter Essential hypertension Depression Hyperlipidemia Social History Smoking/Tobacco Use Status: Former Tobacco Use Smoking risk assessment performed?: Yes Alcohol Intake: current Alcohol Intake frequency: a few times a month Drug use: Never Substance use type: does not use Number of Children: 4 Pets and animals: Yes Pets and animals: cat(s) and dog(s) Current gender identity: female What type of physical activity do you participate in: walking Frequency: daily Seatbelt use: always Water heater temp set <120 deg: Yes Working smoke detector in home: Yes Fire extinguisher in home: Yes Carbon monox detector in home: Yes Firearms in home: Yes Firearms unloaded and locked: Yes Do you feel safe at home: Yes Do you feel safe in your relationship?: Yes Exam Const General: cooperative and no acute distress HENMT Mouth: moist mucous membranes Eyes Conjunctivae: normal conjunctivae Sclera: normal sclerae Neck Neck: trachea midline and supple Resp Auscultation: clear to auscultation bilaterally, no rales, no rhonchi and no wheezes Cardio Rate: regular rate and not tachycardic Rhythm: regular rhythm GI Palpation: soft, not firm, no guarding, no masses, not rigid and nontender Skin General skin exam: no rashes or lesions noted Neuro General: patient alert, patient awake and tone normal Extrem General: no calf tenderness and no edema Psych Appearance: grossly normal Mental Status: mental status grossly normal Course Vital Signs Vital signs: Vital Signs Temperature 36.6 C 05/20/22 13:13 Pulse 99 H 05/20/22 13:13 Respiratory Rate 18 05/20/22 13:13 Blood Pressure 166/123 H 05/20/22 13:13 Pulse Oximetry 97 05/20/22 13:13 Temperature 36.6 C 05/20/22 13:13 Temperature Source Temporal Artery Scan 05/20/22 13:13 Pulse 82 05/20/22 15:31 Pulse 75 05/20/22 15:40 Respiratory Rate 24 05/20/22 15:40 Respiratory Effort 05/20/22 13:47 Respiratory Depth Normal 05/20/22 13:47 Respiratory Pattern Normal 05/20/22 13:47 Blood Pressure 118/57 L 05/20/22 15:31 Blood Pressure Mean 72 05/20/22 15:31 Pulse Oximetry 95 05/20/22 15:40 Lab/Test Results Lab/Test Results: Laboratory Tests Range/Units 05/20/22 05/20/22 13:28 13:28 WBC (4.4-10.8) 10^3/uL 7.53 RBC (3.93-5.22) 10^6/uL 4.26 Hgb (11.2-15.7) g/dL 12.2 Hct (36.0-46.0) % 37.2 MCV (80-95) fL 87 MCH (27.0-33.0) pg 28.6 MCHC (32.0-36.0) % 32.8 RDW (11.7-14.6) % 14.1 Plt Count (130-400) 10^3/uL 420 H MPV (8.0-11.0) fL 8.4 Immature Gran % 0.3 Neutrophils % 67.2 Lymphocytes % 21.5 Monocytes % 7.6 Eosinophils % 2.9 Basophils % 0.5 Nucleated RBC % (0.0-0.3) % 0.0 Absolute Neutrophils (1.2-6.7) 10^3/uL 5.06 Absolute Lymphocytes (1.2-3.4) 10^3/uL 1.62 Absolute Monocytes (0.1-0.8) 10^3/uL 0.57 Absolute Eosinophils (0.0-0.7) 10^3/uL 0.22 Absolute Basophils (0.0-0.2) 10^3/uL 0.04 Sodium (136-145) mmol/L 136 Potassium (3.5-5.1) mmol/L 3.8 Chloride (98-107) mmol/L 101 Carbon Dioxide (21.0-32.0) mmol/L 26.1 Anion Gap (3-11) mmol/L 8.9 BUN (7-18) mg/dL 13 Creatinine (0.55-1.02) mg/dL 0.8 Est GFR (CKD-EPI 2020) (mL/min/1.73m2) 77.75 Glucose (74-106) mg/dL 97 Calcium (8.5-10.1) mg/dL 8.7 Magnesium (1.8-2.4) mg/dL 1.9 Total Bilirubin (0.2-1.0) mg/dL 0.2 AST (15-37) U/L 21 ALT (14-59) U/L 18 Alkaline Phosphatase (46-116) U/L 69 Troponin I (<or=60) ng/L < 50 Total Protein (6.4-8.2) g/dL 7.3 Albumin (3.4-5.0) g/dL 3.8
[2022-05-20] MEDS: nitroGLYcerin 0.4 MG TAB SL (17:05)
[2022-05-20 17:17] LABS: Troponin I < 50 ng/L (<or=60)
[2022-05-20 18:10] LABS: Source Nasal/Nares
[2022-05-20 18:40] LABS: COVID-19 PCR Negative (Negative)
--- NOTE | 2022-05-20 19:41 | W.PM.HP.N ---
Date of service: 05/20/22 Time of Service: 19:42 Assessment and Plan Assessment and plan (1) Chest pain: Status: Acute Assessment and plan: Her chest pain has suggestions of unstable angina. She was started on aspirin daily. Lipid panel be checked tomorrow. Her heart rates a bit high and will start low-dose metoprolol. She will be placed on as needed nitroglycerin and get electrocardiogram with any chest pain. Cardiology consult is requested for tomorrow. I think she probably should have a MPI tomorrow if this can be arranged. This has not been ordered yet. Also ordered a urinalysis because of symptoms of not knowing when her urination is finished. I will also request TSH as I do not see it 1 recently. She confirmed that she is DNR DNI. History of Present Illness History of Present Illness Chief Complaint: chest pressure Narrative: This 72-year-old female is here because of chest pressure. She says that she was admitted to the hospital about 12 years ago for angina after her . I do not see a record of that here. She said she has had no heart trouble since that time however in the last 2 to 3 weeks she has had increasing amounts of chest pressure and seem to be associated with activity. She says over the last few weeks and especially in the last 3 to 4 days she has had increase in frequency and intensity of the pressure. Said it hurts under her left breast and radiates to her left arm. When this occurs she gets a cold wave over her. This morning she had a combined when she took her cat out for a walk. She said she only walked about 15 feet before . She was not diaphoretic or short of breath but did notice some nausea. She took a baby aspirin. The pain recurred a little while ago 6 PM and did seem to get better with sublingual nitroglycerin 1 tablet. She states she has been quite tired recently. She acknowledges that she has been under some stress as her 50-year-old son has been diagnosed with rectal, liver and lung cancer is now living with her. She also states that he drinks quite a bit of alcohol. He has a young child which is within at times. She states she has chronic obstructive lung disease and uses her nebulizer 0 to a couple times a day. She also has been treated for a partial intestinal blockage and she had an option of having surgery or staying on stool softeners and now she would suggest an softeners. She says that her urine is slow at times and she cannot tell When she is done urinating. She states that she does not want any kind of resuscitation and intubation if she should have a cardiac or respiratory arrest. She has not smoked for about 23 years. She states she has had her COVID-vaccine and flu vaccine. Review of Systems Constitutional Constitutional: Denies chills, Denies fever(s), Denies frequent falls, Denies night sweats and Reports poor appetite Cardiovascular Cardiovascular: Reports chest pain, Reports chest pain with activity, Denies diaphoresis, Denies lightheadedness, Denies radiating jaw, neck or arm pain, Denies palpitations, Reports dyspnea and Reports dyspnea on exertion Respiratory Respiratory: Reports dyspnea and Reports dyspnea on exertion Comments: Dyspnea is chronic Gastrointestinal Gastrointestinal: Denies bloating, Denies change in stool character, Denies constipation, Denies diarrhea, Reports nausea and Denies vomiting Genitourinary Genitourinary: Denies hematuria, Denies urinary frequency and Reports difficulty voiding Neurologic Neurologic: Denies frequent falls Endocrine Endocrine: Denies palpitations PFSH All Active Problems Chest pain (Acute) Cough (Acute) Cough (Acute) COPD exacerbation (Acute) Muscular deconditioning (Acute) Ischial bursitis (Acute) Lumbar spondylosis (Acute) Right hip pain (Acute) Pulmonary nodule (Acute) Voiding difficulty (Acute) Depression (Chronic) Cough (Acute) PND (post-nasal drip) (Acute) acute on chronic? Hx nasal steroid per Dr. Garza. Weight loss, non-intentional (Acute) ~ 8 lbs, 3-4 mos Insomnia (Acute) Fluttering sensation of heart (Acute) Left chest pressure (Acute) History of pneumonia (Acute) Acute exacerbation of chronic obstructive pulmonary disease (COPD) (Acute) Constipation (Acute) Vision changes (Acute) Lung nodule (Acute) Abdominal pain (Acute) Dizziness (Acute) SBO (small bowel obstruction) (Acute) Forgetfulness (Acute) Fatigue (Acute) Status post total hip replacement, left (Acute 01/24/20) Diverticulitis (Chronic 04/25/14) a. 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 that pain is secondary to scar tissue within muscle and lidocaine injection given with effect. 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 PFT 01/06/18 Mild airflow obstruction, no significant improvement after inhaled bronchodilators RH COPD (chronic obstructive pulmonary disease) Emphysema Depression Diverticulitis HTN (hypertension) Hx of chest pain Pt. states her chest pain was related to her stomach issues, and has not had any cardiac issues currently, and does not see a flight operation coordinator. Irritable colon Osteoarthritis Sialoadenitis Surgical History Arthroscopy, Shoulder right; acromioplasty Colectomy 04/25/14 Colonoscopy - MAC (09/24/16) EGD - IV Sedation 2014 EGD - MAC (09/24/16) Extraction of cataract H/O surgical procedure a. total abdominal hysterectomy-bso b. exploratory laparotomy for reoval of ovaries c. knee replacements d. sigmoid resection 04/25/2014 e. right shoulder acromioplasty f. Elyssa fundoplication 1995 g. bilateral open carpal tunnel release 1985 History of bilateral salpingo-oophorectomy (05/18/14) History of hysterectomy (05/18/14) Elyssa Fundoplication (~1995) Open Carpal Tunnel release (~1985) B/L Replacement of total knee joint (~2004) B/L Family History Mother Diabetes Essential hypertension Personal history of malignant neoplasm LUNG Hyperlipidemia Asthma Father Essential hypertension Personal history of malignant neoplasm THROAT Heart disease Hyperlipidemia Sister Drug abuse Essential hypertension COPD (chronic obstructive pulmonary disease) Depression Heart disease Hyperlipidemia Asthma Grandfather Essential hypertension Personal history of malignant neoplasm Heart disease Hyperlipidemia Stroke Grandfather , UNKNOWN Alcohol abuse Heart disease Stroke Grandmother Essential hypertension Personal history of malignant neoplasm Hyperlipidemia Grandmother Alcohol abuse Personal history of malignant neoplasm Heart disease Son Depression Heart disease Asthma Son Alcohol abuse Essential hypertension Depression Daughter Essential hypertension Asthma Daughter Essential hypertension Depression Hyperlipidemia Social History Smoking/Tobacco Use Status: Former Tobacco Use Smoking risk assessment performed?: Yes Alcohol Intake: current Alcohol Intake frequency: a few times a month Drug use: Never Substance use type: does not use Number of Children: 4 Pets and animals: Yes Pets and animals: cat(s) and dog(s) Current gender identity: female What type of physical activity do you participate in: walking Frequency: daily Seatbelt use: always Water heater temp set <120 deg: Yes Working smoke detector in home: Yes Fire extinguisher in home: Yes Carbon monox detector in home: Yes Firearms in home: Yes Firearms unloaded and locked: Yes Do you feel safe at home: Yes Do you feel safe in your relationship?: Yes Meds Allergies and Home Medications Allergies Allergy/AdvReac Type Severity Reaction Status Date / Time tramadol Allergy Severe ITCHING, Verified 05/20/22 19:24 GI UPSET hydrocodone bitartrate Allergy Intermediate RASH, Verified 05/20/22 19:24 [From Vicodin] ITCHING fluticasone Allergy Verified 05/20/22 19:24 methylphenidate Allergy Verified 05/20/22 19:24 desipramine AdvReac Intermediate PALPITATION Verified 05/20/22 19:24 S pregabalin [From Lyrica] AdvReac Intermediate CONFUSION Verified 05/20/22 19:24 salmeterol xinafoate AdvReac Intermediate COUGH Verified 05/20/22 19:24 [From Advair Diskus] methylprednisolone sodium AdvReac Mild Agitation Verified 05/20/22 19:24 succinate [From Solu-Medrol] paroxetine HCl [From Paxil] AdvReac Mild JITTERY Verified 05/20/22 19:24 sertraline HCl [From Zoloft] AdvReac Mild JITTERY Verified 05/20/22 19:24 acetaminophen AdvReac nausea, Verified 05/20/22 19:24 vomiting Home Medications Medication Instructions Recorded Confirmed Type inhaler,assist devices,access #1 ea 09/01/13 04/26/22 History (EasiVent Mask Large) psyllium husk 3.4 gram/5.4 gram 1 tbs PO DAILY 08/11/19 05/20/22 History oral powder (Metamucil) multivitamin-ferrous 1 tab PO DAILY 01/10/20 05/20/22 History fumarate-folic acid 18 mg-400 mcg tablet ([facility]) acetaminophen 500 mg tablet 1,000 mg PO Q8H PRN pain #90 tabs 01/24/20 05/20/22 Rx albuterol sulfate 90 mcg/actuation 2 puff inhalation Q4H PRN 09/14/20 05/20/22 History aerosol inhaler (Ventolin HFA) meclizine 25 mg tablet 25 mg PO TID PRN dizziness #20 tabs 10/06/20 05/20/22 Rx compressor, for nebulizer #1 ea 02/19/21 04/26/22 Rx ipratropium 0.5 mg-albuterol 3 mg 3 ml inhalation Q6H PRN wheezing 02/19/21 05/20/22 Rx (2.5 mg base)/3 mL nebulization #15 mL soln azithromycin 250 mg tablet 250 mg PO DAILY COPD #30 tabs 07/22/21 05/20/22 Rx ibuprofen 200 mg tablet 400 mg PO Q6H PRN 07/22/21 05/20/22 History levothyroxine 50 mcg tablet See Rx Instructions .Route 09/16/21 05/20/22 Rx .COMPLEX #90 tabs omeprazole 40 mg capsule,delayed 40 mg PO DAILY #90 tab-caps 01/15/22 05/20/22 Rx release tiotropium 2.5 mcg-olodaterol 2.5 See Rx Instructions .Route 02/17/22 05/20/22 Rx mcg/actuation mist for inhalation .COMPLEX #4 grams (Stiolto Respimat) sertraline 50 mg tablet 50 mg PO DAILY #90 tabs 05/01/22 05/20/22 Rx Exam Const General: cooperative, no acute distress and other (She appears older than her stated age) Nutritional Appearance: average body habitus Neck Neck: normal visual inspection, no lymphadenopathy and no JVD Resp Auscultation: clear to auscultation bilaterally, no rales, no rhonchi and no wheezes Cardio Rate: regular rate Rhythm: regular rhythm Heart Sounds: S1 normal, S2 normal, no gallops, no murmurs and no rubs GI Palpation: soft, no hepatosplenomegaly, not firm, no guarding and nontender Neuro General: patient alert, patient awake, patient oriented x3 and no focal motor deficits Extrem General: normal to inspection, no clubbing, no cyanosis and no edema Results Labs Result diagrams: 05/20/22 13:28 05/20/22 13:28 Labs: Laboratory Results - last 24 hr 05/20/22 05/20/22 05/20/22 13:28 13:28 16:36 WBC 7.53 RBC 4.26 Hgb 12.2 Hct 37.2 MCV 87 MCH 28.6 MCHC 32.8 RDW 14.1 Plt Count 420 H MPV 8.4 Immature Gran % 0.3 Neutrophils % 67.2 Lymphocytes % 21.5 Monocytes % 7.6 Eosinophils % 2.9 Basophils % 0.5 Nucleated RBC % 0.0 Absolute Neutrophils 5.06 Absolute Lymphocytes 1.62 Absolute Monocytes 0.57 Absolute Eosinophils 0.22 Absolute Basophils 0.04 Sodium 136 Potassium 3.8 Chloride 101 Carbon Dioxide 26.1 Anion Gap 8.9 BUN 13 Creatinine 0.8 Est GFR (CKD-EPI 2020) 77.75 Glucose 97 Calcium 8.7 Magnesium 1.9 Total Bilirubin 0.2 AST 21 ALT 18 Alkaline Phosphatase 69 Troponin I < 50 < 50 Total Protein 7.3 Albumin 3.8 COVID-19 Source SARS-CoV-2 (PCR) 05/20/22 18:07 WBC RBC Hgb Hct MCV MCH MCHC RDW Plt Count MPV Immature Gran % Neutrophils % Lymphocytes % Monocytes % Eosinophils % Basophils % Nucleated RBC % Absolute Neutrophils Absolute Lymphocytes Absolute Monocytes Absolute Eosinophils Absolute Basophils Sodium Potassium Chloride Carbon Dioxide Anion Gap BUN Creatinine Est GFR (CKD-EPI 2020) Glucose Calcium Magnesium Total Bilirubin AST ALT Alkaline Phosphatase Troponin I Total Protein Albumin COVID-19 Source Nasal/Nares SARS-CoV-2 (PCR) Negative Last Vital Signs Temp 36.6 C 05/20/22 13:13 Pulse 77 05/20/22 17:46 Resp 26 H 05/20/22 17:46 BP 128/59 L 05/20/22 17:46 Pulse Ox 95 05/20/22 17:46
[2022-05-20 20:07] LABS: Abs Immature Grans 0.02 10^3/uL (0.0-0.06); Absolute Basophil Count 0.03 10^3/uL (0.0-0.2); Absolute Lymphocyte Count 1.92 10^3/uL (1.2-3.4); Absolute Neutrophil Count 4.24 10^3/uL (1.2-6.7); Basophils % 0.4; Eosinophils % 4.2; HCT 33.1 % (36.0-46.0); HGB 11.1 g/dL (11.2-15.7); Immature Grans % 0.3; MCH 29.4 pg (27.0-33.0); MCHC 33.5 % (32.0-36.0); MCV 88 fL (80-95); MPV 8.4 fL (8.0-11.0); Monocytes % 8.4; Neutrophils % 59.7; Platelet Count 381 10^3/uL (130-400); RBC 3.78 10^6/uL (3.93-5.22); RDW 14.3 % (11.7-14.6); RDW-SD 45.8 fL; WBC 7.11 10^3/uL (4.4-10.8)
[2022-05-20 20:34] LABS: ALT 17 U/L (14-59); AST 17 U/L (15-37); Albumin 3.3 g/dL (3.4-5.0); Alkaline Phosphatase 64 U/L (46-116); BUN 10 mg/dL (7-18); Bilirubin, Total 0.2 mg/dL (0.2-1.0); CREATININE 0.9 mg/dL (0.55-1.02); Calcium 8.4 mg/dL (8.5-10.1); Chloride 104 mmol/L (98-107); Glucose 124 mg/dL (74-106); Magnesium 1.8 mg/dL (1.8-2.4); Potassium 3.6 mmol/L (3.5-5.1); Sodium 138 mmol/L (136-145); Total Protein 5.8 g/dL (6.4-8.2)
[2022-05-20 21:37] LABS: Bilirubin Negative (Negative); Blood Negative (Negative); Clarity Clear (Clear); Glucose Negative (Negative); Ketones Negative (Negative); Leukocyte Esterase Small (Negative); Nitrite Negative (Negative); Urobilinogen 0.2 EU/dL (Up TO 0.2); pH 5.5 (5-8)
[2022-05-20 21:51] LABS: Bacteria Few HPF (Negative); C & S Indicated? Yes; Crystals Negative HPF (Negative); Epithelial Cells Few HPF (Negative); Mucus Negative (Negative); RBC 0-2 HPF (0-2)
[2022-05-20] MEDS: Metoprolol 12.5 MG TAB PO (23:00)
[2022-05-20] MEDS: Enoxaparin 40 MG/0.4 ML SYR SC (23:00)
[2022-05-21] VITALS (11 sets, daily range): BP systolic 102–135; BP diastolic 47–78; PULSE 59–72; RESP 16–19; TEMP 36.2–37.1; O2SAT 95–97
[2022-05-21 00:09] LABS: Troponin I < 50 ng/L (<or=60)
[2022-05-21] MEDS: Metoprolol 12.5 MG TAB PO ×2 (05:44→14:02)
[2022-05-21] MEDS: Levothyroxine 50 MCG TAB PO (05:44)
[2022-05-21 07:20] LABS: Calculated LDL 102 mg/dL (<100); Cholesterol 195 mg/dL (<200); HDL Cholesterol 70 mg/dL (40-60); TSH (W/Ref FT4) 1.51 uIU/mL (0.36-3.74); Triglyceride 115 mg/dL (<150); Troponin I < 50 ng/L (<or=60)
[2022-05-21] MEDS: Psyllium PKT 1 EACH PO (08:10)
[2022-05-21] MEDS: Sertraline 50 MG TAB PO (08:10)
[2022-05-21] MEDS: Azithromycin 250 MG TAB PO (08:10)
[2022-05-21] MEDS: Omeprazole 20 MG CAPCR 40 MG PO (08:10)
[2022-05-21] MEDS: Aspirin 81 MG CHEW PO (08:10)
[2022-05-21] MEDS: Tiotropium/Olodaterol 10 PUFF INHALER 2 PUFF IH (08:45)
--- NOTE | 2022-05-21 09:03 | INITIAL_ITS ---
- If Service Date Differs Date of service: 05/21/22 Time of Service: 09:03 Care Management Initial Assess REASON FOR HOSPITALIZATION:: chest pain PAST MEDICAL HISTORY/PAST SURGICAL HISTORY:: All Active Problems . Chest pain (Acute). Cough (Acute). Cough (Acute). COPD exacerbation (Acute). Muscular deconditioning (Acute). Ischial bursitis (Acute). Lumbar spondylosis (Acute). Right hip pain (Acute). Pulmonary nodule (Acute). Voiding difficulty (Acute). Depression (Chronic). Cough (Acute). PND (post-nasal drip) (Acute). acute on chronic? Hx nasal steroid per Dr. Garza. Weight loss, non-intentional (Acute). ~ 8 lbs, 3-4 mos. Insomnia (Acute). Fluttering sensation of heart (Acute). Left chest pressure (Acute). History of pneumonia (Acute). Acute exacerbation of chronic obstructive pulmonary disease (COPD) (Acute). Constipation (Acute). Vision changes (Acute). Lung nodule (Acute). Abdominal pain (Acute). Dizziness (Acute). SBO (small bowel obstruction) (Acute). Forgetfulness (Acute). Fatigue (Acute). Status post total hip replacement, left (Acute 01/24/20). Diverticulitis (Chronic 04/25/14). a. sigmoid resection 04/25/2014. COPD (chronic obstructive pulmonary disease) (Chronic). Chronic back pain (Chronic). Abnormal weight loss (Acute). Anxiety (Acute 03/19/17). Edouard's esophagus (Acute 10/21/12). q 3 yr EGD due 08/2019 (h/o Elyssa fundoplication). Benign paroxysmal positional vertigo of left ear (Acute 02/27/16). Essential hypertension (Acute 04/18/13). Hypothyroidism (Acute 10/26/12). Irritable colon (Acute 11/11/11). Low back pain (Acute). Memory loss (Acute 11/14/14). Osteoarthritis (Acute 05/18/14). s/p bilat TKR. Sialoadenitis (Acute 05/23/13). [place] [facility] [place] ([place]). 08/12/[address] Froilan Hogue - ? that pain is secondary to scar tissue within muscle and lidocaine injection given with effect. Lymphadenitis (Acute 05/23/13). Diverticulitis of sigmoid colon (Acute 04/25/14). Bilateral knee pain (Acute). 02/23/19 [place] [facility] [place] [facility]. Left foot pain (Acute). IFG (impaired fasting glucose) (Acute). Itching (Acute). Cough (Acute). SOB (shortness of breath) (Acute). Vertigo (Acute). Left hip pain (Acute). Anxiety and depression (Acute). Headache (Acute). Osteoarthritis of left hip (Acute). History of Edouard's esophagus (Acute). Pharyngeal dysphagia (Acute). Polyarthralgia (Acute). Positive SANDY (antinuclear antibody) (Acute). 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 Regurgitation of food (Acute). Depressive disorder (Chronic). fatigue. History of bilateral knee replacement (Acute). Medical History . Chronic obstructive lung disease. quit smoking 2000, [facility] PFT 01/06/18 Mild airflow obstruction, no significant improvement after inhaled bronchodilators RH. COPD (chronic obstructive pulmonary disease). Emphysema. Depression. Diverticulitis. HTN (hypertension). Hx of chest pain. Pt. 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 Irritable colon. Osteoarthritis. Sialoadenitis. Surgical History . Arthroscopy, Shoulder. right; acromioplasty. Colectomy. 04/25/14. Colonoscopy - MAC (09/24/16). EGD - IV Sedation. 2014. EGD - MAC (09/24/16). Extraction of cataract. H/O surgical procedure. a. total abdominal hysterectomy-bso. b. exploratory laparotomy for reoval of ovaries. c. knee replacements. d. sigmoid resection 04/25/2014. e. right shoulder acromioplasty. f. Elyssa fundoplication 1995. g. bilateral open carpal tunnel release 1985. History of bilateral salpingo-oophorectomy (05/18/14). History of hysterectomy (05/18/14). Elyssa Fundoplication (~1995). Open Carpal Tunnel release (~1985). B/L. Replacement of total knee joint (~2004). B/L PREVIOUS FUNCTIONAL STATUS/SOCIAL/FAMILY SUPPORTS:: Lydia lives in a mobile home in [place], [place] Her adult son, who has metastatic cancer, lives with her. She has another son and 2 daughters that live in the area and are supportive. Lydia has 10 grandchildren and 16 grandchildren. She is independent at baseline and does not receive any community services. CURRENT FUNCTIONAL STATUS:: Lydia was sitting up in a chiar when CM met with her. She was pleasant and agreeable to conversation but stated that she feels really washed out, like a dishrag. Brit talked about the challenges of caring for her son. While he is fairly independent with ADLs etc, he is also an alcoholic - a really bad one, she stated. She did state that he never drinks when he has hois children though as they are only 3 and 4 years old. ADVANCE DIRECTIVES:: on file. Shelly PERKINS Has patient been provided with info about the portal/API?: Yes Did the patient sign up for the portal?: No CODE STATUS:: DNR/DNI INSURANCE COVERAGE / FINANCIAL ISSUES:: A[employer]/[facility] Medicare Replacement CURRENT HOME/COMMUNITY SERVICES/EQUIPMENT:: none PRIMARY CARE PHYSICIAN:: Kristine Carter POTENTIAL DISCHARGE NEEDS:: follow up with PCP and plan of care PATIENT/FAMILY EDUCATION NEEDS:: Review of discharge instructions, limitations, activity, follow up plan, Ask Me Three TRANSPORTATION:: via private vehicle with family PLAN:: Lydia will likely be discharged home with no new services when medically cleared by provider.She will follow up with cardiology, her PCP and her discharge plan of care. Lydia will transport with family. CM will follow and assess for ongoing discharge concerns.
--- NOTE | 2022-05-21 11:36 | CHAPLAIN ---
Brit was up in the chair when I visited. We know each other from previous admissions. She said she is very stressed. She's taking care of her 50 year old son who has terminal cancer, according to Brit. He was receiving radiation treatments at [facility], but was banned from there, Brit said, so now has to be driven to [facility] three times a week. She said the radiation treatments really wipe him out. He is often angry and drinking, according to Brit, and so he is difficult to help. Brit's PCP is Dr. Soria and she is aware of the situation. Brit said she has some time for herself when her son is at his [facility] appointments and she relaxes by doing [employer] artwork which she really enjoys.
--- NOTE | 2022-05-21 16:35 | PGE_ITS ---
Date of Service Date of service: 05/21/22 Time of Service: 16:36 Assessment and Plan Assessment and plan (1) Chest pain: Status: Acute Assessment and plan: Unstable angina. Daily aspirin Betablocker - hold for MPI Troponin x3 negative Total cholesterol 102, HDL 70, LDL 102 MPI tomorrow he confirmed that she is DNR DNI. (2) Chronic obstructive lung disease: Assessment and plan: Continue chronic azithromycin (per pulmonology) Continue inhalers Stiolto Respimat, ipratropium/albuterol nebs, albuterol PRN (3) HTN (hypertension): Assessment and plan: Chronic - stable, continue home medications, monitor S-120s (4) Depression: Assessment and plan: Stable - continue home medications - Sertraline 50mg (5) Hypothyroidism: Status: Chronic Assessment and plan: TSH Continue home meds (6) DVT prophylaxis: Status: Acute Assessment and plan: Enoxaparin (7) Discharge planning issues: Status: Acute Assessment and plan: Home without services when stable Subjective Subjective Patient reports: no new complaints, feels better, tolerating a regular diet, voiding w/o difficulty, bowel movement and afebrile; denies flatus, diarrhea, nausea or vomiting Interval history since last seen: Lydia is feeling weak, although she states she does not have any other concerns Exam Const General: cooperative, no acute distress and other (She appears older than her stated age) Nutritional Appearance: average body habitus Neck Neck: normal visual inspection, no lymphadenopathy and no JVD Resp Auscultation: clear to auscultation bilaterally, no rales, no rhonchi and no wheezes Cardio Rate: regular rate Rhythm: regular rhythm Heart Sounds: S1 normal, S2 normal, no gallops, no murmurs and no rubs GI Palpation: soft, no hepatosplenomegaly, not firm, no guarding and nontender Neuro General: patient alert, patient awake, patient oriented x3 and no focal motor deficits Extrem General: normal to inspection, no clubbing, no cyanosis and no edema Objective Last Vital Signs Temp 37.1 C 05/21/22 15:10 Pulse 59 L 05/21/22 15:33 Resp 19 05/21/22 15:10 BP 124/63 05/21/22 15:10 Pulse Ox 96 05/21/22 15:10 Laboratory Results - last 24 hr 05/20/22 05/20/22 05/20/22 16:36 18:07 20:03 WBC RBC Hgb Hct MCV MCH MCHC RDW Plt Count MPV Immature Gran % Neutrophils % Lymphocytes % Monocytes % Eosinophils % Basophils % Nucleated RBC % Absolute Neutrophils Absolute Lymphocytes Absolute Monocytes Absolute Eosinophils Absolute Basophils Sodium 138 Potassium 3.6 Chloride 104 Carbon Dioxide 28.0 Anion Gap 6.0 BUN 10 Creatinine 0.9 Est GFR (CKD-EPI 2020) 67.50 Glucose 124 H Calcium 8.4 L Magnesium 1.8 Total Bilirubin 0.2 AST 17 ALT 17 Alkaline Phosphatase 64 Troponin I < 50 Total Protein 5.8 L Albumin 3.3 L Triglycerides Total Cholesterol LDL Cholesterol, Calc HDL Cholesterol TSH Urine Color Urine Clarity Urine pH Ur Specific [place] Urine Protein Urine Ketones Urine Blood Urine Nitrite Urine Bilirubin Urine Urobilinogen Ur Leukocyte Esterase Urine RBC Urine WBC Ur Epithelial Cells Urine Crystals Urine Bacteria Urine Mucus Ur Culture Indicated? Urine Glucose COVID-19 Source Nasal/Nares SARS-CoV-2 (PCR) Negative 05/20/22 05/20/22 05/20/22 20:03 21:00 23:48 WBC 7.11 RBC 3.78 L Hgb 11.1 L Hct 33.1 L MCV 88 MCH 29.4 MCHC 33.5 RDW 14.3 Plt Count 381 MPV 8.4 Immature Gran % 0.3 Neutrophils % 59.7 Lymphocytes % 27.0 Monocytes % 8.4 Eosinophils % 4.2 Basophils % 0.4 Nucleated RBC % 0.0 Absolute Neutrophils 4.24 Absolute Lymphocytes 1.92 Absolute Monocytes 0.60 Absolute Eosinophils 0.30 Absolute Basophils 0.03 Sodium Potassium Chloride Carbon Dioxide Anion Gap BUN Creatinine Est GFR (CKD-EPI 2020) Glucose Calcium Magnesium Total Bilirubin AST ALT Alkaline Phosphatase Troponin I < 50 Total Protein Albumin Triglycerides Total Cholesterol LDL Cholesterol, Calc HDL Cholesterol TSH Urine Color Yellow Urine Clarity Clear Urine pH 5.5 Ur Specific [place] 1.010 Urine Protein Negative Urine Ketones Negative Urine Blood Negative Urine Nitrite Negative Urine Bilirubin Negative Urine Urobilinogen 0.2 Ur Leukocyte Esterase Small H Urine RBC 0-2 Urine WBC 5-10 Ur Epithelial Cells Few Urine Crystals Negative Urine Bacteria Few Urine Mucus Negative Ur Culture Indicated? Yes Urine Glucose Negative COVID-19 Source SARS-CoV-2 (PCR) 05/21/22 06:14 WBC RBC Hgb Hct MCV MCH MCHC RDW Plt Count MPV Immature Gran % Neutrophils % Lymphocytes % Monocytes % Eosinophils % Basophils % Nucleated RBC % Absolute Neutrophils Absolute Lymphocytes Absolute Monocytes Absolute Eosinophils Absolute Basophils Sodium Potassium Chloride Carbon Dioxide Anion Gap BUN Creatinine Est GFR (CKD-EPI 2020) Glucose Calcium Magnesium Total Bilirubin AST ALT Alkaline Phosphatase Troponin I < 50 Total Protein Albumin Triglycerides 115 Total Cholesterol 195 LDL Cholesterol, Calc 102 H HDL Cholesterol 70 TSH 1.51 Urine Color Urine Clarity Urine pH Ur Specific [place] Urine Protein Urine Ketones Urine Blood Urine Nitrite Urine Bilirubin Urine Urobilinogen Ur Leukocyte Esterase Urine RBC Urine WBC Ur Epithelial Cells Urine Crystals Urine Bacteria Urine Mucus Ur Culture Indicated? Urine Glucose COVID-19 Source SARS-CoV-2 (PCR)
[2022-05-21] MEDS: Enoxaparin 40 MG/0.4 ML SYR SC (20:36)
[2022-05-21] MEDS: Acetaminophen 325 MG TAB 500 MG PO (22:01)
--- NOTE | 2022-05-22 | DI.NM_ITS ---
APPROVED REPORT Exam: Pharmacologic Patient Location: In-Patient Room/Bed: 208 Stress Nurse: Latasha Pereira RN Ordering Provider:ROSARIO SHEARER, Contact Number: [phone] BMI: 25.07 Baseline Rhythm: Sinus Rhythm Indications: Chest pain Medical History Medical History: COPD, Depression, total hip, chronic pain, anxiety, htn, hypothyroid, vertigo, OA, b ilateral TKR Cardiac Medications: prilosec, aspirin, lopressor, lovenox (inpt med), nitro prn Allergies: Lyrica, desipramine, methylphenidate, advair, solu-mederol, fluticasone, tramadol, vicodin , zoloft, acetaminophen, paxil Cardiac Risk Factors: +family history, HTN, COPD Previous Cardiac Procedures: None Pretest Chest Pain Characteristics: None Exercise History: Sedentary Physical Disabilities: OA, total hip, chronic pain, bilateral TKR Lung Sounds: LCTA Heart Sounds: regular, s1/s2 Stress Test Details Test: Pharmacologic stress testing performed using 0.4 mg of regadenoson per 5 mL given IV over 10 s econds. Reason for pharmacologic stress test: changed from exercise stress test due to inability to reach t arget heart rate. Reversal agent Aminophyline 50 mg, given intravenously for left arm pain, jaw pain. Nuclear Acquisition: Rest Tc-99m/Stress Tc-99m 1 day Rest Isotope: Tc-99m Sestamibi. Dose: 10.4 Date: 05/22/2022 Injection Time: 1155 Stress Isotope: Tc-99m Sestamibi. Dose: 31.5 Date: 05/22/2022 Injection Time: 1355 HR Resting HR Supine: 74 bpm Max Heart Rate (APMHR): 147.521767 bpm Resting HR Standin bpm Target HR (85% APMHR): 124.167469 bpm Max HR Achieved: 117 bpm % of APMHR: 79.59 Recovery HR: 82 bpm BP Resting BP Supine: 144/74 mmHg Resting BP Standin/78 mmHg Max BP: 154/80 mmHg Recovery BP: 144/76 mmHg ECG Resting ECG: Sinus Rhythm Ectopy: None Stress ECG: Sinus Rhythm ST Change: No significant ST segment changes noted Arrhythmia: None Recovery ECG: Sinus Rhythm Recovery ST Change: No significant ST segment changes noted Recovery Arrhythmia: None Clinical Stress Symptoms: shortness of breath, left arm pain, jaw pain, fatigue Rate Pressure Product: 22517 Stress ECG Conclusion 1. Resting electrocardiogram showed left axis, late transition 2. Patient underwent testing using pharmacologic stress with regadenoson 3. Peak heart rate achieved was 80% of predicted for age 4. The electrocardiographic portion of the test was nondiagnostic due to inadequate heart rate 5. See MPI report Stress Test Summary STAGE HR BP SpO2 Symptoms NOTES Supine 74 144/74 Standing 94 128/78 1 min post Lexiscan injection 102 122/62 shortness of breath 3 min post Lexiscan injection 104 120/58 6 min post Lexiscan injection 98 154/80 left arm pain, jaw pain, head discomfort, everything, pt reporting not feeling right Aminophylline given, 50mg IVP and symptoms all resolved within 1-2 min utes. 9 min post Lexiscan injection 97 12 min post Lexiscan injection 95 15 min post Lexiscan injection 82 144/76 All symptoms resolved Patient presented for stress portion of her MPI test. Pt attempted a modified ami protocol but afte r 2 minutes of walking at 1.7 mph, 0% grade she reported her legs were tired and her heart rate was n ot increasing to target rate as quickly as we had hoped. Test was switched to a laying lexiscan. Mayela yi was accompanied to the stretcher and she received Lexiscan injection. Shortly after injection pt reported shortness of breath and was tolerating it okay. As a few minutes passed patient stated that she saw a few spots as she was looking into the ceiling light. We truned off the light and she stat ed that's better. Then patient reported left arm pain, pain was a 5-6/10, almost cramp like she naomi cribed. Then patient reported jaw pain and general feelings of not right. , supervising card iologist, was called to the stress lab and promptly came to visit the patient. Aminophyline 50mg was given via IVP. Within a minute of administering Aminophyline patient reported her arm pain and jaw pa in had gone away and she felt much better. was present at this time and was comfortable wit h the patient continuing her test and getting her post stress images. Patient was accompanied to [facility] to complete the remainder of her test. Report was given to nuclear fuels reclamation engineer prior t o patient going for post test images and medical surgical oncologist, nilsa. MPI Conclusion Myocardial perfusion is normal. There is no ischemia or evidence of prior infarction EF 65%, normal wall motion Radiologist Interpretation Radiologist agrees with Logging Shovel Operator's Interpretation. Radiologist Interpretation by: Shannon Lynch MD Interpretation Date/Time: 05/22/2022 16:19:05
[2022-05-22 02:29] VITALS: BP 134/73; PULSE 64; RESP 14; TEMP 36.2; O2SAT 96
[2022-05-22] MEDS: Levothyroxine 50 MCG TAB PO (05:28)
[2022-05-22 07:16] LABS: Abs Immature Grans 0.02 10^3/uL (0.0-0.06); Absolute Basophil Count 0.06 10^3/uL (0.0-0.2); Absolute Eosinophil Count 0.29 10^3/uL (0.0-0.7); Absolute Lymphocyte Count 1.59 10^3/uL (1.2-3.4); Absolute Monocyte Count 0.54 10^3/uL (0.1-0.8); Absolute Neutrophil Count 3.41 10^3/uL (1.2-6.7); Eosinophils % 4.9; HCT 37.3 % (36.0-46.0); HGB 12.4 g/dL (11.2-15.7); Immature Grans % 0.3; Lymphocytes % 26.9; MCH 29.1 pg (27.0-33.0); MCHC 33.2 % (32.0-36.0); MCV 88 fL (80-95); MPV 8.4 fL (8.0-11.0); Monocytes % 9.1; Neutrophils % 57.8; Platelet Count 394 10^3/uL (130-400); RBC 4.26 10^6/uL (3.93-5.22); RDW 14.1 % (11.7-14.6); RDW-SD 45.6 fL; WBC 5.91 10^3/uL (4.4-10.8)
[2022-05-22 07:30] VITALS: PULSE 80
[2022-05-22 07:34] VITALS: BP 109/70; PULSE 70; RESP 17; TEMP 35.9; O2SAT 97
[2022-05-22 07:42] LABS: Anion Gap 5.5 mmol/L (3-11); BUN 13 mg/dL (7-18); CO2 28.5 mmol/L (21.0-32.0); CREATININE 0.9 mg/dL (0.55-1.02); Calcium 8.7 mg/dL (8.5-10.1); Chloride 105 mmol/L (98-107); Glucose 95 mg/dL (74-106); Potassium 4.2 mmol/L (3.5-5.1); Sodium 139 mmol/L (136-145)
[2022-05-22] MEDS: Tiotropium/Olodaterol 10 PUFF INHALER 2 PUFF IH (07:51)
[2022-05-22] MEDS: Aspirin 81 MG CHEW PO (09:16)
[2022-05-22] MEDS: Azithromycin 250 MG TAB PO (09:17)
[2022-05-22] MEDS: Sertraline 50 MG TAB PO (09:17)
[2022-05-22] MEDS: Omeprazole 20 MG CAPCR 40 MG PO (09:17)
[2022-05-22 11:54] VITALS: BP 119/54; PULSE 84; RESP 17; TEMP 35.6; O2SAT 96
[2022-05-22] MEDS: Regadenoson 0.4 MG/5 ML SYR IVP (14:40)
[2022-05-22] MEDS: Aminophylline 500 MG/20 ML VIAL IVP (14:41)
[2022-05-22 15:13] VITALS: PULSE 75
[2022-05-22 15:23] VITALS: BP 146/72; PULSE 75; RESP 18; TEMP 36.1; O2SAT 96
[2022-05-22] MEDS: Psyllium PKT 1 EACH PO (17:39)
--- NOTE | 2022-05-22 17:45 | PDOC.CMPRO ---
- If Service Date Differs Date of service: 05/22/22 Time of Service: 17:46 Care Management Progress Note S/O: Lydia was sitting up in a chair when CM met with her. She stated that she is feeling OK. She is scheduled to have a stress test today and anticipates being discharged afterwards if it is negative. She shared that she really wants to go home as she has much to do. A: Lydia is a 72 year old woman admitted on 05/20/22 with chest pain P:Lydia will likely be discharged home with no new services when medically cleared by provider.She will follow up with cardiology, her PCP and her discharge plan of care. Lydia will transport with family. CM will follow and assess for ongoing discharge concerns.
--- NOTE | 2022-05-22 17:53 | PDOC.CMDIS ---
- If Service Date Differs Date of service: 05/22/22 Time of Service: 17:53 LACE Index Scoring Tool - Questions: Length of Stay (in days): 2 Acuity (Admit via E.D.?): Yes Comorbidities: Chronic Pulmonary Disease E.D. Visits: 6 - Answers: Total Score: 11 Risk of Readmission: High Risk Care Management Discharge Reason for Hospitalization: chest pain Discharge Plan: Lydia will be discharged home with no new services. She will follow up with cardiology, her PCP and her discharge plan of care. Lydia will transport with her daughter. Patient/Family Education Needs: Review of discharge instructions, limitations, activity, follow up plan, Ask Me Three
--- NOTE | 2022-05-22 18:04 | W.PM.DS.N ---
Date of service: 05/22/22 Time of Service: 18:05 DS: Diagnosis Discharge Diagnosis (1) Chest pain: Status: Resolved (2) Chronic obstructive lung disease: (3) HTN (hypertension): (4) Depression: (5) Hypothyroidism: Status: Chronic (6) DVT prophylaxis: Status: Deleted (7) Discharge planning issues: Status: Deleted Discharge Plan Disposition Patient Disposition: Home Condition: Good Discharge Details Reason For Visit: CHEST PAIN,will be inpt per dr Admit Date/Time: 05/20/22 19:29 Admit Provider: Gee Conner Attending Provider: Gee Conner Primary Care Provider: Kristine Carter Hospital Course Hospital Course: This 72-year-old female presented to the [facility] ED with chief complaint of chest pressure.? She said she was admitted to the hospital about 12 years ago for angina after her .? We do not have that record.? She denies any heart trouble since that time however in the last 2 to 3 weeks she has had increasing amounts of chest pressure and seem to be associated with activity.? She says over the last few weeks and especially in the last 3 to 4 days she has had increase in frequency and intensity of the pressure.? Said it hurts under her left breast and radiates to her left arm.? When this occurs she gets a cold wave over her.? On day of admission she states she had chest pressure after walking a few feet, denied being diaphoretic or short of breath but did notice some nausea.? She took a baby aspirin.? The pain recurred and she took a sublingual nitroglycerin 1 tablet and had immediate relief.? She states she has been quite tired recently.? She acknowledged that she has been under some stress as her 50-year-old son has been diagnosed with rectal, liver and lung cancer and is now living with her.? She also stated her son drinks quite a bit of alcohol.? He has a young child which is with him at times at patients.? She states she has chronic obstructive lung disease and uses her nebulizer a couple times a day. She has not smoked for about 23 years.? She states she has had her COVID-vaccine and flu vaccine. she is DNR / DNI. Her EKG was normal sinus rhythm. We held her beta-akt for MPI. She had negative troponins x3. Continued her inhalers and chronic azithromycin per pulmonology while hospitalized. She had no chest pain or shortness of breath. She was tolerating regular diet voiding without difficulty afebrile she had no cardiac dysrhythmias. She had a negative myocardial perfusion scan. She did have an untoward reaction during the test and was given aminophylline with good relief. She is discharged home with her daughter improved. No change in medications. Would recommend a 2-week compliance monitor from her PCP. Follow-up with cardiology as planned. Discussed with Dr. Erickson ? Home Meds and New Rx's Prescriptions: Continued ibuprofen 200 mg tablet 400 mg PO Q6H PRN azithromycin 250 mg tablet 250 mg PO DAILY Qty: 30 12RF sertraline 50 mg tablet 50 mg PO DAILY Qty: 90 3RF Metamucil 3.4 gram/5.4 gram powder 1 tbs PO DAILY Rx Instructions: mix into at least 8 oz of water or juice before administering [employer] Women's 18-400 mg-mcg tablet 1 tab PO DAILY (DME) compressor, for nebulizer Device See Rx Instructions .ROUTE .MEDSUPPLY Qty: 1 0RF Rx Instructions: As directed ipratropium-albuterol 0.5 mg-3 mg(2.5 mg base)/3 mL solution for nebulization 3 ml inhalation Q6H PRN (Reason: wheezing) Qty: 15 0RF Rx Instructions: Trial for Cough, COPD Exacerbation (DME) EasiVent Mask Large 1 EACH device 1 ea Miscellaneous DIRECTED Qty: 1 Rx Instructions: DIRECTED WITH INHALER albuterol sulfate [Ventolin HFA] 90 mcg/actuation HFA aerosol inhaler 2 puff inhalation Q4H PRN Rx Instructions: rescue only per note dated 09/14/20 [facility] levothyroxine 50 mcg tablet See Rx Instructions .ROUTE .COMPLEX Qty: 90 3RF Dose Instruction: TAKE ONE TABLET BY MOUTH EVERY DAY Rx Instructions: TAKE ONE TABLET BY MOUTH EVERY DAY omeprazole 40 mg capsule,delayed release(DR/EC) 40 mg PO DAILY Qty: 90 3RF Hold Instructions: Home Medication placed on hold at Doctor's office Stiolto Respimat 2.5-2.5 mcg/actuation mist See Rx Instructions .ROUTE .COMPLEX Qty: 4 12RF Dose Instruction: INHALE TWO PUFFS BY MOUTH EVERY DAY Rx Instructions: INHALE TWO PUFFS BY MOUTH EVERY DAY acetaminophen 500 mg tablet 1,000 mg PO Q8H PRN (Reason: pain) Qty: 90 3RF meclizine 25 mg tablet 25 mg PO TID PRN (Reason: dizziness) Qty: 20 0RF Discharge Instructions Instructions: Chest Pain (DC), COPD (Chronic Obstructive Pulmonary Disease) (DC) Additional Instructions: Follow up with your Doctor - recommend a 2 week compliance monitor. Stand Alone Forms: Nursing Discharge Form Referrals: Kristine Carter NP [Primary Care Provider] - (We will call you tomorrow with an appointment time for [facility] follow up. We recommend a two week compliance monitor. ) Activity:: Activity as Tolerated Equipment/Supplies:: No Equipment Needed Diet:: Low Sodium Discharge Orders Discharge Orders: Discharge Order (Routine); Ordered 05/22/22 Ordered By: Mary Jain Discharge Data Discharge Date/Time-TO BE ENTERED AT DEPARTURE: 05/22/22 18:36 DS: Summary Time Spent with Patient providing and/or coordinating discharge services: Greater than 30 minutes Status at Discharge Functional status at discharge: independent ambulation Overall status at discharge: patient is back to baseline Mental Status: mental status grossly normal Speech and Movement: speech and movement normal Mood: congruent mood Affect: normal affect Exam Const General: cooperative, no acute distress and other (She appears older than her stated age) Nutritional Appearance: average body habitus Neck Neck: normal visual inspection, no lymphadenopathy and no JVD Resp Auscultation: clear to auscultation bilaterally, no rales, no rhonchi and no wheezes Cardio Rate: regular rate Rhythm: regular rhythm Heart Sounds: S1 normal, S2 normal, no gallops, no murmurs and no rubs GI Palpation: soft, no hepatosplenomegaly, not firm, no guarding and nontender Neuro General: patient alert, patient awake, patient oriented x3 and no focal motor deficits Extrem General: normal to inspection, no clubbing, no cyanosis and no edema Psych Mental Status: mental status grossly normal Speech and Movement: speech and movement normal Mood: congruent mood Affect: normal affect DS: Data Vitals/I&O Vitals and I&O: Vital Signs Temperature 36.1 C L 05/22/22 15:23 Temperature Source Tympanic 05/22/22 15:23 Pulse 75 05/22/22 15:23 Pulse Rhythm Irregular 05/22/22 15:29 Pulse 78 05/20/22 17:46 Respiratory Rate 18 05/22/22 15:23 Respiratory Effort Non-Labored 05/22/22 15:29 Respiratory Depth Normal 05/22/22 15:29 Respiratory Pattern Normal 05/22/22 15:29 Blood Pressure 146/72 H 05/22/22 15:23 Blood Pressure Mean 74 05/20/22 17:46 Pulse Oximetry 96 05/22/22 15:23 Oxygen Delivery Method Room Air 05/22/22 15:23 Oxygen Flow Rate 0 05/22/22 15:23 Pain Level 0 05/22/22 15:23 Comment 05/21/22 22:50 Intake & Output 05/21/22 05/22/22 05/22/22 23:59 11:59 23:59 Intake Total 740 / 1240 360 / 360 Output Total 1450 / 1950 650 / 850 200 / 850 Balance -710 / -710 -290 / -490 -200 / -490 Intake: Oral 740 / 1240 360 / 360 Output: Urine 1450 / 1950 650 / 850 200 / 850 Other: Urine Color Yellow Yellow Yellow Urine Appearance Clear Clear Clear Urine Odor Normal Normal Comment toilet insert emptied toilet insert. emptied. Stool Size Small Stool Characteristics Formed Voiding Methods Toilet Toilet Toilet Data Completed and Pending Labs on day of discharge: Labs from last 24 hours 05/22/22 05/22/22 07:00 07:00 WBC 5.91 RBC 4.26 Hgb 12.4 Hct 37.3 MCV 88 MCH 29.1 MCHC 33.2 RDW 14.1 Plt Count 394 MPV 8.4 Immature Gran % 0.3 Neutrophils % 57.8 Lymphocytes % 26.9 Monocytes % 9.1 Eosinophils % 4.9 Basophils % 1.0 Nucleated RBC % 0.0 Absolute Neutrophils 3.41 Absolute Lymphocytes 1.59 Absolute Monocytes 0.54 Absolute Eosinophils 0.29 Absolute Basophils 0.06 Sodium 139 Potassium 4.2 Chloride 105 Carbon Dioxide 28.5 Anion Gap 5.5 BUN 13 Creatinine 0.9 Est GFR (CKD-EPI 2020) 67.50 Glucose 95 Calcium 8.7 Magnesium 2.0 Preliminary micro results at discharge 05/20/22 21:00 Urine Culture - Preliminary Urine - Reflex from Ua Gram Positive Elise,Mixed PFSH All Active Problems Cough (Acute) Cough (Acute) COPD exacerbation (Acute) Muscular deconditioning (Acute) Ischial bursitis (Acute) Lumbar spondylosis (Acute) Right hip pain (Acute) Pulmonary nodule (Acute) Voiding difficulty (Acute) Depression (Chronic) Cough (Acute) PND (post-nasal drip) (Acute) acute on chronic? Hx nasal steroid per Dr. Garza. Weight loss, non-intentional (Acute) ~ 8 lbs, 3-4 mos Insomnia (Acute) Fluttering sensation of heart (Acute) Left chest pressure (Acute) History of pneumonia (Acute) Acute exacerbation of chronic obstructive pulmonary disease (COPD) (Acute) Constipation (Acute) Vision changes (Acute) Lung nodule (Acute) Abdominal pain (Acute) Dizziness (Acute) SBO (small bowel obstruction) (Acute) Forgetfulness (Acute) Fatigue (Acute) Status post total hip replacement, left (Acute 01/24/20) Diverticulitis (Chronic 04/25/14) a. 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 RUQ pain (Acute) 08/12/[address] Froilan Hogue - ? that pain is secondary to scar tissue within muscle and lidocaine injection given with effect. Lymphadenitis (Acute 05/23/13) Diverticulitis of sigmoid colon (Acute 04/25/14) Bilateral knee pain (Acute) 02/23/19 F/u 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 states her chest pain was related to her stomach issues, and has not had any cardiac issues currently, and does not see a geospatial program management officer. Irritable colon Osteoarthritis Sialoadenitis Surgical History Arthroscopy, Shoulder right; acromioplasty Colectomy 04/25/14 Colonoscopy - MAC (09/24/16) EGD - IV Sedation 2014 EGD - MAC (09/24/16) Extraction of cataract H/O surgical procedure a. total abdominal hysterectomy-bso b. exploratory laparotomy for reoval of ovaries c. knee replacements d. sigmoid resection 04/25/2014 e. right shoulder acromioplasty f. Elyssa fundoplication 1995 g. bilateral open carpal tunnel release 1985 History of bilateral salpingo-oophorectomy (05/18/14) History of hysterectomy (05/18/14) Elyssa Fundoplication (~1995) Open Carpal Tunnel release (~1985) B/L Replacement of total knee joint (~2004) B/L Family History Mother Diabetes Essential hypertension Personal history of malignant neoplasm LUNG Hyperlipidemia Asthma Father Essential hypertension Personal history of malignant neoplasm THROAT Heart disease Hyperlipidemia Sister Drug abuse Essential hypertension COPD (chronic obstructive pulmonary disease) Depression Heart disease Hyperlipidemia Asthma Grandfather Essential hypertension Personal history of malignant neoplasm Heart disease Hyperlipidemia Stroke Grandfather , UNKNOWN Alcohol abuse Heart disease Stroke Grandmother Essential hypertension Personal history of malignant neoplasm Hyperlipidemia Grandmother Alcohol abuse Personal history of malignant neoplasm Heart disease Son Depression Heart disease Asthma Son Alcohol abuse Essential hypertension Depression Daughter Essential hypertension Asthma Daughter Essential hypertension Depression Hyperlipidemia Social History Smoking/Tobacco Use Status: Former Tobacco Use Smoking risk assessment performed?: Yes Alcohol Intake: current Alcohol Intake frequency: a few times a month Drug use: Never Substance use type: does not use Number of Children: 4 Pets and animals: Yes Pets and animals: cat(s) and dog(s) Current gender identity: female What type of physical activity do you participate in: walking Frequency: daily Seatbelt use: always Water heater temp set <120 deg: Yes Working smoke detector in home: Yes Fire extinguisher in home: Yes Carbon monox detector in home: Yes Firearms in home: Yes Firearms unloaded and locked: Yes Do you feel safe at home: Yes Do you feel safe in your relationship?: Yes
== END 2022-05-22 18:36 | disposition home or self-care (01) ==
LOC: ER 19:46 → MS 20:11
PROVIDERS: Nurse Practitioner Family; Admitting Provider Family Medicine; Emergency Provider Student in an Organized Health Care Education/Training Program; PCP Nurse Practitioner; Visit Provider Family Medicine
DX: R07.89 Other chest pain (principal); J44.9 Chronic obstructive pulmonary disease, unspecified; I10 Essential (primary) hypertension; E03.9 Hypothyroidism, unspecified; F32.A Depression, unspecified; Z20.822 Contact with and (suspected) exposure to COVID-19; R05.1 Acute cough; R73.01 Impaired fasting glucose; Z79.899 Other long term (current) drug therapy; F10.90 Alcohol use, unspecified, uncomplicated; Z66 Do not resuscitate
CPT/HCPCS: 36415; 78452; 80048; 80053; 80061; 87635; 93005; 93016; 93018; 94640; 96372; 99217; 99239; 99285; J1650; 71045; 81003; 81015; 83735; 84443; 84484; 85025; 87086; 93010; 93017; 99220; 99225; G0378; J0280; J2785; J3490

== ENCOUNTER 2022-06-06 01:30 | Outpatient (CLI) | payer MEDICARE, SELFPAY ==
--- NOTE | 2022-06-06 07:00 | DI.US_ITS ---
Exam(s) US ABDOMEN EXAM: US ABDOMEN CLINICAL HISTORY: EPIGASTRICPost-prandial pain, evaluate gall bladder,CHEST PAIN,R07.9,R10.13 TECHNIQUE: Ultrasound abdomen performed using standard protocol. COMPARISON: CT CT CHEST PE CTA from 04/26/2022 CR XR PORTABLE CHEST AP from 05/20/2022 CT,NM,TMT NM MPI REST STRESS GRP from 05/22/2022 FINDINGS: LIVER: Normal size and echogenicity. No focal liver lesions are seen.. GALLBLADDER: No evidence of cholelithiasis. No evidence of wall thickening. No pericholecystic fluid identified. CONSTANTINO'S SIGN: Negative. BILIARY SYSTEM: No intrahepatic or extrahepatic biliary ductal dilation. KIDNEYS: Kidneys are symmetric in size. No evidence of renal calculi. No evidence of hydronephrosis. No renal mass or cyst identified. PANCREAS: Normal where visualized. SPLEEN: Not enlarged. ABDOMINAL AORTA AND IVC: Visualized portions normal caliber. ASCITES: None seen. IMPRESSION: Normal sonographic appearance of the upper abdomen. DATA REPOSITORY:
== END 2022-06-06 01:50 ==
PROVIDERS: PCP Nurse Practitioner; Visit Provider Nurse Practitioner
DX: R10.13 Epigastric pain (principal); R07.89 Other chest pain
CPT/HCPCS: 76700

== ENCOUNTER 2022-06-10 10:37 | Outpatient (CLI) | payer MEDICARE, SELFPAY | END 2022-06-10 10:38 | disposition home or self-care (01) | LOC: CARDOPNVT 10:37 | PROVIDERS: PCP Nurse Practitioner; Visit Provider Family Medicine | DX: R00.2 Palpitations (principal); R07.89 Other chest pain | CPT/HCPCS: 93246 ==

== ENCOUNTER 2022-07-22 19:45 | Emergency (ER) | payer MEDICARE, SELFPAY ==
[2022-07-22 19:48] VITALS: BP 148/87; PULSE 105; RESP 16; TEMP 36.8; O2SAT 95
--- NOTE | 2022-07-22 20:15 | DI.RAD_ITS ---
Exam(s) XR ANKLE LT COMPLETE EXAM: XR ANKLE LT COMPLETE CLINICAL HISTORY: fall/pain TECHNIQUE: 2D digital imaging was performed of the left ankle. Three images were obtained. AP, lat eral and oblique views were obtained. COMPARISON: No exams were available for comparison FINDINGS: BONES: There is an acute mildly displaced oblique fracture of the distal fibula. The medial aspect o f the fractures at the level of the tibial talar joint. There is also nondisplaced fracture involvin g the posterior malleolus of the distal tibia. No bony destructive lesion is seen. There is a small calcaneal spur. JOINTS:The ankle mortise is normally aligned. Degenerative changes are seen at the tarsometatarsal maribel ints. SOFT TISSUE: Soft tissue swelling. IMPRESSION: Fractures involving the distal fibula and posterior malleoli. DATA REPOSITORY: RADIATION DOSE DELIVERED:
--- NOTE | 2022-07-22 20:30 | DI.RAD_ITS ---
Exam(s) XR KNEE LT 3V AP,LAT,SHELLI EXAM: XR KNEE LT 3V AP,LAT,SHELLI CLINICAL HISTORY: fall/pain. TECHNIQUE: 2D digital imaging was performed of the left knee. Four images were obtained. AP, later al and PA tunnel views were obtained. COMPARISON: None. FINDINGS: BONES: On the lateral view, there lucency seen in the proximal fibula suspicious for nondisplaced fr acture. No bony destructive lesion is seen. JOINTS: The patient has a left total knee replacement which appears intact. No joint effusion is see n. SOFT TISSUE: Normal. IMPRESSION: 1. Findings suspicious for nondisplaced fracture involving the proximal fibula. 2. Findings were discussed with Marlena Tellez at 10:38 a.m. on 07/23/2022. DATA REPOSITORY: RADIATION DOSE DELIVERED:
--- NOTE | 2022-07-22 21:23 | DI.VRAD_ITS ---
PROCEDURE INFORMATION: Exam: XR Left Knee Exam date and time: 07/22/2022 8:52 PM Age: 72 years old Clinical indication: Injury or trauma; Blunt trauma; Left; Injury date: 07/22/22; Injury details: Fall, pain; Prior surgery; Surgery date: 6+ months; Surgery type: Knee replacement TECHNIQUE: Imaging protocol: Radiologic exam of the Left knee. Views: 3 views. COMPARISON: CR XR ANKLE LT COMPLETE 07/22/2022 8:50 PM FINDINGS: Bones/joints: Left hip arthroplasty is grossly intact. No acute fracture or dislocation. No joint effusion Soft tissues: Normal. IMPRESSION: No acute findings. Knee arthroplasty grossly intact Dictated and Authenticated by: Brett Pagan MD. Ordering:AMINATA Mcgovern MD
--- NOTE | 2022-07-22 21:23 | DI.VRAD_ITS ---
PROCEDURE INFORMATION: Exam: XR Left Ankle Exam date and time: 07/22/2022 8:50 PM Age: 72 years old Clinical indication: Injury or trauma; Blunt trauma; Ankle; Left; Injury date: 07/22/22; Injury details: Fall, pain TECHNIQUE: Imaging protocol: Radiologic exam of the Left ankle. Views: 3 or more views. COMPARISON: US EXTREMITY VENOUS BI 11/04/2021 12:02 PM FINDINGS: Bones/joints: Distal fibular fracture with minimal displacement and posterior malleolar fracture observed. There is a chronic deformity in the distal left fibula/lateral malleolus Soft tissues: Moderate swelling IMPRESSION: Fractures of the distal fibula and posterior malleolus of indeterminate age. Acute fractures can not be completely excluded. Moderate swelling Dictated and Authenticated by: Brett Pagan MD. Ordering:AMINATA Mcgovern MD
--- NOTE | 2022-07-22 21:31 | ED.GENADUL_ITS ---
Discharge Plan Disposition Patient Disposition: Home Condition: Stable Discharge Details Clinical Impression: Ankle fracture, left Primary Care Provider: Kristine Carter ED Provider: Froilan Churchill Home Meds and New Rx's Prescriptions: Continued ibuprofen 200 mg tablet 400 mg PO Q6H PRN azithromycin 250 mg tablet 250 mg PO DAILY Qty: 30 12RF sertraline 50 mg tablet 50 mg PO DAILY Qty: 90 3RF Metamucil 3.4 gram/5.4 gram powder 1 tbs PO DAILY Rx Instructions: mix into at least 8 oz of water or juice before administering Novavax AB Women's 18-400 mg-mcg tablet 1 tab PO DAILY (DME) compressor, for nebulizer Device See Rx Instructions .ROUTE .MEDSUPPLY Qty: 1 0RF Rx Instructions: As directed ipratropium-albuterol 0.5 mg-3 mg(2.5 mg base)/3 mL solution for nebulization 3 ml inhalation Q6H PRN (Reason: wheezing) Qty: 15 0RF Rx Instructions: Trial for Cough, COPD Exacerbation Qvar RediHaler 80 mcg/actuation HFA aerosol breath activated 1 inh inhalation BID Qty: 10.6 12RF Rx Instructions: Rinse mouth after use (DME) EasiVent Mask Large 1 EACH device 1 ea Miscellaneous DIRECTED Qty: 1 Rx Instructions: DIRECTED WITH INHALER albuterol sulfate [Ventolin HFA] 90 mcg/actuation HFA aerosol inhaler 2 puff inhalation Q4H PRN Rx Instructions: rescue only per note dated 09/14/20 cgc levothyroxine 50 mcg tablet See Rx Instructions .ROUTE .COMPLEX Qty: 90 3RF Dose Instruction: TAKE ONE TABLET BY MOUTH EVERY DAY Rx Instructions: TAKE ONE TABLET BY MOUTH EVERY DAY omeprazole 40 mg capsule,delayed release(DR/EC) 40 mg PO DAILY Qty: 90 3RF Hold Instructions: Home Medication placed on hold at Doctor's office Stiolto Respimat 2.5-2.5 mcg/actuation mist See Rx Instructions .ROUTE .COMPLEX Qty: 4 12RF Dose Instruction: INHALE TWO PUFFS BY MOUTH EVERY DAY Rx Instructions: INHALE TWO PUFFS BY MOUTH EVERY DAY acetaminophen 500 mg tablet 1,000 mg PO Q8H PRN (Reason: pain) Qty: 90 3RF meclizine 25 mg tablet 25 mg PO TID PRN (Reason: dizziness) Qty: 20 0RF Discharge Instructions Instructions: Ankle Fracture (ED) Additional Instructions: Unfortunately you have broken your ankle in 2 [address]. Hydrocodone as directed, this medication may cause drowsiness and constipation, consider taking [id number] stool softener while taking this medication. Wear tall walking boot and use walker, very limited weightbearing so you do not make this injury worse. Rest, elevate, cool compresses every 2 hours for 20 minutes. Please watch for new or worsening symptoms and return to the ER for any concerns. Lastly, I would like you to contact the office of Dr. Dejesus tomorrow to discuss your ER visit and need for outpatient reevaluation. Referrals: Carlos Dejesus MD [ [facility] STAFF PHYSICIAN] - Medical Decision Making 72-year-old female who is not anticoagulated, presents after having a mechanical slip and fall on the ice injuring her left ankle. Patient reports history of left knee replacement and is concerned that she could have injured her left knee but denies any pain. Plan to obtain x-ray of her left knee at her request but will also obtain x-ray of her left ankle given the swelling and tenderness. We will provide a single tablet of hydrocodone. Knee x-ray is unremarkable, arthroplasty grossly intact X-ray of ankle reveals fractures of the distal fibula and posterior malleolus. Moderate swelling Discussed injury with Dr. Dejesus. Recommends tall walking boot and a walker, very limited weightbearing. Patient has good home resources and believes that she can do this safely. She will follow-up in the clinic in 1-2 weeks Take-home pack of hydrocodone given. Standard discharge and return precautions were provided. Patient understands, is agreeable to this plan, and has no additional questions or concerns upon discharge. This documentation was generated using [employer] system, please disregard any oddities of phrase or misspellings. Medical Records Medical records reviewed: Yes I reviewed the patient's medical records. Imaging Data Radiologic Study: Attestation: I personally reviewed and interpreted this imaging study as follows: Imaging: X-Ray Radiologist's impression: PROCEDURE INFORMATION: Exam: XR Left Knee Exam date and time: 07/22/2022 8:52 PM Age: 72 years old Clinical indication: Injury or trauma; Blunt trauma; Left; Injury date: 07/22/22; Injury details: Fall, pain; Prior surgery; Surgery date: 6+ months; Surgery type: Knee replacement TECHNIQUE: Imaging protocol: Radiologic exam of the Left knee. Views: 3 views. COMPARISON: CR XR ANKLE LT COMPLETE 07/22/2022 8:50 PM FINDINGS: Bones/joints: Left hip arthroplasty is grossly intact. No acute fracture or dislocation. No joint effusion Soft tissues: Normal. IMPRESSION: No acute findings. Knee arthroplasty grossly intact Radiologic Study #2: Attestation: I personally reviewed and interpreted this imaging study as follows: Imaging: X-Ray Radiologist's impression: PROCEDURE INFORMATION: Exam: XR Left Ankle Exam date and time: 07/22/2022 8:50 PM Age: 72 years old Clinical indication: Injury or trauma; Blunt trauma; Ankle; Left; Injury date: 07/22/22; Injury details: Fall, pain TECHNIQUE: Imaging protocol: Radiologic exam of the Left ankle. Views: 3 or more views. COMPARISON: US EXTREMITY VENOUS BI 11/04/2021 12:02 PM FINDINGS: Bones/joints: Distal fibular fracture with minimal displacement and posterior malleolar fracture observed. There is a chronic deformity in the distal left fibula/lateral malleolus Soft tissues: Moderate swelling IMPRESSION: Fractures of the distal fibula and posterior malleolus of indeterminate age. Acute fractures can not be completely excluded. Moderate swelling HPI General Mode of arrival: wheelchair . Date/Time Provider Initiated Documentation: 07/22/22 20:03 . Limitations to Documentation: no limitations . Information obtained by: patient and family . History of Present Illness 72 year old F presents to the emergency department with the chief complaint of L ankle injury, described as moderate, with intensity rated at 7. Quality is described as aching, and is localized to the left and lower extremity. Patient reports no radiation. Patient started experiencing this hour(s) (1) Immobilization improves symptom(s), Movement worsens symptoms . Patient notes no other symptoms.. Patient did receive the following treatments prior to arrival, none Related Data Home Medications Medication Instructions Recorded Confirmed inhaler,assist devices,access #1 ea 09/01/13 07/22/22 (EasiVent Mask Large) psyllium husk 3.4 gram/5.4 gram 1 tbs PO DAILY 08/11/19 07/22/22 oral powder (Metamucil) multivitamin-ferrous 1 tab PO DAILY 01/10/20 07/22/22 fumarate-folic acid 18 mg-400 mcg tablet ([facility] Women's) acetaminophen 500 mg tablet 1,000 mg PO Q8H PRN pain #90 tabs 01/24/20 07/22/22 albuterol sulfate 90 mcg/actuation 2 puff inhalation Q4H PRN 09/14/20 07/22/22 aerosol inhaler (Ventolin HFA) meclizine 25 mg tablet 25 mg PO TID PRN dizziness #20 tabs 10/06/20 07/22/22 compressor, for nebulizer #1 ea 02/19/21 07/22/22 ipratropium 0.5 mg-albuterol 3 mg 3 ml inhalation Q6H PRN wheezing 02/19/21 07/22/22 (2.5 mg base)/3 mL nebulization #15 mL soln azithromycin 250 mg tablet 250 mg PO DAILY COPD #30 tabs 07/22/21 07/22/22 ibuprofen 200 mg tablet 400 mg PO Q6H PRN 07/22/21 07/22/22 levothyroxine 50 mcg tablet See Rx Instructions .Route 09/16/21 07/22/22 .COMPLEX #90 tabs omeprazole 40 mg capsule,delayed 40 mg PO DAILY #90 tab-caps 01/15/22 07/22/22 release tiotropium 2.5 mcg-olodaterol 2.5 See Rx Instructions .Route 02/17/22 07/22/22 mcg/actuation mist for inhalation .COMPLEX #4 grams (Stiolto Respimat) sertraline 50 mg tablet 50 mg PO DAILY #90 tabs 05/01/22 07/22/22 beclomethasone dipropionate 80 1 inh inhalation BID #10.6 grams 06/30/22 07/22/22 mcg/actuation HFA breath activated aerosol (Qvar RediHaler) Previous Rx's Medication Instructions Recorded acetaminophen 500 mg tablet 1,000 mg PO Q8H PRN pain #90 tabs 01/24/20 meclizine 25 mg tablet 25 mg PO TID PRN dizziness #20 tabs 10/06/20 compressor, for nebulizer #1 ea 02/19/21 ipratropium 0.5 mg-albuterol 3 mg 3 ml inhalation Q6H PRN wheezing 02/19/21 (2.5 mg base)/3 mL nebulization #15 mL soln azithromycin 250 mg tablet 250 mg PO DAILY COPD #30 tabs 07/22/21 levothyroxine 50 mcg tablet See Rx Instructions .Route 09/16/21 .COMPLEX #90 tabs omeprazole 40 mg capsule,delayed 40 mg PO DAILY #90 tab-caps 01/15/22 release tiotropium 2.5 mcg-olodaterol 2.5 See Rx Instructions .Route 02/17/22 mcg/actuation mist for inhalation .COMPLEX #4 grams (Stiolto Respimat) sertraline 50 mg tablet 50 mg PO DAILY #90 tabs 05/01/22 beclomethasone dipropionate 80 1 inh inhalation BID #10.6 grams 06/30/22 mcg/actuation HFA breath activated aerosol (Qvar RediHaler) Allergies Allergy/AdvReac Type Severity Reaction Status Date / Time tramadol Allergy Severe ITCHING, Verified 06/30/22 12:47 GI UPSET hydrocodone bitartrate Allergy Intermediate RASH, Verified 06/30/22 12:47 [From Vicodin] ITCHING fluticasone Allergy Verified 06/30/22 12:47 methylphenidate Allergy Verified 06/30/22 12:47 regadenoson AdvReac Severe Other (See Verified 06/30/22 12:52 Comment) desipramine AdvReac Intermediate PALPITATION Verified 06/30/22 12:47 S pregabalin [From Lyrica] AdvReac Intermediate CONFUSION Verified 06/30/22 12:47 salmeterol xinafoate AdvReac Intermediate COUGH Verified 06/30/22 12:47 [From Advair Diskus] methylprednisolone sodium AdvReac Mild Agitation Verified 06/30/22 12:47 succinate [From Solu-Medrol] paroxetine HCl [From Paxil] AdvReac Mild JITTERY Verified 06/30/22 12:47 sertraline HCl [From Zoloft] AdvReac Mild JITTERY Verified 06/30/22 12:47 acetaminophen AdvReac nausea, Verified 06/30/22 12:47 vomiting General Stated Complaint: Orthopedic NATY: 4 Review of Systems Constitutional Constitutional: Denies headache(s) and Denies weakness ENT Ears, Nose, Mouth, and Throat: Denies headache(s) and Denies neck pain Cardiovascular Cardiovascular: Denies chest pain Musculoskeletal Musculoskeletal: Denies neck pain and Denies tingling Integumentary/Breasts Skin/Breast: Denies rash Neurologic Neurologic: Denies headache(s), Denies tingling and Denies weakness Hematologic/Lymphatic Hematologic/Lymphatic: Denies easy bleeding and Denies easy bruising PFSH All Active Problems Ankle fracture, left (Acute) Personal history of nicotine dependence (Acute) Muscular deconditioning (Acute) Ischial bursitis (Acute) Lumbar spondylosis (Acute) Right hip pain (Acute) Pulmonary nodule (Acute) Voiding difficulty (Acute) Depression (Chronic) Cough (Acute) PND (post-nasal drip) (Acute) acute on chronic? Hx nasal steroid per Dr. Garza. Weight loss, non-intentional (Acute) ~ 8 lbs, 3-4 mos Insomnia (Acute) Fluttering sensation of heart (Acute) Left chest pressure (Acute) History of pneumonia (Acute) Acute exacerbation of chronic obstructive pulmonary disease (COPD) (Acute) Constipation (Acute) Vision changes (Acute) Lung nodule (Acute) Abdominal pain (Acute) Dizziness (Acute) SBO (small bowel obstruction) (Acute) Forgetfulness (Acute) Fatigue (Acute) Status post total hip replacement, left (Acute 01/24/20) Diverticulitis (Chronic 04/25/14) a. 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 that pain is secondary to scar tissue within muscle and lidocaine injection given with effect. Lymphadenitis (Acute 05/23/13) Diverticulitis of sigmoid colon (Acute 04/25/14) Bilateral knee pain (Acute) 02/23/19 F/u [facility] Left foot pain (Acute) IFG (impaired fasting glucose) (Acute) Itching (Acute) Cough (Acute) SOB (shortness of breath) (Acute) Vertigo (Acute) Left hip pain (Acute) Anxiety and depression (Acute) Headache (Acute) Osteoarthritis of left hip (Acute) History of Edouard's esophagus (Acute) Pharyngeal dysphagia (Acute) Polyarthralgia (Acute) Positive SANDY (antinuclear antibody) (Acute) assisted (current) use of non-steroidal anti-inflammatories (nsaid) (Acute) Regurgitation of food (Acute) Depressive disorder (Chronic) fatigue History of bilateral knee replacement (Acute) Medical History Chronic obstructive lung disease quit smoking 2000, [facility] PFT 01/06/18 Mild airflow obstruction, no significant improvement after inhaled bronchodilators RH COPD (chronic obstructive pulmonary disease) Emphysema Depression Diverticulitis HTN (hypertension) Hx of chest pain Pt. states her chest pain was related to her stomach issues, and has not had any cardiac issues currently, and does not see a biophysics professor. Irritable colon Osteoarthritis Sialoadenitis Surgical History Arthroscopy, Shoulder right; acromioplasty Colectomy 04/25/14 Colonoscopy - MAC (09/24/16) EGD - IV Sedation 2014 EGD - MAC (09/24/16) Extraction of cataract H/O surgical procedure a. total abdominal hysterectomy-bso b. exploratory laparotomy for reoval of ovaries c. knee replacements d. sigmoid resection 04/25/2014 e. right shoulder acromioplasty f. Elyssa fundoplication 1995 g. bilateral open carpal tunnel release 1985 History of bilateral salpingo-oophorectomy (05/18/14) History of hysterectomy (05/18/14) Elyssa Fundoplication (~1995) Open Carpal Tunnel release (~1985) B/L Replacement of total knee joint (~2004) B/L Family History Mother Diabetes Essential hypertension Personal history of malignant neoplasm LUNG Hyperlipidemia Asthma Father Essential hypertension Personal history of malignant neoplasm THROAT Heart disease Hyperlipidemia Sister Drug abuse Essential hypertension COPD (chronic obstructive pulmonary disease) Depression Heart disease Hyperlipidemia Asthma Grandfather Essential hypertension Personal history of malignant neoplasm Heart disease Hyperlipidemia Stroke Grandfather , UNKNOWN Alcohol abuse Heart disease Stroke Grandmother Essential hypertension Personal history of malignant neoplasm Hyperlipidemia Grandmother Alcohol abuse Personal history of malignant neoplasm Heart disease Son Depression Heart disease Asthma Son Alcohol abuse Essential hypertension Depression Daughter Essential hypertension Asthma Daughter Essential hypertension Depression Hyperlipidemia Social History Smoking/Tobacco Use Status: Former Tobacco Use Smoking risk assessment performed?: Yes Alcohol Intake: current Alcohol Intake frequency: a few times a month Drug use: Never Substance use type: does not use Number of Children: 4 Pets and animals: Yes Pets and animals: cat(s) and dog(s) Current gender identity: female What type of physical activity do you participate in: walking Frequency: daily Seatbelt use: always Water heater temp set <120 deg: Yes Working smoke detector in home: Yes Fire extinguisher in home: Yes Carbon monox detector in home: Yes Firearms in home: Yes Firearms unloaded and locked: Yes Do you feel safe at home: Yes Do you feel safe in your relationship?: Yes Exam Const General: cooperative, healthy appearing, comfortable and no acute distress Orientation: alert, awake and oriented x3 HENMT Head: normal to inspection, normocephalic and atraumatic Eyes Conjunctivae: conjunctivae normal Neck Neck: normal visual inspection, full ROM, no meningeal signs, trachea midline and supple Resp Effort & Inspection: normal respiratory effort and able to speak in complete sentences Cardio Rate: regular rate Rhythm: regular rhythm Back/Spine/Pelvis Back: No back tenderness Skin General skin exam: no rashes or lesions noted Neuro General: patient alert, patient awake, moves all extremities and no focal motor deficits Cognition: normal cognition Speech: speech normal Motor: muscle tone normal throughout Sensory Exam: no sensory deficits noted Extrem General: full ROM and capillary refill normal Other: Left knee with postsurgical scar, knee is otherwise unremarkable. Left ankle with diffuse swelling and tenderness worse along the lateral aspect. Neuro, vascular, tendon intact. Normal pedal pulse and capillary refill. Skin is intact. Psych Appearance: grossly normal Mental Status: mental status grossly normal Course Vital Signs Vital signs: Vital Signs Temperature 36.8 C 07/22/22 19:48 Pulse 105 H 07/22/22 19:48 Respiratory Rate 16 07/22/22 19:48 Blood Pressure 148/87 H 07/22/22 19:48 Pulse Oximetry 95 07/22/22 19:48 Temperature 36.8 C 07/22/22 19:48 Temperature Source Oral 07/22/22 19:48 Pulse 105 H 07/22/22 19:48 Respiratory Rate 16 07/22/22 19:48 Respiratory Effort Normal 07/22/22 19:54 Blood Pressure 148/87 H 07/22/22 19:48 Blood Pressure Position Sitting 07/22/22 19:48 Pulse Oximetry 95 07/22/22 19:48 Oxygen Delivery Method Room Air 07/22/22 19:48 Oxygen Flow Rate 0 07/22/22 19:48 Pain Level 6 07/22/22 19:48 PAWSS Have you Been Recently Intoxicated or Drunk Within the Last 30 days?: No Have you Ever Experienced Previous Episodes of Alcohol Withdrawal?: No Have you ever Experienced Withdrawal Seizures?: No Have you ever Experienced Delirium Tremens(DT)s?: No Have you ever undergone Alcohol Rehabilitation Treatment (i.e, inpt ot outpatient treatment programs)?: No Have you ever Experienced Blackouts?: No Have you ever Combined Alcohol with other Downers within the last 90 days?: No Have you ever Combined Alcohol with any other Substance of Abuse during the last 90 days?: No Positive Blood Alcohol level on Presentation? [PCS.BAL]: No Evidence of Increased Autonomic Activity (i.e. HR>120, tremor, sweating, agitation, nausea)?: No Result: 0
[2022-07-22] MEDS: HYDROcodone 5/Acetaminophen 325 TAB PO (22:08)
[2022-07-22 22:35] VITALS: BP 108/87; PULSE 106; RESP 18; O2SAT 96
== END 2022-07-22 22:30 | disposition home or self-care (01) ==
PROVIDERS: Emergency Provider Physician Assistant; PCP Nurse Practitioner
DX: S82.892A Other fracture of left lower leg, initial encounter for closed fracture (principal); J44.1 Chronic obstructive pulmonary disease with (acute) exacerbation; I10 Essential (primary) hypertension; Z79.51 Long term (current) use of inhaled steroids; Z96.652 Presence of left artificial knee joint; W00.0XXA Fall on same level due to ice and snow, initial encounter
CPT/HCPCS: 73562; 99284; 73610

== ENCOUNTER 2022-07-29 14:00 | Outpatient (CLI) | payer MEDICARE, SELFPAY ==
--- NOTE | 2022-07-29 13:45 | DI.RAD_ITS ---
Exam(s) XR ANKLE LT COMPLETE EXAM: XR ANKLE LT COMPLETE CLINICAL HISTORY: left ankle fracture. TECHNIQUE: 2D digital imaging was performed. COMPARISON: CR,XR XR ANKLE LT COMPLETE from 07/22/2022 FINDINGS: 3 views Again noted is the oblique fracture in distal fibula, unchanged. There is some widening of the ankle mortise noted present study. Talar dome unremarkable. There is also a posterior malleolus fracture again noted on the lateral view. Medial malleolus appears intact. Talar dome intact. Calcificatio n noted in the plantar fascia. IMPRESSION: As above. DATA REPOSITORY: RADIATION DOSE DELIVERED:
== END 2022-07-29 14:01 | disposition home or self-care (01) ==
LOC: DIORS 14:01
PROVIDERS: PCP Nurse Practitioner; Referring Provider Nurse Practitioner; Visit Provider Physician Assistant
DX: S82.842A Displaced bimalleolar fracture of left lower leg, initial encounter for closed fracture (principal); W00.0XXA Fall on same level due to ice and snow, initial encounter
CPT/HCPCS: 99214; 73610

== ENCOUNTER 2022-08-01 08:17 | Day surgery (SDC) | payer MEDICARE, MEDICAID, SELFPAY ==
[2022-08-01] VITALS (9 sets, daily range): BP systolic 123–180; BP diastolic 61–94; PULSE 76–95; RESP 12–21; TEMP 36.4–36.5; O2SAT 93–97; BMI 26.5
--- NOTE | 2022-08-01 07:45 | W.PM.DSUDISC ---
Date of service: 08/01/22 Time of Service: 11:05 Discharge Plan Disposition Patient Disposition: Home Condition: Good Discharge Details Reason For Visit: Bimalleolar fracture of left ankle Attending Provider: Carlos Dejesus Primary Care Provider: Kristine Carter Home Meds and New Rx's Prescriptions: New acetaminophen 500 mg tablet 1,000 mg PO Q8H PRN Qty: 90 0RF Rx Instructions: Take two tablets up to every 8 hours as needed for pain ibuprofen 600 mg tablet 600 mg PO TID PRN (Reason: pain) Qty: 60 0RF aspirin 81 mg tablet,delayed release (DR/EC) 81 mg PO BID 30 Days Qty: 60 0RF oxycodone 5 mg tablet 5 mg PO Q6H PRN (Reason: severe post-operative pain) Qty: 8 0RF Rx Instructions: Take one tablet up to every 6 hours as needed for severe pain Continued sertraline 50 mg tablet 50 mg PO DAILY Qty: 90 3RF Metamucil 3.4 gram/5.4 gram powder 1 tbs PO DAILY Rx Instructions: mix into at least 8 oz of water or juice before administering [employer] Women's 18-400 mg-mcg tablet 1 tab PO DAILY (DME) compressor, for nebulizer Device See Rx Instructions .ROUTE .MEDSUPPLY Qty: 1 0RF Rx Instructions: As directed ipratropium-albuterol 0.5 mg-3 mg(2.5 mg base)/3 mL solution for nebulization 3 ml inhalation Q6H PRN (Reason: wheezing) Qty: 15 0RF Rx Instructions: Trial for Cough, COPD Exacerbation Qvar RediHaler 80 mcg/actuation HFA aerosol breath activated 1 inh inhalation BID Qty: 10.6 12RF Rx Instructions: Rinse mouth after use (DME) EasiVent Mask Large 1 EACH device 1 ea Miscellaneous DIRECTED Qty: 1 Rx Instructions: DIRECTED WITH INHALER albuterol sulfate [Ventolin HFA] 90 mcg/actuation HFA aerosol inhaler 2 puff inhalation Q4H PRN Rx Instructions: rescue only per note dated 09/14/20 cgc levothyroxine 50 mcg tablet See Rx Instructions .ROUTE .COMPLEX Qty: 90 3RF Dose Instruction: TAKE ONE TABLET BY MOUTH EVERY DAY Rx Instructions: TAKE ONE TABLET BY MOUTH EVERY DAY omeprazole 40 mg capsule,delayed release(DR/EC) 40 mg PO DAILY Qty: 90 3RF Hold Instructions: Home Medication placed on hold at Doctor's office Stiolto Respimat 2.5-2.5 mcg/actuation mist See Rx Instructions .ROUTE .COMPLEX Qty: 4 12RF Dose Instruction: INHALE TWO PUFFS BY MOUTH EVERY DAY Rx Instructions: INHALE TWO PUFFS BY MOUTH EVERY DAY azithromycin 250 mg tablet See Rx Instructions .ROUTE .COMPLEX Qty: 30 12RF Dose Instruction: TAKE ONE TABLET BY MOUTH EVERY DAY FOR COPD Rx Instructions: TAKE ONE TABLET BY MOUTH EVERY DAY FOR COPD meclizine 25 mg tablet 25 mg PO TID PRN (Reason: dizziness) Qty: 20 0RF Discontinued ibuprofen 200 mg tablet 400 mg PO Q6H PRN acetaminophen 500 mg tablet 1,000 mg PO Q8H PRN (Reason: pain) Qty: 90 3RF Discharge Instructions Additional Instructions: Ankle ORIF Discharge Instructions Activity: You are NON WEIGHT BEARING. You should keep the leg elevated as much as possible. You may wiggle your toes and move your hip and knee. Dressings: You should keep your splint clean and dry. Do NOT get wet or dirty. If you have issues with your splint, please call the office at [phone] or the hospital after hours. Medications: - You should take Tylenol and Ibuprofen around the clock for baseline pain. - You have been prescribed a stronger narcotic for breakthrough pain. - You should take a Baby Aspirin (81mg) twice a day for blood clot prevention. Follow-up: 2 weeks Referrals: Carlos Dejesus MD [ [facility] STAFF PHYSICIAN] - Equipment/Supplies: Non-Weight Bearing Crutches Activity:: Elevate Remove Dressings/Wound Care:: Do Not Remove Shower/Bathe:: Cover Diet:: As Tolerated Discharge Orders Discharge Orders: Discharge Order (Routine); Ordered 08/01/22 Ordered By: Rachel Vaughan DS: Diagnosis Discharge Diagnosis (1) Bimalleolar fracture of left ankle: Status: Acute
--- NOTE | 2022-08-01 08:07 | W.ANESPRE ---
General Info Date of Service Date Performed: 08/01/22 Height: 4 ft 10 in Weight: 57.606 kg Body Mass Index (BMI): 26.5 Surgical Procedure: Operation Date: 08/01/22 12:40 Proposed Procedure Side Surgeon p Ankle ORIF Left Carlos Dejesus MD Meds Allergies and Home Medications Allergies Allergy/AdvReac Type Severity Reaction Status Date / Time tramadol Allergy Severe ITCHING, Verified 08/01/22 08:45 GI UPSET hydrocodone bitartrate Allergy Intermediate RASH, Verified 08/01/22 08:45 [From Vicodin] ITCHING fluticasone Allergy Verified 08/01/22 08:45 methylphenidate Allergy Verified 08/01/22 08:45 regadenoson AdvReac Severe Other (See Verified 08/01/22 08:45 Comment) desipramine AdvReac Intermediate PALPITATION Verified 08/01/22 08:45 S pregabalin [From Lyrica] AdvReac Intermediate CONFUSION Verified 08/01/22 08:45 salmeterol xinafoate AdvReac Intermediate COUGH Verified 08/01/22 08:45 [From Advair Diskus] methylprednisolone sodium AdvReac Mild Agitation Verified 08/01/22 08:45 succinate [From Solu-Medrol] paroxetine HCl [From Paxil] AdvReac Mild JITTERY Verified 08/01/22 08:45 sertraline HCl [From Zoloft] AdvReac Mild JITTERY Verified 08/01/22 08:45 acetaminophen AdvReac nausea, Verified 08/01/22 08:45 vomiting Home Medication Medication Instructions Recorded inhaler,assist devices,access #1 ea 09/01/13 (EasiVent Mask Large) psyllium husk 3.4 gram/5.4 gram 1 tbs PO DAILY 08/11/19 oral powder (Metamucil) multivitamin-ferrous 1 tab PO DAILY 01/10/20 fumarate-folic acid 18 mg-400 mcg tablet ([facility]) albuterol sulfate 90 mcg/actuation 2 puff inhalation Q4H PRN 09/14/20 aerosol inhaler (Ventolin HFA) meclizine 25 mg tablet 25 mg PO TID PRN dizziness #20 tabs 10/06/20 compressor, for nebulizer #1 ea 02/19/21 ipratropium 0.5 mg-albuterol 3 mg 3 ml inhalation Q6H PRN wheezing 02/19/21 (2.5 mg base)/3 mL nebulization #15 mL soln levothyroxine 50 mcg tablet See Rx Instructions .Route 09/16/21 .COMPLEX #90 tabs omeprazole 40 mg capsule,delayed 40 mg PO DAILY #90 tab-caps 01/15/22 release tiotropium 2.5 mcg-olodaterol 2.5 See Rx Instructions .Route 02/17/22 mcg/actuation mist for inhalation .COMPLEX #4 grams (Stiolto Respimat) sertraline 50 mg tablet 50 mg PO DAILY #90 tabs 05/01/22 beclomethasone dipropionate 80 1 inh inhalation BID #10.6 grams 06/30/22 mcg/actuation HFA breath activated aerosol (Qvar RediHaler) azithromycin 250 mg tablet See Rx Instructions .Route 07/24/22 .COMPLEX #30 tabs acetaminophen 500 mg tablet 1,000 mg PO Q8H PRN pain #90 tabs 08/01/22 aspirin 81 mg tablet,delayed 81 mg PO BID 30 days #60 tabs 08/01/22 release ibuprofen 600 mg tablet 600 mg PO TID PRN pain #60 tabs 08/01/22 Current Visit Medications: Current Medications Generic Name Dose Route Start Last Admin Trade Name Freq PRN Reason Stop Dose Admin Acetaminophen 650 mg 08/01/22 07:43 Acetaminophen 325 Mg Tab PO Q4H PRN PRN Ringer's Solution 1,000 mls @ 80 mls/hr 08/01/22 06:00 IV 08/01/22 23:59 INFUSION [facility] Cefazolin Sodium/Dextrose 2 gm in 50 mls @ 100 mls/hr 08/01/22 06:00 Ancef Duplex IVPB 08/01/22 23:59 PREOP [facility] IV Miscellaneous Supplies 1 each 08/01/22 06:00 Iv Access IV 08/01/22 23:59 DIRECTED ELIEL Oxycodone/Acetaminophen 1 tab 08/01/22 07:43 Oxycodone 5 Mg/Acetaminophen 325 Mg Tab PO Q4H PRN PRN Pain Sodium Chloride 0 ml 08/01/22 06:00 Normal Saline Flush 10 Ml Syr IV 08/01/22 23:59 PRN PRN Sodium Chloride 0 ml 08/01/22 06:00 Normal Saline 10 Ml Vial IJ 08/01/22 23:59 DIRECTED PRN Sterile Water 0 ml 08/01/22 06:00 Water,Injection,Sterile 10 Ml Vial IJ 08/01/22 23:59 DIRECTED PRN PFSH Active Problems Active Problems: Problem Status Onset Code Bimalleolar fracture of left ankle 07/22/22 S82.842A Personal history of nicotine dependence Z87.891 Muscular deconditioning R29.898 Ischial bursitis M70.70 Lumbar spondylosis M47.816 Right hip pain M25.551 Pulmonary nodule R91.1 Voiding difficulty R39.198 Depression F32.9 Cough R05 PND (post-nasal drip) R09.82 Weight loss, non-intentional R63.4 Insomnia G47.00 Fluttering sensation of heart R00.2 Left chest pressure R07.89 History of pneumonia Z87.01 Acute exacerbation of chronic obstructive pulmonary disease (COPD) J44.1 Constipation K59.00 Vision changes H53.9 Lung nodule R91.1 Abdominal pain R10.9 Dizziness R42 SBO (small bowel obstruction) K56.609 Forgetfulness R68.89 Fatigue R53.83 Status post total hip replacement, left 01/24/20 Z96.642 Diverticulitis 04/25/14 K57.92 COPD (chronic obstructive pulmonary disease) J44.9 Chronic back pain M54.9, G89.29 Abnormal weight loss R63.4 Anxiety 03/19/17 F41.9 Edouard's esophagus 10/21/12 K22.70 Benign paroxysmal positional vertigo of left ear 02/27/16 H81.12 Chest pain R07.9 Essential hypertension 04/18/13 I10 Hypothyroidism 10/26/12 E03.9 Irritable colon 11/11/11 K58.9 Low back pain M54.5 Memory loss 11/14/14 R41.3 Osteoarthritis 05/18/14 M19.90 Sialoadenitis 05/23/13 K11.20 RUQ pain R10.11 Lymphadenitis 05/23/13 I88.9 Diverticulitis of sigmoid colon 04/25/14 K57.32 Bilateral knee pain M25.561, M25.562 Left foot pain M79.672 IFG (impaired fasting glucose) R73.01 Itching L29.9 Cough R05 SOB (shortness of breath) R06.02 Vertigo R42 Left hip pain M25.552 Anxiety and depression F41.9, F32.9 Headache R51 Osteoarthritis of left hip M16.12 History of Edouard's esophagus Z87.19 Pharyngeal dysphagia R13.13 Polyarthralgia M25.50 Positive SANDY (antinuclear antibody) R76.8 senior care (current) use of non-steroidal anti-inflammatories (nsaid) Z79.1 Regurgitation of food R11.10 Depressive disorder F32.9 History of bilateral knee replacement Z96.653 Medical History Medical History Chronic obstructive lung disease quit smoking 2000, [facility] PFT 01/06/18 Mild airflow obstruction, no significant improvement after inhaled bronchodilators RH COPD (chronic obstructive pulmonary disease) Emphysema Depression Diverticulitis HTN (hypertension) Hx of chest pain Pt. states her chest pain was related to her stomach issues, and has not had any cardiac issues currently, and does not see a pst supervisor. Irritable colon Osteoarthritis Sialoadenitis Surgical History Surgical History (Updated 08/01/22 @ 08:42 by Rosangela Velasquez) Arthroscopy, Shoulder right; acromioplasty Colectomy 04/25/14 Colonoscopy - MAC (09/24/16) EGD - IV Sedation 2014 EGD - MAC (09/24/16) Extraction of cataract H/O surgical procedure a. total abdominal hysterectomy-bso b. exploratory laparotomy for reoval of ovaries c. knee replacements d. sigmoid resection 04/25/2014 e. right shoulder acromioplasty f. Elyssa fundoplication 1995 g. bilateral open carpal tunnel release 1985 History of bilateral salpingo-oophorectomy (05/18/14) History of bunionectomy History of hysterectomy (05/18/14) History of hysterectomy Elyssa Fundoplication (~1995) Open Carpal Tunnel release (~1985) B/L Replacement of total knee joint (~2004) B/L Tobacco Smoking/Tobacco Use Status: Former Tobacco Use Alcohol Alcohol Intake: current Alcohol intake frequency: a few times a month Substance Use Substance use: Never Substance use type: does not use Vital Signs and Lab Results Vital Signs Most Recent Vital Signs in EMR: Temp Pulse Resp BP Pulse Ox 36.4 C L 95 H 16 131/84 97 08/01/22 08:49 08/01/22 08:49 08/01/22 08:49 08/01/22 08:49 08/01/22 08:49 Lab Results Blood Type / Crossmatch: No Data to Display Complete Blood Count: No Data to Display Complete Metabolic Panel: No Data to Display Liver Function Panel: No Data to Display Coagulation Panel: No Data to Display Cardiac Panel: No Data to Display Arterial Blood Gas: No Data to Display Venous Blood Gas: No Data to Display Pancreas Panel: No Data to Display Thyroid Panel: No Data to Display Infectious Disease: No Data to Display Blood Cultures: No Data to Display Toxicology Panel: No Data to Display Imaging and Studies Imaging and Studies Study information below may be from another EMR and interpreted by another provider. Please see original notes in EMR for more complete details. EKG Summary: 05/22: sinus rhythm, RAD. Stress Test Summary: 05/22: peak HR 80% predicted, EKG was nondiagnostic. MPI with normal perfusion, no ischemia or prior infarct, EF 65%. Echocardiogram Summary: 10/19: LVEF 55%, no sig valve dz, PAS 32 mmhg. Pulmonary Function Summary: 01/18: mild obstructive airway dz, no sig bronchodilator response. moderately reduced DLCO. Anesthesia Assessment and Plan Anesthesia History Personal History: No History of Anesthesia Complications Family History: No Family History of Anesthesia Complications Exercise Tolerance Exercise Tolerance: Metabolic Equivalents>4 Cardiac & Pulmonary Exam Cardiac Exam: Normal S1/S2 Heart Sounds Pulmonary Exam: Clear Bilateral Breath Sounds Implantable Cardiac Device Does patient have a Pacemaker or an ICD?: No Airway Exam Known Difficult Airway: No Mallampati Class: 2 Mouth Opening: Narrow (< 3cm) Thyromental Distance: Greater than 3 cm Neck Range of Motion: Full ROM Neck Circumference: Normal Teeth Condition: Edentulous ASA Classification ASA Score: ASA 3 Emergency Case?: No NPO Status NPO Status: NPO Clears >2 hours, Solids >8 hours Anesthesia Plan Resuscitation Status: Full Code Anesthesia Technique: General Anesthesia Airway Planned: Endotracheal Tube Monitors Used: Standard Monitors Preoperative Comments:: 72 yo female with multiple allergies with an ankle fracture here for ORIF. Sig PMHx: pulmonary nodule, COPD (stiolto, albuterol, azithromycin), anxiety/depression, GERD/barretts (omeprazole), HTN, low back pain, hypothyroid (on replacement), former smoker (quit 2000), Previous Anes: - egd colo with midz/prop, natural airway, no issues. - DELANO, spinal (2 attempts), prop sedation was stopped due to sig coughing and secretions. Discussed risks, benefits, and alternates of spinal vs general and also discussed her previous anes. Plan: She would like to proceed with a GA and nerve block as a rescue option.
[2022-08-01] MEDS: Lactated Ringers 1,000 ML 80 ML IV (09:10)
[2022-08-01] MEDS: ceFAZolin 2 GM/50 ML BAG IVPB (10:55)
[2022-08-01] MEDS: Bupivacaine 0.5% Pres-Free 30 ML VIAL (11:20)
--- NOTE | 2022-08-01 12:02 | DI.RAD_ITS ---
Exam(s) XR ANKLE LT COMPLETE EXAM: XR ANKLE LT COMPLETE CLINICAL HISTORY: fractured left ankle. TECHNIQUE: 2D digital imaging was performed. COMPARISON: CR XR ANKLE LT COMPLETE from 07/29/2022 FINDINGS: Fluoroscopy provided during ORIF of left ankle fracture. See procedure report for details. Total fluoroscopy time 57.9 seconds IMPRESSION: Radiation exposure index/cumulative radiation dose: janes Hollis= 1.1850mGY DATA REPOSITORY: RADIATION DOSE DELIVERED:
[2022-08-01] MEDS: fentaNYL 100 MCG/2 ML VIAL IVP (13:11)
--- NOTE | 2022-08-01 13:28 | W.ANESPOSTOP ---
Postoperative Evaluation Date, Time and Location Date Performed: 08/01/22 Time Performed: 13:28 Patient Location: PACU Vital Signs Most Recent Imported Vital Signs: Most Recent Vital Signs Temp Pulse Resp BP Pulse Ox 36.5 C 76 12 171/79 H 93 08/01/22 13:19 08/01/22 13:19 08/01/22 13:19 08/01/22 13:19 08/01/22 13:19 Pain Score Most Recent Pain Score: Most Recent Pain Score Pain Level 4 08/01/22 13:04 Assessment Mental Status: Awake (Alert & Oriented to Patient Baseline) Airway and Respiratory Function: Patent airway with normal (patient baseline) respiratory exam Cardiovascular Function: Hemodynamically Stable Hydration Status: Adequately Hydrated Nausea & Vomiting: No Nausea or Vomiting Pain: Pain is Moderate or Severe (discussed regional anesthesia if fent does not help, but would have to wait time pina given the amount of local that was given in the OR and max total for her. ) Postoperative Pain Management: Pain being addressed with medication Peripheral Nerve Block: Patient did not receive a nerve block
[2022-08-01] MEDS: Acetaminophen 325 MG TAB 650 MG PO (14:18)
--- NOTE | 2022-08-01 15:00 | W.PM.OP ---
Date of service: 08/01/22 Time of Service: 12:30 Operative Note Operative Note DATE OF PROCEDURE: 08/01/22 PRE-OP DIAGNOSIS: Left Bimalleolar Ankle Fracture POST-OP DIAGNOSIS: same PROCEDURE: Open Reduction and Internal Fixation of Left Ankle - Lateral Malleolus along with syndesmotic fixation SURGEON: Carlos Dejesus SENIOR MECHANICAL DESIGN ENGINEER: Esha Gimenez ANESTHESIA TYPE: General LMA/ETT Refer to Anesthesia Record ESTIMATED BLOOD LOSS: 50 PATHOLOGY: none sent TOURNIQUET TIME: 0 COMPLICATIONS: None Patient was transported to: PACU Patient's condition: stable Indications: Brit is a 72 year old female who presented to the Emergency Department after a fall. X-rays confirmed the diagnosis of a bimalleolar ankle fracture with talar displacement. I reviewed the possible treatment options and given the fracture, I recommended operative fixation. I discussed the technical details of the surgery. I reviewed the risks such as bleeding, infection, pain, stiffness, malunion, nonunion, hardware prominence, hardware faiilure, malrotation, damage to nerves and vessels, blood clot. Despite these risks, she agreed to proceed. Findings: There was an oblique fracture of the distal fibula. It was mobilized and reduced, held with a clamp. This was then secured with a lag screw followed by a neutralization plate. There was some instability of the syndesmosis which was fixed with flexible fixation, Synthes Fibulink. Procedure Description: Brit was greeted in the preoperative area. Consent was previously reviewed and signed. Once in the operating room, anesthesia was administered. The patient was transferred to the operating table in the supine position. She was positioned in the supine position with the operative side placed onto a bone foam ramp with a small bump under the ipsilateral hip. All bony prominences were well padded. Arms were placed out to the side, padded, and secured. Prophylactic antibiotics, Cefazolin 2 grams, was given for prophylactic antibiotics. A timeout was performed for safe surgery. The left leg was prepped with Chloraprep. The leg was draped with a stockinette and extremity drape in a standard fashion. The proposed surgical incision over the fibula was marked on the skin. This area was anesthetized with 0.5% bupivacaine. Skin was then incised sharply. Any crossing venous branches were coagulated and the lateral fibula was exposed. The periosteum from the lateral fibula was incised and then elevated with electrocautery as well as a mccullough elevator. The oblique fracture of the distal fibula was easily identified. There is some mild comminution but overall a primary oblique fracture line running from distal?anterior to proximal?posterior with a small posterior extension. Callus material was debrided from the fracture site. I then reduced the lateral of this fracture with some traction and internal rotation. This was held with a clamp. The bone quality actually appear to be decent in this area and therefore I proceeded with placement of the lag screw across the fracture. This was done first by drilling the anterior cortex with a 3.5 mm drill followed by the 2.7 mm drill. A 3.5 mm fully threaded screw was placed in lag technique with excellent compression of the fracture site. This afforded excellent stability of the fracture. X-rays were then obtained which showed the same with excellent reduction. A one third tubular plate was then selected on the back table and bent to contour to the distal fibula. Once it was shaped accordingly was placed onto the lateral aspect of the fibula. It was held in place and x-ray was used to confirm appropriate positioning of the plate. A single 3.5 mm cortex screw was placed proximal to the fracture site to bring the plate down to bone and hold it in position. Once this was then held in position the distal aspect the plate was compressed against the distal lateral fibula and 2 locking screws were placed into distalmost holes. These were unicortical. A second cortex screw was placed proximally. While fluoroscopy was then utilized to test the stability of the ankle. This did show some continued gapping of the medial space with external rotation stress. Utilizing the whole proximal to the fracture site approximately 1 or so centimeters above the joint line, I placed a Synthes Fibulink flexible syndesmotic fixation system. This was tightened and tested as it was tightening to ensure the appropriate tension. This improved stability of the medial clear space. Final x-rays were there obtained which showed nearly anatomic reduction of the fracture and stability with stress testing of the ankle joint. The wound was then thoroughly irrigated. The deep tissues were injected with 0.5% bupivacaine. The periosteum was closed over the plate with 0 Vicryl. Deep tissues were then reapproximated with a 3-0 Vicryl. The skin was closed with a running 4-0 nylon suture. The wound was dressed with Xeroform, 4 x 4's and ABD. A short leg splint was then applied. At the end of the case, all counts were correct. Brit tolerated the procedure well without known complication and was taken to the PACU for recovery. She will remain touchdown to partial weightbearing on the left leg with assistance of crutches and a walker. She should keep it elevated for the next 3 to 5 days. She will follow-up in 2 weeks for splint and suture removal and transition into a walker boot.
== END 2022-08-01 15:10 | disposition home or self-care (01) ==
PROVIDERS: PCP Nurse Practitioner; Visit Provider Student in an Organized Health Care Education/Training Program
PROC: (CPT 27814; principal; 2022-08-01 12:30)
DX: S82.842A Displaced bimalleolar fracture of left lower leg, initial encounter for closed fracture (principal); X58.XXXA Exposure to other specified factors, initial encounter; N18.30 Chronic kidney disease, stage 3 unspecified; I50.9 Heart failure, unspecified
CPT/HCPCS: 27814; 27829; C1889; 73610; J0690; J1100; J1885; J2250; J2405; J2704; J3010

== ENCOUNTER 2022-08-21 11:38 | Outpatient (CLI) | payer MEDICARE, MEDICAID, SELFPAY ==
--- NOTE | 2022-08-21 09:30 | DI.RAD_ITS ---
Exam(s) XR ANKLE LT COMPLETE EXAM: XR ANKLE LT COMPLETE CLINICAL HISTORY: 1st post op s/p ORIF L ANKLE. TECHNIQUE: 2D digital imaging was performed. Three images were obtained. AP, lateral and oblique vi ews were obtained. COMPARISON: CR XR ANKLE LT COMPLETE from 07/29/2022 XA XR ANKLE LT COMPLETE from 08/01/2022 FINDINGS: BONES: There are stable post operative changes present. The nondisplaced posterior malleolar fractur e is unchanged. No new fracture or dislocation. JOINTS: The joint spaces are well maintained. No joint effusion is present. SOFT TISSUE: Normal. IMPRESSION: Stable postoperative changes. DATA REPOSITORY: RADIATION DOSE DELIVERED:
== END 2022-08-21 11:39 | disposition home or self-care (01) ==
LOC: DIORS 11:38
PROVIDERS: PCP Nurse Practitioner; Referring Provider Nurse Practitioner; Visit Provider Physician Assistant
DX: S82.842D Displaced bimalleolar fracture of left lower leg, subsequent encounter for closed fracture with routine healing (principal); X58.XXXD Exposure to other specified factors, subsequent encounter
CPT/HCPCS: 73610

== ENCOUNTER 2022-09-18 10:55 | Outpatient (CLI) | payer MEDICARE, SELFPAY ==
--- NOTE | 2022-09-18 09:00 | DI.RAD_ITS ---
Exam(s) XR ANKLE LT COMPLETE EXAM: XR ANKLE LT COMPLETE INDICATION: S/P ORIF L ANKLE. COMPARISON: CR XR ANKLE LT COMPLETE from 08/21/2022 TECHNIQUE: 2D digital imaging was performed. Two views. FINDINGS: There has been no change in fracture or hardware alignment. Some soft tissue swelling remains presen t. No new findings. DATA REPOSITORY: RADIATION DOSE DELIVERED:
== END 2022-09-18 10:56 | disposition home or self-care (01) ==
LOC: DIORS 10:55
PROVIDERS: PCP Nurse Practitioner; Referring Provider Nurse Practitioner; Visit Provider Physician Assistant
DX: S82.842D Displaced bimalleolar fracture of left lower leg, subsequent encounter for closed fracture with routine healing (principal); X58.XXXD Exposure to other specified factors, subsequent encounter
CPT/HCPCS: 73610

== ENCOUNTER 2022-10-16 10:11 | Outpatient (CLI) | payer MEDICARE, SELFPAY ==
--- NOTE | 2022-10-16 09:45 | DI.RAD_ITS ---
Exam(s) XR ANKLE LT COMPLETE EXAM: XR ANKLE LT COMPLETE CLINICAL HISTORY: left ankle ORIF. TECHNIQUE: 2D digital imaging was performed. Three images were obtained. AP, lateral and oblique vi ews were obtained. COMPARISON: CR XR ANKLE LT COMPLETE from 07/29/2022 CR XR ANKLE LT COMPLETE from 09/18/2022 FINDINGS: BONES: There are stable post operative changes present. No new fracture or dislocation. The fibular fracture line is still visualized. The posterior malleolar fracture is less well visualized due to t he overlying orthopedic hardware. JOINTS: The joint spaces are well maintained. SOFT TISSUE: Mild soft tissue swelling around the ankle. IMPRESSION: Stable postoperative changes. DATA REPOSITORY: RADIATION DOSE DELIVERED:
== END 2022-10-16 10:12 | disposition home or self-care (01) ==
LOC: DIORS 10:12
PROVIDERS: PCP Nurse Practitioner; Referring Provider Nurse Practitioner; Visit Provider Physician Assistant
DX: S82.842D Displaced bimalleolar fracture of left lower leg, subsequent encounter for closed fracture with routine healing (principal); X58.XXXD Exposure to other specified factors, subsequent encounter
CPT/HCPCS: 73610

== ENCOUNTER 2022-11-05 04:45 | Emergency (ER) | payer MEDICARE, SELFPAY ==
[2022-11-05 04:49] VITALS: BP 164/91; PULSE 79; RESP 18; TEMP 36.6; O2SAT 98
[2022-11-05] MEDS: HYDROmorphone 2 MG/ML SYR 1 MG IM (05:05)
--- NOTE | 2022-11-05 05:07 | W.ED.GENAD ---
Discharge Plan Disposition Patient Disposition: Home Condition: Stable Discharge Details Clinical Impression: Knee joint pain Primary Care Provider: Kristine Carter ED Provider: Royce Brown Home Meds and New Rx's Prescriptions: New oxycodone-acetaminophen [Percocet] 5-325 mg tablet 1 tab PO TID PRN (Reason: pain) Qty: 7 0RF ondansetron 4 mg tablet,disintegrating 4 mg PO TID 3 Days Qty: 9 0RF No Action sertraline 50 mg tablet 50 mg PO DAILY Qty: 90 3RF Metamucil 3.4 gram/5.4 gram powder 1 tbs PO DAILY Rx Instructions: mix into at least 8 oz of water or juice before administering [facility] 18-400 mg-mcg tablet 1 tab PO DAILY (DME) compressor, for nebulizer Device See Rx Instructions .ROUTE .MEDSUPPLY Qty: 1 0RF Rx Instructions: As directed ipratropium-albuterol 0.5 mg-3 mg(2.5 mg base)/3 mL solution for nebulization 3 ml inhalation Q6H PRN (Reason: wheezing) Qty: 15 0RF Rx Instructions: Trial for Cough, COPD Exacerbation Qvar RediHaler 80 mcg/actuation HFA aerosol breath activated 1 inh inhalation BID Qty: 10.6 12RF Rx Instructions: Rinse mouth after use (DME) EasiVent Mask Large 1 EACH device 1 ea Miscellaneous DIRECTED Qty: 1 Rx Instructions: DIRECTED WITH INHALER albuterol sulfate [Ventolin HFA] 90 mcg/actuation HFA aerosol inhaler 2 puff inhalation Q4H PRN Rx Instructions: rescue only per note dated 09/14/20 [facility] omeprazole 40 mg capsule,delayed release(DR/EC) 40 mg PO DAILY Qty: 90 3RF Hold Instructions: Home Medication placed on hold at Doctor's office Stiolto Respimat 2.5-2.5 mcg/actuation mist See Rx Instructions .ROUTE .COMPLEX Qty: 4 12RF Dose Instruction: INHALE TWO PUFFS BY MOUTH EVERY DAY Rx Instructions: INHALE TWO PUFFS BY MOUTH EVERY DAY azithromycin 250 mg tablet See Rx Instructions .ROUTE .COMPLEX Qty: 30 12RF Dose Instruction: TAKE ONE TABLET BY MOUTH EVERY DAY FOR COPD Rx Instructions: TAKE ONE TABLET BY MOUTH EVERY DAY FOR COPD levothyroxine 50 mcg tablet See Rx Instructions .ROUTE .COMPLEX Qty: 90 3RF Dose Instruction: TAKE ONE TABLET BY MOUTH EVERY DAY Rx Instructions: TAKE ONE TABLET BY MOUTH EVERY DAY meclizine 25 mg tablet 25 mg PO TID PRN (Reason: dizziness) Qty: 20 0RF acetaminophen 500 mg tablet 1,000 mg PO Q8H PRN Qty: 90 0RF Rx Instructions: Take two tablets up to every 8 hours as needed for pain ibuprofen 600 mg tablet 600 mg PO TID PRN (Reason: pain) Qty: 60 0RF Discharge Instructions Instructions: Knee Pain (ED) HPI General Date/Time Provider Initiated Documentation: 11/05/22 04:55. HPI Narrative: 72 year old female with hx b/l knee replacement ~20 years ago, presents to the ED with increased knee pain for some time, but says that yesterday when she was in the grocery store her R knee gave out and has been painful and swollen. No injury, no numbness/tingling. Related Data Home Medications Medication Instructions Recorded Confirmed inhaler,assist devices,access #1 ea 09/01/13 11/05/22 (EasiVent Mask Large) psyllium husk 3.4 gram/5.4 gram 1 tbs PO DAILY 08/11/19 11/05/22 oral powder (Metamucil) multivitamin-ferrous 1 tab PO DAILY 01/10/20 11/05/22 fumarate-folic acid 18 mg-400 mcg tablet ([facility]) albuterol sulfate 90 mcg/actuation 2 puff inhalation Q4H PRN 09/14/20 11/05/22 aerosol inhaler (Ventolin HFA) meclizine 25 mg tablet 25 mg PO TID PRN dizziness #20 tabs 10/06/20 11/05/22 compressor, for nebulizer #1 ea 02/19/21 11/05/22 ipratropium 0.5 mg-albuterol 3 mg 3 ml inhalation Q6H PRN wheezing 02/19/21 11/05/22 (2.5 mg base)/3 mL nebulization #15 mL soln omeprazole 40 mg capsule,delayed 40 mg PO DAILY #90 tab-caps 01/15/22 11/05/22 release tiotropium 2.5 mcg-olodaterol 2.5 See Rx Instructions .Route 02/17/22 11/05/22 mcg/actuation mist for inhalation .COMPLEX #4 grams (Stiolto Respimat) sertraline 50 mg tablet 50 mg PO DAILY #90 tabs 05/01/22 11/05/22 beclomethasone dipropionate 80 1 inh inhalation BID #10.6 grams 06/30/22 11/05/22 mcg/actuation HFA breath activated aerosol (Qvar RediHaler) azithromycin 250 mg tablet See Rx Instructions .Route 07/24/22 11/05/22 .COMPLEX #30 tabs acetaminophen 500 mg tablet 1,000 mg PO Q8H PRN pain #90 tabs 08/01/22 11/05/22 ibuprofen 600 mg tablet 600 mg PO TID PRN pain #60 tabs 08/01/22 11/05/22 levothyroxine 50 mcg tablet See Rx Instructions .Route 09/10/22 11/05/22 .COMPLEX #90 tabs ondansetron 4 mg disintegrating 4 mg PO TID 3 days #9 tabs 11/05/22 tablet oxycodone-acetaminophen 5 mg-325 1 tab PO TID PRN pain #7 tabs 11/05/22 mg tablet (Percocet) Previous Rx's Medication Instructions Recorded meclizine 25 mg tablet 25 mg PO TID PRN dizziness #20 tabs 10/06/20 compressor, for nebulizer #1 ea 02/19/21 ipratropium 0.5 mg-albuterol 3 mg 3 ml inhalation Q6H PRN wheezing 02/19/21 (2.5 mg base)/3 mL nebulization #15 mL soln omeprazole 40 mg capsule,delayed 40 mg PO DAILY #90 tab-caps 01/15/22 release tiotropium 2.5 mcg-olodaterol 2.5 See Rx Instructions .Route 02/17/22 mcg/actuation mist for inhalation .COMPLEX #4 grams (Stiolto Respimat) sertraline 50 mg tablet 50 mg PO DAILY #90 tabs 05/01/22 beclomethasone dipropionate 80 1 inh inhalation BID #10.6 grams 06/30/22 mcg/actuation HFA breath activated aerosol (Qvar RediHaler) azithromycin 250 mg tablet See Rx Instructions .Route 07/24/22 .COMPLEX #30 tabs acetaminophen 500 mg tablet 1,000 mg PO Q8H PRN pain #90 tabs 08/01/22 ibuprofen 600 mg tablet 600 mg PO TID PRN pain #60 tabs 08/01/22 levothyroxine 50 mcg tablet See Rx Instructions .Route 09/10/22 .COMPLEX #90 tabs ondansetron 4 mg disintegrating 4 mg PO TID 3 days #9 tabs 11/05/22 tablet oxycodone-acetaminophen 5 mg-325 1 tab PO TID PRN pain #7 tabs 11/05/22 mg tablet (Percocet) Allergies Allergy/AdvReac Type Severity Reaction Status Date / Time tramadol Allergy Severe ITCHING, Verified 11/05/22 04:54 GI UPSET hydrocodone bitartrate Allergy Intermediate RASH, Verified 11/05/22 04:54 [From Vicodin] ITCHING fluticasone Allergy Verified 11/05/22 04:54 methylphenidate Allergy Verified 11/05/22 04:54 regadenoson AdvReac Severe Other (See Verified 11/05/22 04:54 Comment) desipramine AdvReac Intermediate PALPITATION Verified 11/05/22 04:54 S pregabalin [From Lyrica] AdvReac Intermediate CONFUSION Verified 11/05/22 04:54 salmeterol xinafoate AdvReac Intermediate COUGH Verified 11/05/22 04:54 [From Advair Diskus] methylprednisolone sodium AdvReac Mild Agitation Verified 11/05/22 04:54 succinate [From Solu-Medrol] paroxetine HCl [From Paxil] AdvReac Mild JITTERY Verified 11/05/22 04:54 sertraline HCl [From Zoloft] AdvReac Mild JITTERY Verified 11/05/22 04:54 acetaminophen AdvReac nausea, Verified 11/05/22 04:54 vomiting General Stated Complaint: Orthopedic NATY: 4 Review of Systems Narrative: CONST: no fever or chills HEENT: no sore throat SKIN: no rashes PULM: no sob, no cough CARD: no cp, no palpitations EXTR: R knee with effusion, no redness, Limited ROM due to pain. NVI NEURO: No focal weakness PFSH All Active Problems (Updated 11/05/22 @ 06:11 by Royce Brown MD) Knee joint pain (Acute) Diverticulitis (Chronic 04/25/14) a. 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 that pain is secondary to scar tissue within muscle and lidocaine injection given with effect. Lymphadenitis (Acute 05/23/13) Diverticulitis of sigmoid colon (Acute 04/25/14) Bilateral knee pain (Acute) 02/23/19 F/u [facility] Orthopaedics History of bilateral knee replacement (Acute) Left foot pain (Acute) IFG (impaired fasting glucose) (Acute) Itching (Acute) Cough (Acute) SOB (shortness of breath) (Acute) Vertigo (Acute) Left hip pain (Acute) Anxiety and depression (Acute) Headache (Acute) Osteoarthritis of left hip (Acute) History of Edouard's esophagus (Acute) Pharyngeal dysphagia (Acute) Polyarthralgia (Acute) Positive SANDY (antinuclear antibody) (Acute) senior care (current) use of non-steroidal anti-inflammatories (nsaid) (Acute) Regurgitation of food (Acute) Status post total hip replacement, left (Acute 01/24/20) Fatigue (Acute) Forgetfulness (Acute) SBO (small bowel obstruction) (Acute) Dizziness (Acute) Abdominal pain (Acute) Lung nodule (Acute) Vision changes (Acute) Constipation (Acute) Acute exacerbation of chronic obstructive pulmonary disease (COPD) (Acute) History of pneumonia (Acute) Left chest pressure (Acute) Fluttering sensation of heart (Acute) Insomnia (Acute) Weight loss, non-intentional (Acute) ~ 8 lbs, 3-4 mos PND (post-nasal drip) (Acute) acute on chronic? Hx nasal steroid per Dr. Garza. Cough (Acute) Depression (Chronic) Voiding difficulty (Acute) Pulmonary nodule (Acute) Right hip pain (Acute) Lumbar spondylosis (Acute) Ischial bursitis (Acute) Muscular deconditioning (Acute) Personal history of nicotine dependence (Acute) Bimalleolar fracture of left ankle (Acute 07/22/22) Bimalleolar equivalent with posterior malleolus fracture--S/P ORIF Medical History (Updated 11/05/22 @ 06:11 by Royce Brown MD) Chronic obstructive lung disease quit smoking 2000, [facility] PFT 01/06/18 Mild airflow obstruction, no significant improvement after inhaled bronchodilators RH COPD (chronic obstructive pulmonary disease) Emphysema Depression Diverticulitis HTN (hypertension) Hx of chest pain Pt. states her chest pain was related to her stomach issues, and has not had any cardiac issues currently, and does not see a software implementation project manager. Irritable colon Osteoarthritis Sialoadenitis Surgical History (Updated 08/01/22 @ 08:42 by Rosangela Velasquez) Arthroscopy, Shoulder right; acromioplasty Colectomy 04/25/14 Colonoscopy - MAC (09/24/16) EGD - IV Sedation 2014 EGD - MAC (09/24/16) Extraction of cataract H/O surgical procedure a. total abdominal hysterectomy-bso b. exploratory laparotomy for reoval of ovaries c. knee replacements d. sigmoid resection 04/25/2014 e. right shoulder acromioplasty f. Elyssa fundoplication 1995 g. bilateral open carpal tunnel release 1985 History of bilateral salpingo-oophorectomy (05/18/14) History of bunionectomy History of hysterectomy (05/18/14) History of hysterectomy Leyssa Fundoplication (~1995) Open Carpal Tunnel release (~1985) B/L Replacement of total knee joint (~2004) B/L Family History Mother Diabetes Essential hypertension Personal history of malignant neoplasm LUNG Hyperlipidemia Asthma Father Essential hypertension Personal history of malignant neoplasm THROAT Heart disease Hyperlipidemia Sister Drug abuse Essential hypertension COPD (chronic obstructive pulmonary disease) Depression Heart disease Hyperlipidemia Asthma Grandfather Essential hypertension Personal history of malignant neoplasm Heart disease Hyperlipidemia Stroke Grandfather , UNKNOWN Alcohol abuse Heart disease Stroke Grandmother Essential hypertension Personal history of malignant neoplasm Hyperlipidemia Grandmother Alcohol abuse Personal history of malignant neoplasm Heart disease Son Depression Heart disease Asthma Son Alcohol abuse Essential hypertension Depression Daughter Essential hypertension Asthma Daughter Essential hypertension Depression Hyperlipidemia Social History Smoking/Tobacco Use Status: Former Tobacco Use Quit Date: 06/01/99 Smoking risk assessment performed?: Yes Alcohol Intake: current Alcohol Intake frequency: a few times a month Alcohol type: beer Drug use: Never Substance use type: does not use Number of Children: 4 Pets and animals: Yes Pets and animals: cat(s) and dog(s) Current gender identity: female What type of physical activity do you participate in: walking Frequency: daily Seatbelt use: always Water heater temp set <120 deg: Yes Working smoke detector in home: Yes Fire extinguisher in home: Yes Carbon monox detector in home: Yes Firearms in home: Yes Firearms unloaded and locked: Yes Do you feel safe at home: Yes Do you feel safe in your relationship?: Yes Course xrays show b/l replacement, good joint spacing. Will provide knee immobilizer for her right knee for support, she says she has a walker at home that she can use, and recommend since both knees are bothering her. She had her replacement at [facility] ~20 years ago, says wait is a couple months for her to try and get in, referral for ortho at [facility] given, as well, for further eval. Rx's for pain meds and zofran. Vital Signs Vital signs: Vital Signs Temperature 36.6 C 11/05/22 04:49 Pulse 79 11/05/22 04:49 Respiratory Rate 18 11/05/22 04:49 Blood Pressure 164/91 H 11/05/22 04:49 Pulse Oximetry 98 11/05/22 04:49 Temperature 36.6 C 11/05/22 04:49 Temperature Source Oral 11/05/22 04:49 Pulse 79 11/05/22 04:49 Respiratory Rate 18 11/05/22 04:49 Respiratory Effort Normal 11/05/22 04:53 Blood Pressure 164/91 H 11/05/22 04:49 Blood Pressure Position Supine 11/05/22 04:49 Pulse Oximetry 98 11/05/22 04:49 Oxygen Delivery Method Room Air 11/05/22 04:49 Oxygen Flow Rate 0 11/05/22 04:49 Pain Level 8 11/05/22 05:05
--- NOTE | 2022-11-05 05:09 | DI.RAD_ITS ---
Exam(s) XR KNEE LT 2V AP,LAT EXAM: XR KNEE LT 2V AP,LAT CLINICAL HISTORY: pain. TECHNIQUE: 2D digital imaging was performed of the left knee. Two images were obtained. AP and lat eral views were obtained. COMPARISON: CR,XR XR KNEE LT 3V AP,LAT,SHELLI from 07/22/2022 FINDINGS: BONES: There is a healing nondisplaced fracture of the proximal fibula. No bony destructive lesion is seen. JOINTS: The knee is normally aligned. There is a small joint effusion. The patient's left total knee arthroplasty appears in good position. SOFT TISSUE: Normal. IMPRESSION: 1. Stable proximal left femoral fracture. 2. Stable left TKR. 3. Small joint effusion. DATA REPOSITORY: RADIATION DOSE DELIVERED:
--- NOTE | 2022-11-05 05:09 | DI.RAD_ITS ---
Exam(s) XR KNEE RT 2V AP,LAT EXAM: XR KNEE RT 2V AP,LAT CLINICAL HISTORY: pain. TECHNIQUE: 2D digital imaging was performed of the right knee. Two views obtained. AP and lateral views were obtained. COMPARISON: No previous for comparison. FINDINGS: BONES: No acute fracture is present. No bony destructive lesion is seen. JOINTS: The knee is normally aligned. There is a small joint effusion. There is a right total knee r eplacement which appears in good position. SOFT TISSUE: Normal. IMPRESSION: Small joint effusion. DATA REPOSITORY: RADIATION DOSE DELIVERED:
[2022-11-05] MEDS: Ondansetron O.D.T. 4 MG TABEF PO (05:47)
[2022-11-05 07:01] VITALS: BP 169/79; PULSE 85; RESP 18; TEMP 36.6; O2SAT 94
--- NOTE | 2022-11-05 07:21 | DI.VRAD_ITS ---
PROCEDURE INFORMATION: Exam: XR Left Knee Exam date and time: 11/05/2022 5:28 AM Age: 72 years old Clinical indication: Pain; Left; Prior surgery; Surgery date: 1-6 months; Surgery type: Knee replacement TECHNIQUE: Imaging protocol: Radiologic exam of the left knee. Views: 1 or 2 views. COMPARISON: CR XR KNEE LT 3V AP,LAT,SHELLI 07/22/2022 8:52 PM FINDINGS: Bones/joints: A left total knee arthroplasty is seen. The visualized portions of the hardware are intact and in good position, without evidence of loosening. No acute or suspicious osseous abnormalities. Small joint effusion. Soft tissues: Normal. IMPRESSION: 1. Unremarkable left knee arthroplasty. 2. Small joint effusion. Dictated and Authenticated by: Kelsey Meza MD. Ordering:LIAM Crane MD
--- NOTE | 2022-11-05 07:22 | DI.VRAD_ITS ---
PROCEDURE INFORMATION: Exam: XR Right Knee Exam date and time: 11/05/2022 5:30 AM Age: 72 years old Clinical indication: Pain; Right; Prior surgery; Surgery date: 6+ months; Surgery type: Knee replacement TECHNIQUE: Imaging protocol: Radiologic exam of the right knee. Views: 3 views. COMPARISON: US EXTREMITY VENOUS BI 11/04/2021 12:02 PM FINDINGS: Bones/joints: A right total knee arthroplasty is seen. The visualized portions of the hardware are intact and in good position, without evidence of loosening. No acute or suspicious osseous abnormalities. Suggestion of a small joint effusion. Soft tissues: Normal. IMPRESSION: Suggestion of a small joint effusion. Dictated and Authenticated by: Kelsey Meza MD. Ordering:LIAM Crane MD
== END 2022-11-05 07:07 | disposition home or self-care (01) ==
PROVIDERS: Emergency Provider Emergency Medicine; PCP Nurse Practitioner
DX: M25.561 Pain in right knee (principal); M25.562 Pain in left knee; Z96.653 Presence of artificial knee joint, bilateral
CPT/HCPCS: 96372; 99284; 73560; J1170

== ENCOUNTER 2022-12-01 01:03 | Outpatient (CLI) | payer MEDICARE, SELFPAY ==
--- NOTE | 2022-12-01 07:59 | DI.CT_ITS ---
Exam(s) CT CHEST WO EXAM: CT CHEST WO CLINICAL HISTORY: follow up lung nodule,copd,j44.9,r91.1 TECHNIQUE: Imaging Protocol: Axial computed tomography images with coronal and sagittal reformatted images were created and reviewed CONTRAST MATERIAL: Noncontrast COMPARISON: CT CT CHEST WO from 12/02/[address] CHEST WO from 02/19/[address] CHEST PE CTA from 04/26/2022 FINDINGS: Pulmonary parenchyma: No consolidation. No dominant measurable mass. Moderate to severe emphysematou s changes. Stable nodule left lower lobe. Stable right upper lobe perifissural nodule. No new nodu les. Tracheobronchial tree: No bronchiectasis or mucous plugging. Mediastinum and Precious: No dominant adenopathy or fluid collection. Pleura: No effusion or pneumothorax. Heart: The heart is not dilated. Mild coronary artery calcifications are seen. Aorta: Thoracic aorta non-dilated. Atherosclerotic changes Upper abdomen: Surgical clips near the GE junction. Bones: Scoliosis anddegenerative changes. Soft tissues: Unremarkable. IMPRESSION: Stable pulmonary nodules. No acute abnormality. RADIATION DOSE DELIVERED: 376.29mGy.cm Total DLP DATA REPOSITORY: All CT scans at this facility are submitted to the National Radiology Data Registry (NRDR) Dose Index Registry (DIR) with the [employer] (ACR). RADIATION OPTIMIZATION: All CT scans at this facility use at least one of these dose optimization te chniques: automated exposure control; mA and/or kV adjustment per patient size (includes targeted exa ms where dose is matched to clinical indication); or iterative reconstruction.
== END 2022-12-01 01:23 ==
LOC: DI 01:03
PROVIDERS: PCP Nurse Practitioner; Visit Provider Physician Assistant Surgical
DX: J44.9 Chronic obstructive pulmonary disease, unspecified (principal); R91.1 Solitary pulmonary nodule
CPT/HCPCS: 71250

== ENCOUNTER 2022-12-15 10:24 | Outpatient (CLI) | payer MEDICARE, SELFPAY ==
--- NOTE | 2022-12-15 08:45 | DI.RAD_ITS ---
Exam(s) XR KNEE RT 3V AP,LAT,SHELLI EXAM: XR KNEE RT 3V AP,LAT,SHELLI CLINICAL HISTORY: RIGHT KNEE PAIN. TECHNIQUE: 2D digital imaging was performed. Three views. COMPARISON: CR,XR XR KNEE RT 2V AP,LAT from 11/05/2022 FINDINGS: There has been no change in the alignment of the total knee prosthesis. There are no surrounding abn ormal lucencies. No joint effusion is visible. DATA REPOSITORY: RADIATION DOSE DELIVERED:
--- NOTE | 2022-12-15 08:45 | DI.RAD_ITS ---
Exam(s) XR KNEE LT 3V AP,LAT,SHELLI EXAM: XR KNEE LT 3V AP,LAT,SHELLI CLINICAL HISTORY: LEFT KNEE PAIN. TECHNIQUE: 2D digital imaging was performed. Three views. COMPARISON: CR,XR XR KNEE LT 2V AP,LAT from 11/05/2022 FINDINGS: There has been no change in the alignment of the of the total knee prosthesis. There are no abnormal surrounding bony lucencies. No joint effusion is visible. DATA REPOSITORY: RADIATION DOSE DELIVERED:
== END 2022-12-15 10:25 | disposition home or self-care (01) ==
LOC: DIORS 10:24
PROVIDERS: PCP Nurse Practitioner; Referring Provider Nurse Practitioner; Visit Provider Student in an Organized Health Care Education/Training Program
DX: Z96.651 Presence of right artificial knee joint (principal); Z96.652 Presence of left artificial knee joint; T84.84XA Pain due to internal orthopedic prosthetic devices, implants and grafts, initial encounter
CPT/HCPCS: 73562; 99213

== ENCOUNTER 2022-12-26 00:21 | Outpatient (CLI) | payer MEDICARE, SELFPAY ==
--- NOTE | 2022-12-26 07:00 | DI.NM_ITS ---
Exam(s) NM BONE SCAN 3 PHASE EXAM: NM BONE SCAN 3 PHASE CLINICAL HISTORY: PAIN,?LOOSENING,Z96.651,T84.84XA. TECHNIQUE: Injected Dose: 25 mCi Tc-99m MDP COMPARISON: Relevant x-rays and CT scan of 12/26/2022 reviewed.. Knee x-rays of 12/15/2022 reviewed. FINDINGS: Perfusion phase: Symmetrical uptake in both knees Blood Pool: Photopenic zones consistent with bilateral knee prostheses. No abnormal focal uptake. Delayed (3.5 hour) images: There is abnormal focal increased uptake seen in 2 adjacent lower thoracic vertebrae, probably 9 and 10. There is also focus of abnormal increased uptake evident in the right side of T11-T12 level. Th ere is no abnormal uptake evident in the lumbar vertebrae although there is a mild scoliosis noted. No abnormal uptake in the sacrum and bones of the pelvis. There is photopenic stone in the left hip consistent with prosthesis with no abnormal uptake in this region. Mild increased uptake in the righ t femoral head is probably degenerative. Uptake in the left wrist is probably degenerative. No abno rmal uptake in the cervical spine and skull. There is abnormal radiopharmaceutical uptake along the distal lateral left fibula, this being area wh ich has lateral fixation plate. No abnormal uptake in the opposite-right ankle. There is uptake and the left foot at the tarsometatarsal joints and a lesser amount of uptake at the lateral tarsometata rsal joints of the opposite-right foot. Knees: The delayed images of the knees reveal relatively symmetrical mild radiopharmaceutical uptake. No evidence of obvious asymmetric loosening to suggest loosening of the prostheses. There is some increased uptake evident at the level the left fibular neck. IMPRESSION: 1. There are 2 foci of contiguous increased uptake in what appeared the be the 9th and 10th thoracic vertebrae. Also laterally on the right side at T11-T12. Recommend further imaging at this level, st arting with plain films. 2. Photopenic zones in the left hip and bilateral knees consistent with prostheses. No obvious find ings to suggest loosening. Also no evidence to suggest osteomyelitis. 3. Increased uptake in the region of the lateral fixation plate along the distal left fibula. Recom mend plain films of the left ankle to compared to the most recent plain films of 10/16/2022. 4. Asymmetric uptake noted in the left fibular neck. May be associated with subtle healing fracture at this level or bone lesion. There does appear to be subtle increased density in the fibula at thi s level on recent plain films. 5. Uptake evident in the feet consistent with probable degenerative changes at the tarsometatarsal j oints, more prominent on the left side in the region of the 1st, 2nd, and 3rd tarsometatarsal joints. DATA REPOSITORY:
--- NOTE | 2022-12-26 07:00 | DI.CT_ITS ---
Exam(s) CT LOWER EXTREMITY RT WO EXAM: CT LOWER EXTREMITY RT WO CLINICAL HISTORY: PAIN,?LOOSENING,Z96.651,T84.84XA. TECHNIQUE: Imaging Protocol: Axial computed tomography images with coronal and sagittal reformatted images were created and reviewed. COMPARISON: CR XR KNEE LT 3V AP,LAT,SHELLI from 12/15/2022 CR XR KNEE RT 3V AP,LAT,SHELLI from 12/15/2022 FINDINGS: Bones: The patient has a right total knee replacement which causes artifact. There is no fracture o r dislocation. No suspicious lucencies are seen around the orthopedic hardware. The bones are ninoska lly mineralized. No cellulitic or osteomyelitic changes are identified. No lytic or sclerotic lesio ns are identified. There is a joint effusion. There is a tiny density seen which appears to be in th e joint space. This may represent a loose body. Soft Tissues: Normal. IMPRESSION: 1. Right total knee replacement. No evidence of loosening is identified. 2. Joint effusion. RADIATION DOSE DELIVERED: 665.97mGy.cm Total DLP 665.97mGy.cm Total DLP DATA REPOSITORY: All CT scans at this facility are submitted to the National Radiology Data Registry (NRDR) Dose Index Registry (DIR) with the [employer] (ACR). RADIATION OPTIMIZATION: All CT scans at this facility use at least one of these dose optimization te chniques: automated exposure control; mA and/or kV adjustment per patient size (includes targeted exa ms where dose is matched to clinical indication); or iterative reconstruction.
== END 2022-12-26 00:41 ==
LOC: DI 00:22
PROVIDERS: PCP Nurse Practitioner; Visit Provider Student in an Organized Health Care Education/Training Program
DX: T84.84XA Pain due to internal orthopedic prosthetic devices, implants and grafts, initial encounter (principal); Z96.651 Presence of right artificial knee joint; Z98.890 Other specified postprocedural states; M19.072 Primary osteoarthritis, left ankle and foot
CPT/HCPCS: 73700; 78315

== ENCOUNTER 2023-01-09 02:30 | Outpatient (CLI) | payer MEDICARE, SELFPAY ==
[2023-01-09 11:19] LABS: ESR 11 mm/hr (0-30)
[2023-01-09 12:00] LABS: C-Reactive Protein 1.07 mg/dL (0.0-0.3)
== END 2023-01-09 02:31 | disposition home or self-care (01) ==
LOC: LBO 02:31
PROVIDERS: PCP Nurse Practitioner; Visit Provider Student in an Organized Health Care Education/Training Program
DX: M25.561 Pain in right knee (principal); T84.84XA Pain due to internal orthopedic prosthetic devices, implants and grafts, initial encounter; Z96.651 Presence of right artificial knee joint
CPT/HCPCS: 36415; 85652; 86140

== ENCOUNTER 2023-01-28 13:30 | Emergency (ER) | payer MEDICARE, SELFPAY ==
[2023-01-28] VITALS (68 sets, daily range): BP systolic 136–169; BP diastolic 49–85; PULSE 68–91; RESP 8–22; TEMP 37; O2SAT 94–99
--- NOTE | 2023-01-28 14:00 | DI.CT_ITS ---
Exam(s) CT ABDOMEN PELVIS W EXAM: CT ABDOMEN PELVIS W CLINICAL HISTORY: RLQ abd pain x 1wk, melena today. TECHNIQUE: Imaging Protocol: Axial computed tomography images with coronal and sagittal reformatted images were created and reviewed CONTRAST MATERIAL: Intravenous: Omnipaque 350 Contrast volume:100 ml Oral: / no COMPARISON: CT CT ABDOMEN PELVIS WO from 11/28/[address] CHEST PE CTA from 04/26/2022 CT,NM,TMT NM MPI REST STRESS GRP from 05/22/2022 FINDINGS: ABDOMEN: Lung Bases: Emphysematous changes greater at the right lung base. Liver: Normal density. No measurable mass. Gallbladder and biliary tract: No radiodense calculus or dilation. Pancreas: Normal density, no abnormal calcifications or inflammatory process. Spleen: Normal. Kidneys: Normal size, contour and axis. No radiodense stones or obstructive uropathy. No suspicious m asses seen. Adrenal glands: No masses seen. Vasculature: Abdominal aorta non-dilated. Severe atherosclerotic changes. Soft tissues: Unremarkable. PELVIS: Bladder: No gross wall thickening. No calculi.No focal mass. Bowel: Surgical clips near the GE junction, likely fundoplication. Rectosigmoid anastomosis. No obs truction. No bowel wall thickening. Appendix normal. Diverticulosis transverse and descending colo n, mild. No evidence of diverticulitis. Peritoneal cavity: No ascites, collection or mesenteric inflammatory response. Bones: Left hip prosthesis. Reproductive organs: Status post hysterectomy. Lymph nodes: Unremarkable. IMPRESSION:: No acute abnormality. RADIATION DOSE DELIVERED: 602.95mGy.cm Total DLP DATA REPOSITORY: All CT scans at this facility are submitted to the National Radiology Data Registry (NRDR) Dose Index Registry (DIR) with the [employer] ([employer]). RADIATION OPTIMIZATION: All CT scans at this facility use at least one of these dose optimization te chniques: automated exposure control; mA and/or kV adjustment per patient size (includes targeted exa ms where dose is matched to clinical indication); or iterative reconstruction.
--- NOTE | 2023-01-28 14:08 | ED.GENADUL_ITS ---
Discharge Plan Discharge Details Chief Complaint: Abd Prob Primary Care Provider: Kristine Carter ED Provider: Kareem Cuevas Home Meds and New Rx's Prescriptions: No Action Metamucil 3.4 gram/5.4 gram powder 1 tbs PO DAILY Rx Instructions: mix into at least 8 oz of water or juice before administering [employer]'s 18-400 mg-mcg tablet 1 tab PO DAILY (DME) compressor, for nebulizer Device See Rx Instructions .ROUTE .MEDSUPPLY Qty: 1 0RF Rx Instructions: As directed ipratropium-albuterol 0.5 mg-3 mg(2.5 mg base)/3 mL solution for nebulization 3 ml inhalation Q6H PRN (Reason: wheezing) Qty: 15 0RF Rx Instructions: Trial for Cough, COPD Exacerbation Qvar RediHaler 80 mcg/actuation HFA aerosol breath activated 1 inh inhalation BID Qty: 10.6 12RF Rx Instructions: Rinse mouth after use (DME) EasiVent Mask Large 1 EACH device 1 ea Miscellaneous DIRECTED Qty: 1 Rx Instructions: DIRECTED WITH INHALER albuterol sulfate [Ventolin HFA] 90 mcg/actuation HFA aerosol inhaler 2 puff inhalation Q4H PRN Rx Instructions: rescue only per note dated 09/14/20 [facility] Stiolto Respimat 2.5-2.5 mcg/actuation mist See Rx Instructions .ROUTE .COMPLEX Qty: 4 12RF Dose Instruction: INHALE TWO PUFFS BY MOUTH EVERY DAY Rx Instructions: INHALE TWO PUFFS BY MOUTH EVERY DAY azithromycin 250 mg tablet See Rx Instructions .ROUTE .COMPLEX Qty: 30 12RF Dose Instruction: TAKE ONE TABLET BY MOUTH EVERY DAY FOR COPD Rx Instructions: TAKE ONE TABLET BY MOUTH EVERY DAY FOR COPD levothyroxine 50 mcg tablet See Rx Instructions .ROUTE .COMPLEX Qty: 90 3RF Dose Instruction: TAKE ONE TABLET BY MOUTH EVERY DAY Rx Instructions: TAKE ONE TABLET BY MOUTH EVERY DAY omeprazole 40 mg capsule,delayed release(DR/EC) See Rx Instructions .ROUTE .COMPLEX Qty: 90 3RF Hold Instructions: Home Medication placed on hold at Doctor's office Dose Instruction: TAKE ONE CAPSULE BY MOUTH EVERY DAY Rx Instructions: TAKE ONE CAPSULE BY MOUTH EVERY DAY meclizine 25 mg tablet 25 mg PO TID PRN (Reason: dizziness) Qty: 20 0RF sertraline 50 mg tablet 50 mg PO DAILY PRN Patient Comments: as needed acetaminophen 500 mg tablet 1,000 mg PO Q8H PRN Qty: 90 0RF Rx Instructions: Take two tablets up to every 8 hours as needed for pain ibuprofen 600 mg tablet 600 mg PO TID PRN (Reason: pain) Qty: 60 0RF oxycodone-acetaminophen [Percocet] 5-325 mg tablet 1 tab PO TID PRN (Reason: pain) Qty: 7 0RF Medical Decision Making 1415 --72-year-old female with history of diverticulitis of the sigmoid colon, status post remote partial colectomy for complicated diverticulitis, here with right lower quadrant abdominal pain over the past 1 week and black tarry stool today. No peritoneal findings on exam. Plan to proceed to CT the abdomen pelvis to assess for acute surgical pathology including recurrent diverticulitis versus other. 1543 --CT abdomen pelvis was interpreted by radiology: FINDINGS: ABDOMEN: Lung Bases: Emphysematous changes greater at the right lung base. Liver: Normal density. No measurable mass. Gallbladder and biliary tract: No radiodense calculus or dilation. Pancreas: Normal density, no abnormal calcifications or inflammatory process. Spleen: Normal. Kidneys: Normal size, contour and axis. No radiodense stones or obstructive uropathy. No suspicious masses seen. Adrenal glands: No masses seen. Vasculature: Abdominal aorta non-dilated. Severe atherosclerotic changes. Soft tissues: Unremarkable. PELVIS: Bladder: No gross wall thickening. No calculi.No focal mass. Bowel: Surgical clips near the GE junction, likely fundoplication. Rectosigmoid anastomosis. No obstruction. No bowel wall thickening. Appendix normal. Diverticulosis transverse and descending colon, mild. No evidence of diverticulitis. Peritoneal cavity: No ascites, collection or mesenteric inflammatory response. Bones: Left hip prosthesis. Reproductive organs: Status post hysterectomy. Lymph nodes: Unremarkable. IMPRESSION:: No acute abnormality. Rectal exam performed with female scientist engineer box attacher. HPI General Mode of arrival: ambulatory . Date/Time Provider Initiated Documentation: 01/28/23 13:58 . Limitations to Documentation: no limitations . Information obtained by: patient . 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 Patient notes right lower quadrant abdominal pain started about a week ago and has persisted. She notes pain is always present but waxes and wanes in severity. Pain feels sharp and burning. Currently mild. This morning she had black tarry stool. She has never had this before. No bright red blood per rectum. No nausea or vomiting. Poor appetite. Related Data Home Medications Medication Instructions Recorded Confirmed inhaler,assist devices,access #1 ea 09/01/13 12/15/22 (EasiVent Mask Large) psyllium husk 3.4 gram/5.4 gram 1 tbs PO DAILY 08/11/19 12/15/22 oral powder (Metamucil) multivitamin-ferrous 1 tab PO DAILY 01/10/20 01/28/23 fumarate-folic acid 18 mg-400 mcg tablet ([facility]) albuterol sulfate 90 mcg/actuation 2 puff inhalation Q4H PRN 09/14/20 01/28/23 aerosol inhaler (Ventolin HFA) meclizine 25 mg tablet 25 mg PO TID PRN dizziness #20 tabs 10/06/20 01/28/23 compressor, for nebulizer #1 ea 02/19/21 12/15/22 ipratropium 0.5 mg-albuterol 3 mg 3 ml inhalation Q6H PRN wheezing 02/19/21 01/28/23 (2.5 mg base)/3 mL nebulization #15 mL soln tiotropium 2.5 mcg-olodaterol 2.5 See Rx Instructions .Route 02/17/22 01/28/23 mcg/actuation mist for inhalation .COMPLEX #4 grams (Stiolto Respimat) beclomethasone dipropionate 80 1 inh inhalation BID #10.6 grams 06/30/22 01/28/23 mcg/actuation HFA breath activated aerosol (Qvar RediHaler) azithromycin 250 mg tablet See Rx Instructions .Route 07/24/22 01/28/23 .COMPLEX #30 tabs acetaminophen 500 mg tablet 1,000 mg PO Q8H PRN pain #90 tabs 08/01/22 01/28/23 ibuprofen 600 mg tablet 600 mg PO TID PRN pain #60 tabs 08/01/22 01/28/23 levothyroxine 50 mcg tablet See Rx Instructions .Route 09/10/22 01/28/23 .COMPLEX #90 tabs oxycodone-acetaminophen 5 mg-325 1 tab PO TID PRN pain #7 tabs 11/05/22 01/28/23 mg tablet (Percocet) omeprazole 40 mg capsule,delayed See Rx Instructions .Route 01/19/23 01/28/23 release .COMPLEX #90 caps sertraline 50 mg tablet 50 mg PO DAILY PRN 01/28/23 01/28/23 Previous Rx's Medication Instructions Recorded meclizine 25 mg tablet 25 mg PO TID PRN dizziness #20 tabs 10/06/20 compressor, for nebulizer #1 ea 02/19/21 ipratropium 0.5 mg-albuterol 3 mg 3 ml inhalation Q6H PRN wheezing 02/19/21 (2.5 mg base)/3 mL nebulization #15 mL soln tiotropium 2.5 mcg-olodaterol 2.5 See Rx Instructions .Route 02/17/22 mcg/actuation mist for inhalation .COMPLEX #4 grams (Stiolto Respimat) beclomethasone dipropionate 80 1 inh inhalation BID #10.6 grams 06/30/22 mcg/actuation HFA breath activated aerosol (Qvar RediHaler) azithromycin 250 mg tablet See Rx Instructions .Route 07/24/22 .COMPLEX #30 tabs acetaminophen 500 mg tablet 1,000 mg PO Q8H PRN pain #90 tabs 08/01/22 ibuprofen 600 mg tablet 600 mg PO TID PRN pain #60 tabs 08/01/22 levothyroxine 50 mcg tablet See Rx Instructions .Route 09/10/22 .COMPLEX #90 tabs oxycodone-acetaminophen 5 mg-325 1 tab PO TID PRN pain #7 tabs 11/05/22 mg tablet (Percocet) omeprazole 40 mg capsule,delayed See Rx Instructions .Route 01/19/23 release .COMPLEX #90 caps Allergies Allergy/AdvReac Type Severity Reaction Status Date / Time tramadol Allergy Severe ITCHING, Verified 01/28/23 13:59 GI UPSET hydrocodone bitartrate Allergy Intermediate RASH, Verified 01/28/23 13:59 [From Vicodin] ITCHING fluticasone Allergy Verified 01/28/23 13:59 methylphenidate Allergy Verified 01/28/23 13:59 regadenoson AdvReac Severe Other (See Verified 01/28/23 13:59 Comment) desipramine AdvReac Intermediate PALPITATION Verified 01/28/23 13:59 S pregabalin [From Lyrica] AdvReac Intermediate CONFUSION Verified 01/28/23 13:59 salmeterol xinafoate AdvReac Intermediate COUGH Verified 01/28/23 13:59 [From Advair Diskus] methylprednisolone sodium AdvReac Mild Agitation Verified 01/28/23 13:59 succinate [From Solu-Medrol] paroxetine HCl [From Paxil] AdvReac Mild JITTERY Verified 01/28/23 13:59 sertraline HCl [From Zoloft] AdvReac Mild JITTERY Verified 01/28/23 13:59 acetaminophen AdvReac nausea, Verified 01/28/23 13:59 vomiting General Stated Complaint: Abd Prob NATY: 3 Review of Systems All systems reviewed & are unremarkable except as noted in HPI and below Constitutional Constitutional: Denies fever(s) Cardiovascular Cardiovascular: Denies chest pain Gastrointestinal Gastrointestinal: Reports as per HPI PFSH All Active Problems Painful total knee replacement, right (Acute) History of total right knee replacement (Acute) History of total left knee replacement (Acute) Diverticulitis (Chronic 04/25/14) a. 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 that pain is secondary to scar tissue within muscle and lidocaine injection given with effect. Lymphadenitis (Acute 05/23/13) Diverticulitis of sigmoid colon (Acute 04/25/14) Bilateral knee pain (Acute) 02/23/19 [place] [facility] [place] History of bilateral knee replacement (Acute) Left foot pain (Acute) IFG (impaired fasting glucose) (Acute) Itching (Acute) Cough (Acute) SOB (shortness of breath) (Acute) Vertigo (Acute) Left hip pain (Acute) Anxiety and depression (Acute) Headache (Acute) Osteoarthritis of left hip (Acute) History of Edouard's esophagus (Acute) Pharyngeal dysphagia (Acute) Polyarthralgia (Acute) Positive SANDY (antinuclear antibody) (Acute) snf (current) use of non-steroidal anti-inflammatories (nsaid) (Acute) Regurgitation of food (Acute) Status post total hip replacement, left (Acute 01/24/20) Fatigue (Acute) Forgetfulness (Acute) SBO (small bowel obstruction) (Acute) Dizziness (Acute) Abdominal pain (Acute) Lung nodule (Acute) Vision changes (Acute) Constipation (Acute) Acute exacerbation of chronic obstructive pulmonary disease (COPD) (Acute) History of pneumonia (Acute) Left chest pressure (Acute) Fluttering sensation of heart (Acute) Insomnia (Acute) Weight loss, non-intentional (Acute) ~ 8 lbs, 3-4 mos PND (post-nasal drip) (Acute) acute on chronic? Hx nasal steroid per Dr. Garza. Cough (Acute) Depression (Chronic) Voiding difficulty (Acute) Pulmonary nodule (Acute) Right hip pain (Acute) Lumbar spondylosis (Acute) Ischial bursitis (Acute) Muscular deconditioning (Acute) Personal history of nicotine dependence (Acute) Bimalleolar fracture of left ankle (Acute 07/22/22) Bimalleolar equivalent with posterior malleolus fracture--S/P ORIF Medical History Chronic obstructive lung disease quit smoking 2000, [facility] PFT 01/06/18 Mild airflow obstruction, no significant improvement after inhaled bronchodilators RH COPD (chronic obstructive pulmonary disease) Emphysema Depression Diverticulitis HTN (hypertension) Hx of chest pain Pt. states her chest pain was related to her stomach issues, and has not had any cardiac issues currently, and does not see a corporate fitness program coordinator. Irritable colon Osteoarthritis Sialoadenitis Surgical History Arthroscopy, Shoulder right; acromioplasty Colectomy 04/25/14 Colonoscopy - MAC (09/24/16) EGD - IV Sedation 2014 EGD - MAC (09/24/16) Extraction of cataract H/O surgical procedure a. total abdominal hysterectomy-bso b. exploratory laparotomy for reoval of ovaries c. knee replacements d. sigmoid resection 04/25/2014 e. right shoulder acromioplasty f. Elyssa fundoplication 1995 g. bilateral open carpal tunnel release 1985 History of bilateral salpingo-oophorectomy (05/18/14) History of bunionectomy History of hysterectomy (05/18/14) History of hysterectomy Elyssa Fundoplication (~1995) Open Carpal Tunnel release (~1985) B/L Replacement of total knee joint (~2004) B/L Family History Mother Diabetes Essential hypertension Personal history of malignant neoplasm LUNG Hyperlipidemia Asthma Father Essential hypertension Personal history of malignant neoplasm THROAT Heart disease Hyperlipidemia Sister Drug abuse Essential hypertension COPD (chronic obstructive pulmonary disease) Depression Heart disease Hyperlipidemia Asthma Grandfather Essential hypertension Personal history of malignant neoplasm Heart disease Hyperlipidemia Stroke Grandfather , UNKNOWN Alcohol abuse Heart disease Stroke Grandmother Essential hypertension Personal history of malignant neoplasm Hyperlipidemia Grandmother Alcohol abuse Personal history of malignant neoplasm Heart disease Son Depression Heart disease Asthma Son Alcohol abuse Essential hypertension Depression Daughter Essential hypertension Asthma Daughter Essential hypertension Depression Hyperlipidemia Social History Smoking/Tobacco Use Status: Former Tobacco Use Quit Date: 06/01/99 Smoking risk assessment performed?: Yes Alcohol Intake: current Alcohol Intake frequency: a few times a month Alcohol type: beer Drug use: Never Substance use type: does not use Number of Children: 4 Pets and animals: Yes Pets and animals: cat(s) and dog(s) Current gender identity: female What type of physical activity do you participate in: walking Frequency: daily Seatbelt use: always Water heater temp set <120 deg: Yes Working smoke detector in home: Yes Fire extinguisher in home: Yes Carbon monox detector in home: Yes Firearms in home: Yes Firearms unloaded and locked: Yes Do you feel safe at home: Yes Do you feel safe in your relationship?: Yes Exam Const General: cooperative and no acute distress HENMT Mouth: moist mucous membranes Eyes Conjunctivae: normal conjunctivae Sclera: normal sclerae Neck Neck: trachea midline and supple Resp Auscultation: clear to auscultation bilaterally, no rales, no rhonchi and no wheezes Cardio Rate: regular rate and not tachycardic Rhythm: regular rhythm GI Palpation: soft, not firm, no guarding, no masses, not rigid and tender in the RLQ Auscultation: normal bowel sounds Skin General skin exam: no rashes or lesions noted Neuro General: patient alert, patient awake and tone normal Extrem General: no edema Course Vital Signs Vital signs: Vital Signs Temperature 37.0 C 01/28/23 13:37 Pulse 91 H 01/28/23 13:37 Respiratory Rate 20 01/28/23 13:37 Blood Pressure 153/74 H 01/28/23 13:37 Pulse Oximetry 99 01/28/23 13:37 Temperature 37.0 C 01/28/23 13:37 Pulse 91 H 01/28/23 13:37 Respiratory Rate 20 01/28/23 13:37 Respiratory Effort Normal 01/28/23 13:43 Blood Pressure 153/74 H 01/28/23 13:37 Blood Pressure Position Supine 01/28/23 13:37 Pulse Oximetry 99 01/28/23 13:37 Oxygen Delivery Method Room Air 01/28/23 13:37 Oxygen Flow Rate 0 01/28/23 13:37
[2023-01-28 14:10] LABS: Abs Immature Grans 0.03 10^3/uL (0.0-0.06); Absolute Basophil Count 0.03 10^3/uL (0.0-0.2); Absolute Monocyte Count 0.53 10^3/uL (0.1-0.8); Absolute Neutrophil Count 5.12 10^3/uL (1.2-6.7); Basophils % 0.4; Eosinophils % 2.5; HCT 36.9 % (36.0-46.0); HGB 12.2 g/dL (11.2-15.7); Immature Grans % 0.4; Lymphocytes % 25.3; MCH 27.7 pg (27.0-33.0); MCHC 33.1 % (32.0-36.0); MCV 84 fL (80-95); MPV 8.1 fL (8.0-11.0); Monocytes % 6.7; Neutrophils % 64.7; Platelet Count 416 10^3/uL (130-400); RBC 4.41 10^6/uL (3.93-5.22); RDW 14.6 % (11.7-14.6); RDW-SD 44.8 fL; WBC 7.91 10^3/uL (4.4-10.8)
[2023-01-28 14:27] LABS: ALT 18 U/L (14-59); AST 16 U/L (15-37); Albumin 3.7 g/dL (3.4-5.0); Alkaline Phosphatase 44 U/L (46-116); Anion Gap 10.4 mmol/L (3-11); BUN 15 mg/dL (7-18); Bilirubin, Total 0.3 mg/dL (0.2-1.0); CO2 25.6 mmol/L (21.0-32.0); CREATININE 1.1 mg/dL (0.55-1.02); Calcium 8.6 mg/dL (8.5-10.1); Chloride 101 mmol/L (98-107); Estimated GFR 53.06 (mL/min/1.73m2); Glucose 98 mg/dL (74-106); Lipase 79 U/L (16-77); Potassium 3.6 mmol/L (3.5-5.1); Sodium 137 mmol/L (136-145); Total Protein 7.3 g/dL (6.4-8.2)
[2023-01-28] MEDS: Normal Saline - Diluent 50 ML VIAL IJ (14:54)
[2023-01-28] MEDS: Omnipaque 350 MG/ML 100 ML BTL IJ (14:55)
[2023-01-28 16:40] LABS: HCT 35.5 % (36.0-46.0); HGB 11.8 g/dL (11.2-15.7); MCH 27.8 pg (27.0-33.0); MCHC 33.2 % (32.0-36.0); MCV 84 fL (80-95); MPV 8.3 fL (8.0-11.0); Platelet Count 397 10^3/uL (130-400); RBC 4.25 10^6/uL (3.93-5.22); RDW 14.5 % (11.7-14.6); RDW-SD 44.3 fL; WBC 7.16 10^3/uL (4.4-10.8)
--- NOTE | 2023-01-28 17:15 | SCONE_ITS ---
Date of service: 01/28/23 Time of Service: 17:19 Assessment and Plan Assessment and plan (1) Abdominal pain, right lower quadrant: Status: Acute Assessment and plan: At this point, I do not see any indication for urgent surgery. Many of the features of her abdominal pain seem most consistent with musculoskeletal, however, the black tarry bowel movement is certainly interesting. I suppose peptic ulcer disease could be considered within the differential diagnosis. Currently, her hemoglobin is fine, and she does not have a leukocytosis. In that regard, I think would be reasonable to continue with expectant management, and plan for short interval follow-up and possible endoscopy or colonoscopy if needed. History of Present Illness History of Present Illness Chief Complaint: Right-sided abdominal Narrative: Lydia is 72 years old, she comes to the emergency department today after approximately 3 to 4 days of increasing abdominal pain. She says it starts on the right side, and radiates towards her umbilicus. She has had some associated nausea but no vomiting. Bowel movements have been consistent up until today, when she had a single episode of which she described as black tarry stool. Otherwise, she has been in her usual state of health and offers no specific complaints. Her past medical history significant for chronic abdominal pain, as well as COPD and hypertension. Her past surgical history is significant for sigmoid colectomy for diverticulitis, as well as a Elyssa fundoplication. Review of Systems Constitutional Constitutional: Denies chills, Denies fever(s), Denies lethargy, Reports poor appetite and Reports weight loss Eyes Eyes: Reports system reviewed and no additional complaints, except as documented ENT Ears, Nose, Mouth, and Throat: Reports system reviewed and no additional complaints, except as documented Cardiovascular Cardiovascular: Denies chest pain and Denies dyspnea Respiratory Respiratory: Denies chest congestion, Denies cough and Denies dyspnea Gastrointestinal Gastrointestinal: Reports abdominal pain, Denies belching, Reports melena, Denies bloating, Denies hematochezia, Reports nausea and Denies vomiting Genitourinary Comments: Slow stream of urine Musculoskeletal Musculoskeletal: Reports system reviewed and no additional complaints, except as documented Neurologic Neurologic: Reports system reviewed and no additional complaints, except as documented Psychiatric Psychiatric: Reports system reviewed and no additional complaints, except as documented Endocrine Endocrine: Reports flushing and Reports heat intolerance Hematologic/Lymphatic Hematologic/Lymphatic: Denies easy bleeding and Denies easy bruising PFSH All Active Problems (Updated 01/28/23 @ 17:21 by Gee Edmonds MD) Abdominal pain, right lower quadrant (Acute) Painful total knee replacement, right (Acute) History of total right knee replacement (Acute) History of total left knee replacement (Acute) Diverticulitis (Chronic 04/25/14) a. 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 that pain is secondary to scar tissue within muscle and lidocaine injection given with effect. Lymphadenitis (Acute 05/23/13) Diverticulitis of sigmoid colon (Acute 04/25/14) Bilateral knee pain (Acute) 02/23/19 [place] [facility] [place] [facility] History of bilateral knee replacement (Acute) Left foot pain (Acute) IFG (impaired fasting glucose) (Acute) Itching (Acute) Cough (Acute) SOB (shortness of breath) (Acute) Vertigo (Acute) Left hip pain (Acute) Anxiety and depression (Acute) Headache (Acute) Osteoarthritis of left hip (Acute) History of Edouard's esophagus (Acute) Pharyngeal dysphagia (Acute) Polyarthralgia (Acute) Positive SANDY (antinuclear antibody) (Acute) FPC (current) use of non-steroidal anti-inflammatories (nsaid) (Acute) Regurgitation of food (Acute) Status post total hip replacement, left (Acute 01/24/20) Fatigue (Acute) Forgetfulness (Acute) SBO (small bowel obstruction) (Acute) Dizziness (Acute) Abdominal pain (Acute) Lung nodule (Acute) Vision changes (Acute) Constipation (Acute) Acute exacerbation of chronic obstructive pulmonary disease (COPD) (Acute) History of pneumonia (Acute) Left chest pressure (Acute) Fluttering sensation of heart (Acute) Insomnia (Acute) Weight loss, non-intentional (Acute) ~ 8 lbs, 3-4 mos PND (post-nasal drip) (Acute) acute on chronic? Hx nasal steroid per Dr. Garza. Cough (Acute) Depression (Chronic) Voiding difficulty (Acute) Pulmonary nodule (Acute) Right hip pain (Acute) Lumbar spondylosis (Acute) Ischial bursitis (Acute) Muscular deconditioning (Acute) Personal history of nicotine dependence (Acute) Bimalleolar fracture of left ankle (Acute 07/22/22) Bimalleolar equivalent with posterior malleolus fracture--S/P ORIF Medical History Chronic obstructive lung disease quit smoking 2000, [facility] PFT 01/06/18 Mild airflow obstruction, no significant improvement after inhaled bronchodilators RH COPD (chronic obstructive pulmonary disease) Emphysema Depression Diverticulitis HTN (hypertension) Hx of chest pain Pt. states her chest pain was related to her stomach issues, and has not had any cardiac issues currently, and does not see a real estate analyst. Irritable colon Osteoarthritis Sialoadenitis Surgical History Arthroscopy, Shoulder right; acromioplasty Colectomy 04/25/14 Colonoscopy - MAC (09/24/16) EGD - IV Sedation 2014 EGD - MAC (09/24/16) Extraction of cataract H/O surgical procedure a. total abdominal hysterectomy-bso b. exploratory laparotomy for reoval of ovaries c. knee replacements d. sigmoid resection 04/25/2014 e. right shoulder acromioplasty f. Elyssa fundoplication 1995 g. bilateral open carpal tunnel release 1985 History of bilateral salpingo-oophorectomy (05/18/14) History of bunionectomy History of hysterectomy (05/18/14) History of hysterectomy Elyssa Fundoplication (~1995) Open Carpal Tunnel release (~1985) B/L Replacement of total knee joint (~2004) B/L Family History Mother Diabetes Essential hypertension Personal history of malignant neoplasm LUNG Hyperlipidemia Asthma Father Essential hypertension Personal history of malignant neoplasm THROAT Heart disease Hyperlipidemia Sister Drug abuse Essential hypertension COPD (chronic obstructive pulmonary disease) Depression Heart disease Hyperlipidemia Asthma Grandfather Essential hypertension Personal history of malignant neoplasm Heart disease Hyperlipidemia Stroke Grandfather , UNKNOWN Alcohol abuse Heart disease Stroke Grandmother Essential hypertension Personal history of malignant neoplasm Hyperlipidemia Grandmother Alcohol abuse Personal history of malignant neoplasm Heart disease Son Depression Heart disease Asthma Son Alcohol abuse Essential hypertension Depression Daughter Essential hypertension Asthma Daughter Essential hypertension Depression Hyperlipidemia Social History Smoking/Tobacco Use Status: Former Tobacco Use Quit Date: 06/01/99 Smoking risk assessment performed?: Yes Alcohol Intake: current Alcohol Intake frequency: a few times a month Alcohol type: beer Drug use: Never Substance use type: does not use Number of Children: 4 Pets and animals: Yes Pets and animals: cat(s) and dog(s) Current gender identity: female What type of physical activity do you participate in: walking Frequency: daily Seatbelt use: always Water heater temp set <120 deg: Yes Working smoke detector in home: Yes Fire extinguisher in home: Yes Carbon monox detector in home: Yes Firearms in home: Yes Firearms unloaded and locked: Yes Do you feel safe at home: Yes Do you feel safe in your relationship?: Yes Exam Const General: cooperative, healthy appearing and comfortable Orientation: alert, awake and oriented x3 HENMT Head: normal to inspection GI Inspection: normal to inspection and no abdominal wall ecchymosis Palpation: soft, no guarding, no hernias and nontender Percussion: normal to percussion Results Last Vital Signs Temp 98.6 F 01/28/23 13:37 Pulse 72 01/28/23 15:32 Resp 15 01/28/23 15:44 BP 169/69 H 01/28/23 15:32 Pulse Ox 99 01/28/23 15:42 Labs 01/28/23 16:24 01/28/23 13:57 Labs: Laboratory Results - last 24 hr 01/28/23 01/28/23 01/28/23 13:57 13:57 13:57 WBC 7.91 RBC 4.41 Hgb 12.2 Hct 36.9 MCV 84 MCH 27.7 MCHC 33.1 RDW 14.6 Plt Count 416 H MPV 8.1 Immature Gran % 0.4 Neutrophils % 64.7 Lymphocytes % 25.3 Monocytes % 6.7 Eosinophils % 2.5 Basophils % 0.4 Nucleated RBC % 0.0 Absolute Neutrophils 5.12 Absolute Lymphocytes 2.00 Absolute Monocytes 0.53 Absolute Eosinophils 0.20 Absolute Basophils 0.03 Sodium 137 Potassium 3.6 Chloride 101 Carbon Dioxide 25.6 Anion Gap 10.4 BUN 15 Creatinine 1.1 H Est GFR (CKD-EPI 2020) 53.06 Glucose 98 Calcium 8.6 Total Bilirubin 0.3 AST 16 ALT 18 Alkaline Phosphatase 44 L Total Protein 7.3 Albumin 3.7 Lipase 79 H Patient ABO/Rh A Negative Antibody Screen NEGATIVE 01/28/23 16:24 WBC 7.16 RBC 4.25 Hgb 11.8 Hct 35.5 L MCV 84 MCH 27.8 MCHC 33.2 RDW 14.5 Plt Count 397 MPV 8.3 Immature Gran % Neutrophils % Lymphocytes % Monocytes % Eosinophils % Basophils % Nucleated RBC % Absolute Neutrophils Absolute Lymphocytes Absolute Monocytes Absolute Eosinophils Absolute Basophils Sodium Potassium Chloride Carbon Dioxide Anion Gap BUN Creatinine Est GFR (CKD-EPI 2020) Glucose Calcium Total Bilirubin AST ALT Alkaline Phosphatase Total Protein Albumin Lipase Patient ABO/Rh Antibody Screen Imaging Abdomen CT scan report/results: report reviewed and image reviewed CT scan - pelvis: report reviewed and image reviewed
--- NOTE | 2023-01-28 17:18 | W.EDPROG ---
Date of service: 01/28/23 Time of Service: 17:18 Medical Decision Making I received signout on this 72-year-old female with a remote history of a partial colectomy with anastomosis in the setting of sigmoid diverticulitis now in the emergency department in the setting of a black tarry stool this morning. Patient is not anticoagulated. Her Glascow Blatchford score is 0 making her low risk. A repeat hemoglobin was obtained and it was 0.4 g/dL or less after 3 hours. Given no significant change and no episodes of black nor tarry stools and no melena reportedly on exam patient was deemed appropriate for discharge with outpatient follow-up. General surgery was consulted in the emergency department. I spoke with Dr. Price who evaluated the patient and felt comfortable with the patient being seen in follow-up as an outpatient. I asked health community health advocate Chastity to have the patient seen in general surgery clinic later this week. I met with the patient and explained her return indications. She felt comfortable with these and was discharged with empiric trial of expectant outpatient management. Sign Out Sign Out Data: Sign Out Comment: Follow-up on discussion with general surgery and repeat H&H. Reassess patient for disposition. Last updated by Kareem Cuevas MD at 01/28/23 16:11 Discharge Plan Disposition Patient Disposition: Home Discharge Details Clinical Impression: Abdominal pain, right lower quadrant Primary Care Provider: Kristine Carter ED Provider: Gee Edmonds Home Meds and New Rx's Prescriptions: Continued Metamucil 3.4 gram/5.4 gram powder 1 tbs PO DAILY Rx Instructions: mix into at least 8 oz of water or juice before administering [employer] Women's 18-400 mg-mcg tablet 1 tab PO DAILY (DME) compressor, for nebulizer Device See Rx Instructions .ROUTE .MEDSUPPLY Qty: 1 0RF Rx Instructions: As directed ipratropium-albuterol 0.5 mg-3 mg(2.5 mg base)/3 mL solution for nebulization 3 ml inhalation Q6H PRN (Reason: wheezing) Qty: 15 0RF Rx Instructions: Trial for Cough, COPD Exacerbation Qvar RediHaler 80 mcg/actuation HFA aerosol breath activated 1 inh inhalation BID Qty: 10.6 12RF Rx Instructions: Rinse mouth after use (DME) EasiVent Mask Large 1 EACH device 1 ea Miscellaneous DIRECTED Qty: 1 Rx Instructions: DIRECTED WITH INHALER albuterol sulfate [Ventolin HFA] 90 mcg/actuation HFA aerosol inhaler 2 puff inhalation Q4H PRN Rx Instructions: rescue only per note dated 09/14/20 [facility] Stiolto Respimat 2.5-2.5 mcg/actuation mist See Rx Instructions .ROUTE .COMPLEX Qty: 4 12RF Dose Instruction: INHALE TWO PUFFS BY MOUTH EVERY DAY Rx Instructions: INHALE TWO PUFFS BY MOUTH EVERY DAY azithromycin 250 mg tablet See Rx Instructions .ROUTE .COMPLEX Qty: 30 12RF Dose Instruction: TAKE ONE TABLET BY MOUTH EVERY DAY FOR COPD Rx Instructions: TAKE ONE TABLET BY MOUTH EVERY DAY FOR COPD levothyroxine 50 mcg tablet See Rx Instructions .ROUTE .COMPLEX Qty: 90 3RF Dose Instruction: TAKE ONE TABLET BY MOUTH EVERY DAY Rx Instructions: TAKE ONE TABLET BY MOUTH EVERY DAY omeprazole 40 mg capsule,delayed release(DR/EC) See Rx Instructions .ROUTE .COMPLEX Qty: 90 3RF Hold Instructions: Home Medication placed on hold at Doctor's office Dose Instruction: TAKE ONE CAPSULE BY MOUTH EVERY DAY Rx Instructions: TAKE ONE CAPSULE BY MOUTH EVERY DAY meclizine 25 mg tablet 25 mg PO TID PRN (Reason: dizziness) Qty: 20 0RF sertraline 50 mg tablet 50 mg PO DAILY PRN Patient Comments: as needed acetaminophen 500 mg tablet 1,000 mg PO Q8H PRN Qty: 90 0RF Rx Instructions: Take two tablets up to every 8 hours as needed for pain ibuprofen 600 mg tablet 600 mg PO TID PRN (Reason: pain) Qty: 60 0RF oxycodone-acetaminophen [Percocet] 5-325 mg tablet 1 tab PO TID PRN (Reason: pain) Qty: 7 0RF Discharge Instructions Instructions: Abdominal Pain (ED) Additional Instructions: Please read all of the information that accompanies these instructions. You were seen in the emergency department for your abdominal pain. Your CAT scan showed no signs of any active bleeding. The general surgery department will call you for a follow-up appointment later this week. Please return to the emergency department if black or bloody stools, if you pass out, or if you have any other concerns.
--- NOTE | 2023-01-28 17:23 | NUR.NOTE ---
Nursing Note: PT needs follow up with general surgery next week for reported RLQ pain. Chastity, ED
== END 2023-01-28 17:33 | disposition home or self-care (01) ==
PROVIDERS: Student in an Organized Health Care Education/Training Program; Emergency Provider Emergency Medicine; PCP Nurse Practitioner
DX: R10.31 Right lower quadrant pain (principal); K92.1 Melena; Z90.49 Acquired absence of other specified parts of digestive tract; Z87.19 Personal history of other diseases of the digestive system
CPT/HCPCS: 36415; 80053; 83690; 85027; 86850; 86900; 86901; 99285; 74177; 85025; 99284; J3490

== ENCOUNTER → 2023-02-06 09:41 | Outpatient (BNVA) | payer MEDICARE, SELFPAY | PROVIDERS: PCP Nurse Practitioner; Referring Provider Nurse Practitioner; Visit Provider Surgery | DX: R10.9 Unspecified abdominal pain (principal); G89.29 Other chronic pain | CPT/HCPCS: 99213 ==

== ENCOUNTER → 2023-02-23 09:43 | Outpatient (BNVA) | payer MEDICARE, SELFPAY | PROVIDERS: PCP Nurse Practitioner; Referring Provider Nurse Practitioner; Visit Provider Student in an Organized Health Care Education/Training Program | DX: T84.84XA Pain due to internal orthopedic prosthetic devices, implants and grafts, initial encounter (principal); Z96.651 Presence of right artificial knee joint; Z96.652 Presence of left artificial knee joint | CPT/HCPCS: 99213 ==

== ENCOUNTER → 2023-03-19 14:17 | Outpatient (BNVA) | payer MEDICARE, SELFPAY | PROVIDERS: PCP Nurse Practitioner; Referring Provider Nurse Practitioner; Visit Provider Physician Assistant | DX: M16.11 Unilateral primary osteoarthritis, right hip (principal) | CPT/HCPCS: 20611; J1040 ==

== ENCOUNTER → 2023-04-30 10:32 | Outpatient (BNVA) | payer MEDICARE, SELFPAY | PROVIDERS: PCP Nurse Practitioner; Referring Provider Nurse Practitioner; Visit Provider Physician Assistant Surgical | DX: J44.9 Chronic obstructive pulmonary disease, unspecified (principal); Z79.51 Long term (current) use of inhaled steroids; R91.1 Solitary pulmonary nodule; Z87.891 Personal history of nicotine dependence; I10 Essential (primary) hypertension | CPT/HCPCS: 99214 ==

== ENCOUNTER 2023-07-13 11:37 | Outpatient (CLI) | payer MEDICARE, MEDICAID, SELFPAY ==
--- NOTE | 2023-07-13 11:00 | DI.RAD_ITS ---
Exam(s) XR HIP LT COMPLETE AP PELVIS EXAM: XR HIP LT COMPLETE AP PELVIS CLINICAL HISTORY: LEFT HIP PAIN. TECHNIQUE: 2D digital imaging was performed. Two views. COMPARISON: CR XR HIP PELVIS ADULT BL from 09/06/2021 FINDINGS: BONES: No acute fracture is present. No bony destructive lesion is seen. JOINTS: No dislocation present. Has been no change in the alignment of the left total hip prosthesis. The right hip joint space is maintained. Mild acetabular spurring. SOFT TISSUE: Normal. IMPRESSION: Stable appearance of left hip prosthesis. DATA REPOSITORY: RADIATION DOSE DELIVERED:
== END 2023-07-13 11:38 | disposition home or self-care (01) ==
LOC: DIORS 11:37
PROVIDERS: PCP Nurse Practitioner; Referring Provider Nurse Practitioner; Visit Provider Student in an Organized Health Care Education/Training Program
DX: M76.892 Other specified enthesopathies of left lower limb, excluding foot; Z96.642 Presence of left artificial hip joint
CPT/HCPCS: 99213; 73502

== ENCOUNTER → 2023-08-04 00:54 | Outpatient (CLI) | payer MEDICARE, MEDICAID, SELFPAY ==
--- NOTE | 2023-08-04 08:00 | DI.CT_ITS ---
Exam(s) CT LOWER EXTREMITY LT WO EXAM: CT LOWER EXTREMITY LT WO CLINICAL HISTORY: PAIN,adductor teninitis lt hip,m76.892,m25.552. TECHNIQUE: Imaging Protocol: Axial computed tomography images with coronal and sagittal reformatted images were created and reviewed. COMPARISON: CT CT LOWER EXTREMITY RT WO from 12/26/2022 CR XR HIP LT COMPLETE AP PELVIS from 07/13/2023 FINDINGS: Bones: The osseous structures and articular surfaces are intact. The patient has a left total hip r eplacement. No suspicious lucencies are seen around the orthopedic hardware to suggest loosening. N o cellulitic or osteomyelitic changes are identified. No lytic or sclerotic lesions are identified. Soft Tissues: Atherosclerotic vascular calcifications are present. There is a rectosigmoid anastomosi s. There is diverticulosis of the sigmoid colon but no evidence of diverticulitis. There is artifact in the soft tissues secondary to the patient's orthopedic hardware. There is [id number] fatty a trophy of the left gluteus minimus muscle. Muscles otherwise show no significant fatty atrophy. The a d no soft tissue mass is appreciated. Adductor muscles appear grossly unremarkable. IMPRESSION: 1. Left total hip replacement. No lucencies are seen about the orthopedic hardware to suggest looseni ng. 2. Mild fatty atrophy of the gluteus minimus muscle. 3. No evidence of fatty atrophy of the adductor muscles. 4. No evidence of a soft tissue mass. RADIATION DOSE DELIVERED: Total DLP Total DLP DATA REPOSITORY: All CT scans at this facility are submitted to the National Radiology Data Registry (NRDR) Dose Index Registry (DIR) with the [employer] (ACR). RADIATION OPTIMIZATION: All CT scans at this facility use at least one of these dose optimization te chniques: automated exposure control; mA and/or kV adjustment per patient size (includes targeted exa ms where dose is matched to clinical indication); or iterative reconstruction.
== END ==
PROVIDERS: PCP Nurse Practitioner; Visit Provider Student in an Organized Health Care Education/Training Program
DX: Z96.642 Presence of left artificial hip joint (principal); Z98.890 Other specified postprocedural states; M25.562 Pain in left knee
CPT/HCPCS: 73700

== ENCOUNTER → 2023-08-17 13:58 | Outpatient (BNVA) | payer MEDICARE, SELFPAY | PROVIDERS: PCP Nurse Practitioner; Referring Provider Nurse Practitioner; Visit Provider Student in an Organized Health Care Education/Training Program | DX: Z96.642 Presence of left artificial hip joint (principal); M76.892 Other specified enthesopathies of left lower limb, excluding foot | CPT/HCPCS: 99213 ==

== ENCOUNTER 2023-09-16 04:26 | Outpatient (CLI) | payer MEDICARE, SELFPAY ==
[2023-09-16 11:03] LABS: ALT 26 U/L (14-59); AST 23 U/L (15-37); Albumin 3.4 g/dL (3.4-5.0); Alkaline Phosphatase 34 U/L (46-116); Anion Gap 9.9 mmol/L (3-11); BUN 20 mg/dL (7-18); Bilirubin, Total 0.2 mg/dL (0.2-1.0); CO2 26.1 mmol/L (21.0-32.0); CREATININE 0.9 mg/dL (0.55-1.02); Calcium 8.5 mg/dL (8.5-10.1); Chloride 104 mmol/L (98-107); Estimated GFR 67.08 (mL/min/1.73m2); Glucose 89 mg/dL (74-106); Potassium 4.2 mmol/L (3.5-5.1); Sodium 140 mmol/L (136-145); TSH (W/Ref FT4) 4.09 uIU/mL (0.36-3.74); Total Protein 7.1 g/dL (6.4-8.2)
[2023-09-16 11:28] LABS: FREE T4 0.88 ng/dL (0.76-1.46)
[2023-09-16 16:16] LABS: Calculated LDL 148 mg/dL (<100); Cholesterol 268 mg/dL (<200); HDL Cholesterol 105 mg/dL (40-60); Triglyceride 77 mg/dL (<150)
[2023-09-17 10:18] LABS: Lyme Ab w Rflx to Lyme Confirm Negative (Negative)
[2023-09-19 00:34] LABS: Anaplasma phagocytophilum Negative (Negative); B. miyamotoi PCR Negative (Negative); Babesia divergens/MO-1 Negative (Negative); Babesia duncani Negative (Negative); Babesia microti Negative (Negative); Ehrlichia chaffeensis Negative (Negative); Ehrlichia ewingii/canis Negative (Negative); Ehrlichia muris eauclairensis Negative (Negative)
== END 2023-09-16 04:27 | disposition home or self-care (01) ==
LOC: LBO 04:26
PROVIDERS: PCP Nurse Practitioner; Visit Provider Nurse Practitioner
DX: I10 Essential (primary) hypertension (principal); E78.5 Hyperlipidemia, unspecified; W57.XXXA Bitten or stung by nonvenomous insect and other nonvenomous arthropods, initial encounter
CPT/HCPCS: 36415; 80053; 80061; 87798; 84439; 84443; 86618

== ENCOUNTER 2023-09-21 19:15 | Outpatient (REF) | payer MEDICARE, SELFPAY ==
[2023-09-21 20:00] LABS: COVID-19 PCR Negative (Negative); Influenza A PCR Negative (Negative); Influenza B PCR Negative (Negative); RSV PCR Negative (Negative)
[2023-09-21 20:01] LABS: Source NASOPHARYNX
== END 2023-09-21 19:16 | disposition home or self-care (01) ==
LOC: NCHCN 19:15
PROVIDERS: PCP Nurse Practitioner; Visit Provider Nurse Practitioner
DX: R53.83 Other fatigue (principal); R05.9 Cough, unspecified; R09.89 Other specified symptoms and signs involving the circulatory and respiratory systems
CPT/HCPCS: 87637

== ENCOUNTER → 2023-09-22 08:58 | Outpatient (CLI) | payer MEDICARE, SELFPAY ==
--- NOTE | 2023-09-22 08:45 | DI.RAD_ITS ---
Exam(s) XR CHEST 2V PA LATERAL EXAM: XR CHEST 2V PA LATERAL CLINICAL HISTORY: r05.9 cough, r06.02 SOB. TECHNIQUE: 2D digital imaging was performed. COMPARISON: CR XR PORTABLE CHEST AP from 05/20/2022 FINDINGS: 2 views: Heart size is normal. The mediastinum is not widened. There is new infiltrate in the lateral right lung. Also some increased markings in left lower lobe r etrocardiac region. No pleural effusions. Widened right AC joint is again noted, most probably postsurgical IMPRESSION: Significant area of new infiltrate in what appears to be the right upper lobe. Also mild increased m arkings in the left lower lobe posterior basal segment. No pleural effusions. DATA REPOSITORY: RADIATION DOSE DELIVERED:
== END ==
PROVIDERS: PCP Nurse Practitioner; Visit Provider Nurse Practitioner
DX: R05.9 Cough, unspecified (principal); R06.02 Shortness of breath
CPT/HCPCS: 71046

== ENCOUNTER → 2023-10-19 01:29 | Outpatient (CLI) | payer MEDICARE, SELFPAY ==
--- NOTE | 2023-10-19 07:45 | DI.MAMMO_ITS ---
Exam(s) MAMMO SCREENING EXAM: MAMMO SCREENING CLINICAL HISTORY: screening,z12.39. TECHNIQUE: Bilateral full field digital CC and MLO mammographic images were obtained with 3D tomosyn thesis and utilizing computer aided detection (CAD). COMPARISON: Prior 2016 mammogram review. There are no interval mammograms since 2016. FINDINGS: No new left breast findings. Laterally in the right breast there is an asymmetric density-possible nodule measuring 6 x 5 mm and l ocated approximately 14 cm in from the nipple. Spot compression view and ultrasound recommended. There are no malignant-appearing microcalcification groups in this region or elsewhere in either [address]. There is no significant architectural distortion nor skin thickening-retraction. IMPRESSION: 1. No radiographic evidence of malignancy in left breast. 2. Asymmetric density -possible nodule laterally in the right breast. Spot compression CC view and u ltrasound recommended. BI-RADS Category 0 - Assessment Incomplete: Need additional imaging evaluation Breast Density - Category B - Scattered areas of fibroglandular density Breast density Category C or D implies that the patient has dense breast tissue. Dense breast tissue can make it harder to find cancer on a mammogram. Dense breast tissue is also associated with an incr eased risk of breast cancer. This information about the result of the mammogram report was provided to the patient to raise their awareness. Use this report when you speak with the patient about their risks for breast cancer, which includes their family history. At that time, you may recommend additional screening tests (Ultrasoun d or MRI) as these tests may add significant information. A negative radiographic report should not delay biopsy if a dominant or clinically suspicious mass is present. Up to ten percent of cancers are not identified on mammography. A negative report may reinforce clinical impression. Adenosis and dense breasts may obscure an underlying neoplasm. False positive reports average 6 to 10%. Patient will receive a letter notifying them of these results.
== END ==
PROVIDERS: PCP Nurse Practitioner; Visit Provider Nurse Practitioner
DX: Z12.31 Encounter for screening mammogram for malignant neoplasm of breast (principal); R92.8 Other abnormal and inconclusive findings on diagnostic imaging of breast
CPT/HCPCS: 77063; 77067

== ENCOUNTER → 2023-10-22 01:35 | Outpatient (CLI) | payer MEDICARE, SELFPAY ==
--- NOTE | 2023-10-22 | DI.US_ITS ---
Exam(s) MG MAMMO SCREEN CALL BACK UNI US BREAST RT COMPLETE EXAM: MG MAMMO SCREEN CALL BACK UNI CLINICAL HISTORY: Asymmetric density-possible nodule 6 x 5 mm 14 cm from rt nipple. TECHNIQUE: Unilateral RIGHT BREAST spot mammographic images obtained with 3D tomosynthesisand utiliz ing computer aided detection (CAD). . Complete RIGHT breast Ultrasound was also performed, including all 4 quadrants, the retroareolar vaibhav on, and the ipsilateral axilla. COMPARISON: Prior mammograms were reviewed. This additional imaging was performed due to findings described on the recent screening mammogram of 10/19/2023. FINDINGS: DIAGNOSTIC MAMMOGRAM: Additional mammographic views performed todayrender this area less concerning. COMPLETE RIGHT BREAST ULTRASOUND: Ultrasound performed today reveals no evidence of solid or significant cystic lesions in all 4 quadra nts.. Scanning of the ipsilateral axilla reveals no significant adenopathy. IMPRESSION: 1. No radiographic evidence of malignancy. 2. Negative complete right breast ultrasound Appropriate follow-up is to give this patient on yearly mammogram schedule. The patient was informed of these findings and recommendations by myself prior to leaving the departm ent today. BI-RADS Category 2 - Benign Findings Breast Density - Category B - Scattered areas of fibroglandular density Breast density Category C or D implies that the patient has dense breast tissue. Dense breast tissue can make it harder to find cancer on a mammogram. Dense breast tissue is also associated with an incr eased risk of breast cancer. This information about the result of the mammogram report was provided to the patient to raise their awareness. Use this report when you speak with the patient about their risks for breast cancer, which includes their family history. At that time, you may recommend additional screening tests (Ultrasoun d or MRI) as these tests may add significant information. A negative radiographic report should not delay biopsy if a dominant or clinically suspicious mass is present. Up to ten percent of cancers are not identified on mammography. A negative report may reinforce clinical impression. Adenosis and dense breasts may obscure an underlying neoplasm. False positive reports average 6 to 10%. Patient will receive a letter notifying them of these results.
== END ==
PROVIDERS: PCP Nurse Practitioner; Visit Provider Nurse Practitioner
DX: Z12.31 Encounter for screening mammogram for malignant neoplasm of breast (principal); R92.8 Other abnormal and inconclusive findings on diagnostic imaging of breast
CPT/HCPCS: 76642; 77063; 77067

== ENCOUNTER → 2023-10-29 09:57 | Outpatient (BNVA) | payer MEDICARE, SELFPAY | PROVIDERS: PCP Nurse Practitioner; Referring Provider Nurse Practitioner; Visit Provider Student in an Organized Health Care Education/Training Program | DX: J44.9 Chronic obstructive pulmonary disease, unspecified (principal); R91.1 Solitary pulmonary nodule; R93.89 Abnormal findings on diagnostic imaging of other specified body structures; Z87.891 Personal history of nicotine dependence | CPT/HCPCS: 99214 ==

== ENCOUNTER → 2023-10-30 00:11 | Outpatient (CLI) | payer MEDICARE, SELFPAY ==
--- NOTE | 2023-10-30 10:45 | DI.RAD_ITS ---
Exam(s) XR CHEST 2V PA LATERAL EXAM: XR CHEST 2V PA LATERAL CLINICAL HISTORY: assess resolution of infiltrate, abnl cxr, R93.89 TECHNIQUE: 2D digital imaging was performed. Two views. COMPARISON: CR XR PORTABLE CHEST AP from 05/20/[address] CHEST WO from 12/01/2022 CR XR CHEST 2V PA LATERAL from 09/22/2023 FINDINGS: HEART: Normal size. Aorta: Not dilated. PULMONARY VASCULATURE: Normal. LUNGS: Interval clearing of previously noted right upper lobe infiltrate with mild residual scarring. PLEURAL SPACE: No pleural effusion or pneumothorax. BONE:Unremarkable for age. Soft tissues: Unremarkable. IMPRESSION: Clearing of previously noted right upper lobe infiltrate. DATA REPOSITORY: RADIATION DOSE DELIVERED:
== END ==
PROVIDERS: PCP Nurse Practitioner; Visit Provider Student in an Organized Health Care Education/Training Program
DX: R93.89 Abnormal findings on diagnostic imaging of other specified body structures (principal)
CPT/HCPCS: 71046

== ENCOUNTER 2024-07-21 01:15 | Outpatient (CLI) | payer MEDICARE, MEDICAID, SELFPAY ==
[2024-07-21 09:19] LABS: Abs Immature Grans 0.03 10^3/uL (0.0-0.06); Absolute Basophil Count 0.03 10^3/uL (0.0-0.2); Absolute Eosinophil Count 0.23 10^3/uL (0.0-0.7); Absolute Monocyte Count 0.51 10^3/uL (0.1-0.8); Absolute Neutrophil Count 4.87 10^3/uL (1.2-6.7); Basophils % 0.4 %; Eosinophils % 3.2 %; HCT 36.5 % (36.0-46.0); HGB 12.2 g/dL (11.2-15.7); Immature Grans % 0.4 %; MCH 28.3 pg (27.0-33.0); MCHC 33.4 % (32.0-36.0); MCV 85 fL (80-95); MPV 8.4 fL (8.0-11.0); Platelet Count 357 10^3/uL (130-400); RBC 4.31 10^6/uL (3.93-5.22); RDW 14.6 % (11.7-14.6); WBC 7.27 10^3/uL (4.4-10.8)
[2024-07-21 11:01] LABS: ALT 21 U/L (14-59); AST 20 U/L (15-37); Albumin 3.4 g/dL (3.4-5.0); Alkaline Phosphatase 63 U/L (46-116); Anion Gap 7.5 mmol/L (3-11); BUN 18 mg/dL (7-18); Bilirubin, Total 0.29 mg/dL (0.2-1.0); CO2 27.5 mmol/L (21.0-32.0); Calcium 8.8 mg/dL (8.5-10.1); Chloride 104 mmol/L (98-107); Estimated GFR 58.75 (mL/min/1.73m2); Glucose 108 mg/dL (74-106); Potassium 3.9 mmol/L (3.5-5.1); Sodium 139 mmol/L (136-145); TSH (W/Ref FT4) 5.22 uIU/mL (0.36-3.74); Vitamin B12 524 pg/mL (193-986); Vitamin D 25 Total 30.7 ng/mL (30-100)
[2024-07-21 14:08] LABS: FREE T4 0.99 ng/dL (0.76-1.46)
== END 2024-07-21 01:16 | disposition home or self-care (01) ==
LOC: LBO 01:15
PROVIDERS: PCP Nurse Practitioner; Referring Provider Nurse Practitioner; Visit Provider Nurse Practitioner
DX: E55.9 Vitamin D deficiency, unspecified (principal); R25.1 Tremor, unspecified; I10 Essential (primary) hypertension
CPT/HCPCS: 36415; 80053; 82306; 82607; 84439; 84443; 85025

== ENCOUNTER 2024-07-23 08:01 | Emergency (ER) | payer MEDICARE, MEDICAID, SELFPAY ==
[2024-07-23 08:06] VITALS: BP 141/88; PULSE 103; RESP 16; TEMP 37.3; O2SAT 97
--- NOTE | 2024-07-23 08:15 | DI.RAD_ITS ---
Exam(s) XR SHOULDER RT COMPLETE 2+V EXAM: XR SHOULDER RT COMPLETE 2+V CLINICAL HISTORY: Pain. TECHNIQUE: 2D digital imaging was performed of the right shoulder. Four images were obtained. AP, Grashey and Y views were obtained. COMPARISON: CR CHEST 2 VIEWS PA,LAT from 10/04/2010 FINDINGS: BONES: No acute fracture is present. No bony destructive lesion is seen. There is again seen resectio n of the distal right clavicle. JOINTS: No dislocation present. There are marked degenerative changes seen at the glenohumeral joint. SOFT TISSUE: Normal. IMPRESSION: No acute fracture or dislocation. DATA REPOSITORY: RADIATION DOSE DELIVERED:
--- NOTE | 2024-07-23 08:25 | ED.GENADUL_ITS ---
Discharge Plan Disposition Patient Disposition: Home Condition: Stable Discharge Details Clinical Impression: Degenerative joint disease of right shoulder Primary Care Provider: Kristine Carter ED Provider: Saima Means Home Meds and New Rx's Prescriptions: New acetaminophen-codeine 300-15 mg tablet 1 tab PO Q12H PRN (Reason: pain) Qty: 7 0RF Rx Instructions: Please take 1 tablet by mouth every 12 hours as needed for moderate to severe pain lidocaine 5 % adhesive patch,medicated 1 patch topical DAILY Qty: 15 0RF Rx Instructions: leave on most painful area for up to 12 hrs Continued Stiolto Respimat 2.5-2.5 mcg/actuation mist 2 puff inhalation DAILY Qty: 4 8RF omega-3 fatty acids-fish oil [Fish Oil] 360-1,200 mg capsule 1 cap PO DAILY omeprazole 40 mg capsule,delayed release(DR/EC) See Rx Instructions .ROUTE .COMPLEX Qty: 90 3RF Dose Instruction: TAKE ONE CAPSULE BY MOUTH EVERY DAY Rx Instructions: TAKE ONE CAPSULE BY MOUTH EVERY DAY levothyroxine 50 mcg tablet See Rx Instructions .ROUTE .COMPLEX Qty: 90 3RF Dose Instruction: TAKE ONE TABLET BY MOUTH EVERY DAY Rx Instructions: TAKE ONE TABLET BY MOUTH EVERY DAY sertraline 100 mg tablet 150 mg PO DAILY Qty: 135 3RF valsartan 80 mg tablet 80 mg PO DAILY Qty: 90 3RF Metamucil 3.4 gram/5.4 gram powder 1 tbs PO DAILY Rx Instructions: mix into at least 8 oz of water or juice before administering [employer] 18-400 mg-mcg tablet 1 tab PO DAILY (DME) compressor, for nebulizer Device See Rx Instructions .ROUTE .MEDSUPPLY Qty: 1 0RF Rx Instructions: As directed ipratropium-albuterol 0.5 mg-3 mg(2.5 mg base)/3 mL solution for nebulization 3 ml inhalation Q6H PRN (Reason: wheezing) Qty: 15 0RF Rx Instructions: Trial for Cough, COPD Exacerbation (DME) EasiVent Mask Large 1 EACH device 1 ea Miscellaneous DIRECTED Qty: 1 Rx Instructions: DIRECTED WITH INHALER albuterol sulfate [Ventolin HFA] 90 mcg/actuation HFA aerosol inhaler 2 puff inhalation Q4H PRN Rx Instructions: rescue only per note dated 09/14/20 [facility] Qvar RediHaler 80 mcg/actuation HFA aerosol breath activated See Rx Instructions .ROUTE .COMPLEX Qty: 10.6 12RF Dose Instruction: INHALE ONE PUFF BY MOUTH TWICE A DAY, RINSE AFTER USE Rx Instructions: INHALE ONE PUFF BY MOUTH TWICE A DAY, RINSE AFTER USE cholestyramine-aspartame 4 gram powder in packet 1 packet PO DAILY lidocaine 5 % adhesive patch,medicated See Rx Instructions .ROUTE .COMPLEX Qty: 30 3RF Dose Instruction: APPLY 1 PATCH TOPICALLY TO MOST PAINFUL AREA AND LEAVE ON FOR UP TO 12 HOURS REMOVE FOR 12 HOURS Rx Instructions: APPLY 1 PATCH TOPICALLY TO MOST PAINFUL AREA AND LEAVE ON FOR UP TO 12 HOURS REMOVE FOR 12 HOURS cholestyramine (with sugar) [Questran] 4 gram powder 4 pwd PO DAILY Patient Comments: 4 grams daily azelastine 1 spray intranasal BID meclizine 25 mg tablet 25 mg PO TID PRN (Reason: dizziness) Qty: 20 0RF acetaminophen 500 mg tablet 1,000 mg PO Q8H PRN Qty: 90 0RF Rx Instructions: Take two tablets up to every 8 hours as needed for pain ibuprofen 600 mg tablet 600 mg PO TID PRN (Reason: pain) Qty: 60 0RF Discharge Instructions Instructions: Osteoarthritis, Shoulder Pain ED Additional Instructions: X-rays show severe degenerative changes to your right shoulder with [id number]. Please wear the sling as needed for comfort. Use the lidocaine patches as directed. Take the Percocet only as needed with food for severe pain. Do not drive or operate heavy machinery as this may make you sleepy. Please take Tylenol or Ibuprofen with food every 4-6 hours as needed for pain and swelling. Alternate ice and heat. You may also use topical Voltaren cream which she can get [id number]. Follow up with orthopedics/primary care provider as previous scheduled. Return to ED sooner if any worsening or concerns. Referrals: Marcelino Bergman MD [ [facility] STAFF PHYSICIAN] - 08/16/24 [facility] General Mode of arrival: ambulatory . Date/Time Provider Initiated Documentation: 07/23/24 08:04 . Limitations to Documentation: no limitations . Information obtained by: patient, RN notes reviewed and old records reviewed . HPI Narrative: 74-year-old female presents to the ER with a chief complaint of right shoulder pain which radiates down her right arm. She has had a long history of multiple surgeries on that shoulder. However a week ago she stood up and hit her right shoulder on a nightstand which exacerbated her pain. She has been taking Advil at home with little to no relief. She also reports that she fell yesterday landing on her bed and was unable to get up for approximately 45 minutes. Did not hit her head denies any neck or back pain. Denies any chest pain. She does have a upcoming orthopedic appointment on August 16. Other past medical history include COPD, hypertension diverticulitis, depression. Related Data Home Medications ?Medication ?Instructions ?Recorded ?Confirmed inhaler,assist devices,access #1 ea 09/01/13 07/23/24 (EasiVent Mask Large) psyllium husk 3.4 gram/5.4 gram 1 tbs PO DAILY 08/11/19 07/23/24 oral powder (Metamucil) multivitamin-ferrous 1 tab PO DAILY 01/10/20 07/23/24 fumarate-folic acid 18 mg-400 mcg tablet ([facility]) albuterol sulfate 90 mcg/actuation 2 puff inhalation Q4H PRN 09/14/20 07/23/24 aerosol inhaler (Ventolin HFA) meclizine 25 mg tablet 25 mg PO TID PRN dizziness #20 tabs 10/06/20 07/23/24 compressor, for nebulizer #1 ea 02/19/21 07/23/24 ipratropium 0.5 mg-albuterol 3 mg 3 ml inhalation Q6H PRN wheezing 02/19/21 07/23/24 (2.5 mg base)/3 mL nebulization #15 mL soln acetaminophen 500 mg tablet 1,000 mg (2 x 500 mg) PO Q8H PRN 08/01/22 07/23/24 pain #90 tabs ibuprofen 600 mg tablet 600 mg PO TID PRN pain #60 tabs 08/01/22 07/23/24 omega-3 fatty acids-fish oil 360 1 cap PO DAILY 06/24/23 07/23/24 mg-1,200 mg capsule (Fish Oil) beclomethasone dipropionate 80 See Rx Instructions .Route 09/01/23 07/23/24 mcg/actuation HFA breath activated .COMPLEX #10.6 grams aerosol (Qvar RediHaler) tiotropium 2.5 mcg-olodaterol 2.5 2 puff inhalation DAILY #4 grams 10/29/23 07/23/24 mcg/actuation mist for inhalation (Stiolto Respimat) cholestyramine-aspartame 4 gram 1 packet PO DAILY 12/28/23 07/23/24 oral powder for susp in a packet lidocaine 5 % topical patch See Rx Instructions .Route 02/01/24 07/23/24 .COMPLEX #30 patches cholestyramine (with sugar) 4 gram 4 pwd PO DAILY 02/02/24 07/23/24 oral powder (Questran) azelastine 1 spray intranasal BID 03/15/24 07/23/24 levothyroxine 50 mcg tablet See Rx Instructions .Route 07/19/24 07/23/24 .COMPLEX #90 tabs omeprazole 40 mg capsule,delayed See Rx Instructions .Route 07/19/24 07/23/24 release .COMPLEX #90 caps sertraline 100 mg tablet 150 mg (1.5 x 100 mg) PO DAILY 07/19/24 07/23/24 #135 tabs valsartan 80 mg tablet 80 mg PO DAILY #90 tabs 07/19/24 07/23/24 acetaminophen 300 mg-codeine 15 mg 1 tab PO Q12H PRN pain #7 tabs 07/23/24 tablet lidocaine 5 % topical patch 1 patch topical DAILY #15 ea 07/23/24 Previous Rx's ?Medication ?Instructions ?Recorded meclizine 25 mg tablet 25 mg PO TID PRN dizziness #20 tabs 10/06/20 compressor, for nebulizer #1 ea 02/19/21 ipratropium 0.5 mg-albuterol 3 mg 3 ml inhalation Q6H PRN wheezing 02/19/21 (2.5 mg base)/3 mL nebulization #15 mL soln acetaminophen 500 mg tablet 1,000 mg (2 x 500 mg) PO Q8H PRN 08/01/22 pain #90 tabs ibuprofen 600 mg tablet 600 mg PO TID PRN pain #60 tabs 08/01/22 beclomethasone dipropionate 80 See Rx Instructions .Route 09/01/23 mcg/actuation HFA breath activated .COMPLEX #10.6 grams aerosol (Qvar RediHaler) tiotropium 2.5 mcg-olodaterol 2.5 2 puff inhalation DAILY #4 grams 10/29/23 mcg/actuation mist for inhalation (Stiolto Respimat) lidocaine 5 % topical patch See Rx Instructions .Route 02/01/24 .COMPLEX #30 patches levothyroxine 50 mcg tablet See Rx Instructions .Route 07/19/24 .COMPLEX #90 tabs omeprazole 40 mg capsule,delayed See Rx Instructions .Route 07/19/24 release .COMPLEX #90 caps sertraline 100 mg tablet 150 mg (1.5 x 100 mg) PO DAILY 07/19/24 #135 tabs valsartan 80 mg tablet 80 mg PO DAILY #90 tabs 07/19/24 acetaminophen 300 mg-codeine 15 mg 1 tab PO Q12H PRN pain #7 tabs 07/23/24 tablet lidocaine 5 % topical patch 1 patch topical DAILY #15 ea 07/23/24 Allergies Allergy/AdvReac Type Severity Reaction Status Date / Time tramadol Allergy Severe ITCHING, Verified 07/23/24 08:23 GI UPSET hydrocodone bitartrate (From Allergy Intermediate RASH, Verified 07/23/24 08:23 Vicodin) ITCHING fluticasone Allergy Other (See Verified 07/23/24 08:23 Comment) methylphenidate Allergy Other (See Verified 07/23/24 08:23 Comment) regadenoson AdvReac Severe Other (See Verified 07/23/24 08:23 Comment) desipramine AdvReac Intermediate PALPITATION Verified 07/23/24 08:23 S pregabalin (From Lyrica) AdvReac Intermediate CONFUSION Verified 07/23/24 08:23 salmeterol xinafoate (From AdvReac Intermediate COUGH Verified 07/23/24 08:23 Advair Diskus) methylprednisolone sodium AdvReac Mild Agitation Verified 07/23/24 08:23 succinate (From Solu-Medrol) paroxetine HCl (From Paxil) AdvReac Mild JITTERY Verified 07/23/24 08:23 sertraline HCl (From Zoloft) AdvReac Mild JITTERY Verified 07/23/24 08:23 General Stated Complaint: Orthopedic NATY: 4 Exam Resp Effort & Inspection: normal respiratory effort and able to speak in complete sentences Auscultation: clear to auscultation bilaterally Cardio Rhythm: regular rhythm Heart Sounds: S1 normal and S2 normal Extrem General: normal to inspection Right upper extremity: normal to inspection, normal capillary refill, no joint enlargement, shoulder/upper arm Details: tenderness Location: of the A-C joint and of the proximal humerus; no swelling, no ecchymosis, no deformity and no unusual warmth, elbow/forearm Details: normal to inspection, wrist Details: normal to inspection and hand Details: normal to inspection and normal capillary refill Course Vital Signs Vital signs: Vital Signs Temperature 37.3 C 07/23/24 08:06 Pulse 103 H 07/23/24 08:06 Respiratory Rate 16 07/23/24 08:06 Blood Pressure 141/88 H 07/23/24 08:06 Pulse Oximetry 97 07/23/24 08:06 Temperature 37.3 C 07/23/24 08:06 Temperature Source Tympanic 07/23/24 08:06 Pulse 103 H 07/23/24 08:06 Respiratory Rate 16 07/23/24 08:06 Blood Pressure 141/88 H 07/23/24 08:06 Blood Pressure Position Sitting 07/23/24 08:06 Pulse Oximetry 97 07/23/24 08:06 Oxygen Delivery Method Room Air 07/23/24 08:06 Oxygen Flow Rate 0 07/23/24 08:06 End Tidal Co2 7 07/23/24 08:06 Medical Decision Making 74-year-old female presents to the ER with a chief complaint of right shoulder pain which radiates down her right arm. She has had a long history of multiple surgeries on that shoulder. However a week ago she stood up and hit her right shoulder on a nightstand which exacerbated her pain. She has been taking Advil at home with little to no relief. She also reports that she fell yesterday landing on her bed and was unable to get up for approximately 45 minutes. Did not hit her head denies any neck or back pain. Denies any chest pain. She does have a upcoming orthopedic appointment on August 16. Other past medical history include COPD, hypertension diverticulitis, depression. X-ray right shoulder ordered, lidocaine patch and Tylenol with codeine. Patient does have multiple drug allergies to tramadol and hydrocodone. X-ray shows [id number] and degenerative changes no evidence of acute fracture or dislocation. Discussed x-ray results with patient and family who verbalized understanding. Patient reports she feels much better after the lidocaine patch and Tylenol with codeine. Patient given a sling. Instructed to follow-up with orthopedics and keep her appointment as previously scheduled. She verbalized understanding. This text was generated using [employer] dictation system, please disregard any oddities of phrase or misspellings. Medical Records Medical records reviewed: Yes I reviewed the patient's medical records. Imaging Data Radiologic Study: Imaging: X-Ray Radiologist's impression: TECHNIQUE: Imaging protocol: Radiologic exam of the right shoulder. Views: 2 or more views. COMPARISON: CR XR CHEST 2V PA LATERAL 10/30/2023 10:42 AM FINDINGS: Bones/joints: Degenerative changes in the acromioclavicular joint and glenohumeral joint. Bone-onbone in the glenohumeral joint. 2.4 cm gap between the distal clavicle and the acromion. This may be due to prior surgery or resor ption. There is no evidence of acute fracture.There is no evidence of malalignment or dislocation. Soft tissues: Normal. IMPRESSION: 1. Degenerative changes in the acromioclavicular joint and glenohumeral joint. [id number]-[id number] in the glenohumeral joint. Large osteophyte off the inferior aspect of the humeral head 2. 2.4 cm gap between the distal clavicle and the acromion. This may be due to prior surgery or resorption. 3. There is no evidence of acute fracture.There is no evidence of malalignment or dislocation. Thank you for allowing us to participate in the care of your patient. Dictated and Authenticated by: Joao Whittington MD Quality:[facility] Health Related Social Needs: No Data to Display [facility] All Active Problems (Updated 07/23/24 @ 10:20 by Saima Means NP) Degenerative joint disease of right shoulder (Acute) Bile acid malabsorption syndrome (Acute ~11/2023) Diverticulosis (Acute) scattered pandiverticulosis per [facility] colonoscopy report 11/2023 Abnormal chest x-ray (Acute) Adductor tendinitis of left hip (Acute) Lumbosacral spondylosis without myelopathy (Acute) Osteoarthritis of right hip (Acute) Steroid injection under ultrasound: 03/19/2023 Diarrhea (Acute) Melena (Acute) Chronic abdominal pain (Acute) Painful total knee replacement, right (Acute) History of total right knee replacement (Acute) History of total left knee replacement (Acute) Diverticulitis (Chronic 04/25/14) a. 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 RUQ pain (Acute) 08/12/[address] Froilan Hogue - ? that pain is secondary to scar tissue within muscle and lidocaine injection given with effect. Lymphadenitis (Acute 05/23/13) Diverticulitis of sigmoid colon (Acute 04/25/14) Bilateral knee pain (Acute) 02/23/19 F/u 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 Hx nasal steroid per Dr. Garza. Cough (Acute) Depression (Chronic) Voiding difficulty (Acute) Pulmonary nodule (Acute) Right hip pain (Acute) Lumbar spondylosis (Acute) Ischial bursitis (Acute) Muscular deconditioning (Acute) Personal history of nicotine dependence (Acute) Bimalleolar fracture of left ankle (Acute 07/22/22) Bimalleolar equivalent with posterior malleolus fracture--S/P ORIF Medical History Hx of chest pain Pt. states her chest pain was related to her stomach issues, and has not had any cardiac issues currently, and does not see a sports team manager. Chronic obstructive lung disease quit smoking 2000, [facility] PFT 01/06/18 Mild airflow obstruction, no significant improvement after inhaled bronchodilators RH Irritable colon HTN (hypertension) COPD (chronic obstructive pulmonary disease) Emphysema Sialoadenitis Osteoarthritis Diverticulitis Depression Surgical History History of esophagogastroduodenoscopy (EGD) (12/14/23) w/biopsy Dr Kim,[facility] H/O colonoscopy with polypectomy (12/14/23) Dr Kim,[facility] tubular adenoma History of bunionectomy History of hysterectomy History of bilateral salpingo-oophorectomy (05/18/14) History of hysterectomy (05/18/14) Replacement of total knee joint (~2004) B/L Open Carpal Tunnel release (~1985) B/L Elyssa Fundoplication (~1995) EGD - MAC (09/24/16) EGD - IV Sedation 2014 Colonoscopy - MAC (09/24/16) Colectomy 04/25/14 Extraction of cataract Arthroscopy, Shoulder right; acromioplasty H/O surgical procedure a. total abdominal hysterectomy-bso b. exploratory laparotomy for reoval of ovaries c. knee replacements d. sigmoid resection 04/25/2014 e. right shoulder acromioplasty f. Elyssa fundoplication 1995 g. bilateral open carpal tunnel release 1985 Family History Mother Diabetes Essential hypertension Personal history of malignant neoplasm LUNG Hyperlipidemia Asthma Father Essential hypertension Personal history of malignant neoplasm THROAT Heart disease Hyperlipidemia Sister Drug abuse Essential hypertension COPD (chronic obstructive pulmonary disease) Depression Heart disease Hyperlipidemia Asthma Grandfather Essential hypertension Personal history of malignant neoplasm Heart disease Hyperlipidemia Stroke Grandfather , UNKNOWN Alcohol abuse Heart disease Stroke Grandmother Essential hypertension Personal history of malignant neoplasm Hyperlipidemia Grandmother Alcohol abuse Personal history of malignant neoplasm Heart disease Son Depression Heart disease Asthma Son Alcohol abuse Essential hypertension Depression Daughter Essential hypertension Asthma Daughter Essential hypertension Depression Hyperlipidemia Social History Smoking/Tobacco Use Status: Former Tobacco Use Quit Date: 06/01/99 Smoking risk assessment performed?: Yes Alcohol Intake: current Alcohol Intake frequency: a few times a month Alcohol type: beer Drug use: Never Substance use type: does not use Number of Children: 4 Pets and animals: Yes Pets and animals: cat(s) and dog(s) Current gender identity: female What type of physical activity do you participate in: walking Frequency: daily Seatbelt use: always Water heater temp set <120 deg: Yes Working smoke detector in home: Yes Fire extinguisher in home: Yes Carbon monox detector in home: Yes Firearms in home: Yes Firearms unloaded and locked: Yes Do you feel safe at home: Yes Do you feel safe in your relationship?: Yes
[2024-07-23] MEDS: Lidocaine 5% Patch 1 PATCH TP (08:34)
[2024-07-23 09:50] VITALS: BP 103/49; PULSE 92; RESP 14; TEMP 36.6
--- NOTE | 2024-07-23 09:54 | DI.VRAD_ITS ---
PROCEDURE INFORMATION: Exam: XR Right Shoulder Exam date and time: 07/23/2024 8:42 AM Age: 74 years old Clinical indication: Pain; Shoulder; Right TECHNIQUE: Imaging protocol: Radiologic exam of the right shoulder. Views: 2 or more views. COMPARISON: CR XR CHEST 2V PA LATERAL 10/30/2023 10:42 AM FINDINGS: Bones/joints: Degenerative changes in the acromioclavicular joint and glenohumeral joint. Qdqp-nv-[id number] in the glenohumeral joint. 2.4 cm gap between the distal clavicle and the acromion. This may be due to prior surgery or resorption. There is no evidence of acute fracture.There is no evidence of malalignment or dislocation. Soft tissues: Normal. IMPRESSION: 1. Degenerative changes in the acromioclavicular joint and glenohumeral joint. Xmog-oe-earx in the glenohumeral joint. Large osteophyte off the inferior aspect of the humeral head 2. 2.4 cm gap between the distal clavicle and the acromion. This may be due to prior surgery or resorption. 3. There is no evidence of acute fracture.There is no evidence of malalignment or dislocation. Dictated and Authenticated by: Joao Whittington MD. Orderin Miguelangel Landaverde MD
[2024-07-23 10:34] VITALS: BP 129/89; PULSE 100; RESP 14; O2SAT 95
[2024-07-23 10:46] VITALS: BP 129/89; PULSE 100; RESP 14; TEMP 36.6; O2SAT 95
== END 2024-07-23 10:53 | disposition home or self-care (01) ==
PROVIDERS: Emergency Provider Registered Nurse Emergency; PCP Nurse Practitioner
DX: M19.011 Primary osteoarthritis, right shoulder (principal)
CPT/HCPCS: 99283; 73030

== ENCOUNTER → 2024-08-03 12:53 | Outpatient (BNVA) | payer MEDICARE, MEDICAID, SELFPAY | PROVIDERS: PCP Nurse Practitioner; Referring Provider Nurse Practitioner | DX: M19.011 Primary osteoarthritis, right shoulder (principal) | CPT/HCPCS: 99214 ==

== ENCOUNTER 2024-08-12 00:08 | Outpatient (CLI) | payer MEDICARE, MEDICAID, SELFPAY ==
--- NOTE | 2024-08-12 07:45 | DI.CT_ITS ---
Exam(s) CT UPPER EXTREMITY RT WO EXAM: CT UPPER EXTREMITY RT WO CLINICAL HISTORY: PAIN, SURGICAL PLANNING,DJD RT SHOULDER,M19.011 TECHNIQUE: Imaging Protocol: Axial computed tomography images with coronal and sagittal reformatted images were created and reviewed. CONTRAST MATERIAL: Intravenous: Omnipaque 350 Contrast volume:structured data in ml Contrast route:I V - Oral: yes / no COMPARISON: CR,XR XR SHOULDER RT COMPLETE 2+V from 07/23/2024 FINDINGS: OSSEOUS: There is postsurgical widening 6 last resection of the AC joint. There is no evidence of acute fracture nor dislocation glenohumeral joint but there is advanced osteo arthritic degenerative change in this joint with avho-hu-blkx narrowing in the mid-inferior aspect of the joint and opposing osteophytes on both in for to coarser fists is, including a prominent rangel-t ype osteophyte on the inferior articular surface of the humeral head. There is also mild upward subl uxation of the humeral head in the osseous glenoid. Soft Tissues: There is very subtle soft tissue calcification noted in the distal rotator cuff just above the great er tuberosity consistent with probable calcific tendinitis/tendinosis of the rotator cuff. Adjacent right lung difficult to evaluate because of respiratory motion artifact. However, there fabrice ears to be a subtle 8 mm noncalcified nodule in the medial aspect of the right upper lobe (series 2/i mage 124). IMPRESSION: Advanced osteoarthritic degenerative changes in glenohumeral joint, as described above Widened AC joint which is probably related to prior surgical procedure. RADIATION DOSE DELIVERED: 106.5mGy.cm Total DLP DATA REPOSITORY: All CT scans at this facility are submitted to the National Radiology Data Registry (NRDR) Dose Index Registry (DIR) with the [employer] (A[employer]). RADIATION OPTIMIZATION: All CT scans at this facility use at least one of these dose optimization te chniques: automated exposure control; mA and/or kV adjustment per patient size (includes targeted exa ms where dose is matched to clinical indication); or iterative reconstruction.
== END 2024-08-12 00:28 ==
LOC: DI 00:08
PROVIDERS: PCP Nurse Practitioner; Visit Provider Student in an Organized Health Care Education/Training Program
DX: M19.011 Primary osteoarthritis, right shoulder (principal)
CPT/HCPCS: 73200

== ENCOUNTER → 2024-08-17 09:02 | Outpatient (BNVA) | payer MEDICARE, MEDICAID, SELFPAY | PROVIDERS: PCP Nurse Practitioner; Referring Provider Nurse Practitioner; Visit Provider Student in an Organized Health Care Education/Training Program | DX: M19.011 Primary osteoarthritis, right shoulder (principal); M25.611 Stiffness of right shoulder, not elsewhere classified; M75.21 Bicipital tendinitis, right shoulder | CPT/HCPCS: 99214 ==

== ENCOUNTER 2024-08-22 01:49 | Outpatient (CLI) | payer MEDICARE, MEDICAID, SELFPAY ==
--- NOTE | 2024-08-22 08:04 | DI.CT_ITS ---
Exam(s) CT CHEST WO EXAM: CT CHEST WO CLINICAL HISTORY: incidental finding on shoulder CT,R91.1,SOLITARY PULMONARY NODULE. TECHNIQUE: Imaging protocol: Axial computed tomography images were obtained and coronal and sagittal reformatted images were created and reviewed. Computer aided detection (CAD) was utilized. CONTRAST MATERIAL: Noncontrast COMPARISON: CT CT CHEST WO from 02/19/[address] CHEST PE CTA from 04/26/[address] CHEST WO CONTRAST from 05/23/[address] UPPER EXTREMITY RT WO from 08/12/2024 FINDINGS: Pulmonary parenchyma: 2 small stable nodular areas at the medial of left upper lobe, adjacent to the spine and major fissure. No consolidation. Stable 6 millimeter nodule at the left lower lobe. No suspicious nodules. Interstitial changes: None. Emphysema: Moderate to severe, greater in the upper lobes. Tracheobronchial tree: No mucous plugging. No bronchiectasis . Pleura: No effusion or pneumothorax. Heart: The heart is mildly dilated. The coronary arteries show mild calcifications. Aorta: Thoracic aorta non-dilated. Mild atherosclerotic changes. Lymph nodes: No enlarged lymph nodes. Bones: Advanced degenerative changes are seen in the both shoulders as well as thoracic spine.. No evidence of compression fracture. Upper abdomen: Unremarkable. Soft tissues: Unremarkable. IMPRESSION: Stable areas of nodular scarring in the medial left upper lobe adjacent to the major fissure. Stable 6 millimeter nodule at the left lower lobe. No suspicious findings. RADIATION DOSE DELIVERED: Total DLP Total DLP DATA REPOSITORY: All CT scans at this facility are submitted to the National Radiology Data Registry (NRDR) Dose Index Registry (DIR) with the [employer] (A[employer]). RADIATION OPTIMIZATION: All CT scans at this facility use at least one of these dose optimization te chniques: automated exposure control; mA and/or kV adjustment per patient size (includes targeted exa ms where dose is matched to clinical indication); or iterative reconstruction.
== END 2024-08-22 02:09 ==
LOC: DI 01:49
PROVIDERS: PCP Nurse Practitioner; Visit Provider Student in an Organized Health Care Education/Training Program
DX: R91.1 Solitary pulmonary nodule (principal)
CPT/HCPCS: 71250

== ENCOUNTER 2024-08-26 05:58 | Day surgery (SDC) | payer MEDICARE, MEDICAID, SELFPAY ==
--- NOTE | 2024-08-25 19:06 | W.ANESPRE ---
General Info Date of Service Date Performed: 08/26/24 Height: 4 ft 10 in Weight: 56.245 kg Body Mass Index (BMI): 25.9 Surgical Procedure: Operation Date: 08/26/24 07:40 Proposed Procedure Side Surgeon p Shoulder Reverse Total Arthroplasty, Biceps Tenodesis Right Marcelino Bergman MD Meds Allergies and Home Medications Allergies Allergy/AdvReac Type Severity Reaction Status Date / Time tramadol Allergy Severe ITCHING, Verified 08/26/24 06:19 GI UPSET hydrocodone bitartrate (From Allergy Intermediate RASH, Verified 08/26/24 06:19 Vicodin) ITCHING fluticasone Allergy Other (See Verified 08/26/24 06:19 Comment) methylphenidate Allergy Other (See Verified 08/26/24 06:19 Comment) regadenoson AdvReac Severe Other (See Verified 08/26/24 06:19 Comment) desipramine AdvReac Intermediate PALPITATION Verified 08/26/24 06:19 S pregabalin (From Lyrica) AdvReac Intermediate CONFUSION Verified 08/26/24 06:19 salmeterol xinafoate (From AdvReac Intermediate COUGH Verified 08/26/24 06:19 Advair Diskus) methylprednisolone sodium AdvReac Mild Agitation Verified 08/26/24 06:19 succinate (From Solu-Medrol) paroxetine HCl (From Paxil) AdvReac Mild JITTERY Verified 08/26/24 06:19 sertraline HCl (From Zoloft) AdvReac Mild JITTERY Verified 08/26/24 06:19 Home Medication ?Medication ?Instructions ?Recorded inhaler,assist devices,access #1 ea 09/01/13 (EasiVent Mask Large) psyllium husk 3.4 gram/5.4 gram 1 tbs PO DAILY 08/11/19 oral powder (Metamucil) multivitamin-ferrous 1 tab PO DAILY 01/10/20 fumarate-folic acid 18 mg-400 mcg tablet ([facility]) albuterol sulfate 90 mcg/actuation 2 puff inhalation Q4H PRN 09/14/20 aerosol inhaler (Ventolin HFA) meclizine 25 mg tablet 25 mg PO TID PRN dizziness #20 tabs 10/06/20 compressor, for nebulizer #1 ea 02/19/21 ipratropium 0.5 mg-albuterol 3 mg 3 ml inhalation Q6H PRN wheezing 02/19/21 (2.5 mg base)/3 mL nebulization #15 mL soln acetaminophen 500 mg tablet 1,000 mg (2 x 500 mg) PO Q8H PRN 08/01/22 pain #90 tabs ibuprofen 600 mg tablet 600 mg PO TID PRN pain #60 tabs 08/01/22 tiotropium 2.5 mcg-olodaterol 2.5 2 puff inhalation DAILY #4 grams 10/29/23 mcg/actuation mist for inhalation (Stiolto Respimat) azelastine 1 spray intranasal BID 03/15/24 levothyroxine 50 mcg tablet See Rx Instructions .Route 07/19/24 .COMPLEX #90 tabs omeprazole 40 mg capsule,delayed See Rx Instructions .Route 07/19/24 release .COMPLEX #90 caps sertraline 100 mg tablet 150 mg (1.5 x 100 mg) PO DAILY 07/19/24 #135 tabs valsartan 80 mg tablet 80 mg PO DAILY #90 tabs 07/19/24 lidocaine 5 % topical patch 1 patch topical DAILY #15 ea 07/23/24 Current Visit Medications: Current Medications Generic Name Dose Route Start Last Admin Trade Name Freq PRN Reason Stop Dose Admin Ringer's Solution 1,000 mls @ 30 mls/hr 08/26/24 06:00 IV 08/26/24 23:59 INFUSION ELIEL Cefazolin Sodium/Dextrose 2 gm in 50 mls @ 100 mls/hr 08/26/24 06:00 Ancef Duplex IVPB 08/26/24 23:59 PREOP ELIEL Tranexamic Acid/Sodium Chloride 1,000 mg in 100 mls @ 600 mls/hr 08/26/24 06:00 IVPB 08/26/24 23:59 PREOP ELIEL IV Miscellaneous Supplies 1 each 08/26/24 06:00 Iv Access IV 08/26/24 23:59 DIRECTED ELIEL Sodium Chloride 0 ml 08/26/24 06:00 Normal Saline Flush 10 Ml Syr IV 08/26/24 23:59 PRN PRN Sodium Chloride 0 ml 08/26/24 06:00 Normal Saline 10 Ml Vial IJ 08/26/24 23:59 DIRECTED PRN Sterile Water 0 ml 03/28/25 06:00 Water,Injection,Sterile 10 Ml Vial IJ 08/26/24 23:59 DIRECTED PRN [facility] Active Problems Active Problems: Problem Status Onset Code Solitary pulmonary nodule on lung CT Acute R91.1 Tendonitis of long head of biceps brachii of right shoulder Acute M75.21 Stiffness of right shoulder joint Acute M25.611 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 Diverticulosis Acute K57.90 Abnormal chest x-ray Acute R93.89 Adductor tendinitis of left hip Acute M76.892 Lumbosacral spondylosis without myelopathy Acute M47.817 Osteoarthritis of right hip Acute M16.11 Diarrhea Acute R19.7 Melena Acute K92.1 Chronic abdominal pain Acute R10.9, G89.29 Painful total knee replacement, right Acute T84.84XA, Z96.651 History of total right knee replacement Acute Z96.651 History of total left knee replacement Acute Z96.652 Diverticulitis Chronic 04/25/14 K57.92 COPD (chronic obstructive pulmonary disease) Chronic J44.9 Chronic back pain Chronic M54.9, G89.29 Abnormal weight loss Acute R63.4 Anxiety Acute 03/19/17 F41.9 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 Benign paroxysmal positional vertigo of left ear Acute 02/27/16 H81.12 Chest pain Resolved R07.9 Depressive disorder Chronic F32.9 Essential hypertension Acute 04/18/13 I10 Hypothyroidism Chronic 10/26/12 E03.9 Irritable colon Acute 11/11/11 K58.9 Low back pain Acute M54.5 Memory loss Acute 11/14/14 R41.3 Osteoarthritis Acute 05/18/14 M19.90 Sialoadenitis Acute 05/23/13 K11.20 RUQ pain Acute R10.11 Lymphadenitis Acute 05/23/13 I88.9 Diverticulitis of sigmoid colon Acute 04/25/14 K57.32 Bilateral knee pain Acute M25.561, M25.562 History of bilateral knee replacement Acute Z96.653 Left foot pain Acute M79.672 IFG (impaired fasting glucose) Acute R73.01 Itching Acute L29.9 Cough Acute R05 SOB (shortness of breath) Acute R06.02 Vertigo Acute R42 Left hip pain Acute M25.552 Anxiety and depression Acute F41.9, F32.9 Headache Acute R51 History of Edouard's esophagus Acute Z87.19 Pharyngeal dysphagia Acute R13.13 Polyarthralgia Acute M25.50 Positive SANDY (antinuclear antibody) 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.8 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 (nsaid) Acute Z79.1 Regurgitation of food Acute R11.10 Status post total hip replacement, left Acute 01/24/20 Z96.642 Fatigue Acute R53.83 Forgetfulness Acute R68.89 SBO (small bowel obstruction) Acute K56.609 Dizziness Acute R42 Abdominal pain Acute R10.9 Lung nodule Acute R91.1 Vision changes Acute H53.9 Constipation Acute K59.00 Acute exacerbation of chronic obstructive pulmonary disease (COPD) Acute J44.1 History of pneumonia Acute Z87.01 Left chest pressure Acute R07.89 Fluttering sensation of heart Acute R00.2 Insomnia Acute G47.00 Weight loss, non-intentional Acute R63.4 PND (post-nasal drip) Acute R09.82 Cough Acute R05 Depression Chronic F32.9 Voiding difficulty Acute R39.198 Pulmonary nodule Acute R91.1 Right hip pain Acute M25.551 Lumbar spondylosis Acute M47.816 Ischial bursitis Acute M70.70 Muscular deconditioning Acute R29.898 Personal history of nicotine dependence Acute Z87.891 Bimalleolar fracture of left ankle Acute 07/22/22 S82.842A Medical History Medical History Hx of chest pain Pt. 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 Chronic obstructive lung disease quit smoking 2000, [facility] PFT 01/06/18 Mild airflow obstruction, no significant improvement after inhaled bronchodilators RH Irritable colon HTN (hypertension) COPD (chronic obstructive pulmonary disease) Emphysema Sialoadenitis Osteoarthritis Diverticulitis Depression Surgical History Surgical History History of esophagogastroduodenoscopy (EGD) (12/14/23) w/biopsy Dr Kim,[facility] H/O colonoscopy with polypectomy (12/14/23) Dr Kim,[facility] tubular adenoma History of bunionectomy History of hysterectomy History of bilateral salpingo-oophorectomy (05/18/14) History of hysterectomy (05/18/14) Replacement of total knee joint (~2004) B/L Open Carpal Tunnel release (~1985) B/L Elyssa Fundoplication (~1995) EGD - MAC (09/24/16) EGD - IV Sedation 2014 Colonoscopy - MAC (09/24/16) Colectomy 04/25/14 Extraction of cataract Arthroscopy, Shoulder right; acromioplasty H/O surgical procedure a. total abdominal hysterectomy-bso b. exploratory laparotomy for reoval of ovaries c. knee replacements d. sigmoid resection 04/25/2014 e. right shoulder acromioplasty f. Elyssa fundoplication 1995 g. bilateral open carpal tunnel release 1985 Tobacco Smoking/Tobacco Use Status: Former Tobacco Use Passive smoking exposure: No Alcohol Alcohol Intake: current Alcohol intake frequency: a few times a month Alcohol type: beer Substance Use Substance use: Never Substance use type: does not use Vital Signs and Lab Results Vital Signs Most Recent Vital Signs in EMR: Temp Pulse Resp BP Pulse Ox 36.2 C L 82 17 150/54 H 96 08/26/24 06:00 08/26/24 06:00 08/26/24 06:00 08/26/24 06:00 08/26/24 06:00 Lab Results Blood Type / Crossmatch: No Data to Display Complete Blood Count: No Data to Display Complete Metabolic Panel: No Data to Display Liver Function Panel: No Data to Display Coagulation Panel: No Data to Display Cardiac Panel: No Data to Display Arterial Blood Gas: No Data to Display Venous Blood Gas: No Data to Display Pancreas Panel: No Data to Display Thyroid Panel: No Data to Display Infectious Disease: No Data to Display Blood Cultures: No Data to Display Toxicology Panel: No Data to Display Imaging and Studies Imaging and Studies Study information below may be from another EMR and interpreted by another provider. Please see original notes in EMR for more complete details. EKG Summary: 05/22: sinus rhythm, RAD. Stress Test Summary: 05/22: peak HR 80% predicted, EKG was nondiagnostic. MPI with normal perfusion, no ischemia or prior infarct, EF 65%. Echocardiogram Summary: 10/19: LVEF 55%, no sig valve dz, PAS 32 mmhg. Pulmonary Function Summary: 01/18: mild obstructive airway dz, no sig bronchodilator response. moderately reduced DLCO. Anesthesia Assessment and Plan Anesthesia History Personal History: No History of Anesthesia Complications Family History: No Family History of Anesthesia Complications Exercise Tolerance Exercise Tolerance: Metabolic Equivalents>4 Cardiac & Pulmonary Exam Cardiac Exam: Normal S1/S2 Heart Sounds Pulmonary Exam: Clear Bilateral Breath Sounds Implantable Cardiac Device Does patient have a Pacemaker or an ICD?: No Airway Exam Known Difficult Airway: No Mallampati Class: 2 Mouth Opening: Narrow (< 3cm) Thyromental Distance: Greater than 3 cm Neck Range of Motion: Full ROM Neck Circumference: Normal Teeth Condition: Edentulous ASA Classification ASA Score: ASA 3 Emergency Case?: No NPO Status NPO Status: NPO Clears >2 hours, Solids >8 hours Anesthesia Plan Resuscitation Status: Full Code Anesthesia Technique: General Anesthesia Airway Planned: Endotracheal Tube Pain Management: Surgeon and patient request nerve block Monitors Used: Standard Monitors Preoperative Comments:: 74 yo female with multiple allergies for reverse total shoulder Sig PMHx: pulmonary nodule, COPD (stiolto, albuterol, ipatropium), anxiety/depression, GERD/barretts (omeprazole), HTN (valsartan), low back pain, hypothyroid (on replacement), former smoker (quit 2000), Previous Anes: - ankle fracture, prop, easy mask with OPA, Mac 3 grade 1, no block, no issues. - egd colo with midz/prop, natural airway, no issues. - DELANO, spinal (2 attempts), prop sedation was stopped due to sig coughing and secretions.
[2024-08-26] VITALS (39 sets, daily range): BP systolic 75–176; BP diastolic 50–110; PULSE 62–84; RESP 12–25; TEMP 36.2–36.6; O2SAT 77–100; BMI 25.9
--- NOTE | 2024-08-26 07:04 | W.PM.OP ---
Operative Note Operative Note PRE-OP DIAGNOSIS: Right: 1. End-stage glenohumeral arthritis 2. Long head of the biceps tendinopathy 3. Rotator cuff tearing POST-OP DIAGNOSIS: same PROCEDURE: Right: 1. Reverse total shoulder arthroplasty, CPT # 72154 2. Open biceps tenodesis, CPT # 51024 The credit control assistant was medically required as this procedure involves retraction, protection of neurovascular structures, and manipulation of multiple instruments and implants at the same time, which cannot be done without a skilled credit control assistant. SURGEON: Marcelino Bergman SUPERVISOR DIE CASTING: Froilan Churchill ANESTHESIA TYPE: Local By Surgeon, General LMA/ETT and Primary Nerve Block Refer to Anesthesia Record ESTIMATED BLOOD LOSS: 150 COMPLICATIONS: None Patient was transported to: PACU Patient's condition: stable Implants: [employer] shoulder system 24 mm baseplate with 25 mm central compression screw. Inferior 30 mm locking screw. Anterior and posterior 15 mm locking screws. 36+4 mm glenosphere. Small short stem humeral component with +8 mm shell and +0 mm retentive liner Indications: Please see complete medical record for details. Findings: Significant partial tearing of scapularis, biceps tendon, superior and into the posterior superior rotator cuff Procedure Description: In the operating room, general anesthesia was induced. The patient was positioned beachchair on the operating room table. All bony prominences were well-padded. Preoperative antibiotics were administered. The shoulder was prepped and draped in the usual sterile fashion for shoulder arthroplasty. The correct patient, procedure, and side of the procedure were all verified prior to incision. The deltopectoral approach was preinjected with 0.25% bupivacaine containing epinephrine and taken to the anterior shoulder. Care was taken to bluntly dissect the interval between the deltoid and pectoralis major muscles and to identify the cephalic vein within its fat stripe. The vein was quite diminutive but mobilized laterally as best possible in the subdeltoid space exposed and freed of adhesions from prior open surgery. Yhe long head of the biceps tendon was identified just lateral to the lesser tuberosity. The uppermost margin of the pectoralis major tendon was released from the proximal humerus. The long head of the biceps tendon was tenodesed in situ using SutureTape in a [id number] fashion securing it superior margin the pectoralis major tendon. The biceps tendon was amputated and followed proximally to identify the rotator interval. A subscapularis tenotomyfrom superior to inferior and lateral to medial while bringing the arm gradually into external rotation. Care was taken to avoid the axillary nerve by only working on the bone inferiorly and medially. There was significant devoid supraspinatus and infraspinatus high-grade tearing which was debrided. Appropriate coagulation was achieved especially interiorly. The anatomic neck was cut using an oscillating saw with the humeral head bone brought back table in case there was a need for future bone grafting. Attention was then turned to the glenoid and retractors were placed and a circumferential release performed using the long head of the biceps remnant to remove soft tissue about the glenoid rim. Care was taken inferiorly to work on bone only between 5 and 7:00 o'clock and bluntly elevate tissues inferiorly. The guide was placed on the glenoid and used to confirm placement and trajectory of the central guidepin. The guidepin was inserted and advanced just through the far cortex ensuring adequate central fixation length. The glenoid was prepared according to seed service advisor specifications for a modular baseplate and central screw. The baseplate was impacted onto the glenoid surface with good seating greater than 50% preparation inferiorly accounting for the diminutive glenoid and high-grade deformity. The central compression screw had excellent fixation of the baseplate was stable. The locking guide was then used to drill and place appropriately lengthed inferior, anterior, and posterior screws. The [id number] reamer was used to confirm adequate peripheral reaming. The glenosphere was applied with the pewter fabricator and then impacted to engage the Cook taper. It was then locked with appropriate countersinking of the setscrew. The glenosphere was inspected and found to have good fit, appropriate positioning, and no soft tissue or bony impingement. The proximal humerus was delivered from the wound with adduction and external rotation. Proximal humerus was prepared for a short stem with reasonably good fixation despite the poor bone quality. The final stem was impacted and trialing built off from there. Trialing was commenced with a 0 mm shell and liner and then built up to +8 mm to achieve good tension on the deltoid and conjoined tendons with retentive liner showing excellent stability despite devoid soft tissues and rotator cuff. These trial components were removed. The final +8 mm shell was then impacted onto the proximal humeral component seating nicely. The +0 mm 36 mm retentive liner was then clicked into place. The shoulder was reduced and range of motion, stability, and tension confirmed to be good. The shoulder was copiously irrigated with Betadine and normal saline. Vancomycin powder was distributed deeply about the shoulder and through subcutaneous tissues. The deltopectoral interval was approximated with 2-0 Monocryl burying the cephalic vein. Subcutaneous tissue was irrigated then closed using 2-0 Monocryl in a buried interrupted fashion. Skin was closed using 3-0 Monocryl in a buried subcuticular fashion. Skin glue was applied to the incision. A silver impregnated bandage was placed over the incision. The extremity was placed into a shoulder immobilizer. The patient awoke from anesthesia without complication and was taken to the recovery room in stable condition. Date of Procedure: 08/26/24
--- NOTE | 2024-08-26 07:11 | W.PM.DSUDISC ---
Date of service: 08/26/24 Discharge Plan Disposition Patient Disposition: Home Condition: Stable Discharge Details Attending Provider: Marcelino Bergman Primary Care Provider: Kristine Carter Home Meds and New Rx's Prescriptions: New naproxen 250 mg tablet 250 mg PO BID PRN (Reason: Moderate pain) Qty: 30 0RF oxycodone 5 mg tablet 2.5 - 5 mg PO Q4H PRN (Reason: Moderate to severe pain) Qty: 7 0RF Continued Stiolto Respimat 2.5-2.5 mcg/actuation mist 2 puff inhalation DAILY Qty: 4 8RF omeprazole 40 mg capsule,delayed release(DR/EC) See Rx Instructions .ROUTE .COMPLEX Qty: 90 3RF Dose Instruction: TAKE ONE CAPSULE BY MOUTH EVERY DAY Rx Instructions: TAKE ONE CAPSULE BY MOUTH EVERY DAY levothyroxine 50 mcg tablet See Rx Instructions .ROUTE .COMPLEX Qty: 90 3RF Dose Instruction: TAKE ONE TABLET BY MOUTH EVERY DAY Rx Instructions: TAKE ONE TABLET BY MOUTH EVERY DAY sertraline 100 mg tablet 150 mg PO DAILY Qty: 135 3RF valsartan 80 mg tablet 80 mg PO DAILY Qty: 90 3RF Metamucil 3.4 gram/5.4 gram powder 1 tbs PO DAILY Rx Instructions: mix into at least 8 oz of water or juice before administering [facility] 18-400 mg-mcg tablet 1 tab PO DAILY (DME) compressor, for nebulizer Device See Rx Instructions .ROUTE .MEDSUPPLY Qty: 1 0RF Rx Instructions: As directed ipratropium-albuterol 0.5 mg-3 mg(2.5 mg base)/3 mL solution for nebulization 3 ml inhalation Q6H PRN (Reason: wheezing) Qty: 15 0RF Rx Instructions: Trial for Cough, COPD Exacerbation (DME) EasiVent Mask Large 1 EACH device 1 ea Miscellaneous DIRECTED Qty: 1 Rx Instructions: DIRECTED WITH INHALER albuterol sulfate [Ventolin HFA] 90 mcg/actuation HFA aerosol inhaler 2 puff inhalation Q4H PRN Rx Instructions: rescue only per note dated 09/14/20 [facility] azelastine 1 spray intranasal BID meclizine 25 mg tablet 25 mg PO TID PRN (Reason: dizziness) Qty: 20 0RF lidocaine 5 % adhesive patch,medicated 1 patch topical DAILY Qty: 15 0RF Rx Instructions: leave on most painful area for up to 12 hrs acetaminophen 500 mg tablet 1,000 mg PO Q8H PRN Qty: 90 0RF Rx Instructions: Take two tablets up to every 8 hours as needed for pain ibuprofen 600 mg tablet 600 mg PO TID PRN (Reason: pain) Qty: 60 0RF Discharge Instructions Additional Instructions: Surgery: Right reverse total shoulder arthroplasty (retentive liner) with biceps tenodesis 08/26/24; Significant preoperative dysfunction. Activity: Do not lift anything heavier than a coffee. You should keep your arm at your side in a relatively neutral position at all times except for gentle range of motion exercises, physical therapy, and essential activities. You should use the sling whenever you are out of the house. At home it is best to remove the sling and rest the arm on a pillow at your side or support the operative side with your other hand. A physical therapy prescription will be sent electronically to start in about 3 weeks. STANDARD Reverse TSA Protocol. Prescriptions: Naproxen 250 mg take 1 every 12 hours with a meal as needed for moderate pain Oxycodone 2.5-5 mg take 1 every 8 hours as needed for severe pain You may use [id number] Tylenol (acetaminophen) as needed for mild pain. These pain medications may be taken all at once or in different combinations as needed. Also, recommend Colace (docusate) as a stool softener as surgery and pain medicine cause constipation. You may try yqah-guh-[id number] diphenhydramine (Benadryl) 25-50 mg nightly as a sleep aid Dressings: Leave dressing in place until follow-up. Keep clean and dry at all times. No showers please. Follow-up: 10-[address] Bergman You may take off the leg compression stockings this evening at home. You may also leave them on a few days longer if you have a history of leg swelling or edema. Please call the office during business hours with any questions or concerns. Let us know right away if you develop any redness, drainage, fevers, chest pain, or trouble breathing. Do not drink alcohol or drive for at least 24 hours after anesthesia. Discharge Orders Discharge Orders: Discharge Order (Routine); Ordered 08/26/24 Ordered By: Froilan Churchill DS: Diagnosis Discharge Diagnosis (1) Arthritis of right shoulder: Status: Acute (2) Tendonitis of long head of biceps brachii of right shoulder: Status: Acute (3) Stiffness of right shoulder joint: Status: Acute
[2024-08-26] MEDS: Lactated Ringers 1,000 ML 30 ML IV (07:20)
[2024-08-26] MEDS: ceFAZolin 2 GM/50 ML BAG IVPB (08:06)
[2024-08-26] MEDS: TRANEXAMIC ACID/SOD. CHL. 1,000 MG/100 ML BAG 600 MG IVPB (08:10)
--- NOTE | 2024-08-26 08:14 | W.ANESNERVE ---
Nerve Block Single Injection Procedure Date and Time Date Performed: 08/26/24 Procedure Start: 07:27 Location Where Procedure Performed Procedure Location: Day Surgery Unit Reason Performed: Postoperative Analgesia Requesting Provider: Marcelino Bergman Timeout Performed Timeout Performed: Yes Monitoring Used ECG, Blood Pressure and SpO2 Sterility Sterility: Hand Hygiene, Surgical Cap, Surgical Mask, Sterile Gloves and Chlorhexidine Sedation Given During Procedure Sedation Given (Indicate Dose Given): Propofol IV Dose:: 10 mg Patient Mental Status Patient Mental Status: Sedate with meaningful communication Nerve Block 1st Nerve Block: Laterality: Right Block Type: Interscalene Ultrasound Image Saved?: Yes Needle / Catheter Used: 80mm SonoPlex II Local Anesthetic Bolus (Indicate Dose Given): Lidocaine used for local infiltration of skin, Injected in 3-5ml increments after negative blood aspiration, Bupivacaine 0.5% Dose:: 7 mL and Exparel Dose:: 7 mL Additives (Indicate Dose Given): None Ultrasound: Sterile probe cover and gel used Nerve Stimulator: Supplement to Ultrasound use and No twitch or parasthesia noted < 0.5 mA Paresthesia: None Procedure Tolerated: No Complications Procedure Outcome: Successful Procedure Comment: Discussed risks (including block failure, respiratory complications, nerve injury), benefits and alternatives (no block, similar to her ankle) of regional anesthesia. Performed By: Yrn Mora
[2024-08-26] MEDS: Bupivacaine 0.25% Pres-Free W/EPI 30 ML VIAL (08:33)
--- NOTE | 2024-08-26 11:00 | DI.RAD_ITS ---
Exam(s) XR SHOULDER RT COMPLETE 2+V EXAM: XR SHOULDER RT COMPLETE 2+V CLINICAL HISTORY: Shoulder Arthritis. TECHNIQUE: 2D digital imaging was performed. COMPARISON: CR,XR XR SHOULDER RT COMPLETE 2+V from 07/23/2024 FINDINGS: Two postop views. There is satisfactory position alignment of the components of the newly placed reverse prosthesis. N o fracture or loosening evident. There has been prior resection of the lateral 3rd of the ipsilatera l clavicle IMPRESSION: Satisfactory postop appearance of newly placed reverse prosthesis. DATA REPOSITORY: RADIATION DOSE DELIVERED:
--- NOTE | 2024-08-26 11:09 | W.ANESPOSTOP ---
Postoperative Evaluation Date, Time and Location Date Performed: 08/26/24 Time Performed: 11:09 Patient Location: PACU Vital Signs Most Recent Imported Vital Signs: Most Recent Vital Signs Temp Pulse Resp BP Pulse Ox 36.6 C 68 23 138/78 92 08/26/24 11:01 08/26/24 11:05 08/26/24 11:05 08/26/24 11:01 08/26/24 11:01 Pain Score Most Recent Pain Score: Most Recent Pain Score Pain Level 0 08/26/24 10:56 Assessment Mental Status: Awake (Alert & Oriented to Patient Baseline) Airway and Respiratory Function: Patent airway with normal (patient baseline) respiratory exam Cardiovascular Function: Hemodynamically Stable Hydration Status: Adequately Hydrated Nausea & Vomiting: No Nausea or Vomiting Pain: Pain is tolerable per patient Peripheral Nerve Block: Regional nerve block not resolved at time of post operative discharge
[2024-08-26] MEDS: ceFAZolin 1 GM/50 ML BAG IVPB (12:14)
[2024-08-26] MEDS: Lactobacillus Acidophilus CAP 1 CAP PO (12:14)
[2024-08-26] MEDS: Normal Saline Flush 10 ML SYR IV (12:14)
== END 2024-08-26 15:30 | disposition home or self-care (01) ==
PROVIDERS: PCP Nurse Practitioner; Visit Provider Student in an Organized Health Care Education/Training Program
PROC: (CPT 23472; principal; 2024-08-26 07:30)
DX: M19.011 Primary osteoarthritis, right shoulder (principal); M75.21 Bicipital tendinitis, right shoulder; M25.611 Stiffness of right shoulder, not elsewhere classified; G89.18 Other acute postprocedural pain
CPT/HCPCS: 23472; C1713; 23430; 64415; 73030; J0665; J0666; J0690; J1100; J2405; J2704; J3370

== ENCOUNTER 2024-09-07 15:36 | Outpatient (CLI) | payer MEDICARE, MEDICAID, SELFPAY ==
--- NOTE | 2024-09-07 13:45 | DI.RAD_ITS ---
Exam(s) XR SHOULDER RT COMPLETE 2+V EXAM: XR SHOULDER RT COMPLETE 2+V CLINICAL HISTORY: F/U RIGHT RTSA. TECHNIQUE: 2D digital imaging was performed. Two images were obtained. Grashey and Y views were obt ained. COMPARISON: CR,XR XR SHOULDER RT COMPLETE 2+V from 07/23/[address] UPPER EXTREMITY RT WO from 08/12/2024 CR XR SHOULDER RT COMPLETE 2+V from 08/26/2024 FINDINGS: BONES: There are stable post operative changes of a right reverse total shoulder arthroplasty present . No fracture or dislocation. Stable postsurgical changes are seen at the distal clavicle. JOINTS: The orthopedic hardware is in good position. No evidence of hardware loosening. SOFT TISSUE: Normal. IMPRESSION: Stable right reverse total shoulder arthroplasty. DATA REPOSITORY: RADIATION DOSE DELIVERED:
== END 2024-09-07 15:37 | disposition home or self-care (01) ==
LOC: DIORS 15:36
PROVIDERS: PCP Nurse Practitioner; Visit Provider Student in an Organized Health Care Education/Training Program
DX: Z47.1 Aftercare following joint replacement surgery; Z96.611 Presence of right artificial shoulder joint
CPT/HCPCS: 99024; 73030

== ENCOUNTER 2024-11-09 14:09 | Outpatient (CLI) | payer MEDICARE, MEDICAID, SELFPAY ==
--- NOTE | 2024-11-09 14:21 | DI.RAD_ITS ---
Exam(s) XR SHOULDER RT COMPLETE 2+V EXAM: XR SHOULDER RT COMPLETE 2+V CLINICAL HISTORY: F/U RIGHT RTSA. TECHNIQUE: 2D digital imaging was performed. Two images were obtained. Grashey and Y views were obt ained. COMPARISON: CR XR SHOULDER RT COMPLETE 2+V from 09/07/2024 FINDINGS: BONES: There are stable post operative changes of a right reverse total shoulder arthroplasty present . No fracture or dislocation. JOINTS: The orthopedic hardware is in good position. No evidence of hardware loosening. SOFT TISSUE: Normal. IMPRESSION: Stable right reverse total shoulder arthroplasty. DATA REPOSITORY: RADIATION DOSE DELIVERED:
== END 2024-11-09 14:10 | disposition home or self-care (01) ==
LOC: DIORS 14:10
PROVIDERS: PCP Family Medicine; Referring Provider Family Medicine; Visit Provider Student in an Organized Health Care Education/Training Program
DX: Z47.89 Encounter for other orthopedic aftercare (principal); M25.611 Stiffness of right shoulder, not elsewhere classified; M19.011 Primary osteoarthritis, right shoulder; J44.1 Chronic obstructive pulmonary disease with (acute) exacerbation; R29.6 Repeated falls
CPT/HCPCS: 99213; 73030

== ENCOUNTER 2025-01-03 01:36 | Outpatient (CLI) | payer MEDICARE, MEDICAID, SELFPAY ==
--- NOTE | 2025-01-03 11:00 | DI.US_ITS ---
Exam(s) US AXILLA LT EXAM: US AXILLA LT CLINICAL HISTORY: Solid vs cystic mass of L axilla,SWELLING LT UPPER LIMB,UNSPECIFIED LUMP TECHNIQUE: Ultrasound left axilla performed using standard protocol. COMPARISON: No exams were available for comparison FINDINGS: Sonographically benign-appearing lymph nodes are seen in the left axilla. The largest measures 2.5 x 0.8 x 2.1 cm. They are hypoechoic with a fatty hilum. No suspicious lymph nodes are seen in the axilla. IMPRESSION: No sonographically suspicious finding. DATA REPOSITORY:
== END 2025-01-03 01:56 ==
LOC: DI 01:36
PROVIDERS: PCP Nurse Practitioner; Visit Provider Family Medicine
DX: N63.32 Unspecified lump in axillary tail of the left breast (principal)
CPT/HCPCS: 76642

== ENCOUNTER 2025-01-11 11:45 | Outpatient (CLI) | payer MEDICARE, MEDICAID, SELFPAY ==
--- NOTE | 2025-01-11 11:00 | DI.RAD_ITS ---
Exam(s) XR SHOULDER RT COMPLETE 2+V EXAM: XR SHOULDER RT COMPLETE 2+V CLINICAL HISTORY: F/U RIGHT RTSA. TECHNIQUE: 2D digital imaging was performed. Three images were obtained. Y and Grashey views were obtained. COMPARISON: CR XR SHOULDER RT COMPLETE 2+V from 11/09/2024 FINDINGS: BONES: There are stable post operative changes of a right total reverse shoulder arthroplasty present. No fracture or dislocation. Stable postsurgical changes are seen at the acromioclavicular joint. JOINTS: The orthopedic hardware is in good position. No evidence of hardware loosening. SOFT TISSUE: Normal. IMPRESSION: Stable right reverse total shoulder arthroplasty. DATA REPOSITORY: RADIATION DOSE DELIVERED:
== END 2025-01-11 11:46 | disposition home or self-care (01) ==
LOC: DIORS 11:46
PROVIDERS: PCP Nurse Practitioner; Visit Provider Student in an Organized Health Care Education/Training Program
DX: M19.011 Primary osteoarthritis, right shoulder (principal); M25.611 Stiffness of right shoulder, not elsewhere classified; M75.21 Bicipital tendinitis, right shoulder
CPT/HCPCS: 99213; 73030